=== PATIENT | male | born 1990 | race Two or more races ===

== ENCOUNTER 2017-12-27 05:00 | Emergency (ER) | payer OTHER | END 2017-12-27 05:36 | disposition left against medical advice (07) | LOC: M ED 05:00 | DX: T50.901A Poisoning by unspecified drugs, medicaments and biological substances, accidental (unintentional), initial encounter (principal); Z53.21 Procedure and treatment not carried out due to patient leaving prior to being seen by health care provider ==

== ENCOUNTER 2020-01-29 00:19 | Emergency (ER) | payer MEDICAID, OTHER ==
[~2020-01-29] VITALS: Ht 180.3 cm; Wt 81.8 kg
[2020-01-29 01:45] VITALS: BP 106/57
== END 2020-01-29 02:06 | disposition left against medical advice (07) ==
LOC: M ED 00:19
DX: Z53.21 Procedure and treatment not carried out due to patient leaving prior to being seen by health care provider (principal)

== ENCOUNTER 2020-11-11 09:20 | Inpatient (IN) | payer MEDICAID, OTHER ==
[~2020-11-11] VITALS: Ht 177.8 cm; Wt 75.3 kg
[2020-11-11 10:34] LABS: HEMATOCRIT 44.1 % (42.0-52.0); HEMOGLOBIN 13.8 g/dl (13.5-17.5); MEAN CORPUSCULAR HEMOGLOBIN 28.2 pg (27.0-33.0); MEAN CORPUSCULAR HGB CONC 31.3 g/dl (32.0-36.5); PLATELET COUNT, AUTOMATED 201 10^3/uL (150-450); WHITE BLOOD COUNT 9.5 10^3/uL (4.0-10.0)
[2020-11-11] MEDS ORDERED: BUPR8SUB SL (10:47)
[2020-11-11 11:04] LABS: ACETAMINOPHEN LEVEL < 2.0 UG/ML (10.0-30.0); ALBUMIN 3.9 GM/DL (3.2-5.2); ALT/SGPT 107 U/L (12-78); BILIRUBIN,DIRECT < 0.1 MG/DL (0.0-0.2); BILIRUBIN,TOTAL 0.2 MG/DL (0.2-1.0); BLOOD UREA NITROGEN 14 MG/DL (7-18); CALCIUM LEVEL 9.1 MG/DL (8.5-10.1); CARBON DIOXIDE LEVEL 25 MEQ/L (21-32); CHLORIDE LEVEL 110 MEQ/L (98-107); CREATININE FOR GFR 0.74 MG/DL (0.70-1.30); ETHYL ALCOHOL (ETHANOL) < 0.003 % (0.000-0.010); GLOMERULAR FILTRATION RATE > 60.0 (>60); GLUCOSE, FASTING 125 MG/DL (70-100); SALICYLATE LEVEL 6.4 MG/DL (5.0-30.0); SODIUM LEVEL 141 MEQ/L (136-145); THYROID STIMULATING HORMONE 0.653 uIU/ML (0.358-3.740); TOTAL PROTEIN 7.4 GM/DL (6.4-8.2)
[2020-11-11 11:40] LABS: AMPHETAMINES LEVEL URINE NEGATIVE (NEGATIVE); BARBITURATES URINE NEGATIVE (NEGATIVE); BENZODIAZEPINES URINE NEGATIVE (NEGATIVE); CANNABINOIDS URINE POSITIVE (NEGATIVE); COCAINE METABOLITE URINE NEGATIVE (NEGATIVE); METHADONE URINE NEGATIVE (NEGATIVE); OPIATES URINE NEGATIVE (NEGATIVE); PHENCYCLIDINE URINE NEGATIVE (NEGATIVE)
[2020-11-11] MEDS ORDERED: MOM 30ML SUSPENSION UDC PO PRN (14:40)
[2020-11-11] MEDS ORDERED: MAALOX 30 ML SUSP *UDC PO PRN (14:40)
[2020-11-11] MEDS ORDERED: ACETAMINOPHEN TAB 650MG DOSE (2X325MG) PO PRN (14:40)
[2020-11-11] MEDS ORDERED: DULO1CAP4 PO (14:46)
[2020-11-11] MEDS: OLANZapine ORAL DISINTEGRATING TAB 5MG PO PRN (16:08)
[2020-11-11] MEDS: NICOTINE 21MG/24HR 1 EA TRANSDERMAL TD SCH (17:55)
[2020-11-11 18:15] VITALS: BP 137/80
[2020-11-11] MEDS ORDERED: OLANZapine 5 MG TAB PO SCH (21:00)
[2020-11-11] MEDS: BUPRENORPHINE HCL 8MG SUBINGUAL TABLET SL SCH (21:00)
--- NOTE | 2020-11-11 23:20 | REPVR ---
PROCEDURE INFORMATION: Exam: CT Head Without Contrast Exam date and time: 11/11/2020 10:59 PM Age: 29 years old Clinical indication: Altered mental status/memory loss; Confusion or disorientation TECHNIQUE: Imaging protocol: Computed tomography of the head without contrast. Radiation optimization: All CT scans at this facility use at least one of these dose optimization techniques: automated exposure control; mA and/or kV adjustment per patient size (includes targeted exams where dose is matched to clinical indication); or iterative reconstruction. COMPARISON: CT Head W/O FOLL BY WITH CONTR 06/02/2015 11:28 AM FINDINGS: Brain: There is no acute intracranial hemorrhage or abnormal extra-axial fluid collection identified. There is no intracranial mass effect or shift of midline structures. The calhoun-white differentiation is preserved throughout. Cerebral ventricles: There is no sulcal or ventricular effacement. The basilar cisterns are open. No hydrocephalus. There is a normal-variant cavum septum pellucidum. Bones/joints: No calvarial fracture or destructive osseous lesions are seen. Paranasal sinuses: The visualized sinuses are unremarkable. Mastoid air cells: There is no mastoid effusion detected. Soft tissues: Unremarkable. IMPRESSION: No acute intracranial pathology identified by CT. Electronically signed by: Alexa Smith On 11/11/2020 23:20:57 PM
[2020-11-12] MEDS: OLANZapine ORAL DISINTEGRATING TAB 5MG PO PRN (00:36)
[2020-11-12] MEDS ORDERED: LORazepam 2 MG TAB PO STA (01:33)
[2020-11-12] MEDS ORDERED: diphenhydrAMINE 50MG CAP PO STA (01:33)
[2020-11-12] MEDS: BUPRENORPHINE HCL 8MG SUBINGUAL TABLET SL SCH ×2 (09:00→20:10)
[2020-11-12] MEDS: OLANZapine 10 MG TAB PO SCH ×3 (09:00→20:09)
[2020-11-12] MEDS: NICOTINE 21MG/24HR 1 EA TRANSDERMAL TD SCH (09:18)
[2020-11-12] MEDS ORDERED: ALBUTEROL 90 MCG/ACT 8GM HFA INHALER INH PRN (10:45)
--- NOTE | 2020-11-12 10:49 | HPEPDOC ---
[facility] Medical History & Physical Date of Admission Nov 11, 2020 Date of Service: Nov 12, 2020 History and Physical CHIEF COMPLAINT: Anxiety HISTORY OF PRESENT ILLNESS: 29-year-old male admitted to the inpatient mental health unit due to anxiety disorder with prior history significant for asthma with no prior intubations in the past. Her daily or nighttime symptoms. He denies any dyspnea on exertion, shortness of breath, wheezing and has no daily or nighttime symptoms of asthma. He has not seen an board setter in the past and has not been on any maintenance medications for asthma. He otherwise denies any fever, chills, shortness of breath, sore throat, changes in weight, ap petite, sleep habits bowel or urine. He denies any polyphagia, polydipsia, polyuria, dysuria, urgency, frequency, flank pain, nausea, vomiting, diarrhea, abdominal pain, palpitations, lightheadedness, dizziness, ear pain, changes in vision appropriately, extremity weakness or paresthesias. Despite being a smoker for "many years," He denies any chronic cough, hemoptysis, dyspnea and exertion, and has never had pulmonary function testing in the past. PAST MEDICAL HISTORY: Asthma, anxiety, tobacco abuse PAST SURGICAL HISTORY: None SOCIAL HISTORY: Denies recreational drug use. Social alcohol use. Smokes a pack a day for "many years" . No healthcare proxy FAMILY HISTORY: Mother, father alive and well unknown medical problems ALLERGIES: Please see below. REVIEW OF SYSTEMS: 10 point review of systems negative aside from positive findings on HPI HOME MEDICATIONS: Please see below. PHYSICAL EXAMINATION: VITAL SIGNS: See below GENERAL APPEARANCE: No distress HEENT: No pallor icterus. Pupils equally round, reactive to light and accommodation. Extra muscles are intact. Moist mucous membranes. No JVD, thyromegaly or cervical lymphadenopathy CARDIOVASCULAR: S1, S2, regular rate, rhythm LUNGS: Clear to auscultation wheezing, rales or rhonchi. Air entry is equal ABDOMEN: Positive bowel sounds, soft, nontender, nondistended EXTREMITIES: No cyanosis, clubbing or pitting edema LABORATORY DATA: See below. MICROBIOLOGY: Please see below. ASSESSMENT: 29-year-old male admitted to the inpatient mental health unit due to anxiety disorder with prior history significant for asthma with no prior intubations in the past. Her daily or nighttime symptoms. He denies any dyspnea on exertion, shortness of breath, wheezing and has no daily or nighttime symptoms of asthma. He has not seen an board setter in the past and has not been on any maintenance medications for asthma. He otherwise denies any fever, chills, shortness of breath, sore throat, changes in weight, appetite, sleep habits bowel or urine. He denies any polyphagia, polydipsia, polyuria, dysuria, urgency, frequency, flank pain, nausea, vomiting, diarrhea, abdominal pain, palpitations, lightheadedness, dizziness, ear pain, changes in vision appropriately, extremity weakness or paresthesias.Despite being a smoker for "many years," He denies any chronic cough, hemoptysis, dyspnea and exertion, and has never had pulmonary function testing in the past. Anxiety disorder History of asthma Tobacco abuse PLAN: Albuterol as needed every 2 hourly for wheezing or shortness of breath. Tobacco cessation counseling and nicotine patch. Hospital service will sign off. Please reconsult if no acute medical problems occur by calling [facility] physicians at [phone]. Vital Signs Vital Signs Date Time Temp Pulse Resp B/P (MAP) Pulse Ox O2 Delivery O2 Flow Rate FiO2 11/11/20 18:15 99.6 80 20 137/80 (99) 100 11/11/20 17:09 Room Air Laboratory Data Microbiology Microbiology 11/11/20 Respiratory Virus Panel (PCR) (EWELINA) - Final, Complete Home Medications Scheduled Buprenorphine HCl (Buprenorphine HCl) 8 Mg Tab.subl, 8 MG SL BID Duloxetine Hcl (Duloxetine HCl) 20 Mg Capsule.dr, 20 MG PO DAILY Allergies Coded Allergies: amoxicillin (Verified Allergy, Intermediate, HIVES, 11/11/20) A-FIB/CHADSVASC A-FIB History Current/History of A-Fib/PAF?: No Current PO Anticoag Therapy: No Age/Risk Factor Scoring CHADSVASC: CHADSVASC Response (Comments) Value Age Risk Factor Age < 65 years old 0 Gender Risk Factor Male 0 Hx of CHF No 0 Hx of HTN No 0 Hx of Stroke/TIA/or VTE No 0 Hx of Diabetes No 0 Hx of Vascular Disease No 0 Total 0 Treatment Treatment ordered: NONE MACHO CARRION MD Nov 12, 2020 10:49
--- NOTE | 2020-11-12 20:14 | MHHPEPDOC ---
General Date Of Admission: Nov 11, 2020 Legal Status: 9.39 Chief Complaint Anxiety, panic attacks and paranoia. History of Present Illness HISTORY OF THE PRESENT ILLNESS: Patient is a 29 -year-old Other, male, who, as per ED report: "Pt. mother called 911 as pt wanted to come to ER due to extreme anxiety and panic attacks. Pt. was willing to come to ER. Upon arrival to ER pt stated he did not want to be here but was unable to articulate why he was here. he was unable to focus and answer questions. Pt. mother,[phone] was contacted. Mother reports that pt has supposedly been sober for past 13 days,recently started on anxiety meds and subutex. She reports pt has been talking to self,screaming and yelling at times. Pt. brother,[phone], states that pt. has been very paraniod, stating that people from [employer] have been following him, that the tv has been talking to him and that people are out to get him. Brother states that pt stated two days ago that he would rather than go through this again". Psychiatric Review of Systems Depression (2 or more weeks): depressed mood, insomnia/hypersomnia, feelings of excess/guilt, decreased energy, difficulty concentrating, appetite changes (erratic), other (he says he doesn't know if he has helped hopeless. Denies feeling helpless) Brittany (4 or more days of): talkativity, pressured, distractibility, goal- directed activities, engages in risky behavior Psychosis: auditory hallucination (depends on "where I am"), paranoia PTSD: other (He is minimizing his symptoms, not cooperative) Anxiety: gen/non-specific anxiety, panic attacks Anxiety/ 6 months or more of: difficulty concentrating, irritability Past Psychiatric History Previous Psychiatric Diagnosis: He says he is recovering from substance abuse???--H/O depression, anxiety Previous Psychiatric Admissions: Yes, to a crisis unit, in [place] Suicide Attempts: he tried 3 or 4 times Psychiatric Follow-up: Yes at [facility] Psychiatric medications: Hedid, he says he had "anxiety pills but I stopped using those". Past Medical History Medical Problems Asthma Head Injury: No Seizures: Yes (he thinks it was drug related) Hospitalizations: Yes Surgeries: No Family Medical/Psychiatric HX Medical Problems diabetes, depression Psychiatric Disorders: Yes (depression on both sides of the family) Addiction: Yes (brother) Suicide Attemps/Completions: No Addiction History nicotine, cocaine (he has tried it), ecstasy (he tried it), amphetamines, opioids (he has overdosed on heroin), methamphetamines, heroin (he has used heroin), other (marijuana) Social History Childhood: He grew up with his mother, he has siblings, he gets along with his siblings. He did not like going to school "because I hate crowds of people". He says he is estranged from his father Abuse/Trauma: He says "I don't know" Current Living Situation: He lives by himself Education: he didn't finish [employer], has not got a GED Employment: Unemployed Social Support: mother and friends Legal: he says he got fines and tickets Marital: not , no children Mental Status Examination General Appearance: appears stated age, hospital scubs/clothing Build: average Demeanor: mistrustful, preoccupied, guarded Eye Contact: intense Activity: anxious Behavior: resistant Speech: clear, spontaneous, reg/rate,rhythm,volume Mood: anxious, irritable Affect: full, labile, anxious Thought Process: logical/linear Thought Content (Delusions): denies SI, HI, AVH, paranoia Thought Content (Other): preoccupied, guarded, ideas of reference Thought Content (Aggressive): none reported Perception (Hallucinations): none reported Perception (Other): none reported Cognition (Impairment of): none reported Cognition(Intelligence Est.): average Oriented: Awake, Alert, Oriented times three Insight: poor Judgment: Poor Psychosis: Denies Diagnoses 1. Unspecified psychotic disorder 2. substance abuse 3. R/O substance induced psychotic disorder A-FIB/CHADSVASC A-FIB History Current/History of A-Fib/PAF?: No Current PO Anticoag Therapy: No Age/Risk Factor Scoring CHADSVASC: CHADSVASC Response (Comments) Value Age Risk Factor Age < 65 years old 0 Gender Risk Factor Male 0 Hx of CHF No 0 Hx of HTN No 0 Hx of Stroke/TIA/or VTE No 0 Hx of Diabetes No 0 Hx of Vascular Disease No 0 Total 0 Treatment Treatment ordered: NONE Reason Anticoagulant not given: Not indicated/[id number] Assessment He is very paranoid, he says that people have been trying to listen to his conversations, they are out of thedoor, listening to us while we zoom. He feels people are following in the Hallways, he is defensive and guarded, he says he doesn't have to go out to talk to anybody ( other patients or staff). This financial writer told him nobody is demanding him to do that, he can stay in his room until he feels better. As the interview progressed he was able to relax, calm and cooperate with it. His CT of the head was negative Initial Treatment Plan 1. Patient was admitted on a [9.39] status. 2. Complete history was obtained. 3. With patients permission, family will be contacted and database will be expanded. 4. Patients medication regimen will be reviewed and changed accordingly. 5. Patient will be provided with protected environment. 6. Patient will be treated with individual, group, and milieu therapies. 7. Patient will receive supportive psych-education. 8. Discharge planning will commence immediately. 9. Outpatient follow-up treatment will be strongly recommended. 10. The initial treatment plan will focus initially on: * Anxiety * altered thoughts * substance abuse * ineffective coping ESTIMATED LENGTH OF STAY: 3-5 DAYS. TIME SPENT COUNSELING AND COORDINATING INITIAL CARE: 50 minutes. Tobacco Cessation Screen Tobacco Cessation Tx Ordered?: Yes Ordered/Pending Vital Signs Vital Signs Date Time Temp Pulse Resp B/P (MAP) Pulse Ox O2 Delivery O2 Flow Rate FiO2 11/11/20 18:15 99.6 80 20 137/80 (99) 100 11/11/20 17:09 Room Air Medications Scheduled Buprenorphine HCl (Buprenorphine HCl) 8 Mg Tab.subl, 8 MG SL BID, (Reported) Duloxetine Hcl (Duloxetine HCl) 20 Mg Capsule.dr, 20 MG PO DAILY, (Reported) Allergies Coded Allergies: amoxicillin (Verified Allergy, Intermediate, HIVES, 11/11/20) KHUSHI PATEL MD Nov 12, 2020 13:57
[2020-11-13 06:06] VITALS: BP 168/89
[2020-11-13 07:57] LABS: CHOLESTEROL RISK RATIO 2.6 (<5)
[2020-11-13] MEDS: BUPRENORPHINE HCL 8MG SUBINGUAL TABLET SL SCH ×3 (09:00→20:27)
[2020-11-13] MEDS: OLANZapine 10 MG TAB PO SCH ×2 (09:01→20:27)
[2020-11-13] MEDS: NICOTINE 21MG/24HR 1 EA TRANSDERMAL TD SCH (09:03)
[2020-11-13] MEDS ORDERED: LORazepam 2 MG TAB PO ONE (09:30)
--- NOTE | 2020-11-13 13:30 | MHIPN ---
[facility] PROGRESS NOTE DATE: 11/13/2020 CHIEF COMPLAINT: "I'd like to be discharged. I have anxiety." SUBJECTIVE: He is a 29-year-old male. The patient was brought by the police. His mother called, said that patient was extremely anxious and it was reported he said "I would rather than go through this again." Patient has a significant substance abuse problem. He is recovering from use of drugs. He is followed up at [facility]. Now still continues to be anxious; however, his hallucinations have resolved. He is able to sleep better. MENTAL STATUS EXAMINATION: Casually dressed, cooperative. Made good eye contact. Psychomotor activity is normal. Somewhat anxious. Speech is somewhat mumbling. Thought content: Denied any suicidal or homicidal ideas. Perception: Denied any auditory or visual hallucinations. Insight and judgment are limited. DIAGNOSES: 1. Psychotic disorder, not otherwise specified. 2. Polysubstance use disorder; positive for cannabis. VITAL SIGNS: Temperature 97.9, pulse 97, respiratory rate 16, blood pressure 168/89, pulse oximetry 100. LABORATORY STUDIES: CBC within normal limits. CMP within normal limits. ASSESSMENT AND PLAN: Continue current medication. Titrate the dose. Consider discharging him in 2-3 days. TIME SPENT: 25 minutes.
[2020-11-13 17:53] VITALS: BP 125/87
[2020-11-14 06:30] VITALS: BP 143/88
[2020-11-14] MEDS: NICOTINE 21MG/24HR 1 EA TRANSDERMAL TD SCH (08:24)
[2020-11-14] MEDS: BUPRENORPHINE HCL 8MG SUBINGUAL TABLET SL SCH ×2 (08:55→20:02)
[2020-11-14] MEDS: OLANZapine 10 MG TAB PO SCH ×2 (09:00→20:02)
[2020-11-14] MEDS: OLANZapine ORAL DISINTEGRATING TAB 5MG PO PRN (11:37)
--- NOTE | 2020-11-14 16:24 | MHIPNPDOC ---
[facility] Progress Note Progress Note DATE OF SERVICE: 11/14/20 SUBJECTIVE: "I'd like to be discharged. I have anxiety." The medication is making me tired. OBJECTIVE: He is a 29-year-old male. The patient was brought by the police. His mother called, said that patient was extremely anxious and it was reported he said "I would rather than go through this again." Patient has a significant substance abuse problem. He is recovering from use of drugs. He is followed up at [facility]. Now still continues to be anxious; however, his hallucinations have resolved. He is able to sleep better. Continues to be confused and has significant thought blocking.There is questionable AH. MENTAL STATUS EXAMINATION: Casually dressed, cooperative. Made good eye contact. Psychomotor activity is normal. Somewhat anxious. Speech is somewhat mumbling. Thought content: Denied any suicidal or homicidal ideas. Perception: Denied any auditory or visual hallucinations. Insight and judgment are limited. DIAGNOSES: 1. Psychotic disorder, not otherwise specified. 2. Polysubstance use disorder; positive for cannabis. VITAL SIGNS: Temperature 97.9, pulse 97, respiratory rate 16, blood pressure 168/89, pulse oximetry 100. LABORATORY STUDIES: CBC within normal limits. CMP within normal limits. ASSESSMENT AND PLAN: Continue current medication. Titrate the dose. Consider discharging him in 2-3 days. Decrease Zyprexa 10 mg Hs TIME SPENT: 25 minutes. Vital Signs Vital Signs Date Time Temp Pulse Resp B/P (MAP) Pulse Ox O2 Delivery O2 Flow Rate FiO2 11/14/20 06:30 98.3 80 20 143/88 (106) 99 Room Air Current Medications Current Medications Medications (Trade) Dose Ordered Sig/Rishi Route PRN Reason Start Time Stop Time Status Last Admin Dose Admin Acetaminophen (Tylenol Tab) 650 mg Q6HP PRN PO HEADACHE or DISCOMFORT 11/11/20 14:40 Al Hydrox/Mg Hydrox/Simethicone (Mylanta) 30 ml Q4HP PRN PO HEARTBURN/INDIGESTION 11/11/20 14:40 Albuterol Sulfate (Proventil, Ventolin Hfa) 2 puff Q2HP PRN INH SHORTNESS OF BREATH 11/12/20 10:45 Buprenorphine HCl (Subutex) 8 mg BID SL 11/11/20 21:00 11/14/20 08:55 Diphenhydramine HCl (Benadryl) 50 mg STAT STAT PO 11/12/20 01:33 11/12/20 01:38 DC Haloperidol (Haldol) 10 mg STAT STAT PO 11/12/20 01:33 11/12/20 01:38 DC Home Med (Med Rec Complete!) ASDIRECTED XX 11/11/20 14:50 11/11/20 14:48 DC Lorazepam (Ativan) 2 mg STAT STAT PO 11/12/20 01:33 11/12/20 01:38 DC Magnesium Hydroxide (Milk Of Magnesia) 30 ml DAILYPRN PRN PO CONSTIPATION 11/11/20 14:40 Nicotine (Nicoderm Cq 21mg) 1 patch DAILY TD 11/11/20 09:00 11/14/20 08:24 Olanzapine (ZyPREXA ZYDIS) 5 mg TIDP PRN PO AGITATION 11/11/20 14:40 11/14/20 11:37 Olanzapine (ZyPREXA) 5 mg BID PO 11/11/20 21:00 11/12/20 01:37 DC Olanzapine (ZyPREXA) 10 mg BID PO 11/12/20 09:00 11/14/20 09:20 DC 11/13/20 20:27 Olanzapine (ZyPREXA) 10 mg QHS PO 11/14/20 21:00 Allergies Coded Allergies: amoxicillin (Verified Allergy, Intermediate, HIVES, 11/11/20) SHAWNA PALACIOS MD Nov 14, 2020 16:24
[2020-11-14 18:00] VITALS: BP 133/85
[2020-11-15 06:31] VITALS: BP 143/86
[2020-11-15] MEDS: BUPRENORPHINE HCL 8MG SUBINGUAL TABLET SL SCH ×2 (08:58→20:13)
[2020-11-15] MEDS: NICOTINE 21MG/24HR 1 EA TRANSDERMAL TD SCH (08:58)
--- NOTE | 2020-11-15 14:57 | MHIPNPDOC ---
[facility] Progress Note Progress Note DATE OF SERVICE: 11/15/20 SUBJECTIVE: "I'd like to be discharged. I am feeling better." OBJECTIVE: He is a 29-year-old male. The patient was brought by the police. His mother called, said that patient was extremely anxious and it was reported he said "I would rather than go through this again." Patient has a significant substance abuse problem. He is recovering from use of drugs. He is followed up at [facility]. Now still continues to be anxious; however, his hallucinations have resolved. He is able to sleep better.Pt is more coherent and clearer. MENTAL STATUS EXAMINATION: Casually dressed, cooperative. Made good eye contact. Psychomotor activity is normal. Somewhat anxious. Speech is somewhat mumbling. Thought content: Denied any suicidal or homicidal ideas. Perception: Denied any auditory or visual hallucinations. Insight and judgment are limited. DIAGNOSES: 1. Psychotic disorder, not otherwise specified. 2. Polysubstance use disorder; positive for cannabis. LABORATORY STUDIES: CBC within normal limits. CMP within normal limits. ASSESSMENT AND PLAN: Continue current medication. Titrate the dose. Consider discharging him in 2-3 days. Decrease Zyprexa 10 mg hs TIME SPENT: 25 minutes. Vital Signs Vital Signs Date Time Temp Pulse Resp B/P (MAP) Pulse Ox O2 Delivery O2 Flow Rate FiO2 11/15/20 06:31 97.4 89 20 143/86 (105) 100 Room Air Current Medications Current Medications Medications (Trade) Dose Ordered Sig/Rishi Route PRN Reason Start Time Stop Time Status Last Admin Dose Admin Acetaminophen (Tylenol Tab) 650 mg Q6HP PRN PO HEADACHE or DISCOMFORT 11/11/20 14:40 Al Hydrox/Mg Hydrox/Simethicone (Mylanta) 30 ml Q4HP PRN PO HEARTBURN/INDIGESTION 11/11/20 14:40 Albuterol Sulfate (Proventil, Ventolin Hfa) 2 puff Q2HP PRN INH SHORTNESS OF BREATH 11/12/20 10:45 Buprenorphine HCl (Subutex) 8 mg BID SL 11/11/20 21:00 11/15/20 08:58 Diphenhydramine HCl (Benadryl) 50 mg STAT STAT PO 11/12/20 01:33 11/12/20 01:38 DC Haloperidol (Haldol) 10 mg STAT STAT PO 11/12/20 01:33 11/12/20 01:38 DC Home Med (Med Rec Complete!) ASDIRECTED XX 11/11/20 14:50 11/11/20 14:48 DC Lorazepam (Ativan) 2 mg STAT STAT PO 11/12/20 01:33 11/12/20 01:38 DC Magnesium Hydroxide (Milk Of Magnesia) 30 ml DAILYPRN PRN PO CONSTIPATION 11/11/20 14:40 Nicotine (Nicoderm Cq 21mg) 1 patch DAILY TD 11/11/20 09:00 11/15/20 08:58 Olanzapine (ZyPREXA ZYDIS) 5 mg TIDP PRN PO AGITATION 11/11/20 14:40 11/14/20 11:37 Olanzapine (ZyPREXA) 5 mg BID PO 11/11/20 21:00 11/12/20 01:37 DC Olanzapine (ZyPREXA) 10 mg BID PO 11/12/20 09:00 11/14/20 09:20 DC 11/13/20 20:27 Olanzapine (ZyPREXA) 10 mg QHS PO 11/14/20 21:00 11/14/20 20:02 Allergies Coded Allergies: amoxicillin (Verified Allergy, Intermediate, HIVES, 11/11/20) SHAWNA PALACIOS MD Nov 15, 2020 14:57
[2020-11-15 17:40] VITALS: BP 133/87
[2020-11-15] MEDS: OLANZapine 10 MG TAB PO SCH (20:13)
[2020-11-16 06:37] VITALS: BP 157/80
[2020-11-16] MEDS ORDERED: OLAN10TA2 PO (08:18)
[2020-11-16] MEDS: NICOTINE 21MG/24HR 1 EA TRANSDERMAL TD SCH (09:26)
[2020-11-16] MEDS: BUPRENORPHINE HCL 8MG SUBINGUAL TABLET SL SCH (09:26)
--- NOTE | 2020-11-16 09:33 | MHDS ---
[facility] DISCHARGE SUMMARY DATE OF ADMISSION: 11/11/2020 DATE OF DISCHARGE: 11/16/2020 DIAGNOSES: 1. Psychotic disorder, not otherwise specified. 2. Polysubstance use disorder. He was positive for cannabis. IDENTIFYING DATA: This is a 29-year-old male who was brought by the police. His mother called and said the patient was extremely anxious and he reportedly told that he wound rather than go through this. The patient has a significant history of substance abuse. Currently, followed up at [facility]. For details of history of present illness, past psychiatric history, personal history, medical history please refer to the initial evaluation. COURSE IN THE HOSPITAL: The patient initially was isolative, was unable to communicate well. He was not making much sense. There was a little bit of stammering when he spoke. He became more anxious. He was placed on Zyprexa 20 mg a day, which was subsequently reduced to 10 mg a day. He became less anxious. He started attending groups. His mood improved. He related well with the staff. No behavioral problems. Denied any side effects from the medication. No current suicidal ideas or homicidal ideas. MENTAL STATUS EXAMINATION: Causally dressed, cooperative, made good eye contact. Psychomotor activity is normal. He is less anxious. Speech coherent, goal directed. Denied any auditory hallucinations. Denied any suicidal or homicidal ideas. Memory immediate, remote, recent are good. Insight and judgment are good. LABORATORY DATA: Complete blood count (CBC) within normal limits. Comprehensive metabolic panel (CMP) within normal limits. Lipid profile within normal limits. Toxicology was positive for cannabis. DISCHARGE MEDICATIONS: Olanzapine 10 mg at night. The patient will be receiving Subutex at [facility], he takes 8 mg twice a day. The patient will go home. Follow up at [facility]. Time spent is less than 30 minutes.
== END 2020-11-16 12:00 | disposition home or self-care (01) | DRG 751 ==
LOC: M ED 09:20 → EDBD 09:20 → M ED INP 14:39 → M PSY 17:34
PROVIDERS: ADMIT Psychiatry & Neurology Psychiatry; ATTEND Psychiatry & Neurology Psychiatry
DX: F29 Unspecified psychosis not due to a substance or known physiological condition (principal); F19.10 Other psychoactive substance abuse, uncomplicated; J45.909 Unspecified asthma, uncomplicated; F12.10 Cannabis abuse, uncomplicated; F17.210 Nicotine dependence, cigarettes, uncomplicated; Z20.822 Contact with and (suspected) exposure to COVID-19; Z79.899 Other long term (current) drug therapy; Z88.1 Allergy status to other antibiotic agents; Z91.5 Personal history of self-harm; Z91.14 Patient's other noncompliance with medication regimen

== ENCOUNTER 2020-12-20 00:06 | Inpatient (IN) | payer MEDICAID, OTHER ==
[~2020-12-20] VITALS: Ht 177.8 cm; Wt 79.2 kg
[~2020-12-20 00:06] MED LIST: BUPR8SUB SL; DULO1CAP4 PO; OLAN1TAB20 PO
[2020-12-20] MEDS ORDERED: HOME MED LIST COMPLETE! XX SCH (03:20)
[2020-12-20] MEDS ORDERED: OLANZapine ORAL DISINTEGRATING TAB 5MG PO PRN (04:05)
[2020-12-20] MEDS ORDERED: MAALOX 30 ML SUSP *UDC PO PRN (04:05)
[2020-12-20] MEDS ORDERED: ACETAMINOPHEN TAB 650MG DOSE (2X325MG) PO PRN (04:05)
[2020-12-20] MEDS ORDERED: traZODone 50 MG TAB PO PRN (04:05)
[2020-12-20] MEDS ORDERED: MOM 30ML SUSPENSION UDC PO PRN (04:05)
[2020-12-20 08:21] VITALS: BP 150/78
--- NOTE | 2020-12-20 12:47 | MHHPEPDOC ---
General Date Of Admission: December 20, 2020 Legal Status: 9.39 Chief Complaint I am trying to decide whether I can leave before have to stay ". History of Present Illness HISTORY OF THE PRESENT ILLNESS: Patient is a 29 -year-old Other, male, who [has a long history of polysubstance abuse in the past and recent inpatient admission in October. We'll apparently is not receiving any active outpatient care. He was brought to emergency room by ambulance and admitted on 939 status due to reports of grossly disorganized mental status. On examination, patient is in poor contact, very anxious, perplexed and preoccupied and not able to give any relevant coherent answers. He appears extremely preoccupied and actively hallucinating, showing scattered and fragmented thinking. 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 He is superficially denies taking any medicine will using any drugs. Due to his disorganized thinking. He is not able to give much coherent information and this is an incomplete evaluation. He is a however, denying any suicidal thoughts and does not appear to be acutely agitated or assaultive. ]. Psychiatric Review of Systems Depression (2 or more weeks): denies Brittany (4 or more days of): denies Psychosis: auditory hallucination, disorganization PTSD: denies Anxiety: other (appears highly anxious) Past Psychiatric History Previous Psychiatric Diagnosis: [, Polysubstance abuse and psychotic disorder NOS]. Previous Psychiatric Admissions: One admission in October . Suicide Attempts: [None reported]. Psychiatric Follow-up: [Apparently not attending any outpatient]. Psychiatric medications: [Not taking any medicine]. Past Medical History Medical Problems Denies any medical issues Head Injury: No Seizures: Yes (, possible drug withdrawal or seizures in the past) Hospitalizations: No Surgeries: No Family Medical/Psychiatric HX Medical Problems Unable to get the information Psychiatric Disorders: No Addiction: No Suicide Attemps/Completions: No Addiction History opioids, heroin Social History Childhood: [, Unable to get the information]. Abuse/Trauma:[Denies]. Current Living Situation: Claims he lives alone. Education: Didn't finish high school. Employment: [, Unemployed]. 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 Legal: [Denies any legal history]. Marital: , Single. Mental Status Examination General Appearance: appears stated age Build: average Demeanor: mistrustful, withdrawn, preoccupied, guarded Eye Contact: avoidant Activity: anxious Behavior: cooperative Speech: slow, non-spontaneous, impoverished, other (, not able to give coherent information. Very fragmented spotty answers) Mood: anxious, other (, confused, perplexed) Affect: constricted, inappropriate, incongruent, anxious, disorganized Thought Process: incoherent, tangential, loose, slow Thought Content (Delusions): bizarre Thought Content (Other): preoccupied, guarded, internal-stimuli Thought Content (Aggressive): none reported Perception (Hallucinations): other (, appears to be actively hallucinating) Perception (Other): other (, unable to evaluate) Cognition (Impairment of): unable to assess Oriented: Awake Insight: poor Judgment: Poor Diagnoses Psychotic disorder NOS History of polysubstance abuse A-FIB/CHADSVASC A-FIB History Current/History of A-Fib/PAF?: No Current PO Anticoag Therapy: No Age/Risk Factor Scoring CHADSVASC: CHADSVASC Response (Comments) Value Gender Risk Factor Male 0 Hx of CHF No 0 Hx of HTN No 0 Hx of Stroke/TIA/or VTE No 0 Hx of Diabetes No 0 Hx of Vascular Disease No 0 Total 0 Treatment Treatment ordered: NONE Assessment The patient appears grossly disorganized, perplexed, but not agitated or aggressive. We'll try to stabilize with the Seroquel and supportive therapy and further evaluate. Initial Treatment Plan 1. Patient was admitted on a 9.39 status. 2. Complete history was obtained. 3. With patients permission, family will be contacted and database will be expanded. 4. Patients medication regimen will be reviewed and changed accordingly. 5. Patient will be provided with protected environment. 6. Patient will be treated with individual, group, and milieu therapies. 7. Patient will receive supportive psych-education. 8. Discharge planning will commence immediately. 9. Outpatient follow-up treatment will be strongly recommended. 10. The initial treatment plan will focus initially on: * Depression. * Risk for suicide. ESTIMATED LENGTH OF STAY: 5-7 DAYS. TIME SPENT COUNSELING AND COORDINATING INITIAL CARE: 40 minutes. Tobacco Cessation Screen If Patient is a Smoker Unable to evaluate if he is active smoker N/A-No Antipsychotics Vital Signs Vital Signs Date Time Temp Pulse Resp B/P (MAP) Pulse Ox O2 Delivery O2 Flow Rate FiO2 12/20/20 08:21 96.7 78 18 150/78 (102) 98 Room Air Medications No Active Prescriptions or Reported Meds Allergies Coded Allergies: amoxicillin (Verified Allergy, Intermediate, HIVES, 11/11/20) BLANQUITA DOWD M.D. December 20, 2020 12:47
[2020-12-20] MEDS ORDERED: LORazepam 1 MG TAB PO PRN (13:00)
[2020-12-20 16:17] VITALS: BP 132/69
[2020-12-20] MEDS: QUEtiapine FUMARATE 100 MG TAB PO SCH (21:00)
[2020-12-21 06:28] VITALS: BP 109/70
[2020-12-21] MEDS: QUEtiapine FUMARATE 50MG TAB PO SCH (09:00)
--- NOTE | 2020-12-21 11:04 | MHIPNPDOC ---
[facility] Progress Note Progress Note DATE OF SERVICE: 12/21/20 The patient refused his Seroquel last night without any clear reasons. He is in same mental status with very perplexed affect and fragmented and disorganized t hinking and unable to give any coherent information. When asked about his reason to come to hospital. The patient mumbled words that his community case manager told him to come in but doesn't know why. He has long history with a similar presentation in the past and apparently has a mother who is in [place] to her he is very dependent and attached. He is not agitated and is not aggressive, but appears very odd and perplexed and appears grossly disorganized. HISTORY: . VITAL SIGNS: See below. NEW TEST RESULTS: . CURRENT MEDICATIONS: See below. MENTAL STATUS EXAMINATION: Patient is a 29-year old male, who is in poor contact. Speech: Is , not productive, not spontaneous. Language skills are poor . Thought processes including: [place] scattered. Thought content: , Unable to evaluate. Abstract reasoning, and computation: , Poor. Description of associations: [place] scattered. Description of abnormal or psychotic thoughts: Appears very paranoid, anxious, fearful, but denies any problem. Judgment: , Poor. Insight: very poor. Orientation: Difficult to evaluate. Recent and remote memory: , Poor. Attention span and concentration: , Poor. Language: . Fund of knowledge: , Poor. Mood: , Anxious and confused. Affect: Blunted perplexed. DIAGNOSES: 1. ]. Psychotic disorder, NOS 2. . 3. . ASSESSMENT:[, Grossly disorganized, unable to cooperate] MANAGEMENT PLAN: [Support and education, and try to stabilize with medications]. TIME SPENT: [20] minutes. Vital Signs Vital Signs Date Time Temp Pulse Resp B/P (MAP) Pulse Ox O2 Delivery O2 Flow Rate FiO2 12/21/20 08:54 Room Air 12/21/20 06:28 97.5 78 20 109/70 (83) 99 Current Medications Current Medications Medications (Trade) Dose Ordered Sig/Rishi Route PRN Reason Start Time Stop Time Status Last Admin Dose Admin Acetaminophen (Tylenol Tab) 650 mg Q6HP PRN PO HEADACHE or DISCOMFORT 12/20/20 04:05 Al Hydrox/Mg Hydrox/Simethicone (Mylanta) 30 ml Q4HP PRN PO HEARTBURN/INDIGESTION 12/20/20 04:05 Home Med (Med Rec Complete!) ASDIRECTED XX 12/20/20 03:20 12/20/20 03:22 DC Lorazepam (Ativan) 1 mg Q6HP PRN PO ANXIETY 12/20/20 13:00 Magnesium Hydroxide (Milk Of Magnesia) 30 ml DAILYPRN PRN PO CONSTIPATION 12/20/20 04:05 Olanzapine (ZyPREXA ZYDIS) 5 mg Q4HP PRN PO ANXIETY/AGITATION 12/20/20 04:05 Quetiapine Fumarate (SEROquel) 50 mg DAILY PO 12/21/20 09:00 Quetiapine Fumarate (SEROquel) 100 mg QHS PO 12/20/20 21:00 Trazodone HCl (Desyrel) 50 mg QHSP PRN PO INSOMNIA 12/20/20 04:05 Allergies Coded Allergies: amoxicillin (Verified Allergy, Intermediate, HIVES, 11/11/20) BLANQUITA DOWD M.D. December 21, 2020 11:04
--- NOTE | 2020-12-21 12:11 | HPEPDOC ---
[facility] [place] Medical History & Physical Date of Admission December 20, 2020 Date of Service: December 21, 2020 History and Physical CHIEF COMPLAINT: Routine medical exam HISTORY OF PRESENT ILLNESS: 29-year-old male admitted to the inpatient mental health unit due to depression and risk of suicide. He has pmh significant for anxiety disorder asthma with no prior intubations in the past. Her daily or nighttime symptoms. He denies any dyspnea on exertion, shortness of breath, wheezing and has no daily or nighttime symptoms of asthma. He has not seen an president mortgage company in the past and has not been on any maintenance medications for asthma. He otherwise denies any fever, chills, shortness of breath, sore throat, changes in weight, appetite, sleep habits bowel or urine. He denies any polyphagia, polydipsia, polyuria, dysuria, urgency, frequency, flank pain, nausea, vomiting, diarrhea, abdominal pain, palpitations, lightheadedness, dizziness, ear pain, changes in vision appropriately, extremity weakness or paresthesias.Despite being a smoker for "many years," He denies any chronic cough, hemoptysis, dyspnea and exertion, and has never had pulmonary function testing in the past. Pt c/o muscle stiffness in b/l ue and le since yesterday w/o joint /muscle pains or swelling. no rash or unusual ulcers. no change in gait or balance. no joint swelling. PAST MEDICAL HISTORY: depression , Asthma, anxiety, tobacco abuse PAST SURGICAL HISTORY: None SOCIAL HISTORY: Denies recreational drug use. Social alcohol use. Smokes a pack a day for "many years" . No healthcare proxy FAMILY HISTORY: Mother, father alive and well unknown medical problems ALLERGIES: Please see below. REVIEW OF SYSTEMS: 10 point review of systems negative aside from positive findings on HPI HOME MEDICATIONS: Please see below. PHYSICAL EXAMINATION: VITAL SIGNS: See below GENERAL APPEARANCE: No distress HEENT: No pallor icterus. Pupils equally round, reactive to light and accommodation. Extra muscles are intact. Moist mucous membranes. No JVD, thyromegaly or cervical lymphadenopathy CARDIOVASCULAR: S1, S2, regular rate, rhythm LUNGS: Clear to auscultation wheezing, rales or rhonchi. Air entry is equal ABDOMEN: Positive bowel sounds, soft, nontender, nondistended EXTREMITIES: No cyanosis, clubbing or pitting edema. no joint effusion in b/l knees. no bogginess of small joints of b/l hands. no shoulder effusion. full range of motion b/l ue, le. gait normal LABORATORY DATA: See below. MICROBIOLOGY: Please see below. ASSESSMENT: 29-year-old male admitted to the inpatient mental health unit for depression and risk of suicide. Depression risk of suicide Anxiety disorder History of asthma Tobacco abuse muscle stiff ness. PLAN: PRN flexeril. pt has no worrisome symptoms to indicate need for emergent rheumatologic workup. Albuterol as needed every 2 hourly for wheezing or shortness of breath. Tobacco cessation counseling and nicotine patch. Hospital service will sign off. Please reconsult if no acute medical problems occur by calling [facility] [place] [phone]. Vital Signs Vital Signs Date Time Temp Pulse Resp B/P (MAP) Pulse Ox O2 Delivery O2 Flow Rate FiO2 12/21/20 08:54 Room Air 12/21/20 06:28 97.5 78 20 109/70 (83) 99 Home Medications No Active Prescriptions or Reported Meds Allergies Coded Allergies: amoxicillin (Verified Allergy, Intermediate, HIVES, 11/11/20) A-FIB/CHADSVASC A-FIB History Current/History of A-Fib/PAF?: No Current PO Anticoag Therapy: No Age/Risk Factor Scoring CHADSVASC: CHADSVASC Response (Comments) Value Age Risk Factor Age < 65 years old 0 Gender Risk Factor Male 0 Hx of CHF No 0 Hx of HTN No 0 Hx of Stroke/TIA/or VTE No 0 Hx of Diabetes No 0 Hx of Vascular Disease No 0 Total 0 Treatment Treatment ordered: NONE MACHO CARRION MD December 21, 2020 12:07
[2020-12-21 16:17] VITALS: BP 117/76
[2020-12-21] MEDS: QUEtiapine FUMARATE 100 MG TAB PO SCH (21:00)
[2020-12-22 06:56] VITALS: BP 120/72
[2020-12-22] MEDS: QUEtiapine FUMARATE 50MG TAB PO SCH (09:00)
--- NOTE | 2020-12-22 10:43 | MHIPNPDOC ---
[facility] Progress Note Progress Note DATE OF SERVICE: 12/22/20 Showing no improvement and continued to refuse medication. 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 He is not able to carry on any meaningful conversation and claims that he doesn't know why he is here and he only came because of his rehabilitation caseworker. He refused these prescribed Seroquel and no reason is given. He appears preoccupied and guarded and paranoid, and showing disorganized thinking and somewhat bizarre behavior but not agitated, not aggressive and not showing any suicidal behavi ors. HISTORY: . VITAL SIGNS: See below. NEW TEST RESULTS: . CURRENT MEDICATIONS: See below. MENTAL STATUS EXAMINATION: Patient is a body-year old male, who is in poor contact, but in control. Speech: Is , not productive and not spontaneous. Language skills are poor. Thought processes including: [place] scattered. Thought content: , Unable to evaluate. Denies any problem. Abstract reasoning, and computation: For. Description of associations: Low-dose. Description of abnormal or psychotic thoughts: Appears blocking, paranoid and fearful. Judgment: , Poor. Insight: very poor. Orientation: Appears oriented. Recent and remote memory: poor. Attention span and concentration: , Poor. Language: . Fund of knowledge: poor. Mood: , Anxious, fearful. Affect: Perplexed, blunted. DIAGNOSES: 1. . Psychotic disorder, NOS 2. . 3. . ASSESSMENT:No improvement, remains bizarre, disorganized MANAGEMENT PLAN: , Supportive therapy and education and stabilize with medicine. TIME SPENT: 20 minutes. Vital Signs Vital Signs Date Time Temp Pulse Resp B/P (MAP) Pulse Ox O2 Delivery O2 Flow Rate FiO2 12/22/20 06:56 97.9 77 16 120/72 (88) 100 Room Air Current Medications Current Medications Medications (Trade) Dose Ordered Sig/Rishi Route PRN Reason Start Time Stop Time Status Last Admin Dose Admin Acetaminophen (Tylenol Tab) 650 mg Q6HP PRN PO HEADACHE or DISCOMFORT 12/20/20 04:05 Al Hydrox/Mg Hydrox/Simethicone (Mylanta) 30 ml Q4HP PRN PO HEARTBURN/INDIGESTION 12/20/20 04:05 Home Med (Med Rec Complete!) ASDIRECTED XX 12/20/20 03:20 12/20/20 03:22 DC Lorazepam (Ativan) 1 mg Q6HP PRN PO ANXIETY 12/20/20 13:00 Magnesium Hydroxide (Milk Of Magnesia) 30 ml DAILYPRN PRN PO CONSTIPATION 12/20/20 04:05 Olanzapine (ZyPREXA ZYDIS) 5 mg Q4HP PRN PO ANXIETY/AGITATION 12/20/20 04:05 Quetiapine Fumarate (SEROquel) 50 mg DAILY PO 12/21/20 09:00 Quetiapine Fumarate (SEROquel) 100 mg QHS PO 12/20/20 21:00 Trazodone HCl (Desyrel) 50 mg QHSP PRN PO INSOMNIA 12/20/20 04:05 Allergies Coded Allergies: amoxicillin (Verified Allergy, Intermediate, HIVES, 11/11/20) BLANQUITA DOWD M.D. December 22, 2020 10:43
[2020-12-22 16:28] VITALS: BP 123/73
[2020-12-22] MEDS: QUEtiapine FUMARATE 100 MG TAB PO SCH (20:50)
[2020-12-23] MEDS: QUEtiapine FUMARATE 50MG TAB PO SCH (08:02)
--- NOTE | 2020-12-23 13:47 | MHIPN ---
[facility] PROGRESS NOTE DATE: 12/23/2020 VITAL SIGNS: Blood pressure 123/73, pulse 76, temperature 98.1. This is a video assessment. He is aware of it. He is seen in the presence of staff. He is in the hospital, inpatient psychiatry. I am at home. CHIEF COMPLAINT: Says feels okay. SUBJECTIVE: Seen for followup. Indicates feels okay, though vague on this, and suggests wants to go home. Says was living on his own. Does not indicate where he will go. Says feels good. Indicates moods have been okay. Says slept okay. Appetite okay. Does not think there has been much difference since coming in. Says has people supporting him, but when asked about them cannot name any, is vague. Essentially focused on going home. MENTAL STATUS EXAMINATION: He is neat, somewhat guarded. No agitation. No psychomotor retardation. His speech is spontaneous but full in volume. Answers questions briefly. Denies any thoughts of harming himself or anyone else. At present does not appear to be internally preoccupied. No delusional ideations elicited. Cognition grossly intact. Judgment and insight are compromised. ASSESSMENT: Unspecified psychotic disorder. Consider schizoaffective disorder. Consider schizophrenia. The possibility of drug-induced psychosis is also considered. Has poor insight and judgment. PLAN: Continue observations and care. Encourage participation in activities in the unit, as tolerated. I would suggest looking at obtaining collateral information as well. emergency room (ER) records suggest he had been complaining of hearing voices. Current denies such experience. I would suggest decreasing the Seroquel that he is offered started upon admission at 150 mg daily. He has declined using any of it. Further recommendations will be made depending on the clinical picture.
[2020-12-23] MEDS: QUEtiapine FUMARATE 25 MG TAB PO SCH (20:26)
[2020-12-24 06:26] VITALS: BP 127/66
[2020-12-24 15:19] LABS: BLOOD UREA NITROGEN 21 MG/DL (7-18); CARBON DIOXIDE LEVEL 24 MEQ/L (21-32); CHLORIDE LEVEL 105 MEQ/L (98-107); CREATININE FOR GFR 0.94 MG/DL (0.70-1.30); GLOMERULAR FILTRATION RATE > 60.0 (>60); GLUCOSE, FASTING 69 MG/DL (70-100); POTASSIUM SERUM 4.2 MEQ/L (3.5-5.1); SODIUM LEVEL 141 MEQ/L (136-145)
[2020-12-24 16:24] VITALS: BP 120/64
[2020-12-24] MEDS: QUEtiapine FUMARATE 25 MG TAB PO SCH (21:00)
[2020-12-25 06:48] VITALS: BP 95/70
--- NOTE | 2020-12-25 09:19 | MHIPNPDOC ---
[facility] Progress Note Progress Note DATE OF SERVICE: 12/25/20 The patient is in bed but in control. Is extremely withdrawn, and not very productive at all.. He is eating minimally, but in no acute physical distress and has no new complaints. He states that he would want to go home, but doesn't understand why he is in hospital. He is not showing any bizarre, agitated, aggressive or suicidal behavior but appears very regressed and somewhat odd in his appearance and behavior. He has consistently refused to take any medications. We need further observation and evaluation to assess his clinical condition and any lethality issues. HISTORY: . VITAL SIGNS: See below. NEW TEST RESULTS: . CURRENT MEDICATIONS: See below. MENTAL STATUS EXAMINATION: Patient is a 29-year old male, who is in bed and minimally cooperative. Speech: Is low tone Not productive. Language skills are , poor. Thought processes including: Marked psychomotor retardation. Thought content: , Unable to fully evaluate. Abstract reasoning, and computation: , Poor. Description of associations: Possible blocking and poverty of thoughts. Description of abnormal or psychotic thoughts: , Unable to fully evaluate. Judgment: , Poor. Insight: poor. Orientation: , Difficult to evaluate. Recent and remote memory: , Poor. Attention span and concentration: , Poor. Language: . Fund of knowledge: [For]. Mood: [Appears preoccupied moderately anxious]. Affect: [Blunted perplexed]. DIAGNOSES: 1. . Psychotic disorder, NOS 2. . 3. . ASSESSMENT:[No significant improvement remained extremely withdrawn MANAGEMENT PLAN: [Continuing to supportive of care. Needs Collateral information]. TIME SPENT: [15] minutes. Vital Signs Vital Signs Date Time Temp Pulse Resp B/P (MAP) Pulse Ox O2 Delivery O2 Flow Rate FiO2 12/25/20 06:48 97.3 56 20 95/70 (78) 100 Room Air Laboratory Data 24H Labs Laboratory Tests 2 12/24/20 14:27: Anion Gap 12, Glomerular Filtration Rate > 60.0, Calcium Level 10.0 CBC/BMP Laboratory Tests 12/24/20 14:27 Current Medications Current Medications Medications (Trade) Dose Ordered Sig/Rishi Route PRN Reason Start Time Stop Time Status Last Admin Dose Admin Acetaminophen (Tylenol Tab) 650 mg Q6HP PRN PO HEADACHE or DISCOMFORT 12/20/20 04:05 Al Hydrox/Mg Hydrox/Simethicone (Mylanta) 30 ml Q4HP PRN PO HEARTBURN/INDIGESTION 12/20/20 04:05 Home Med (Med Rec Complete!) ASDIRECTED XX 12/20/20 03:20 12/20/20 03:22 DC Lorazepam (Ativan) 1 mg Q6HP PRN PO ANXIETY 12/20/20 13:00 Magnesium Hydroxide (Milk Of Magnesia) 30 ml DAILYPRN PRN PO CONSTIPATION 12/20/20 04:05 Olanzapine (ZyPREXA ZYDIS) 5 mg Q4HP PRN PO ANXIETY/AGITATION 12/20/20 04:05 Quetiapine Fumarate (SEROquel) 25 mg QHS PO 12/23/20 21:00 Quetiapine Fumarate (SEROquel) 50 mg DAILY PO 12/21/20 09:00 12/23/20 13:19 DC Quetiapine Fumarate (SEROquel) 100 mg QHS PO 12/20/20 21:00 12/23/20 13:19 DC Trazodone HCl (Desyrel) 50 mg QHSP PRN PO INSOMNIA 12/20/20 04:05 Allergies Coded Allergies: amoxicillin (Verified Allergy, Intermediate, HIVES, 11/11/20) BLANQUITA DOWD M.D. December 25, 2020 09:19
[2020-12-25] MEDS: QUEtiapine FUMARATE 25 MG TAB PO SCH (20:23)
[2020-12-26 01:44] VITALS: BP 133/62
[2020-12-26 07:46] LABS: HEMATOCRIT 49.4 % (42.0-52.0); HEMOGLOBIN 15.9 g/dl (13.5-17.5); MEAN CORPUSCULAR HEMOGLOBIN 28.1 pg (27.0-33.0); MEAN CORPUSCULAR HGB CONC 32.2 g/dl (32.0-36.5); MEAN CORPUSCULAR VOLUME 87.4 fl (80.0-96.0); PLATELET COUNT, AUTOMATED 197 10^3/uL (150-450); RED BLOOD COUNT 5.65 10^6/uL (4.30-6.10); WHITE BLOOD COUNT 5.9 10^3/uL (4.0-10.0)
[2020-12-26 08:06] LABS: ALBUMIN 3.9 GM/DL (3.2-5.2); ALT/SGPT 198 U/L (12-78); BILIRUBIN,TOTAL 1.2 MG/DL (0.2-1.0); BLOOD UREA NITROGEN 18 MG/DL (7-18); CARBON DIOXIDE LEVEL 24 MEQ/L (21-32); CHLORIDE LEVEL 106 MEQ/L (98-107); CREATININE FOR GFR 0.81 MG/DL (0.70-1.30); GLOMERULAR FILTRATION RATE > 60.0 (>60); GLUCOSE, FASTING 63 MG/DL (70-100); MAGNESIUM LEVEL 1.8 MG/DL (1.8-2.4); SODIUM LEVEL 142 MEQ/L (136-145); TOTAL PROTEIN 7.4 GM/DL (6.4-8.2)
--- NOTE | 2020-12-26 11:02 | MHIPNPDOC ---
[facility] Progress Note Progress Note DATE OF SERVICE: 12/26/20 Patient is found pacing in his room and is in no acute physical distress. He ate a little bit more and has no physical complaint but his mental status remained unchanged. He is very slow to respond, appears perplexed and not able to give any coherent answers. He is unable to say yes and no to the question if he wanted to go home. He is not able to say why he is in hospital and he is not able to say why he was refusing his medications and even refused food at times. He has not taken any medication and appears to be grossly paranoid, anxious and most likely actively hallucinating, although he has not shown any aggressive or suicidal behavior. HISTORY: . VITAL SIGNS: See below. NEW TEST RESULTS: . CURRENT MEDICATIONS: See below. MENTAL STATUS EXAMINATION: Patient is a 29-year old male, who is in poor contact. Speech: Is , not able to answer questions. Language skills are , poor. Thought processes including: Marked blocking and poverty of thoughts. Thought content: , Unable to evaluate. Abstract reasoning, and computation: For. Description of associations: Fragmented poverty of thoughts. Description of abnormal or psychotic thoughts: , Difficult to evaluate, but appears to be actively hallucinating and grossly paranoid and fearful. Judgment: , Poor. Insight: very poor. Orientation: , Unable to evaluate. Recent and remote memory: , Poor. Attention span and concentration: , Poor. Language: . Fund of knowledge: , Poor. Mood: , Anxious, fearful. Affect: , Preoccupied, perplexed. DIAGNOSES: 1. . Psychotic disorder, NOS 2. . 3. . ASSESSMENT:[Appears grossly paranoid and possibly hallucinating, but is refusing medication] MANAGEMENT PLAN: [. Supportive therapy education and change his medicine from Seroquel to Zydis]. TIME SPENT: [15] minutes. Vital Signs Vital Signs Date Time Temp Pulse Resp B/P (MAP) Pulse Ox O2 Delivery O2 Flow Rate FiO2 12/26/20 09:16 Room Air 12/26/20 01:44 97.6 62 18 133/62 (85) 99 Laboratory Data 24H Labs Laboratory Tests 2 12/26/20 07:28: Nucleated Red Blood Cells % (auto) 0.0, Anion Gap 12, Glomerular Filtration Rate > 60.0, Calcium Level 9.0, Magnesium Level 1.8, Total Bilirubin 1.2H, Aspartate Amino Transf (AST/SGOT) 80H, Alanine Aminotransferase (ALT/SGPT) 198H, Alkaline Phosphatase 85, Total Protein 7.4, Albumin 3.9, Albumin/Globulin Ratio 1.1 CBC/BMP Laboratory Tests 12/26/20 07:28 Current Medications Current Medications Medications (Trade) Dose Ordered Sig/Rishi Route PRN Reason Start Time Stop Time Status Last Admin Dose Admin Acetaminophen (Tylenol Tab) 650 mg Q6HP PRN PO HEADACHE or DISCOMFORT 12/20/20 04:05 Al Hydrox/Mg Hydrox/Simethicone (Mylanta) 30 ml Q4HP PRN PO HEARTBURN/INDIGESTION 12/20/20 04:05 Home Med (Med Rec Complete!) ASDIRECTED XX 12/20/20 03:20 12/20/20 03:22 DC Lorazepam (Ativan) 1 mg Q6HP PRN PO ANXIETY 12/20/20 13:00 Magnesium Hydroxide (Milk Of Magnesia) 30 ml DAILYPRN PRN PO CONSTIPATION 12/20/20 04:05 Olanzapine (ZyPREXA ZYDIS) 5 mg Q4HP PRN PO ANXIETY/AGITATION 12/20/20 04:05 Quetiapine Fumarate (SEROquel) 25 mg QHS PO 12/23/20 21:00 Quetiapine Fumarate (SEROquel) 50 mg DAILY PO 12/21/20 09:00 12/23/20 13:19 DC Quetiapine Fumarate (SEROquel) 100 mg QHS PO 12/20/20 21:00 12/23/20 13:19 DC Trazodone HCl (Desyrel) 50 mg QHSP PRN PO INSOMNIA 12/20/20 04:05 Allergies Coded Allergies: amoxicillin (Verified Allergy, Intermediate, HIVES, 11/11/20) BLANQUITA DOWD M.D. Dec 26, 2020 11:02
--- NOTE | 2020-12-26 12:04 | MHIPN ---
[facility] PROGRESS NOTE DATE: 12/24/2020 This is a video assessment. He is in the inpatient unit. I am at home. He is seen in the presence of staff. VITAL SIGNS: Blood pressure 120/64, pulse 73, temperature 979.6. CHIEF COMPLAINT: Says is doing okay. SUBJECTIVE: Seen for followup. Indicates feels good and that he had a good night. Says he ate well but has a hard time elaborating on this. Says wants to go home and that there are many people who live around him. Later suggests that he lives alone. Says has not eaten, later. Staff informed me that he has not eaten much for the last few days, concerned that he may be poisoned. MENTAL STATUS EXAMINATION: Neat, guarded. No agitation. No psychomotor retardation but became somewhat irritable when further inquiries were made, and he cut short the meeting. Answered questions briefly. There were no active thoughts of hurting himself or anyone else. Judgment and insight remain compromised. ASSESSMENT: Unspecified psychotic disorder. The differential diagnosis includes schizoaffective disorder as well as schizophrenia and drug-induced psychosis. He cut short the appointment, and staff informed me that he did not want to hand them back the iPad but was persuaded to do so. PLAN: Continue current care, and we will continue to offer him the Seroquel, lower dose, 25 mg at night, but he refused that as well. Further recommendations to be made depending on the clinical picture. He will be seeing the assigned clinician tomorrow.
[2020-12-26 18:10] VITALS: BP 136/74
[2020-12-26] MEDS: OLANZapine ORAL DISINTEGRATING TAB 5MG PO SCH (20:28)
[2020-12-27 06:00] VITALS: BP 115/62
--- NOTE | 2020-12-27 10:21 | MHIPNPDOC ---
[facility] Progress Note Progress Note DATE OF SERVICE: 12/27/20 Patient has refused his nighttime Zyprexa and has not been really eating or drinking much. It is extremely withdrawn, preoccupied and disorganized, unable to respond in any appropriate manner and keeps mumbling and appears grossly paranoid and quite psychotic. He is in bed most of the time and only mumbled when asked questions. We are getting seriously concerned about his poor intake. While lacking any insight and continued to refuse to cooperate with the treatment. We will repeat his routine blood work and continue to encourage and educate, but if patient is not able to cooperate . We will consider petitioning for treatment over objection. We will reevaluate with lab result. HISTORY: . VITAL SIGNS: See below. NEW TEST RESULTS: . CURRENT MEDICATIONS: See below. MENTAL STATUS EXAMINATION: Patient is a [place][age]-year old male, who is extremely withdrawn. Speech: Is minimal or. Language skills are for. Thought processes including: , Preoccupied, blocking. Thought content: Appears grossly paranoid and disorganized. Abstract reasoning, and computation: , Poor. Description of associations: Practically mute. Description of abnormal or psychotic thoughts: , Extremely paranoid, fearful, withdrawn. Judgment: poor. Insight: very poor. Orientation: , Unable to evaluate. Recent and remote memory: , Poor. Attention span and concentration: poor]. Language: . Fund of knowledge: . Mood: , Anxious, fearful. Affect: , Blunted, preoccupied. DIAGNOSES: 1. . Psychotic disorder, NOS 2. . 3. . ASSESSMENT:Grossly psychotic and extremely withdrawn MANAGEMENT PLAN: Routine labs for medical evaluation and consider treatment over objection. TIME SPENT: [20] minutes. Vital Signs Vital Signs Date Time Temp Pulse Resp B/P (MAP) Pulse Ox O2 Delivery O2 Flow Rate FiO2 12/27/20 10:01 Room Air 12/27/20 06:00 97.5 82 18 115/62 (79) 97 Current Medications Current Medications Medications (Trade) Dose Ordered Sig/Rishi Route PRN Reason Start Time Stop Time Status Last Admin Dose Admin Acetaminophen (Tylenol Tab) 650 mg Q6HP PRN PO HEADACHE or DISCOMFORT 12/20/20 04:05 Al Hydrox/Mg Hydrox/Simethicone (Mylanta) 30 ml Q4HP PRN PO HEARTBURN/INDIGESTION 12/20/20 04:05 Home Med (Med Rec Complete!) ASDIRECTED XX 12/20/20 03:20 12/20/20 03:22 DC Lorazepam (Ativan) 1 mg Q6HP PRN PO ANXIETY 12/20/20 13:00 Magnesium Hydroxide (Milk Of Magnesia) 30 ml DAILYPRN PRN PO CONSTIPATION 12/20/20 04:05 Olanzapine (ZyPREXA ZYDIS) 5 mg Q4HP PRN PO ANXIETY/AGITATION 12/20/20 04:05 Olanzapine (ZyPREXA ZYDIS) 5 mg QHS PO 12/26/20 21:00 Quetiapine Fumarate (SEROquel) 25 mg QHS PO 12/23/20 21:00 12/26/20 10:56 DC Quetiapine Fumarate (SEROquel) 50 mg DAILY PO 12/21/20 09:00 12/23/20 13:19 DC Quetiapine Fumarate (SEROquel) 100 mg QHS PO 12/20/20 21:00 12/23/20 13:19 DC Trazodone HCl (Desyrel) 50 mg QHSP PRN PO INSOMNIA 12/20/20 04:05 Allergies Coded Allergies: amoxicillin (Verified Allergy, Intermediate, HIVES, 11/11/20) BLANQUITA DOWD M.D. Dec 27, 2020 10:21
[2020-12-27 11:27] LABS: BASO % 0.2 % (0.0-1.0); EOS # 0.1 10^3/uL (0.0-0.5); EOS % 1.5 % (0.0-3.0); HEMATOCRIT 46.6 % (42.0-52.0); HEMOGLOBIN 15.5 g/dl (13.5-17.5); LYMPH # 2.8 10^3/uL (1.5-5.0); LYMPH % 53.5 % (24.0-44.0); MEAN CORPUSCULAR HEMOGLOBIN 28.7 pg (27.0-33.0); MEAN CORPUSCULAR HGB CONC 33.3 g/dl (32.0-36.5); MEAN CORPUSCULAR VOLUME 86.1 fl (80.0-96.0); MONO # 0.6 10^3/uL (0.0-0.8); MONO % 12.4 % (2.0-8.0); NEUTROPHILS # 1.6 10^3/uL (1.5-8.5); NEUTROPHILS % 31.6 % (36.0-66.0); PLATELET COUNT, AUTOMATED 203 10^3/uL (150-450); RED BLOOD COUNT 5.41 10^6/uL (4.30-6.10); WHITE BLOOD COUNT 5.2 10^3/uL (4.0-10.0)
[2020-12-27 12:01] LABS: ALBUMIN 3.9 GM/DL (3.2-5.2); ALT/SGPT 149 U/L (12-78); BILIRUBIN,TOTAL 0.7 MG/DL (0.2-1.0); BLOOD UREA NITROGEN 14 MG/DL (7-18); CARBON DIOXIDE LEVEL 29 MEQ/L (21-32); CHLORIDE LEVEL 106 MEQ/L (98-107); CREATININE FOR GFR 0.71 MG/DL (0.70-1.30); GLOMERULAR FILTRATION RATE > 60.0 (>60); GLUCOSE, FASTING 97 MG/DL (70-100); POTASSIUM SERUM 3.6 MEQ/L (3.5-5.1); SODIUM LEVEL 138 MEQ/L (136-145); TOTAL PROTEIN 7.4 GM/DL (6.4-8.2)
[2020-12-27 16:29] VITALS: BP 133/67
[2020-12-27] MEDS: OLANZapine ORAL DISINTEGRATING TAB 5MG PO SCH (21:00)
[2020-12-28] MEDS ORDERED: LORazepam 1 MG TAB PO PRN (07:30)
[2020-12-28] MEDS: LORazepam 1 MG TAB PO SCH ×2 (09:00→21:00)
[2020-12-28] MEDS: risperiDONE 2 MG TAB PO SCH ×2 (09:00→21:00)
--- NOTE | 2020-12-28 12:11 | MHIPNPDOC ---
[facility] Progress Note Progress Note DATE OF SERVICE: 12/28/20 , The patient continued to refuse to take any medicine. He is eating is very poor and he stated yesterday that he believes that if he eats his mother worked. He has been expressing numerous paranoid ideas and has been extremely withdrawn, preoccupied, and guarded. This M D went into his room with the nurse with his morning medication and approaches the patient, advising and reading with the patient to cooperate but he is refusing to consider. He claims that everybody is trying to harm him and the reason why he doesn't want to eat, is because he is not getting the real food.". He is quite pressured, irritable or argumentative and refusing the treatment despite the plan of seeking involuntary treatment through court-ordered. He has a repeat blood work done. She shows no significant abnormality at this time. We will closely monitor with you. Continue to support and evaluation and push fluids and encouraged him to eat. We will convert his legal status to 2 physician certificate and prepare for possible treatment over objection. Petition HISTORY: . VITAL SIGNS: See below. NEW TEST RESULTS: . CURRENT MEDICATIONS: See below. MENTAL STATUS EXAMINATION: Patient is a 29-year old male, who is , irritable, angry, but in no acute distress. Speech: Is , pressured, not spontaneous. Language skills are , poor. Thought processes including: , Only preoccupied with his refusal to cooperate with the treatment. Thought content: Grossly paranoid. Abstract reasoning, and computation: , Poor. Description of associations: Preoccupied with his paranoia. Description of abnormal or psychotic thoughts: Appears grossly delusional or an appears actively hallucinating at times. Judgment: , Poor. Insight: very poor. Orientation: Appears oriented. Recent and remote memory: , Difficult to evaluate. Attention span and concentration: poor. Language: . Fund of knowledge: , Poor. Mood: Irritable, angry. Affect: Labile, guarded, blunted]. DIAGNOSES: 1. . Psychotic disorder, NOS 2. . 3. . ASSESSMENT:Remains paranoid minimally eating but his labs are within normal limit and is in no acute overt physical distress MANAGEMENT PLAN: Continued education and support. Try to stabilize with medication. TIME SPENT: 20 minutes. Vital Signs Vital Signs Date Time Temp Pulse Resp B/P (MAP) Pulse Ox O2 Delivery O2 Flow Rate FiO2 12/28/20 07:21 98.5 62 18 100 Room Air 12/27/20 16:29 133/67 (89) Current Medications Current Medications Medications (Trade) Dose Ordered Sig/Rishi Route PRN Reason Start Time Stop Time Status Last Admin Dose Admin Acetaminophen (Tylenol Tab) 650 mg Q6HP PRN PO HEADACHE or DISCOMFORT 12/20/20 04:05 Al Hydrox/Mg Hydrox/Simethicone (Mylanta) 30 ml Q4HP PRN PO HEARTBURN/INDIGESTION 12/20/20 04:05 Home Med (Med Rec Complete!) ASDIRECTED XX 12/20/20 03:20 12/20/20 03:22 DC Lorazepam (Ativan) 1 mg BID PO 12/28/20 09:00 Lorazepam (Ativan) 1 mg Q6HP PRN PO ANXIETY 12/20/20 13:00 12/27/20 12:59 DC Lorazepam (Ativan) 1 mg Q6HP PRN PO ANXIETY 12/28/20 07:30 Magnesium Hydroxide (Milk Of Magnesia) 30 ml DAILYPRN PRN PO CONSTIPATION 12/20/20 04:05 Olanzapine (ZyPREXA ZYDIS) 5 mg Q4HP PRN PO ANXIETY/AGITATION 12/20/20 04:05 Olanzapine (ZyPREXA ZYDIS) 5 mg QHS PO 12/26/20 21:00 12/28/20 07:33 DC Quetiapine Fumarate (SEROquel) 25 mg QHS PO 12/23/20 21:00 12/26/20 10:56 DC Quetiapine Fumarate (SEROquel) 50 mg DAILY PO 12/21/20 09:00 12/23/20 13:19 DC Quetiapine Fumarate (SEROquel) 100 mg QHS PO 12/20/20 21:00 12/23/20 13:19 DC Risperidone (RisperDAL) 2 mg BID PO 12/28/20 09:00 Trazodone HCl (Desyrel) 50 mg QHSP PRN PO INSOMNIA 12/20/20 04:05 Allergies Coded Allergies: amoxicillin (Verified Allergy, Intermediate, HIVES, 11/11/20) BLANQUITA DOWD M.D. Dec 28, 2020 12:11
[2020-12-28 16:12] VITALS: BP 122/66
[2020-12-29 06:42] VITALS: BP 130/64
[2020-12-29] MEDS: LORazepam 1 MG TAB PO SCH ×2 (09:00→20:05)
[2020-12-29] MEDS: risperiDONE 2 MG TAB PO SCH ×2 (09:00→20:05)
--- NOTE | 2020-12-29 12:14 | MHIPNPDOC ---
[facility] Progress Note Progress Note DATE OF SERVICE: 12/29/20 The patient is stated refusing to take any medications. He is a however, more alert and responsive and clearly states that he would like to go home. He is still eating very little, spends most of time in his bed and remains preoccupied, withdrawn and has not shown any aggressive or agitated or bizarre behaviors. He is lacking any insight and clearly paranoid, but is in no acute distress and maintaining control. We will continue to monitor closely and try to educate him for the need to cooperate with the treatment HISTORY: . VITAL SIGNS: See below. NEW TEST RESULTS: . CURRENT MEDICATIONS: See below. MENTAL STATUS EXAMINATION: Patient is a 30 -year old male, who is in bed and in no acute distress. Speech: Is minimal. Language skills are poor. Thought processes including: , Not productive at all. Thought content: , Difficult to evaluate but appears grossly paranoid. Abstract reasoning, and computation: , Poor. Description of associations: Preoccupied. Description of abnormal or psychotic thoughts: Appears markedly paranoid and at times hallucinating. Judgment: , Poor. Insight: very poor. Orientation: Appears oriented. Recent and remote memory: poor. Attention span and concentration: For. Language: . Fund of knowledge: . Mood: Reports feeling okay and wants to go home. Affect: Blunted preoccupied. DIAGNOSES: 1. . Psychotic disorder, NOS 2. . 3. . ASSESSMENT:[No improvement, but in no acute physical distress] MANAGEMENT PLAN: [Continued to support and education]. TIME SPENT: 20 minutes. Vital Signs Vital Signs Date Time Temp Pulse Resp B/P (MAP) Pulse Ox O2 Delivery O2 Flow Rate FiO2 12/29/20 06:42 97.2 88 14 130/64 (86) 100 Room Air Current Medications Current Medications Medications (Trade) Dose Ordered Sig/Rishi Route PRN Reason Start Time Stop Time Status Last Admin Dose Admin Acetaminophen (Tylenol Tab) 650 mg Q6HP PRN PO HEADACHE or DISCOMFORT 12/20/20 04:05 Al Hydrox/Mg Hydrox/Simethicone (Mylanta) 30 ml Q4HP PRN PO HEARTBURN/INDIGESTION 12/20/20 04:05 Home Med (Med Rec Complete!) ASDIRECTED XX 12/20/20 03:20 12/20/20 03:22 DC Lorazepam (Ativan) 1 mg BID PO 12/28/20 09:00 Lorazepam (Ativan) 1 mg Q6HP PRN PO ANXIETY 12/20/20 13:00 12/27/20 12:59 DC Lorazepam (Ativan) 1 mg Q6HP PRN PO ANXIETY 12/28/20 07:30 Magnesium Hydroxide (Milk Of Magnesia) 30 ml DAILYPRN PRN PO CONSTIPATION 12/20/20 04:05 Olanzapine (ZyPREXA ZYDIS) 5 mg Q4HP PRN PO ANXIETY/AGITATION 12/20/20 04:05 Olanzapine (ZyPREXA ZYDIS) 5 mg QHS PO 12/26/20 21:00 12/28/20 07:33 DC Quetiapine Fumarate (SEROquel) 25 mg QHS PO 12/23/20 21:00 12/26/20 10:56 DC Quetiapine Fumarate (SEROquel) 50 mg DAILY PO 12/21/20 09:00 12/23/20 13:19 DC Quetiapine Fumarate (SEROquel) 100 mg QHS PO 12/20/20 21:00 12/23/20 13:19 DC Risperidone (RisperDAL) 2 mg BID PO 12/28/20 09:00 Trazodone HCl (Desyrel) 50 mg QHSP PRN PO INSOMNIA 12/20/20 04:05 Allergies Coded Allergies: amoxicillin (Verified Allergy, Intermediate, HIVES, 11/11/20) BLANQUITA DOWD M.D. Dec 29, 2020 12:14
[2020-12-29 21:31] VITALS: BP 121/58
[2020-12-30 06:47] VITALS: BP 114/61
[2020-12-30] MEDS: risperiDONE 2 MG TAB PO SCH ×2 (09:00→20:15)
[2020-12-30] MEDS: LORazepam 1 MG TAB PO SCH ×2 (09:00→20:15)
[2020-12-30 17:22] LABS: ALT/SGPT 178 U/L (12-78); BILIRUBIN,TOTAL 1.4 MG/DL (0.2-1.0); BLOOD UREA NITROGEN 20 MG/DL (7-18); CALCIUM LEVEL 9.6 MG/DL (8.5-10.1); CARBON DIOXIDE LEVEL 20 MEQ/L (21-32); CHLORIDE LEVEL 108 MEQ/L (98-107); CREATININE FOR GFR 0.94 MG/DL (0.70-1.30); GLOMERULAR FILTRATION RATE > 60.0 (>60); GLUCOSE, FASTING 68 MG/DL (70-100); POTASSIUM SERUM 4.1 MEQ/L (3.5-5.1); SODIUM LEVEL 141 MEQ/L (136-145); TOTAL PROTEIN 7.5 GM/DL (6.4-8.2)
[2020-12-30 17:34] VITALS: BP 124/72
[2020-12-31] MEDS: risperiDONE 2 MG TAB PO SCH ×2 (08:32→21:00)
[2020-12-31] MEDS: LORazepam 1 MG TAB PO SCH ×2 (08:32→21:00)
[2020-12-31 18:02] VITALS: BP 96/56
[2021-01-01 06:23] VITALS: BP 122/74
[2021-01-01] MEDS: risperiDONE 2 MG TAB PO SCH ×2 (08:49→20:39)
[2021-01-01] MEDS: LORazepam 1 MG TAB PO SCH ×2 (08:49→20:39)
--- NOTE | 2021-01-01 10:59 | MHIPNPDOC ---
[facility] Progress Note Progress Note DATE OF SERVICE: 01/01/21 After being told that he could be considered for discharge if he would eat and take his medicine consistently for at least 3 to 4 days the patient is eating very well but still refusing his medication. He remains quite withdrawn, guarded and minimally productive, but is in no acute distress and has not shown any agitated or aggressive or dangerous behavior. He appears still very much paranoid, but superficially, denying any hallucinations and denies any other problems and showing no insight. He has been converted to 2 P C status due to hi s marked the paranoia and lack of insight, but he is not showing any dangerous behavior since his eating has improved. HISTORY: . VITAL SIGNS: See below. NEW TEST RESULTS: . CURRENT MEDICATIONS: See below. MENTAL STATUS EXAMINATION: Patient is a 30 -year old male, who is in bed, preoccupied. Speech: Is , not productive. Language skills are poor. Thought processes including: Relevant answers, but not productive. Thought content: Appears very guarded, paranoid. Abstract reasoning, and computation: , Very poor. Description of associations: , Not spontaneous. Description of abnormal or psychotic thoughts: Appears very paranoid. Judgment very poor. Insight: very poor. Orientation: Appears oriented. Recent and remote memory: , Unable to evaluate. Attention span and concentration: , Very poor. Language: . Fund of knowledge: Below average. Mood: [Claims he is feeling fine . Affect: Blunted and guarded. DIAGNOSES: 1. . Psychotic disorder, NOS 2. . 3. . ASSESSMENT:[More significant improvement but eating good and no physical distress] MANAGEMENT PLAN: [Continued to support and education]. TIME SPENT: 20] minutes. Vital Signs Vital Signs Date Time Temp Pulse Resp B/P (MAP) Pulse Ox O2 Delivery O2 Flow Rate FiO2 01/01/21 06:23 97.4 69 14 122/74 (90) 96 Room Air Current Medications Current Medications Medications (Trade) Dose Ordered Sig/Rishi Route PRN Reason Start Time Stop Time Status Last Admin Dose Admin Acetaminophen (Tylenol Tab) 650 mg Q6HP PRN PO HEADACHE or DISCOMFORT 12/20/20 04:05 Al Hydrox/Mg Hydrox/Simethicone (Mylanta) 30 ml Q4HP PRN PO HEARTBURN/INDIGESTION 12/20/20 04:05 Home Med (Med Rec Complete!) ASDIRECTED XX 12/20/20 03:20 12/20/20 03:22 DC Lorazepam (Ativan) 1 mg BID PO 12/28/20 09:00 Lorazepam (Ativan) 1 mg Q6HP PRN PO ANXIETY 12/20/20 13:00 12/27/20 12:59 DC Lorazepam (Ativan) 1 mg Q6HP PRN PO ANXIETY 12/28/20 07:30 Magnesium Hydroxide (Milk Of Magnesia) 30 ml DAILYPRN PRN PO CONSTIPATION 12/20/20 04:05 Olanzapine (ZyPREXA ZYDIS) 5 mg Q4HP PRN PO ANXIETY/AGITATION 12/20/20 04:05 Olanzapine (ZyPREXA ZYDIS) 5 mg QHS PO 12/26/20 21:00 12/28/20 07:33 DC Quetiapine Fumarate (SEROquel) 25 mg QHS PO 12/23/20 21:00 12/26/20 10:56 DC Quetiapine Fumarate (SEROquel) 50 mg DAILY PO 12/21/20 09:00 12/23/20 13:19 DC Quetiapine Fumarate (SEROquel) 100 mg QHS PO 12/20/20 21:00 12/23/20 13:19 DC Risperidone (RisperDAL) 2 mg BID PO 12/28/20 09:00 Trazodone HCl (Desyrel) 50 mg QHSP PRN PO INSOMNIA 12/20/20 04:05 Allergies Coded Allergies: amoxicillin (Verified Allergy, Intermediate, HIVES, 11/11/20) BLANQUITA DOWD M.D. Jan 01, 2021 10:59
[2021-01-01 16:09] VITALS: BP 112/80
[2021-01-02] MEDS: risperiDONE 2 MG TAB PO SCH ×2 (08:57→21:00)
[2021-01-02] MEDS: LORazepam 1 MG TAB PO SCH ×2 (08:57→21:00)
--- NOTE | 2021-01-02 12:27 | MHIPNPDOC ---
[facility] Progress Note Progress Note DATE OF SERVICE: 01/02/21 The patient is in his bed, awake, alert, but not verbally respond. He is nodding his head in response to the questions, but didn't want to speak. He has been ea ting better and the family brought a lot of snacks when he was eating. He is a however, refusing to take any medicine even after agreeing to do so with the M D.. He is still very guarded, preoccupied and appears paranoid but has been showing no bizarre or acting out behavior, maintaining good control. He was told again that it is not safe to be discharged with his current condition and is strongly encouraged to cooperate with the medicine. HISTORY: . VITAL SIGNS: See below. NEW TEST RESULTS: . CURRENT MEDICATIONS: See below. MENTAL STATUS EXAMINATION: Patient is a 30-year old male, who is in bed and very guarded. Speech: Is , not productive. Language skills are , poor. Thought processes including: , Difficult to evaluate. Thought content: Appears paranoid. Abstract reasoning, and computation: For. Description of associations: , Not responding. Description of abnormal or psychotic thoughts: Appears very paranoid . Judgment: , Poor. Insight: very poor. Orientation: Appears oriented. Recent and remote memory: poor. Attention span and concentration: Poor . Language: . Fund of knowledge: , Poor. Mood: Appears guarded. Affect: Blunted. DIAGNOSES: 1. . Psychotic disorder, NOS 2. . 3. . ASSESSMENT:No improvement, but his physical condition is stable and is eating well MANAGEMENT PLAN: Continued to support and education. TIME SPENT: 20 minutes. Vital Signs Vital Signs Date Time Temp Pulse Resp B/P (MAP) Pulse Ox O2 Delivery O2 Flow Rate FiO2 01/01/21 16:09 97.7 88 16 112/80 (91) 100 Room Air Current Medications Current Medications Medications (Trade) Dose Ordered Sig/Rishi Route PRN Reason Start Time Stop Time Status Last Admin Dose Admin Acetaminophen (Tylenol Tab) 650 mg Q6HP PRN PO HEADACHE or DISCOMFORT 12/20/20 04:05 Al Hydrox/Mg Hydrox/Simethicone (Mylanta) 30 ml Q4HP PRN PO HEARTBURN/INDIGESTION 12/20/20 04:05 Home Med (Med Rec Complete!) ASDIRECTED XX 12/20/20 03:20 12/20/20 03:22 DC Lorazepam (Ativan) 1 mg BID PO 12/28/20 09:00 Lorazepam (Ativan) 1 mg Q6HP PRN PO ANXIETY 12/20/20 13:00 12/27/20 12:59 DC Lorazepam (Ativan) 1 mg Q6HP PRN PO ANXIETY 12/28/20 07:30 Magnesium Hydroxide (Milk Of Magnesia) 30 ml DAILYPRN PRN PO CONSTIPATION 12/20/20 04:05 Olanzapine (ZyPREXA ZYDIS) 5 mg Q4HP PRN PO ANXIETY/AGITATION 12/20/20 04:05 Olanzapine (ZyPREXA ZYDIS) 5 mg QHS PO 12/26/20 21:00 12/28/20 07:33 DC Quetiapine Fumarate (SEROquel) 25 mg QHS PO 12/23/20 21:00 12/26/20 10:56 DC Quetiapine Fumarate (SEROquel) 50 mg DAILY PO 12/21/20 09:00 12/23/20 13:19 DC Quetiapine Fumarate (SEROquel) 100 mg QHS PO 12/20/20 21:00 12/23/20 13:19 DC Risperidone (RisperDAL) 2 mg BID PO 12/28/20 09:00 Trazodone HCl (Desyrel) 50 mg QHSP PRN PO INSOMNIA 12/20/20 04:05 Allergies Coded Allergies: amoxicillin (Verified Allergy, Intermediate, HIVES, 11/11/20) BLANQUITA DOWD M.D. Jan 02, 2021 12:27
[2021-01-02 16:05] VITALS: BP 123/73
[2021-01-03] MEDS: LORazepam 1 MG TAB PO SCH ×2 (08:31→21:00)
[2021-01-03] MEDS: risperiDONE 2 MG TAB PO SCH ×2 (08:31→21:00)
--- NOTE | 2021-01-03 11:02 | MHIPNPDOC ---
[facility] Progress Note Progress Note DATE OF SERVICE: 01/03/21 The patient is eating and has no physical complaints and is in no acute physical distress. He isn't responding with the simpler answers and is more verbal today, but remains guarded. Preoccupied and refused to do his medicine and asking for discharge. Although he appears a extremely guarded and preoccupied. He is not verbalizing any delusional ideas and he is not showing any bizarre, aggressive, or any dangerous behavior. It is very difficult to assess his thought content because he continued to deny any problems and asking for discharge. He is apparently very close to his mother and who is in [place] from her residence in the [facility]. 5. Arrange a meeting to further clarify his past history and his baseline mental status to better formulate his treatment plan HISTORY: . VITAL SIGNS: See below. NEW TEST RESULTS: . CURRENT MEDICATIONS: See below. MENTAL STATUS EXAMINATION: Patient is a 30-year old male, who is sitting up in his bed, very guarded, preoccupied. Speech: Is minimally productive. Language skills are poor. Thought processes including: , Not productive. Thought content: Difficult to evaluate. Abstract reasoning, and computation: poor. Description of associations: , Not spontaneous, not productive. Description of abnormal or psychotic thoughts: Appears paranoid. Judgment: poor. Insight: very poor. Orientation: Appears oriented. Recent and remote memory: poor. Attention span and concentration: poor. Language: . Fund of knowledge: poor. Mood: , Appears guarded, preoccupied. Affect: Blunted. DIAGNOSES: 1. . Psychotic disorder, NOS 2. . 3. . ASSESSMENT:Difficult to assess, and he is showing no basic training MANAGEMENT PLAN: , We'll have a family meeting with the mother to further clarify. TIME SPENT: 20 minutes. Vital Signs Vital Signs Date Time Temp Pulse Resp B/P (MAP) Pulse Ox O2 Delivery O2 Flow Rate FiO2 01/02/21 16:05 97.2 64 16 123/73 (90) 100 Room Air Current Medications Current Medications Medications (Trade) Dose Ordered Sig/Rishi Route PRN Reason Start Time Stop Time Status Last Admin Dose Admin Acetaminophen (Tylenol Tab) 650 mg Q6HP PRN PO HEADACHE or DISCOMFORT 12/20/20 04:05 Al Hydrox/Mg Hydrox/Simethicone (Mylanta) 30 ml Q4HP PRN PO HEARTBURN/INDIGESTION 12/20/20 04:05 Home Med (Med Rec Complete!) ASDIRECTED XX 12/20/20 03:20 12/20/20 03:22 DC Lorazepam (Ativan) 1 mg BID PO 12/28/20 09:00 Lorazepam (Ativan) 1 mg Q6HP PRN PO ANXIETY 12/20/20 13:00 12/27/20 12:59 DC Lorazepam (Ativan) 1 mg Q6HP PRN PO ANXIETY 12/28/20 07:30 Magnesium Hydroxide (Milk Of Magnesia) 30 ml DAILYPRN PRN PO CONSTIPATION 12/20/20 04:05 Miscellaneous (Unresolved Clarification Entry) SEE LABEL COMMENTS DAILY XX 01/03/21 09:00 Olanzapine (ZyPREXA ZYDIS) 5 mg Q4HP PRN PO ANXIETY/AGITATION 12/20/20 04:05 Olanzapine (ZyPREXA ZYDIS) 5 mg QHS PO 12/26/20 21:00 12/28/20 07:33 DC Quetiapine Fumarate (SEROquel) 25 mg QHS PO 12/23/20 21:00 12/26/20 10:56 DC Quetiapine Fumarate (SEROquel) 50 mg DAILY PO 12/21/20 09:00 12/23/20 13:19 DC Quetiapine Fumarate (SEROquel) 100 mg QHS PO 12/20/20 21:00 12/23/20 13:19 DC Risperidone (RisperDAL) 2 mg BID PO 12/28/20 09:00 Trazodone HCl (Desyrel) 50 mg QHSP PRN PO INSOMNIA 12/20/20 04:05 Allergies Coded Allergies: amoxicillin (Verified Allergy, Intermediate, HIVES, 11/11/20) BLANQUITA DOWD M.D. Jan 03, 2021 11:02
[2021-01-03 16:03] VITALS: BP 120/72
[2021-01-04] MEDS: risperiDONE 2 MG TAB PO SCH ×2 (09:00→20:15)
[2021-01-04] MEDS: LORazepam 1 MG TAB PO SCH ×2 (09:00→20:15)
--- NOTE | 2021-01-04 11:28 | MHIPNPDOC ---
[facility] Progress Note Progress Note DATE OF SERVICE: 01/04/21 The patient remains extremely guarded, withdrawn, preoccupied and continued to refuse medications. This M.D. had the meeting with his mother today. The mother reports that he has been showing increasing bizarre and paranoid behavior, starting many years ago.. He has refused to accept help. Many times and had one admission in [place] with a severe paranoid episode and was discharged without any medications. The mother has finally kicked him out of her house in [place] for 3 years ago and patient has moved up to [place] and has been surviving with help from a residential case manager. The mother reports that patient has been getting worse in the past 3 months. Frequently calling her to tell her that he isn't hearing different people talking to him and believes that there are people trying to hurt him and at times seeing people on the tree, etc. Recently he told his mother that voices are telling him that he shouldn't eat or drink because it will cause him sick and make his mother gets sick and . It appears that he has been showing symptoms of schizophrenia for many years and it is becoming much worse with command hallucination telling him not to eat, which would cause serious danger to his physical health. I believe there is a sufficient ground to seek treatment over objection and the mother is strongly asking for this plan of action. HISTORY: . VITAL SIGNS: See below. NEW TEST RESULTS: . CURRENT MEDICATIONS: See below. MENTAL STATUS EXAMINATION: Patient is a 30-year old male, who is , extremely withdrawn. Speech: Is . Language skills are poor. Thought processes including: Patient is not verbally responding. Thought content: Grossly paranoid and delusional. Abstract reasoning, and computation: poor. Description of associations: , Preoccupied, fragmented. Description of abnormal or psychotic thoughts: Gross paranoid delusions and auditory hallucination. Judgment: poor. Insight: very poor. Orientation: Appears oriented. Recent and remote memory: poor. Attention span and concentration: poor. Language: . Fund of knowledge: . Mood: Appears anxious, fearful. Affect: , Blunted, preoccupied. DIAGNOSES: 1. . Paranoid schizophrenia 2. . 3. . ASSESSMENT:, Grossly psychotic MANAGEMENT PLAN: , We will initiate treatment over objection court petition. TIME SPENT: 30 minutes. Vital Signs Vital Signs Date Time Temp Pulse Resp B/P (MAP) Pulse Ox O2 Delivery O2 Flow Rate FiO2 01/03/21 16:03 97.6 70 16 120/72 (88) 100 Room Air Current Medications Current Medications Medications (Trade) Dose Ordered Sig/Rishi Route PRN Reason Start Time Stop Time Status Last Admin Dose Admin Acetaminophen (Tylenol Tab) 650 mg Q6HP PRN PO HEADACHE or DISCOMFORT 12/20/20 04:05 Al Hydrox/Mg Hydrox/Simethicone (Mylanta) 30 ml Q4HP PRN PO HEARTBURN/INDIGESTION 12/20/20 04:05 Home Med (Med Rec Complete!) ASDIRECTED XX 12/20/20 03:20 12/20/20 03:22 DC Lorazepam (Ativan) 1 mg BID PO 12/28/20 09:00 Lorazepam (Ativan) 1 mg Q6HP PRN PO ANXIETY 12/20/20 13:00 12/27/20 12:59 DC Lorazepam (Ativan) 1 mg Q6HP PRN PO ANXIETY 12/28/20 07:30 Magnesium Hydroxide (Milk Of Magnesia) 30 ml DAILYPRN PRN PO CONSTIPATION 12/20/20 04:05 Miscellaneous (Unresolved Clarification Entry) SEE LABEL COMMENTS DAILY XX 01/03/21 09:00 01/03/21 15:35 DC Olanzapine (ZyPREXA ZYDIS) 5 mg Q4HP PRN PO ANXIETY/AGITATION 12/20/20 04:05 Olanzapine (ZyPREXA ZYDIS) 5 mg QHS PO 12/26/20 21:00 12/28/20 07:33 DC Quetiapine Fumarate (SEROquel) 25 mg QHS PO 12/23/20 21:00 12/26/20 10:56 DC Quetiapine Fumarate (SEROquel) 50 mg DAILY PO 12/21/20 09:00 12/23/20 13:19 DC Quetiapine Fumarate (SEROquel) 100 mg QHS PO 12/20/20 21:00 12/23/20 13:19 DC Risperidone (RisperDAL) 2 mg BID PO 12/28/20 09:00 Trazodone HCl (Desyrel) 50 mg QHSP PRN PO INSOMNIA 12/20/20 04:05 Allergies Coded Allergies: amoxicillin (Verified Allergy, Intermediate, HIVES, 4/17/21) BLANQUITA DOWD M.D. Jan 04, 2021 11:28
[2021-01-05] MEDS: LORazepam 1 MG TAB PO SCH ×2 (08:33→21:00)
[2021-01-05] MEDS: risperiDONE 2 MG TAB PO SCH ×2 (08:33→21:00)
--- NOTE | 2021-01-05 08:56 | MHIPNPDOC ---
[facility] Progress Note Progress Note DATE OF SERVICE: 01/05/21 The patient was given the account of the meeting with his mother and explained his diagnosis and his plan of treatment including the medication that will be re commended and the benefit and risk including the potential side effect of the medication. Patient is awake apparently are locked and staring at the M.D. but didn't respond with any questions or his thoughts about this. He remained extremely paranoid, withdrawn and preoccupied. We will pursue medication over objection petition. HISTORY: . VITAL SIGNS: See below. NEW TEST RESULTS: . CURRENT MEDICATIONS: See below. MENTAL STATUS EXAMINATION: Patient is a 30-year old male, who is , guarded, withdrawn, preoccupied. Speech: Is , not verbally responding. Language skills are , poor. Thought processes including: Mute . Thought content: Appears paranoid. Abstract reasoning, and computation: Poor . Description of associations: Not verbally responding]. Description of abnormal or psychotic thoughts: Grossly paranoid. Judgment: poor. Insight: very poor. Orientation: Appears oriented. Recent and remote memory: ]. Attention span and concentration: poor. Language: . Fund of knowledge: . Mood: Appears anxious, preoccupied. Affect: Blunted. The preoccupied. DIAGNOSES: 1. . Paranoid schizophrenia 2. . 3. . ASSESSMENT:No improvement MANAGEMENT PLAN: Medication over objection. In process]. TIME SPENT: [20] minutes. Vital Signs Vital Signs Date Time Temp Pulse Resp B/P (MAP) Pulse Ox O2 Delivery O2 Flow Rate FiO2 01/03/21 16:03 97.6 70 16 120/72 (88) 100 Room Air Current Medications Current Medications Medications (Trade) Dose Ordered Sig/Rishi Route PRN Reason Start Time Stop Time Status Last Admin Dose Admin Acetaminophen (Tylenol Tab) 650 mg Q6HP PRN PO HEADACHE or DISCOMFORT 12/20/20 04:05 Al Hydrox/Mg Hydrox/Simethicone (Mylanta) 30 ml Q4HP PRN PO HEARTBURN/INDIGESTION 12/20/20 04:05 Home Med (Med Rec Complete!) ASDIRECTED XX 12/20/20 03:20 12/20/20 03:22 DC Lorazepam (Ativan) 1 mg BID PO 12/28/20 09:00 Lorazepam (Ativan) 1 mg Q6HP PRN PO ANXIETY 12/20/20 13:00 12/27/20 12:59 DC Lorazepam (Ativan) 1 mg Q6HP PRN PO ANXIETY 12/28/20 07:30 Magnesium Hydroxide (Milk Of Magnesia) 30 ml DAILYPRN PRN PO CONSTIPATION 12/20/20 04:05 Miscellaneous (Unresolved Clarification Entry) SEE LABEL COMMENTS DAILY XX 01/03/21 09:00 01/03/21 15:35 DC Olanzapine (ZyPREXA ZYDIS) 5 mg Q4HP PRN PO ANXIETY/AGITATION 12/20/20 04:05 Olanzapine (ZyPREXA ZYDIS) 5 mg QHS PO 12/26/20 21:00 12/28/20 07:33 DC Quetiapine Fumarate (SEROquel) 25 mg QHS PO 12/23/20 21:00 12/26/20 10:56 DC Quetiapine Fumarate (SEROquel) 50 mg DAILY PO 12/21/20 09:00 12/23/20 13:19 DC Quetiapine Fumarate (SEROquel) 100 mg QHS PO 12/20/20 21:00 12/23/20 13:19 DC Risperidone (RisperDAL) 2 mg BID PO 12/28/20 09:00 Trazodone HCl (Desyrel) 50 mg QHSP PRN PO INSOMNIA 12/20/20 04:05 Allergies Coded Allergies: amoxicillin (Verified Allergy, Intermediate, HIVES, 11/11/20) BLANQUITA DOWD M.D. Jan 05, 2021 08:56
[2021-01-06 05:59] VITALS: BP 97/63
[2021-01-06] MEDS: risperiDONE 2 MG TAB PO SCH ×2 (08:54→21:00)
[2021-01-06] MEDS: LORazepam 1 MG TAB PO SCH ×2 (08:54→21:00)
[2021-01-06 16:17] VITALS: BP 100/56
[2021-01-07] MEDS: risperiDONE 2 MG TAB PO SCH ×2 (09:00→20:33)
[2021-01-07] MEDS: LORazepam 1 MG TAB PO SCH ×2 (09:00→20:33)
[2021-01-07 11:36] LABS: HEMOGLOBIN 14.9 g/dl (13.5-17.5); MEAN CORPUSCULAR HEMOGLOBIN 28.7 pg (27.0-33.0); MEAN CORPUSCULAR HGB CONC 33.1 g/dl (32.0-36.5); MEAN CORPUSCULAR VOLUME 86.7 fl (80.0-96.0); PLATELET COUNT, AUTOMATED 194 10^3/uL (150-450); RED BLOOD COUNT 5.19 10^6/uL (4.30-6.10); WHITE BLOOD COUNT 5.3 10^3/uL (4.0-10.0)
[2021-01-07 12:02] LABS: ALBUMIN 3.3 GM/DL (3.2-5.2); ALT/SGPT 146 U/L (12-78); BILIRUBIN,TOTAL 0.4 MG/DL (0.2-1.0); BLOOD UREA NITROGEN 13 MG/DL (7-18); CALCIUM LEVEL 8.4 MG/DL (8.5-10.1); CARBON DIOXIDE LEVEL 27 MEQ/L (21-32); CHLORIDE LEVEL 108 MEQ/L (98-107); GLOMERULAR FILTRATION RATE > 60.0 (>60); GLUCOSE, FASTING 98 MG/DL (70-100); SODIUM LEVEL 142 MEQ/L (136-145); TOTAL PROTEIN 6.2 GM/DL (6.4-8.2)
--- NOTE | 2021-01-07 13:03 | IPNPDOC ---
Text Note Date of Service The patient was seen on 01/07/21. NOTE Hospitalist Progress Note Subjective: The hospitalist team was consulted once again for evaluation of the patient because he has not been eating. Upon speaking with the patient, he answers of respiratory questions with only yes/no, or with shaking his head or a nod. Apparently he really has not eaten much food since admission, his family has brought him some snacks which is primarily candy and junk food which by evidence of represents garbage can, etc. it appears he has eaten a few of these. Rega rding his actual meals, he apparently has eaten nothing or essentially nothing. Dietary apparently has been very gracious and trying to provide him with just about anything to accommodate him, but all of this has been unsuccessful. It appears that he has lost at least 10 pounds, perhaps more since admission here. Also, apparently he spends essentially the entire day in bed, they do try to get him out of bed at least twice a day. Objective: General: Awake, alert, oriented 3. Not in any acute distress. HEENT: Head normocephalic, atraumatic, sclera are nonicteric. Hearing is grossly intact to conversation. Respiratory: Clear to auscultation bilaterally with no wheezes, rales, or rhonchi. Cardiovascular: Regular rate and rhythm, with no rubs, gallops, or murmur. Abdomen: Soft, nontender, nondistended, no hepatosplenomegaly appreciated. Bowel sounds present. Extremities: 2+ pulses in the radial and dorsalis pedis bilaterally. No evidence of clubbing or cyanosis. Assessment: Paranoid schizophrenia Protein calorie malnutrition due to oral intake refusal Mild chronic transaminitis that appears to be dating back to 2014 Plan: So far the patient has not developed any electrolyte abnormalities or other organ dysfunction that would require aggressive treatment. His total protein and albumin are significantly lower than admission, and the etiology seems fairly straightforward given that he is refusing essentially all oral intake. This seems to be a psychiatric etiology secondary to his paranoid schizophrenia. It appears that psychiatry is requesting from the courts a "treatment over obje ction" petition. I certainly agree with this course of action as his refusal of oral intake is certainly causing a risk to his health, and it can be reasonably expected that appropriate treatment of his psychiatric disease would help in this matter. Hospitalist team will once again sign off at this time. Please reconsult our service if there are any additional questions or concerns, or the patient's status deteriorates. VS,Fishbone, I+O VS, Fishbone, I+O Laboratory Tests 01/07/21 10:53 Vital Signs Date Time Temp Pulse Resp B/P (MAP) Pulse Ox O2 Delivery O2 Flow Rate FiO2 01/07/21 06:40 97.2 75 16 97 Room Air 01/06/21 05:59 97/63 (74) I&O- Last 24 Hours up to 6 AM 01/07/21 06:00 Intake Total 0 ml Balance 0 ml DESTINY HENDERSON DO Jan 07, 2021 13:03
[2021-01-07 15:34] VITALS: BP 113/60
[2021-01-08 06:35] VITALS: BP 128/58
[2021-01-08] MEDS: LORazepam 1 MG TAB PO SCH ×2 (09:00→20:04)
[2021-01-08] MEDS: risperiDONE 2 MG TAB PO SCH ×2 (09:00→20:04)
--- NOTE | 2021-01-08 10:07 | MHIPNPDOC ---
[facility] Progress Note Progress Note DATE OF SERVICE: 01/08/21 The patient is showing no improvement and remained extremely withdrawn, guarded and preoccupied. He is not responding verbally, although he is awake and alert but not answering and only nodding his head in recognition. He is not eating very much and has lost 10 pounds since his admission. He is apparently hallucinating and is fearful of eating because of the content of the hallucinations treatment over objection court petition has been started. HISTORY: . VITAL SIGNS: See below. NEW TEST RESULTS: . CURRENT MEDICATIONS: See below. MENTAL STATUS EXAMINATION: Patient is a 30 -year old male, who is , not overtly responding. Speech: Is nonverbal. Language skills are , poor. Thought processes including: Mute. Thought content: Appears paranoid and hallucinating . Abstract reasoning, and computation: , Poor. Description of associations: Preoccupied. Description of abnormal or psychotic thoughts: Grossly paranoid. Judgment: nil]. Insight: very poor. Orientation: Appears oriented. Recent and remote memory: , Poor. Attention span and concentration: , Poor. Language: . Fund of knowledge: . Mood: , Anxious, fearful. Affect: Blunted and guarded, preoccupied. DIAGNOSES: 1. . Paranoid schizophrenia 2. . 3. . ASSESSMENT:No improvement, not eating MANAGEMENT PLAN: Seeking treatment over objection. TIME SPENT: 20 minutes. Vital Signs Vital Signs Date Time Temp Pulse Resp B/P (MAP) Pulse Ox O2 Delivery O2 Flow Rate FiO2 01/08/21 06:35 98.0 62 18 128/58 (81) 98 Room Air Laboratory Data 24H Labs Laboratory Tests 2 01/07/21 10:53: Nucleated Red Blood Cells % (auto) 0.0, Anion Gap 7L, Glomerular Filtration Rate > 60.0, Calcium Level 8.4L, Total Bilirubin 0.4, Aspartate Amino Transf (AST/SGOT) 64H, Alanine Aminotransferase (ALT/SGPT) 146H, Alkaline Phosphatase 76, Total Protein 6.2L, Albumin 3.3, Albumin/Globulin Ratio 1.1 CBC/BMP Laboratory Tests 01/07/21 10:53 Current Medications Current Medications Medications (Trade) Dose Ordered Sig/Rishi Route PRN Reason Start Time Stop Time Status Last Admin Dose Admin Acetaminophen (Tylenol Tab) 650 mg Q6HP PRN PO HEADACHE or DISCOMFORT 12/20/20 04:05 Al Hydrox/Mg Hydrox/Simethicone (Mylanta) 30 ml Q4HP PRN PO HEARTBURN/INDIGESTION 12/20/20 04:05 Home Med (Med Rec Complete!) ASDIRECTED XX 12/20/20 03:20 12/20/20 03:22 DC Lorazepam (Ativan) 1 mg BID PO 12/28/20 09:00 Lorazepam (Ativan) 1 mg Q6HP PRN PO ANXIETY 12/20/20 13:00 12/27/20 12:59 DC Lorazepam (Ativan) 1 mg Q6HP PRN PO ANXIETY 12/28/20 07:30 Magnesium Hydroxide (Milk Of Magnesia) 30 ml DAILYPRN PRN PO CONSTIPATION 12/20/20 04:05 Miscellaneous (Unresolved Clarification Entry) SEE LABEL COMMENTS DAILY XX 01/03/21 09:00 01/03/21 15:35 DC Olanzapine (ZyPREXA ZYDIS) 5 mg Q4HP PRN PO ANXIETY/AGITATION 12/20/20 04:05 Olanzapine (ZyPREXA ZYDIS) 5 mg QHS PO 12/26/20 21:00 12/28/20 07:33 DC Quetiapine Fumarate (SEROquel) 25 mg QHS PO 12/23/20 21:00 12/26/20 10:56 DC Quetiapine Fumarate (SEROquel) 50 mg DAILY PO 12/21/20 09:00 12/23/20 13:19 DC Quetiapine Fumarate (SEROquel) 100 mg QHS PO 12/20/20 21:00 12/23/20 13:19 DC Risperidone (RisperDAL) 2 mg BID PO 12/28/20 09:00 Trazodone HCl (Desyrel) 50 mg QHSP PRN PO INSOMNIA 12/20/20 04:05 Allergies Coded Allergies: amoxicillin (Verified Allergy, Intermediate, HIVES, 11/11/20) BLANQUITA DOWD M.D. 14, 2021 10:07
[2021-01-08 18:04] VITALS: BP 118/63
[2021-01-09 06:32] VITALS: BP 140/66
[2021-01-09] MEDS: risperiDONE 2 MG TAB PO SCH ×2 (09:00→20:44)
[2021-01-09] MEDS: LORazepam 1 MG TAB PO SCH ×2 (09:00→20:44)
--- NOTE | 2021-01-09 11:11 | MHIPNPDOC ---
[facility] Progress Note Progress Note DATE OF SERVICE: 01/09/21 Remains extremely withdrawn, preoccupied and continued to refuse medication and that he limited the eating but in no acute physical distress HISTORY: . VITAL SIGNS: See below. NEW TEST RESULTS: . CURRENT MEDICATIONS: See below. MENTAL STATUS EXAMINATION: Patient is a 30-year old male, who is , not verbally responding. Speech: Is , not productive. Language skills are poor. Thought processes including: Practically mute]. Thought content: , Unable to evaluate. Abstract reasoning, and computation: , Poor. Description of associations: , Not responding. Description of abnormal or psychotic thoughts: Appears grossly paranoid. Judgment: , Poor. Insight: very poor. Orientation: Appears oriented. Recent and remote memory: poor. Attention span and concentration: poor. Language: . Fund of knowledge: . Mood: Fearful. Affect: , Blunted, preoccupied. DIAGNOSES: 1. . Schizophrenia, paranoid 2. . 3. . ASSESSMENT:Remained grossly psychotic MANAGEMENT PLAN: Treatment over objection. Petition started. TIME SPENT: 15 minutes. Vital Signs Vital Signs Date Time Temp Pulse Resp B/P (MAP) Pulse Ox O2 Delivery O2 Flow Rate FiO2 01/09/21 06:32 97.9 64 18 140/66 (90) 99 Room Air Current Medications Current Medications Medications (Trade) Dose Ordered Sig/Rishi Route PRN Reason Start Time Stop Time Status Last Admin Dose Admin Acetaminophen (Tylenol Tab) 650 mg Q6HP PRN PO HEADACHE or DISCOMFORT 12/20/20 04:05 Al Hydrox/Mg Hydrox/Simethicone (Mylanta) 30 ml Q4HP PRN PO HEARTBURN/INDIGESTION 12/20/20 04:05 Home Med (Med Rec Complete!) ASDIRECTED XX 12/20/20 03:20 12/20/20 03:22 DC Lorazepam (Ativan) 1 mg BID PO 12/28/20 09:00 Lorazepam (Ativan) 1 mg Q6HP PRN PO ANXIETY 12/20/20 13:00 12/27/20 12:59 DC Lorazepam (Ativan) 1 mg Q6HP PRN PO ANXIETY 12/28/20 07:30 Magnesium Hydroxide (Milk Of Magnesia) 30 ml DAILYPRN PRN PO CONSTIPATION 12/20/20 04:05 Miscellaneous (Unresolved Clarification Entry) SEE LABEL COMMENTS DAILY XX 01/03/21 09:00 01/03/21 15:35 DC Olanzapine (ZyPREXA ZYDIS) 5 mg Q4HP PRN PO ANXIETY/AGITATION 12/20/20 04:05 Olanzapine (ZyPREXA ZYDIS) 5 mg QHS PO 12/26/20 21:00 12/28/20 07:33 DC Quetiapine Fumarate (SEROquel) 25 mg QHS PO 12/23/20 21:00 12/26/20 10:56 DC Quetiapine Fumarate (SEROquel) 50 mg DAILY PO 12/21/20 09:00 12/23/20 13:19 DC Quetiapine Fumarate (SEROquel) 100 mg QHS PO 12/20/20 21:00 12/23/20 13:19 DC Risperidone (RisperDAL) 2 mg BID PO 12/28/20 09:00 Trazodone HCl (Desyrel) 50 mg QHSP PRN PO INSOMNIA 12/20/20 04:05 Allergies Coded Allergies: amoxicillin (Verified Allergy, Intermediate, HIVES, 11/11/20) BLANQUITA DOWD M.D. Jan 09, 2021 11:10
--- NOTE | 2021-01-09 15:25 | TOB ---
[facility] PROGRESS NOTE TREATMENT OVER OBJECTION DATE: 01/09/2021 LEGAL STATUS: Involuntary 2-PC. I. CLINICAL ASSESSMENT/CLINICAL SUMMARY, HISTORY OF PRESENT ILLNESS: This patient is a 29-year-old single male with a past a history of polysubstance abuse and apparent history of psychosis with one previous admission at [facility] in October of this year. Patient at the time was admitted with marked paranoid ideas and bizarre behavior, and he was treated with Zyprexa and discharged in improved condition; however, if he was actually complying with this medication is unclear. Patient was again brought to the emergency room on December 19 of this year after his mother, who lives in the state of [place], called police to report that he was in significant distress. He was brought to the emergency room by his classification case manager grossly disorganized, paranoid, and bizarre mental status and admitted on status. On the unit when he was seen by this treating doctor, the patient was very disorganized, verbally not productive and not able to respond, was mumbling, and not able to give any coherent information. Patient at the time appeared to be actively hallucinating, extremely paranoid, and the mother reported that patient was hearing voices, people were chasing him, and he was acting very bizarre. On the unit, patient was refusing to take any prescribed medicine and remained extremely withdrawn, seclusive, and not responding verbally most of the time. At the same time, patient started to refuse to eat or even drink at times. Patient at one point reported that he was hearing voices, people telling him that if he eats then his mother will get sick, and he himself would get sick and . Since the patient was refusing to eat a lot of times and not drinking enough, patient's mother, who is in [place], was contacted. The mother came to [place] and had an interview with the treating doctor. The mother reports that patient has a very long history of being paranoid, at times hallucinating, and has been in treatment in [place] several times but always refused to followup with any outpatient treatment. The mother reports that for the past 3 months patient has been sounding more and more paranoid and lately is telling the mother that he is hearing voices of different people in the community, particularly a female named Sheridan, telling him that if he eats or drinks, he will get sick, and his family will get sick, and he will . Patient is occasionally eating but not regularly, and since his admission he lost about 10 pounds. He is now practically mute, not verbally responding, and extremely withdrawn, preoccupied, grossly paranoid, and refusing to eat. DIAGNOSIS: Schizophrenia, paranoid type. II. PROPOSED TREATMENT: 1. Treatment recommended by the treating doctor is: Begin with risperidone 2 mg tablets twice a day, and if he refuses he will need risperidone Consta intramuscular (IM) injection, 25-50 mg every 2 weeks. 2. Reasonable alternative. We could try Prolixin tablets 15-30 mg per day orally. If he refuses, Prolixin Decanoate injection 25 mg to 50 mg by injection every 2 weeks. We would also recommend that he get Cogentin 1-2 mg twice a day for side effects. 3. Has the patient been tried on this medicine before? The answer is unclear. He was prescribed Zyprexa during his admission in October, but it is not clear whether he took that medicine or not. Since his admission he was given risperidone 2 mg twice a day, but he has been refusing. 4. Has the patient been on any other treatment? Again, he was given Zyprexa in October admission, but if he was taking it or not is unclear. 5. Anticipated benefit of the treatment? We would expect that he would have a marked reduction of his auditory hallucinations and paranoid ideas, and he will be able to eat and drink and able to main symptom free and able to survive. 6. Reasonable foreseeable side effects? There are several side effects, including extrapyramidal side effects, including dystonia and tremor. He can have over-sedation, and there is a chance for long-term side effect of metabolic syndrome, like glucose metabolism disorder. Long-term side effects: Could have tardive dyskinesis and also rare but serious side effect of neuroleptic malignant syndrome. 7. Prognosis without treatment? There would be no improvement. He will not be able to eat or drink regularly, and his physical health will be in serious danger. III. PATIENT'S CAPACITY: 1. Did doctor explain to the patient? Yes, in detail the proposed treatment was explained. A. Condition was explained? Yes. B. Proposed treatment explained? Yes. C. Anticipated benefit of treatment? Yes. D. Risk of side effect? Yes. E. Availability of other treatment: Yes. F. Risk of no treatment? Yes, it is explained. 2. The nature of patient's objection to proposed treatment? Patient is not verbally responding to the explanation or any questions. He is practically mute. 3. Patient's capacity to make decisions on the treatment? Patient clearly is lacking any insight. He is mute basically, and he is refusing any treatment. He is refusing to talk and does not understand his treatment. 4. Likelihood of dangerous behavior? A. Is the patient believed to be danger to others? At this time, no, he is not an active danger to others. B. Is patient to be likely dangerous to self if not treatment? Yes. Due to his refusal to eat or drink and already losing 10 pounds, his physical health is in marked danger. 5. Any other information? This course of treatment has been explained to the patient's mother, who is extremely concerned about his condition, and mother is actively seeking to get this treatment done.
[2021-01-10] MEDS: LORazepam 1 MG TAB PO SCH ×2 (09:00→20:11)
[2021-01-10] MEDS: risperiDONE 2 MG TAB PO SCH ×2 (09:00→20:11)
--- NOTE | 2021-01-10 09:48 | MHIPNPDOC ---
[facility] Progress Note Progress Note DATE OF SERVICE: 01/10/21 Remained in bed and not overtly responding, although he appears awake and alert. Appears extremely paranoid and preoccupied, and showing more spontaneous movem ent or any activity and minimally needing and drinking. He has repeated CBC and CMP to be done this morning and we will proceed with court petition for treatment over objection. HISTORY: . VITAL SIGNS: See below. NEW TEST RESULTS: . CURRENT MEDICATIONS: See below. MENTAL STATUS EXAMINATION: Patient is a 30-year old male, who is not verbally responding . Speech: Is poor. Language skills are poor. Thought processes including: , Not responding. Thought content: Appears markedly paranoid. Abstract reasoning, and computation: , Poor. Description of associations: , Not responding. Description of abnormal or psychotic thoughts: Appears paranoid and actively hallucinating. Judgment: , Poor. Insight: very poor. Orientation: Appears oriented to place. Recent and remote memory: poor. Attention span and concentration: poor. Language: . Fund of knowledge: poor. Mood: Appears anxious and fearful]. Affect: [Extremely blunted, preoccupied]. DIAGNOSES: 1. ., Schizophrenia, paranoid 2. . 3. . ASSESSMENT:[, Grossly psychotic minimally eating] MANAGEMENT PLAN: [Seeking treatment over objection]. TIME SPENT: 15 minutes. Vital Signs Vital Signs Date Time Temp Pulse Resp B/P (MAP) Pulse Ox O2 Delivery O2 Flow Rate FiO2 01/09/21 06:32 97.9 64 18 140/66 (90) 99 Room Air Current Medications Current Medications Medications (Trade) Dose Ordered Sig/Rishi Route PRN Reason Start Time Stop Time Status Last Admin Dose Admin Acetaminophen (Tylenol Tab) 650 mg Q6HP PRN PO HEADACHE or DISCOMFORT 12/20/20 04:05 Al Hydrox/Mg Hydrox/Simethicone (Mylanta) 30 ml Q4HP PRN PO HEARTBURN/INDIGESTION 12/20/20 04:05 Home Med (Med Rec Complete!) ASDIRECTED XX 12/20/20 03:20 12/20/20 03:22 DC Lorazepam (Ativan) 1 mg BID PO 12/28/20 09:00 Lorazepam (Ativan) 1 mg Q6HP PRN PO ANXIETY 12/20/20 13:00 12/27/20 12:59 DC Lorazepam (Ativan) 1 mg Q6HP PRN PO ANXIETY 12/28/20 07:30 Magnesium Hydroxide (Milk Of Magnesia) 30 ml DAILYPRN PRN PO CONSTIPATION 12/20/20 04:05 Miscellaneous (Unresolved Clarification Entry) SEE LABEL COMMENTS DAILY XX 01/09/21 09:00 01/09/21 15:58 DC Miscellaneous (Unresolved Clarification Entry) SEE LABEL COMMENTS DAILY XX 01/03/21 09:00 01/03/21 15:35 DC Olanzapine (ZyPREXA ZYDIS) 5 mg Q4HP PRN PO ANXIETY/AGITATION 12/20/20 04:05 Olanzapine (ZyPREXA ZYDIS) 5 mg QHS PO 12/26/20 21:00 12/28/20 07:33 DC Quetiapine Fumarate (SEROquel) 25 mg QHS PO 12/23/20 21:00 12/26/20 10:56 DC Quetiapine Fumarate (SEROquel) 50 mg DAILY PO 12/21/20 09:00 12/23/20 13:19 DC Quetiapine Fumarate (SEROquel) 100 mg QHS PO 12/20/20 21:00 12/23/20 13:19 DC Risperidone (RisperDAL) 2 mg BID PO 12/28/20 09:00 Trazodone HCl (Desyrel) 50 mg QHSP PRN PO INSOMNIA 12/20/20 04:05 Allergies Coded Allergies: amoxicillin (Verified Allergy, Intermediate, HIVES, 11/11/20) BLANQUITA DOWD M.D. Jan 10, 2021 09:48
[2021-01-10 13:17] LABS: BASO % 0.4 % (0.0-1.0); EOS % 0.8 % (0.0-3.0); HEMATOCRIT 46.2 % (42.0-52.0); HEMOGLOBIN 15.2 g/dl (13.5-17.5); LYMPH # 2.7 10^3/uL (1.5-5.0); LYMPH % 56.4 % (24.0-44.0); MEAN CORPUSCULAR HEMOGLOBIN 28.4 pg (27.0-33.0); MEAN CORPUSCULAR HGB CONC 32.9 g/dl (32.0-36.5); MEAN CORPUSCULAR VOLUME 86.2 fl (80.0-96.0); MONO # 0.4 10^3/uL (0.0-0.8); MONO % 7.6 % (2.0-8.0); NEUTROPHILS # 1.6 10^3/uL (1.5-8.5); NEUTROPHILS % 34.6 % (36.0-66.0); PLATELET COUNT, AUTOMATED 187 10^3/uL (150-450); RED BLOOD COUNT 5.36 10^6/uL (4.30-6.10); WHITE BLOOD COUNT 4.8 10^3/uL (4.0-10.0)
[2021-01-10 13:50] LABS: ALBUMIN 3.4 GM/DL (3.2-5.2); ALT/SGPT 124 U/L (12-78); BILIRUBIN,TOTAL 0.6 MG/DL (0.2-1.0); BLOOD UREA NITROGEN 10 MG/DL (7-18); CALCIUM LEVEL 8.8 MG/DL (8.5-10.1); CARBON DIOXIDE LEVEL 25 MEQ/L (21-32); CHLORIDE LEVEL 110 MEQ/L (98-107); CREATININE FOR GFR 0.81 MG/DL (0.70-1.30); GLOMERULAR FILTRATION RATE > 60.0 (>60); GLUCOSE, FASTING 86 MG/DL (70-100); POTASSIUM SERUM 4.2 MEQ/L (3.5-5.1); SODIUM LEVEL 139 MEQ/L (136-145); TOTAL PROTEIN 6.5 GM/DL (6.4-8.2)
[2021-01-10 15:21] VITALS: BP 96/51
--- NOTE | 2021-01-10 17:03 | MHIPNPDOC ---
[facility] Progress Note Progress Note DATE OF SERVICE: 01/10/21 TREATMENT OVER OBJECTION II PART TREATMENT OVER OBJECTION DATE: 01/10/2021 LEGAL STATUS: Involuntary 2-PC. I. CLINICAL ASSESSMENT/CLINICAL SUMMARY, HISTORY OF PRESENT ILLNESS: This patient is a 29-year-old single male with a past a history of polysubstance abuse and apparent history of psychosis with one previous admission at [facility] in October of this year. Patient at the time was admitted with marked paranoid ideas and bizarre behavior, and he was treated with Zyprexa and discharged in improved condition; however, if he was actually complying with this medication is unclear. Patient was again brought to the emergency room on December 19 of this year after his mother, who lives in the state of [place], called police to report that he was in significant distress. He was brought to the emergency room by his upper caser grossly disorganized, paranoid, and bizarre mental status and admitted on 9.39 status. On the unit when he was seen by this treating doctor, the patient was very disorganized, verbally not productive and not able to respond, was mumbling, and not able to give any coherent information. Patient at the time appeared to be actively hallucinating, extremely paranoid, and the mother reported that patient was hearing voices, people were chasing him, and he was acting very bizarre. On the unit, patient was refusing to take any prescribed medicine and remained extremely withdrawn, seclusive, and not responding verbally most of the time. At the same time, patient started to refuse to eat or even drink at times. Patient at one point reported that he was hearing voices, people telling him that if he eats then his mother will get sick, and he himself would get sick and . Since the patient was refusing to eat a lot of times and not drinking enough, patient's mother, who is in [place], was contacted. The mother came to [place] and had an interview with the treating doctor. The mother reports that patient has a very long history of being paranoid, at times hallucinating, and has been in treatment in [place] several times but always refused to followup with any outpatient treatment. The mother reports that for the past 3 months patient has been sounding more and more paranoid and lately is telling the mother that he is hearing voices of different people in the community, particularly a female named Sheridan, telling him that if he eats or drinks, he will get sick, and his family will get sick, and he will . Patient is occasionally eating but not regularly, and since his admission he lost about 10 pounds. He is now pr actically mute, not verbally responding, and extremely withdrawn, preoccupied, grossly paranoid, and refusing to eat. DIAGNOSIS: Schizophrenia, paranoid type. II. PROPOSED TREATMENT: 1. Treatment recommended by the treating doctor is: Begin with risperidone 2 mg tablets twice a day, and if he refuses he will need risperidone Consta intramuscular (IM) injection, 25-50 mg every 2 weeks. 2. Reasonable alternative. We could try Prolixin tablets 15-30 mg per day orally. If he refuses, Prolixin Decanoate injection 25 mg to 50 mg by injection every 2 weeks. We would also recommend that he get Cogentin 1-2 mg twice a day for side effects. 3. Has the patient been tried on this medicine before? The answer is unclear. He was prescribed Zyprexa during his admission in October, but it is not clear whether he took that medicine or not. Since his admission he was given risperidone 2 mg twice a day, but he has been refusing. 4. Has the patient been on any other treatment? Again, he was given Zyprexa in October admission, but if he was taking it or not is unclear. 5. Anticipated benefit of the treatment? We would expect that he would have a marked reduction of his auditory hallucinations and paranoid ideas, and he will be able to eat and drink and able to main symptom free and able to survive. 6. Reasonable foreseeable side effects? There are several side effects, including extrapyramidal side effects, including dystonia and tremor. He can have over-sedation, and there is a chance for long-term side effect of metabolic syndrome, like glucose metabolism disorder. Long-term side effects: Could have tardive dyskinesis and also rare but serious side effect of neuroleptic malignant syndrome. 7. Prognosis without treatment? There would be no improvement. He will not be able to eat or drink regularly, and his physical health will be in serious danger. III. PATIENT'S CAPACITY: 1. Did doctor explain to the patient? Yes, in detail the proposed treatment was explained. A. Condition was explained? Yes. B. Proposed treatment explained? Yes. C. Anticipated benefit of treatment? Yes. D. Risk of side effect? Yes. E. Availability of other treatment: Yes. F. Risk of no treatment? Yes, it is explained. 2. The nature of patient's objection to proposed treatment? Patient is able to say he doesn't want to take medications because he doesn't want to experience any side effects, he says he knows which medications he is supposed to take and he acknowledges that the side effects were discussed with him, but he says he can't explain what those side effects are. 3. Patient's capacity to make decisions on the treatment? Patient clearly is lacking any insight. He is mute basically, and he is refusing any treatment. He is refusing to take medications but he can't remember what brought him to the Hospital. He is able to say he has not been eating properly, he doesn't trust eating the Hospital food, because he's afraid it might hurt him although he can't say why; he has not been drinking many fluids for the same reason, he feels the medications would be harmful for him, but he can't say why, he is not insightful about his illness. 4. Likelihood of dangerous behavior? A. Is the patient believed to be danger to others? At this time, no, he is not an active danger to others. B. Is patient to be likely dangerous to self if not treatment? Yes. Due to his refusal to eat or drink and already losing 10 pounds, his physical health is in marked danger. 5. Any other information? This course of treatment has been explained to the patient's mother, who is extremely concerned about his condition, and mother is actively seeking to get this treatment done. Vital Signs Vital Signs Date Time Temp Pulse Resp B/P (MAP) Pulse Ox O2 Delivery O2 Flow Rate FiO2 01/10/21 15:21 98.0 53 14 96/51 (66) 01/09/21 06:32 99 Room Air Laboratory Data 24H Labs Laboratory Tests 2 01/10/21 12:59: Immature Granulocyte % (Auto) 0.2, Neutrophils (%) (Auto) 34.6L, Lymphocytes (%) (Auto) 56.4H, Monocytes (%) (Auto) 7.6, Eosinophils (%) (Auto) 0.8, Basophils (%) (Auto) 0.4, Neutrophils # (Auto) 1.6, Lymphocytes # (Auto) 2.7, Monocytes # (Auto) 0.4, Eosinophils # (Auto) 0.0, Basophils # (Auto) 0.0, Nucleated Red Blood Cells % (auto) 0.0, Anion Gap 4L, Glomerular Filtration Rate > 60.0, Calcium Level 8.8, Total Bilirubin 0.6, Aspartate Amino Transf (AST/SGOT) 54H, Alanine Aminotransferase (ALT/SGPT) 124H, Alkaline Phosphatase 75, Total Protein 6.5, Albumin 3.4, Albumin/Globulin Ratio 1.1 CBC/BMP Laboratory Tests 01/10/21 12:59 Current Medications Current Medications Medications (Trade) Dose Ordered Sig/Rishi Route PRN Reason Start Time Stop Time Status Last Admin Dose Admin Acetaminophen (Tylenol Tab) 650 mg Q6HP PRN PO HEADACHE or DISCOMFORT 12/20/20 04:05 Al Hydrox/Mg Hydrox/Simethicone (Mylanta) 30 ml Q4HP PRN PO HEARTBURN/INDIGESTION 12/20/20 04:05 Home Med (Med Rec Complete!) ASDIRECTED XX 12/20/20 03:20 12/20/20 03:22 DC Lorazepam (Ativan) 1 mg BID PO 12/28/20 09:00 Lorazepam (Ativan) 1 mg Q6HP PRN PO ANXIETY 12/20/20 13:00 12/27/20 12:59 DC Lorazepam (Ativan) 1 mg Q6HP PRN PO ANXIETY 12/28/20 07:30 Magnesium Hydroxide (Milk Of Magnesia) 30 ml DAILYPRN PRN PO CONSTIPATION 12/20/20 04:05 Miscellaneous (Unresolved Clarification Entry) SEE LABEL COMMENTS DAILY XX 01/09/21 09:00 01/09/21 15:58 DC Miscellaneous (Unresolved Clarification Entry) SEE LABEL COMMENTS DAILY XX 01/03/21 09:00 01/03/21 15:35 DC Olanzapine (ZyPREXA ZYDIS) 5 mg Q4HP PRN PO ANXIETY/AGITATION 12/20/20 04:05 Olanzapine (ZyPREXA ZYDIS) 5 mg QHS PO 12/26/20 21:00 12/28/20 07:33 DC Quetiapine Fumarate (SEROquel) 25 mg QHS PO 12/23/20 21:00 12/26/20 10:56 DC Quetiapine Fumarate (SEROquel) 50 mg DAILY PO 12/21/20 09:00 12/23/20 13:19 DC Quetiapine Fumarate (SEROquel) 100 mg QHS PO 12/20/20 21:00 12/23/20 13:19 DC Risperidone (RisperDAL) 2 mg BID PO 12/28/20 09:00 Trazodone HCl (Desyrel) 50 mg QHSP PRN PO INSOMNIA 12/20/20 04:05 Allergies Coded Allergies: amoxicillin (Verified Allergy, Intermediate, HIVES, 11/11/20) KHUSHI PATEL MD Jan 10, 2021 17:03
[2021-01-11] MEDS: risperiDONE 2 MG TAB PO SCH ×2 (09:00→21:00)
[2021-01-11] MEDS: LORazepam 1 MG TAB PO SCH ×2 (09:00→21:00)
--- NOTE | 2021-01-11 10:20 | MHIPNPDOC ---
[facility] Progress Note Progress Note DATE OF SERVICE: 01/11/21 , He remained in bed most of the time and remained mute and not verbally responding. He is in no acute physical distress and recent blood work from January 10 shows no significant abnormality in his blood count and chemistry. The court petition for treatment of objection is in process and waiting for the court hearing. HISTORY: . VITAL SIGNS: See below. NEW TEST RESULTS: . CURRENT MEDICATIONS: See below. MENTAL STATUS EXAMINATION: Patient is a 30-year old male, who is , not verbally responding. Speech: Is not productive . Language skills are poor Thought processes including: Nonverbal. Thought content: Appears markedly paranoid . Abstract reasoning, and computation: , Poor. Description of associations: Nonverbal. Description of abnormal or psychotic thoughts: Grossly paranoid and delusional or. Judgment: poor. Insight: very poor. Orientation: Appears oriented. Recent and remote memory: , Poor. Attention span and concentration: , Poor. Language: . Fund of knowledge: . Mood: Appears anxious, fearful. Affect: , Blunted, preoccupied. DIAGNOSES: 1. , Schizophrenia, paranoid. 2. . 3. . 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 TIME SPENT: 15 minutes. Vital Signs Vital Signs Date Time Temp Pulse Resp B/P (MAP) Pulse Ox O2 Delivery O2 Flow Rate FiO2 01/10/21 15:21 98.0 53 14 96/51 (66) 01/09/21 06:32 99 Room Air Laboratory Data 24H Labs Laboratory Tests 2 01/10/21 12:59: Immature Granulocyte % (Auto) 0.2, Neutrophils (%) (Auto) 34.6L, Lymphocytes (%) (Auto) 56.4H, Monocytes (%) (Auto) 7.6, Eosinophils (%) (Auto) 0.8, Basophils (%) (Auto) 0.4, Neutrophils # (Auto) 1.6, Lymphocytes # (Auto) 2.7, Monocytes # (Auto) 0.4, Eosinophils # (Auto) 0.0, Basophils # (Auto) 0.0, Nucleated Red Blood Cells % (auto) 0.0, Anion Gap 4L, Glomerular Filtration Rate > 60.0, Calcium Level 8.8, Total Bilirubin 0.6, Aspartate Amino Transf (AST/SGOT) 54H, Alanine Aminotransferase (ALT/SGPT) 124H, Alkaline Phosphatase 75, Total Protein 6.5, Albumin 3.4, Albumin/Globulin Ratio 1.1 CBC/BMP Laboratory Tests 01/10/21 12:59 Current Medications Current Medications Medications (Trade) Dose Ordered Sig/Rishi Route PRN Reason Start Time Stop Time Status Last Admin Dose Admin Acetaminophen (Tylenol Tab) 650 mg Q6HP PRN PO HEADACHE or DISCOMFORT 12/20/20 04:05 Al Hydrox/Mg Hydrox/Simethicone (Mylanta) 30 ml Q4HP PRN PO HEARTBURN/INDIGESTION 12/20/20 04:05 Home Med (Med Rec Complete!) ASDIRECTED XX 12/20/20 03:20 12/20/20 03:22 DC Lorazepam (Ativan) 1 mg BID PO 12/28/20 09:00 Lorazepam (Ativan) 1 mg Q6HP PRN PO ANXIETY 12/20/20 13:00 12/27/20 12:59 DC Lorazepam (Ativan) 1 mg Q6HP PRN PO ANXIETY 12/28/20 07:30 Magnesium Hydroxide (Milk Of Magnesia) 30 ml DAILYPRN PRN PO CONSTIPATION 12/20/20 04:05 Miscellaneous (Unresolved Clarification Entry) SEE LABEL COMMENTS DAILY XX 01/09/21 09:00 01/09/21 15:58 DC Miscellaneous (Unresolved Clarification Entry) SEE LABEL COMMENTS DAILY XX 01/03/21 09:00 01/03/21 15:35 DC Olanzapine (ZyPREXA ZYDIS) 5 mg Q4HP PRN PO ANXIETY/AGITATION 12/20/20 04:05 Olanzapine (ZyPREXA ZYDIS) 5 mg QHS PO 12/26/20 21:00 12/28/20 07:33 DC Quetiapine Fumarate (SEROquel) 25 mg QHS PO 12/23/20 21:00 12/26/20 10:56 DC Quetiapine Fumarate (SEROquel) 50 mg DAILY PO 12/21/20 09:00 12/23/20 13:19 DC Quetiapine Fumarate (SEROquel) 100 mg QHS PO 12/20/20 21:00 12/23/20 13:19 DC Risperidone (RisperDAL) 2 mg BID PO 12/28/20 09:00 Trazodone HCl (Desyrel) 50 mg QHSP PRN PO INSOMNIA 12/20/20 04:05 Allergies Coded Allergies: amoxicillin (Verified Allergy, Intermediate, HIVES, 11/11/20) BLANQUITA DOWD M.D. Jan 11, 2021 10:20
[2021-01-11 17:40] VITALS: BP 111/69
--- NOTE | 2021-01-12 08:34 | MHIPNPDOC ---
[facility] Progress Note Progress Note DATE OF SERVICE: 01/12/21 Patient is in same. Mental status and remained in his bed and markedly withdrawn and practically mute. CMP and CBC is within normal limits and there is no sign of dehydration. We are waiting for court hearing regarding the petition HISTORY: . VITAL SIGNS: See below. NEW TEST RESULTS: . CURRENT MEDICATIONS: See below. MENTAL STATUS EXAMINATION: Patient is a 30-year old male, who is in no acute distress. Speech: Is , not productive. Language skills are poor. Thought processes including: Practically mute. Thought content: , Unable to evaluate. Abstract reasoning, and computation: poor. Description of associations: mute. Description of abnormal or psychotic thoughts: Appears grossly paranoid. Judgment: poor. Insight: very poor. Orientation: Appears oriented. Recent and remote memory: poor. Attention span and concentration: poor. Language: . Fund of knowledge: . Mood: , Anxious, fearful. Her. Affect: , Blunted, preoccupied. DIAGNOSES: 1. ., Schizophrenia, paranoid type 2. . 3. . ASSESSMENT:Remains paranoid and nonverbal MANAGEMENT PLAN: Pursuing treatment over objection. TIME SPENT: 15 minutes. Vital Signs Vital Signs Date Time Temp Pulse Resp B/P (MAP) Pulse Ox O2 Delivery O2 Flow Rate FiO2 01/11/21 17:40 97.3 65 16 111/69 (83) 100 01/09/21 06:32 Room Air Current Medications Current Medications Medications (Trade) Dose Ordered Sig/Rishi Route PRN Reason Start Time Stop Time Status Last Admin Dose Admin Acetaminophen (Tylenol Tab) 650 mg Q6HP PRN PO HEADACHE or DISCOMFORT 12/20/20 04:05 Al Hydrox/Mg Hydrox/Simethicone (Mylanta) 30 ml Q4HP PRN PO HEARTBURN/INDIGESTION 12/20/20 04:05 Home Med (Med Rec Complete!) ASDIRECTED XX 12/20/20 03:20 12/20/20 03:22 DC Lorazepam (Ativan) 1 mg BID PO 12/28/20 09:00 Lorazepam (Ativan) 1 mg Q6HP PRN PO ANXIETY 12/20/20 13:00 12/27/20 12:59 DC Lorazepam (Ativan) 1 mg Q6HP PRN PO ANXIETY 12/28/20 07:30 Magnesium Hydroxide (Milk Of Magnesia) 30 ml DAILYPRN PRN PO CONSTIPATION 12/20/20 04:05 Miscellaneous (Unresolved Clarification Entry) SEE LABEL COMMENTS DAILY XX 01/09/21 09:00 01/09/21 15:58 DC Miscellaneous (Unresolved Clarification Entry) SEE LABEL COMMENTS DAILY XX 01/03/21 09:00 01/03/21 15:35 DC Olanzapine (ZyPREXA ZYDIS) 5 mg Q4HP PRN PO ANXIETY/AGITATION 12/20/20 04:05 Olanzapine (ZyPREXA ZYDIS) 5 mg QHS PO 12/26/20 21:00 12/28/20 07:33 DC Quetiapine Fumarate (SEROquel) 25 mg QHS PO 12/23/20 21:00 12/26/20 10:56 DC Quetiapine Fumarate (SEROquel) 50 mg DAILY PO 12/21/20 09:00 12/23/20 13:19 DC Quetiapine Fumarate (SEROquel) 100 mg QHS PO 12/20/20 21:00 12/23/20 13:19 DC Risperidone (RisperDAL) 2 mg BID PO 12/28/20 09:00 Trazodone HCl (Desyrel) 50 mg QHSP PRN PO INSOMNIA 12/20/20 04:05 Allergies Coded Allergies: amoxicillin (Verified Allergy, Intermediate, HIVES, 11/11/20) BLANQUITA DOWD M.D. Jan 12, 2021 08:34
[2021-01-12] MEDS: LORazepam 1 MG TAB PO SCH ×2 (08:50→21:58)
[2021-01-12] MEDS: risperiDONE 2 MG TAB PO SCH ×2 (08:50→21:58)
[2021-01-12 16:51] VITALS: BP 125/60
[2021-01-13 06:00] VITALS: BP 112/57
[2021-01-13] MEDS: LORazepam 1 MG TAB PO SCH ×2 (09:00→20:52)
[2021-01-13] MEDS: risperiDONE 2 MG TAB PO SCH ×2 (09:00→20:52)
[2021-01-14 06:23] VITALS: BP 136/86
[2021-01-14] MEDS: LORazepam 1 MG TAB PO SCH ×2 (09:00→21:00)
[2021-01-14] MEDS: risperiDONE 2 MG TAB PO SCH ×2 (09:00→21:00)
[2021-01-15 06:38] VITALS: BP 106/64
[2021-01-15] MEDS: risperiDONE 2 MG TAB PO SCH ×2 (09:00→21:00)
[2021-01-15] MEDS: LORazepam 1 MG TAB PO SCH ×2 (09:00→21:00)
[2021-01-15 16:16] VITALS: BP 119/71
[2021-01-16 06:10] VITALS: BP 132/57
[2021-01-16] MEDS: risperiDONE 2 MG TAB PO SCH ×2 (08:58→20:16)
[2021-01-16] MEDS: LORazepam 1 MG TAB PO SCH ×2 (08:58→20:16)
--- NOTE | 2021-01-16 11:20 | MHIPNPDOC ---
[facility] Progress Note Progress Note DATE OF SERVICE: 01/16/21 The patient is slightly more responsive today with the nodding of his head and hand gestures to recognize the M.D. however, he didn't respond with any verbal a nswers. He remains extremely guarded, withdrawn and preoccupied and grossly paranoid. The courts notified that the hearing will be held on January 26.. We will continue with supportive therapy and education in the meantime. HISTORY: . VITAL SIGNS: See below. NEW TEST RESULTS: . CURRENT MEDICATIONS: See below. MENTAL STATUS EXAMINATION: Patient is a 30-year old male, who is in bed, alert, but not verbally responding. Speech: Is , not verbally responding. Language skills are , poor. Thought processes including: Markedly withdrawn and preoccupied. Thought content: Appears grossly paranoid. Abstract reasoning, and computation: , Poor. Description of associations: Preoccupied, nonverbal. Description of abnormal or psychotic thoughts: Grossly paranoid. Judgment: , Poor. Insight: very poor. Orientation: Difficulty. Evaluate. Recent and remote memory: Unable to evaluate . Attention span and concentration: . Language: . Fund of knowledge: . Mood: , Anxious, fearful. Affect: Blunted and guarded. DIAGNOSES: 1. . schizophrenia, paranoid type 2. . 3. . ASSESSMENT:No improvement MANAGEMENT PLAN: Waiting for court hearing for treatment over objection. TIME SPENT: 15 minutes. Vital Signs Vital Signs Date Time Temp Pulse Resp B/P (MAP) Pulse Ox O2 Delivery O2 Flow Rate FiO2 01/16/21 06:10 97.4 54 16 132/57 (82) 100 Room Air Current Medications Current Medications Medications (Trade) Dose Ordered Sig/Rishi Route PRN Reason Start Time Stop Time Status Last Admin Dose Admin Acetaminophen (Tylenol Tab) 650 mg Q6HP PRN PO HEADACHE or DISCOMFORT 12/20/20 04:05 Al Hydrox/Mg Hydrox/Simethicone (Mylanta) 30 ml Q4HP PRN PO HEARTBURN/INDIGESTION 12/20/20 04:05 Home Med (Med Rec Complete!) ASDIRECTED XX 12/20/20 03:20 12/20/20 03:22 DC Lorazepam (Ativan) 1 mg BID PO 12/28/20 09:00 Lorazepam (Ativan) 1 mg Q6HP PRN PO ANXIETY 12/20/20 13:00 12/27/20 12:59 DC Lorazepam (Ativan) 1 mg Q6HP PRN PO ANXIETY 12/28/20 07:30 Magnesium Hydroxide (Milk Of Magnesia) 30 ml DAILYPRN PRN PO CONSTIPATION 12/20/20 04:05 Miscellaneous (Unresolved Clarification Entry) SEE LABEL COMMENTS DAILY XX 01/09/21 09:00 01/09/21 15:58 DC Miscellaneous (Unresolved Clarification Entry) SEE LABEL COMMENTS DAILY XX 01/03/21 09:00 01/03/21 15:35 DC Olanzapine (ZyPREXA ZYDIS) 5 mg Q4HP PRN PO ANXIETY/AGITATION 12/20/20 04:05 Olanzapine (ZyPREXA ZYDIS) 5 mg QHS PO 12/26/20 21:00 12/28/20 07:33 DC Quetiapine Fumarate (SEROquel) 25 mg QHS PO 12/23/20 21:00 12/26/20 10:56 DC Quetiapine Fumarate (SEROquel) 50 mg DAILY PO 12/21/20 09:00 12/23/20 13:19 DC Quetiapine Fumarate (SEROquel) 100 mg QHS PO 12/20/20 21:00 12/23/20 13:19 DC Risperidone (RisperDAL) 2 mg BID PO 12/28/20 09:00 Trazodone HCl (Desyrel) 50 mg QHSP PRN PO INSOMNIA 12/20/20 04:05 Allergies Coded Allergies: amoxicillin (Verified Allergy, Intermediate, HIVES, 11/11/20) BLANQUITA DOWD M.D. Jan 16, 2021 11:20
[2021-01-16 16:15] VITALS: BP 116/64
[2021-01-17 06:00] VITALS: BP 138/60
[2021-01-17] MEDS: risperiDONE 2 MG TAB PO SCH ×2 (08:32→20:22)
[2021-01-17] MEDS: LORazepam 1 MG TAB PO SCH ×2 (08:32→20:22)
[2021-01-17 09:48] LABS: ALBUMIN 3.9 GM/DL (3.2-5.2); ALT/SGPT 322 U/L (12-78); BILIRUBIN,TOTAL 0.4 MG/DL (0.2-1.0); BLOOD UREA NITROGEN 14 MG/DL (7-18); CALCIUM LEVEL 9.2 MG/DL (8.5-10.1); CARBON DIOXIDE LEVEL 29 MEQ/L (21-32); CHLORIDE LEVEL 107 MEQ/L (98-107); CREATININE FOR GFR 0.95 MG/DL (0.70-1.30); GLOMERULAR FILTRATION RATE > 60.0 (>60); GLUCOSE, FASTING 83 MG/DL (70-100); POTASSIUM SERUM 3.9 MEQ/L (3.5-5.1); SODIUM LEVEL 141 MEQ/L (136-145); TOTAL PROTEIN 7.6 GM/DL (6.4-8.2)
--- NOTE | 2021-01-17 10:38 | MHIPNPDOC ---
[facility] Progress Note Progress Note DATE OF SERVICE: 01/17/21 The patient apparently came out of his room early this morning and spoke briefly with the nursing staff but then he went back to his room and is in his bed and is not responding to the M.D. He is awake, but not verbally responding but doesn't appear to be in any acute distress. He remains markedly guarded, preoccupied, and grossly paranoid. Patient was informed that a court hearing is scheduled on January 26 and he did not make any comment in return. HISTORY: . VITAL SIGNS: See below. NEW TEST RESULTS: . CURRENT MEDICATIONS: See below. MENTAL STATUS EXAMINATION: Patient is a 30 -year old male, who is in bed and not responded. Speech: Is nonverbal . Language skills are poor. Thought processes including: , Preoccupied. Thought content: Appears markedly paranoid. Abstract reasoning, and computation: , Poor. Description of associations: Nonresponsive. Description of abnormal or psychotic thoughts: Appears paranoid. Judgment: , Poor. Insight: poor. Orientation: Appears oriented. Recent and remote memory: , Poor. Attention span and concentration: poor. Language: . Fund of knowledge: ]. Mood: [Appears anxious, fearful]. Affect: [Blunted]. DIAGNOSES: 1. ., Schizophrenia, paranoid type 2. . 3. . 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 TIME SPENT: 15 minutes. Vital Signs Vital Signs Date Time Temp Pulse Resp B/P (MAP) Pulse Ox O2 Delivery O2 Flow Rate FiO2 01/17/21 06:00 97.7 62 16 138/60 (86) 99 Room Air Laboratory Data 24H Labs Laboratory Tests 2 01/17/21 09:04: Anion Gap 5L, Glomerular Filtration Rate > 60.0, Calcium Level 9.2, Total Bilirubin 0.4, Aspartate Amino Transf (AST/SGOT) 160H, Alanine Aminotransferase (ALT/SGPT) 322H, Alkaline Phosphatase 108, Total Protein 7.6, Albumin 3.9, Albumin/Globulin Ratio 1.1 CBC/BMP Laboratory Tests 01/17/21 09:04 Current Medications Current Medications Medications (Trade) Dose Ordered Sig/Rishi Route PRN Reason Start Time Stop Time Status Last Admin Dose Admin Acetaminophen (Tylenol Tab) 650 mg Q6HP PRN PO HEADACHE or DISCOMFORT 12/20/20 04:05 Al Hydrox/Mg Hydrox/Simethicone (Mylanta) 30 ml Q4HP PRN PO HEARTBURN/INDIGESTION 12/20/20 04:05 Home Med (Med Rec Complete!) ASDIRECTED XX 12/20/20 03:20 12/20/20 03:22 DC Lorazepam (Ativan) 1 mg BID PO 12/28/20 09:00 Lorazepam (Ativan) 1 mg Q6HP PRN PO ANXIETY 12/20/20 13:00 12/27/20 12:59 DC Lorazepam (Ativan) 1 mg Q6HP PRN PO ANXIETY 12/28/20 07:30 Magnesium Hydroxide (Milk Of Magnesia) 30 ml DAILYPRN PRN PO CONSTIPATION 12/20/20 04:05 Miscellaneous (Unresolved Clarification Entry) SEE LABEL COMMENTS DAILY XX 01/09/21 09:00 01/09/21 15:58 DC Miscellaneous (Unresolved Clarification Entry) SEE LABEL COMMENTS DAILY XX 01/03/21 09:00 01/03/21 15:35 DC Olanzapine (ZyPREXA ZYDIS) 5 mg Q4HP PRN PO ANXIETY/AGITATION 12/20/20 04:05 Olanzapine (ZyPREXA ZYDIS) 5 mg QHS PO 12/26/20 21:00 12/28/20 07:33 DC Quetiapine Fumarate (SEROquel) 25 mg QHS PO 12/23/20 21:00 12/26/20 10:56 DC Quetiapine Fumarate (SEROquel) 50 mg DAILY PO 12/21/20 09:00 12/23/20 13:19 DC Quetiapine Fumarate (SEROquel) 100 mg QHS PO 12/20/20 21:00 12/23/20 13:19 DC Risperidone (RisperDAL) 2 mg BID PO 12/28/20 09:00 Trazodone HCl (Desyrel) 50 mg QHSP PRN PO INSOMNIA 12/20/20 04:05 Allergies Coded Allergies: amoxicillin (Verified Allergy, Intermediate, HIVES, 11/11/20) BLANQUITA DOWD M.D. Jan 17, 2021 10:38
[2021-01-17 16:06] VITALS: BP 106/62
[2021-01-18 06:36] VITALS: BP 111/56
[2021-01-18] MEDS: LORazepam 1 MG TAB PO SCH ×2 (09:00→20:15)
[2021-01-18] MEDS: risperiDONE 2 MG TAB PO SCH ×2 (09:00→20:15)
--- NOTE | 2021-01-18 10:18 | MHIPNPDOC ---
[facility] Progress Note Progress Note DATE OF SERVICE: 01/18/21 . There is no basic and the patient's mental status and behavior. He is alert at times, walking around the unit but not responding to the questions remains mar kedly preoccupied, guarded and paranoid. Repeat blood work for CMP shows elevated AST and ALt level after initial decrease. I would ask for medical consult to evaluate this. We are waiting for the court hearing on January 26 HISTORY: . VITAL SIGNS: See below. NEW TEST RESULTS: . CURRENT MEDICATIONS: See below. MENTAL STATUS EXAMINATION: Patient is a 30-year old male, who is alert, awake, but not verbally responding. Speech: Is , not responding. Language skills are poor. Thought processes including: Not verbally responding . Thought content: Appears grossly paranoid. Abstract reasoning, and computation: , Poor. Description of associations: , Not verbally responding. Description of abnormal or psychotic thoughts: Appears grossly paranoid . Judgment: poor. Insight: very poor. Orientation: Appears oriented. Recent and remote memory: poor. Attention span and concentration: . Language: . Fund of knowledge: . Mood: Appears anxious, fearful. Affect: Blunted preoccupied. DIAGNOSES: 1. . Schizophrenia, paranoid type 2. . 3. . ASSESSMENT:[No improvement] MANAGEMENT PLAN: [Waiting for court hearing. medical evaluation for Elevated liver enzymes]. TIME SPENT: [15] minutes. Vital Signs Vital Signs Date Time Temp Pulse Resp B/P (MAP) Pulse Ox O2 Delivery O2 Flow Rate FiO2 01/18/21 06:36 97.7 68 16 111/56 (74) 97 Room Air Current Medications Current Medications Medications (Trade) Dose Ordered Sig/Rishi Route PRN Reason Start Time Stop Time Status Last Admin Dose Admin Acetaminophen (Tylenol Tab) 650 mg Q6HP PRN PO HEADACHE or DISCOMFORT 12/20/20 04:05 Al Hydrox/Mg Hydrox/Simethicone (Mylanta) 30 ml Q4HP PRN PO HEARTBURN/INDIGESTION 12/20/20 04:05 Home Med (Med Rec Complete!) ASDIRECTED XX 12/20/20 03:20 12/20/20 03:22 DC Lorazepam (Ativan) 1 mg BID PO 12/28/20 09:00 Lorazepam (Ativan) 1 mg Q6HP PRN PO ANXIETY 12/20/20 13:00 12/27/20 12:59 DC Lorazepam (Ativan) 1 mg Q6HP PRN PO ANXIETY 12/28/20 07:30 Magnesium Hydroxide (Milk Of Magnesia) 30 ml DAILYPRN PRN PO CONSTIPATION 12/20/20 04:05 Miscellaneous (Unresolved Clarification Entry) SEE LABEL COMMENTS DAILY XX 01/09/21 09:00 01/09/21 15:58 DC Miscellaneous (Unresolved Clarification Entry) SEE LABEL COMMENTS DAILY XX 01/17/21 09:00 Miscellaneous (Unresolved Clarification Entry) SEE LABEL COMMENTS DAILY XX 01/03/21 09:00 01/03/21 15:35 DC Olanzapine (ZyPREXA ZYDIS) 5 mg Q4HP PRN PO ANXIETY/AGITATION 12/20/20 04:05 Olanzapine (ZyPREXA ZYDIS) 5 mg QHS PO 12/26/20 21:00 12/28/20 07:33 DC Quetiapine Fumarate (SEROquel) 25 mg QHS PO 12/23/20 21:00 12/26/20 10:56 DC Quetiapine Fumarate (SEROquel) 50 mg DAILY PO 12/21/20 09:00 12/23/20 13:19 DC Quetiapine Fumarate (SEROquel) 100 mg QHS PO 12/20/20 21:00 12/23/20 13:19 DC Risperidone (RisperDAL) 2 mg BID PO 12/28/20 09:00 Trazodone HCl (Desyrel) 50 mg QHSP PRN PO INSOMNIA 12/20/20 04:05 Allergies Coded Allergies: amoxicillin (Verified Allergy, Intermediate, HIVES, 11/11/20) BLANQUITA DOWD M.D. Jan 18, 2021 10:17
[2021-01-18 14:51] LABS: HEPATITIS A ANTIBODY IGM NEGATIVE (NEGATIVE); HEPATITIS B CORE ANTIBODY IGM NEGATIVE (NEGATIVE); HEPATITIS B SURFACE ANTIGEN NEGATIVE (NEGATIVE)
[2021-01-18 14:55] LABS: HEPATITIS C VIRUS ABY INDEX > 11.0 INDEX (<0.8)
[2021-01-18 19:00] VITALS: BP 135/77
[2021-01-19 06:00] VITALS: BP 108/71
[2021-01-19] MEDS: LORazepam 1 MG TAB PO SCH ×2 (08:43→21:00)
[2021-01-19] MEDS: risperiDONE 2 MG TAB PO SCH ×2 (08:44→21:00)
--- NOTE | 2021-01-19 09:46 | REP ---
INDICATION: transaminitis. COMPARISON: Comparison CT study abdomen and pelvis January 11, 2013.. TECHNIQUE: Right upper quadrant sonography. FINDINGS: Scanning through the right upper quadrant the abdomen demonstrates a normal sized liver. In the medial aspect of the left no lobe of the liver superiorly, there is a hyperechoic area measuring 3.1 x 1.7 x 1.8 cm. This could be focal fatty infiltration of the liver or a hemangioma. No other focal liver lesion is seen. No biliary ductal dilation is observed. Common bile duct is normal measuring 0.4 cm in diameter. There is no evidence of stone polyp or wall thickening in the gallbladder. No pancreatic abnormality is observed. There is no evidence of ascites or right renal abnormality. The right kidney measures 10.1 x 6.1 x 4.5 cm.. IMPRESSION: 3.1 cm hyperechoic area in the left lobe of the liver consistent with hemangioma versus focal fatty liver change. Otherwise negative right upper quadrant sonogram.. Consider MRI of the liver without and with IV gadolinium for further evaluation. <Electronically signed by Leon Mercado > 01/19/21 0940
--- NOTE | 2021-01-19 10:41 | MHIPNPDOC ---
[facility] Progress Note Progress Note DATE OF SERVICE: 01/19/21 Patient remains extremely withdrawn and nonverbal. After consulting with hospitalist. We will follow up his elevated liver enzymes, closely. Patient does not have any specific complaints and staying in bed and stares into the space. HISTORY: . VITAL SIGNS: See below. NEW TEST RESULTS: . CURRENT MEDICATIONS: See below. MENTAL STATUS EXAMINATION: Patient is a 30-year old male, who is , not verbally responding. Speech: Is patient is not verbal. Language skills are poor. Thought processes including: , Not responding. Thought content: , Unable to evaluate. Abstract reasoning, and computation: For. Description of associations: , Not verbal. Description of abnormal or psychotic thoughts: Grossly paranoid. Judgment: poor. Insight: very . poor. Orientation: Appears oriented. Recent and remote memory: poor Attention span and concentration: . Language: . Fund of knowledge: . Mood: Appears paranoid. Affect: Blunted and preoccupied. DIAGNOSES: 1. . Schizophrenia, paranoid type 2. . 3. . ASSESSMENT:[No change. Remains psychotic] MANAGEMENT PLAN: [Court hearing on January 26]. TIME SPENT: 15 minutes. Vital Signs Vital Signs Date Time Temp Pulse Resp B/P (MAP) Pulse Ox O2 Delivery O2 Flow Rate FiO2 01/19/21 06:00 97.6 56 18 108/71 (83) 100 01/18/21 06:36 Room Air Laboratory Data 24H Labs Laboratory Tests 2 01/18/21 12:39: Hepatitis A IgM Antibody NEGATIVE, Hepatitis B Surface Antigen NEGATIVE, Hepatitis B Core IgM Antibody NEGATIVE, Hepatitis C Antibody Index > 11.0H 01/19/21 09:12: Current Medications Current Medications Medications (Trade) Dose Ordered Sig/Irshi Route PRN Reason Start Time Stop Time Status Last Admin Dose Admin Acetaminophen (Tylenol Tab) 650 mg Q6HP PRN PO HEADACHE or DISCOMFORT 12/20/20 04:05 01/18/21 11:07 DC Al Hydrox/Mg Hydrox/Simethicone (Mylanta) 30 ml Q4HP PRN PO HEARTBURN/INDIGESTION 12/20/20 04:05 Home Med (Med Rec Complete!) ASDIRECTED XX 12/20/20 03:20 12/20/20 03:22 DC Lorazepam (Ativan) 1 mg BID PO 12/28/20 09:00 Lorazepam (Ativan) 1 mg Q6HP PRN PO ANXIETY 12/20/20 13:00 12/27/20 12:59 DC Lorazepam (Ativan) 1 mg Q6HP PRN PO ANXIETY 12/28/20 07:30 Magnesium Hydroxide (Milk Of Magnesia) 30 ml DAILYPRN PRN PO CONSTIPATION 12/20/20 04:05 Miscellaneous (Unresolved Clarification Entry) SEE LABEL COMMENTS DAILY XX 01/09/21 09:00 01/09/21 15:58 DC Miscellaneous (Unresolved Clarification Entry) SEE LABEL COMMENTS DAILY XX 01/17/21 09:00 Miscellaneous (Unresolved Clarification Entry) SEE LABEL COMMENTS DAILY XX 01/03/21 09:00 01/03/21 15:35 DC Olanzapine (ZyPREXA ZYDIS) 5 mg Q4HP PRN PO ANXIETY/AGITATION 12/20/20 04:05 Olanzapine (ZyPREXA ZYDIS) 5 mg QHS PO 12/26/20 21:00 12/28/20 07:33 DC Quetiapine Fumarate (SEROquel) 25 mg QHS PO 12/23/20 21:00 12/26/20 10:56 DC Quetiapine Fumarate (SEROquel) 50 mg DAILY PO 12/21/20 09:00 12/23/20 13:19 DC Quetiapine Fumarate (SEROquel) 100 mg QHS PO 12/20/20 21:00 12/23/20 13:19 DC Risperidone (RisperDAL) 2 mg BID PO 12/28/20 09:00 Trazodone HCl (Desyrel) 50 mg QHSP PRN PO INSOMNIA 12/20/20 04:05 Allergies Coded Allergies: amoxicillin (Verified Allergy, Intermediate, HIVES, 11/11/20) BLANQUITA DOWD M.D. Jan 19, 2021 10:41
[2021-01-20 06:13] VITALS: BP 119/65
[2021-01-20] MEDS: risperiDONE 2 MG TAB PO SCH ×2 (09:00→20:58)
[2021-01-20] MEDS: LORazepam 1 MG TAB PO SCH ×2 (09:00→20:58)
[2021-01-21] MEDS: risperiDONE 2 MG TAB PO SCH ×2 (08:57→21:00)
[2021-01-21] MEDS: LORazepam 1 MG TAB PO SCH (08:57)
[2021-01-21 16:30] VITALS: BP 113/68
[2021-01-22 06:57] VITALS: BP 146/67
[2021-01-22] MEDS: risperiDONE 2 MG TAB PO SCH ×2 (08:04→20:45)
--- NOTE | 2021-01-22 10:40 | MHIPNPDOC ---
[facility] Progress Note Progress Note DATE OF SERVICE: 01/22/21 Over the weekend. The patient apparently came out of his room and spoke briefly with the nursing staff. He apparently showed a same paranoid ideas and since he is back in his room and not very verbal and communicative. This morning he is awake and alert, but one recognizes the M D and won't respond with any answers. He doesn't appear to be in any acute distress but remains markedly withdrawn and paranoid. HISTORY: . VITAL SIGNS: See below. NEW TEST RESULTS: . CURRENT MEDICATIONS: See below. MENTAL STATUS EXAMINATION: Patient is a 30-year old male, who is in bed. Speech: Is , not verbally responding. Language skills are poor. Thought processes including: mute. Thought content: , Unable to evaluate. Abstract reasoning, and computation: poor. Description of associations: [mute. Description of abnormal or psychotic thoughts: Grossly paranoid. Judgment: poor. Insight: very appears oriented to place poor. Orientation: . Recent and remote memory: . Attention span and concentration: . Language: . Fund of knowledge: . Mood: Appears fearful . Affect: Blunted, preoccupied. DIAGNOSES: 1. ., Schizophrenia, paranoid 2. . 3. . ASSESSMENT:No changes MANAGEMENT PLAN: Waiting for court hearing to start medications . TIME SPENT: 15 minutes. Vital Signs Vital Signs Date Time Temp Pulse Resp B/P (MAP) Pulse Ox O2 Delivery O2 Flow Rate FiO2 01/22/21 06:57 98.0 60 20 146/67 (93) 100 Room Air Current Medications Current Medications Medications (Trade) Dose Ordered Sig/Rishi Route PRN Reason Start Time Stop Time Status Last Admin Dose Admin Acetaminophen (Tylenol Tab) 650 mg Q6HP PRN PO HEADACHE or DISCOMFORT 12/20/20 04:05 01/18/21 11:07 DC Al Hydrox/Mg Hydrox/Simethicone (Mylanta) 30 ml Q4HP PRN PO HEARTBURN/INDIGESTION 12/20/20 04:05 Home Med (Med Rec Complete!) ASDIRECTED XX 12/20/20 03:20 12/20/20 03:22 DC Lorazepam (Ativan) 1 mg BID PO 12/28/20 09:00 01/21/21 12:25 DC Lorazepam (Ativan) 1 mg Q6HP PRN PO ANXIETY 12/20/20 13:00 12/27/20 12:59 DC Lorazepam (Ativan) 1 mg Q6HP PRN PO ANXIETY 12/28/20 07:30 01/21/21 12:25 DC Magnesium Hydroxide (Milk Of Magnesia) 30 ml DAILYPRN PRN PO CONSTIPATION 12/20/20 04:05 Miscellaneous (Unresolved Clarification Entry) SEE LABEL COMMENTS DAILY XX 01/09/21 09:00 01/09/21 15:58 DC Miscellaneous (Unresolved Clarification Entry) SEE LABEL COMMENTS DAILY XX 01/17/21 09:00 01/21/21 12:27 DC Miscellaneous (Unresolved Clarification Entry) SEE LABEL COMMENTS DAILY XX 01/03/21 09:00 01/03/21 15:35 DC Olanzapine (ZyPREXA ZYDIS) 5 mg Q4HP PRN PO ANXIETY/AGITATION 12/20/20 04:05 Olanzapine (ZyPREXA ZYDIS) 5 mg QHS PO 12/26/20 21:00 12/28/20 07:33 DC Quetiapine Fumarate (SEROquel) 25 mg QHS PO 12/23/20 21:00 12/26/20 10:56 DC Quetiapine Fumarate (SEROquel) 50 mg DAILY PO 12/21/20 09:00 12/23/20 13:19 DC Quetiapine Fumarate (SEROquel) 100 mg QHS PO 12/20/20 21:00 12/23/20 13:19 DC Risperidone (RisperDAL) 2 mg BID PO 12/28/20 09:00 Trazodone HCl (Desyrel) 50 mg QHSP PRN PO INSOMNIA 12/20/20 04:05 Allergies Coded Allergies: amoxicillin (Verified Allergy, Intermediate, HIVES, 11/11/20) BLANQUITA DOWD M.D. Jan 22, 2021 10:40
[2021-01-23 07:25] VITALS: BP 94/53
[2021-01-23] MEDS: risperiDONE 2 MG TAB PO SCH ×2 (08:27→20:34)
--- NOTE | 2021-01-23 10:26 | MHIPNPDOC ---
[facility] Progress Note Progress Note DATE OF SERVICE: 01/23/21 Patient is in the exact same posture and showing the same mental status. He is awake but preoccupied, guarded, withdrawn and not verbally responding. Patient w as reminded of the upcoming court hearing on January 26 and patient remained unresponsive HISTORY: . VITAL SIGNS: See below. NEW TEST RESULTS: . CURRENT MEDICATIONS: See below. MENTAL STATUS EXAMINATION: Patient is a 30-year old male, who is in bed, not verbally responding but alert and awake. Speech: Is , not productive. Language skills are poor. Thought processes including: Being mute. Thought content: , Unable to evaluate. Abstract reasoning, and computation: poor. Description of associations: Unresponsive. Description of abnormal or psychotic thoughts: Appears grossly paranoid. Judgment: poor. Insight: very poor. Orientation: Appears oriented . Recent and remote memory: , Unable to evaluate. Attention span and concentration: . Language: . Fund of knowledge: . Mood: Appears anxious and fearful. Affect: Blunted and preoccupied. DIAGNOSES: 1. ., Schizophrenia, paranoid 2. . 3. . ASSESSMENT:, No change. No improvement MANAGEMENT PLAN: [Waiting for court hearing to start treatment]. TIME SPENT: [15 minutes. Vital Signs Vital Signs Date Time Temp Pulse Resp B/P (MAP) Pulse Ox O2 Delivery O2 Flow Rate FiO2 01/23/21 07:25 97.5 53 18 94/53 (67) 100 Room Air Current Medications Current Medications Medications (Trade) Dose Ordered Sig/Rishi Route PRN Reason Start Time Stop Time Status Last Admin Dose Admin Acetaminophen (Tylenol Tab) 650 mg Q6HP PRN PO HEADACHE or DISCOMFORT 12/20/20 04:05 01/18/21 11:07 DC Al Hydrox/Mg Hydrox/Simethicone (Mylanta) 30 ml Q4HP PRN PO HEARTBURN/INDIGESTION 12/20/20 04:05 Home Med (Med Rec Complete!) ASDIRECTED XX 12/20/20 03:20 12/20/20 03:22 DC Lorazepam (Ativan) 1 mg BID PO 12/28/20 09:00 01/21/21 12:25 DC Lorazepam (Ativan) 1 mg Q6HP PRN PO ANXIETY 12/20/20 13:00 12/27/20 12:59 DC Lorazepam (Ativan) 1 mg Q6HP PRN PO ANXIETY 12/28/20 07:30 01/21/21 12:25 DC Magnesium Hydroxide (Milk Of Magnesia) 30 ml DAILYPRN PRN PO CONSTIPATION 12/20/20 04:05 Miscellaneous (Unresolved Clarification Entry) SEE LABEL COMMENTS DAILY XX 01/09/21 09:00 01/09/21 15:58 DC Miscellaneous (Unresolved Clarification Entry) SEE LABEL COMMENTS DAILY XX 01/17/21 09:00 01/21/21 12:27 DC Miscellaneous (Unresolved Clarification Entry) SEE LABEL COMMENTS DAILY XX 01/03/21 09:00 01/03/21 15:35 DC Olanzapine (ZyPREXA ZYDIS) 5 mg Q4HP PRN PO ANXIETY/AGITATION 12/20/20 04:05 Olanzapine (ZyPREXA ZYDIS) 5 mg QHS PO 12/26/20 21:00 12/28/20 07:33 DC Quetiapine Fumarate (SEROquel) 25 mg QHS PO 12/23/20 21:00 12/26/20 10:56 DC Quetiapine Fumarate (SEROquel) 50 mg DAILY PO 12/21/20 09:00 12/23/20 13:19 DC Quetiapine Fumarate (SEROquel) 100 mg QHS PO 12/20/20 21:00 12/23/20 13:19 DC Risperidone (RisperDAL) 2 mg BID PO 12/28/20 09:00 Trazodone HCl (Desyrel) 50 mg QHSP PRN PO INSOMNIA 12/20/20 04:05 Allergies Coded Allergies: amoxicillin (Verified Allergy, Intermediate, HIVES, 11/11/20) BLANQUITA DOWD M.D. Jan 23, 2021 10:26
[2021-01-23 16:09] LABS: HEPATITIS C QUANTITATION 6320000 IU/mL (.); HEPATITIS C VIRUS GENOTYPE 1a (.)
[2021-01-24] MEDS: risperiDONE 2 MG TAB PO SCH ×2 (09:00→20:27)
--- NOTE | 2021-01-24 09:29 | MHIPNPDOC ---
[facility] Progress Note Progress Note DATE OF SERVICE: 01/24/21 , The patient remained in his bed and again not responding to the questions. He is awake and alert, but not responding verbally. He does not appear to be in any acute physical distress but remains markedly withdrawn and paranoid. Patient was again explained the nature of the court hearing scheduled on January 26 and the petition seeking medication over his objection. The patient did not respond. HISTORY: . VITAL SIGNS: See below. NEW TEST RESULTS: . CURRENT MEDICATIONS: See below. MENTAL STATUS EXAMINATION: Patient is a 30-year old male, who is , extremely withdrawn. Speech: Is nonverbal. Language skills are poor. Thought processes including: Appears preoccupied with his paranoid.. Thought content: Appears quite paranoid. Abstract reasoning, and computation: poor. Description of associations: Nonverbal . Description of abnormal or psychotic thoughts: Grossly paranoid. Judgment: poor. Insight: very poor. Orientation: Appears oriented to place. Recent and remote memory: . Attention span and concentration: . Language: . Fund of knowledge: . Mood: Appears fearful and anxious. Affect: Blunted preoccupied. DIAGNOSES: 1. ., Schizophrenia, paranoid 2. . 3. . ASSESSMENT: No improvement MANAGEMENT PLAN: Waiting for court hearing . TIME SPENT: 15 minutes. Vital Signs Vital Signs Date Time Temp Pulse Resp B/P (MAP) Pulse Ox O2 Delivery O2 Flow Rate FiO2 01/23/21 07:25 97.5 53 18 94/53 (67) 100 Room Air Current Medications Current Medications Medications (Trade) Dose Ordered Sig/Rishi Route PRN Reason Start Time Stop Time Status Last Admin Dose Admin Acetaminophen (Tylenol Tab) 650 mg Q6HP PRN PO HEADACHE or DISCOMFORT 12/20/20 04:05 01/18/21 11:07 DC Al Hydrox/Mg Hydrox/Simethicone (Mylanta) 30 ml Q4HP PRN PO HEARTBURN/INDIGESTION 12/20/20 04:05 Home Med (Med Rec Complete!) ASDIRECTED XX 12/20/20 03:20 12/20/20 03:22 DC Lorazepam (Ativan) 1 mg BID PO 12/28/20 09:00 01/21/21 12:25 DC Lorazepam (Ativan) 1 mg Q6HP PRN PO ANXIETY 12/20/20 13:00 12/27/20 12:59 DC Lorazepam (Ativan) 1 mg Q6HP PRN PO ANXIETY 12/28/20 07:30 01/21/21 12:25 DC Magnesium Hydroxide (Milk Of Magnesia) 30 ml DAILYPRN PRN PO CONSTIPATION 12/20/20 04:05 Miscellaneous (Unresolved Clarification Entry) SEE LABEL COMMENTS DAILY XX 01/09/21 09:00 01/09/21 15:58 DC Miscellaneous (Unresolved Clarification Entry) SEE LABEL COMMENTS DAILY XX 01/17/21 09:00 01/21/21 12:27 DC Miscellaneous (Unresolved Clarification Entry) SEE LABEL COMMENTS DAILY XX 01/03/21 09:00 01/03/21 15:35 DC Olanzapine (ZyPREXA ZYDIS) 5 mg Q4HP PRN PO ANXIETY/AGITATION 12/20/20 04:05 Olanzapine (ZyPREXA ZYDIS) 5 mg QHS PO 12/26/20 21:00 12/28/20 07:33 DC Quetiapine Fumarate (SEROquel) 25 mg QHS PO 12/23/20 21:00 12/26/20 10:56 DC Quetiapine Fumarate (SEROquel) 50 mg DAILY PO 12/21/20 09:00 12/23/20 13:19 DC Quetiapine Fumarate (SEROquel) 100 mg QHS PO 12/20/20 21:00 12/23/20 13:19 DC Risperidone (RisperDAL) 2 mg BID PO 12/28/20 09:00 Trazodone HCl (Desyrel) 50 mg QHSP PRN PO INSOMNIA 12/20/20 04:05 Allergies Coded Allergies: amoxicillin (Verified Allergy, Intermediate, HIVES, 11/11/20) BLANQUITA DOWD M.D. Jan 24, 2021 09:29
[2021-01-24 18:40] VITALS: BP 102/59
[2021-01-25] MEDS: risperiDONE 2 MG TAB PO SCH ×2 (09:00→20:07)
--- NOTE | 2021-01-25 09:18 | MHIPNPDOC ---
[facility] Progress Note Progress Note DATE OF SERVICE: 01/25/21 No changes at all.. He is in the bed, awake, but not responding to the M.D. It doesn't appear to be in any acute physical distress but remains markedly preoccupied, withdrawn and paranoid and continued to refuse any medication HISTORY: . VITAL SIGNS: See below. NEW TEST RESULTS: . CURRENT MEDICATIONS: See below. MENTAL STATUS EXAMINATION: Patient is a 30 -year old male, who is in no acute distress. Speech: Is , not productive. Language skills are poor. Thought processes including: Appears extremely preoccupied. Thought content: Appears markedly paranoid. Abstract reasoning, and computation: poor. Description of associations: Verbally nonresponsive. Description of abnormal or psychotic thoughts: Grossly paranoid. Judgment: poor. Insight: very poor. Orientation: Appears oriented. Recent and remote memory: , Unable to evaluate. Attention span and concentration: poor. Language: . Fund of knowledge: . Mood: Appears anxious, fearful . Affect: Blunted. DIAGNOSES: 1. ., Schizophrenia, paranoid 2. . 3. . ASSESSMENT:No basic manager of change PLAN: Waiting for the court hearing tomorrow. TIME SPENT: 15 minutes. Vital Signs Vital Signs Date Time Temp Pulse Resp B/P (MAP) Pulse Ox O2 Delivery O2 Flow Rate FiO2 01/25/21 08:34 Room Air 01/24/21 18:40 97.7 61 16 102/59 (73) 01/23/21 07:25 100 Current Medications Current Medications Medications (Trade) Dose Ordered Sig/Rishi Route PRN Reason Start Time Stop Time Status Last Admin Dose Admin Acetaminophen (Tylenol Tab) 650 mg Q6HP PRN PO HEADACHE or DISCOMFORT 12/20/20 04:05 01/18/21 11:07 DC Al Hydrox/Mg Hydrox/Simethicone (Mylanta) 30 ml Q4HP PRN PO HEARTBURN/INDIGESTION 12/20/20 04:05 Home Med (Med Rec Complete!) ASDIRECTED XX 12/20/20 03:20 12/20/20 03:22 DC Lorazepam (Ativan) 1 mg BID PO 12/28/20 09:00 01/21/21 12:25 DC Lorazepam (Ativan) 1 mg Q6HP PRN PO ANXIETY 12/20/20 13:00 12/27/20 12:59 DC Lorazepam (Ativan) 1 mg Q6HP PRN PO ANXIETY 12/28/20 07:30 01/21/21 12:25 DC Magnesium Hydroxide (Milk Of Magnesia) 30 ml DAILYPRN PRN PO CONSTIPATION 12/20/20 04:05 Miscellaneous (Unresolved Clarification Entry) SEE LABEL COMMENTS DAILY XX 01/09/21 09:00 01/09/21 15:58 DC Miscellaneous (Unresolved Clarification Entry) SEE LABEL COMMENTS DAILY XX 01/17/21 09:00 01/21/21 12:27 DC Miscellaneous (Unresolved Clarification Entry) SEE LABEL COMMENTS DAILY XX 01/03/21 09:00 01/03/21 15:35 DC Olanzapine (ZyPREXA ZYDIS) 5 mg Q4HP PRN PO ANXIETY/AGITATION 12/20/20 04:05 Olanzapine (ZyPREXA ZYDIS) 5 mg QHS PO 12/26/20 21:00 12/28/20 07:33 DC Quetiapine Fumarate (SEROquel) 25 mg QHS PO 12/23/20 21:00 12/26/20 10:56 DC Quetiapine Fumarate (SEROquel) 50 mg DAILY PO 12/21/20 09:00 12/23/20 13:19 DC Quetiapine Fumarate (SEROquel) 100 mg QHS PO 12/20/20 21:00 12/23/20 13:19 DC Risperidone (RisperDAL) 2 mg BID PO 12/28/20 09:00 Trazodone HCl (Desyrel) 50 mg QHSP PRN PO INSOMNIA 12/20/20 04:05 Allergies Coded Allergies: amoxicillin (Verified Allergy, Intermediate, HIVES, 11/11/20) BLANQUITA DOWD M.D. Jan 25, 2021 09:18
[2021-01-25 10:36] LABS: ALBUMIN 3.2 GM/DL (3.2-5.2); ALT/SGPT 151 U/L (12-78); BILIRUBIN,TOTAL 0.4 MG/DL (0.2-1.0); BLOOD UREA NITROGEN 15 MG/DL (7-18); CALCIUM LEVEL 8.8 MG/DL (8.5-10.1); CARBON DIOXIDE LEVEL 28 MEQ/L (21-32); CHLORIDE LEVEL 109 MEQ/L (98-107); CREATININE FOR GFR 0.76 MG/DL (0.70-1.30); GLOMERULAR FILTRATION RATE > 60.0 (>60); GLUCOSE, FASTING 94 MG/DL (70-100); POTASSIUM SERUM 3.8 MEQ/L (3.5-5.1); SODIUM LEVEL 143 MEQ/L (136-145); TOTAL PROTEIN 6.2 GM/DL (6.4-8.2)
[2021-01-25 17:41] VITALS: BP 131/61
[2021-01-26] MEDS ORDERED: risperiDONE LONG-ACTING 25 MG/2 ML INJ (J2794 PER 0.5MG) IM SCH (09:00)
[2021-01-26] MEDS: risperiDONE 2 MG TAB PO SCH (09:00)
--- NOTE | 2021-01-26 10:41 | MHIPNPDOC ---
[facility] Progress Note Progress Note DATE OF SERVICE: 01/26/[address] hearing was held at 9:00 this morning and the long lines operator granted the petition to treat the patient against his wish. I will start oral risperidone 2 mg twice a day and Cogentin 1 mg twice a day. Upon receipt of the signed court document and if the patient refuses to take the medicine. I will start risperidone consta injection 37.5 mg to repeat every 2 weeks and the patient was informed of this. HISTORY: . VITAL SIGNS: See below. NEW TEST RESULTS: . CURRENT MEDICATIONS: See below. MENTAL STATUS EXAMINATION: Patient is a 30-year old male, who is , not verbally responding. Speech: Is , not productive. Language skills are poor . Thought processes including: Patient is mute. Thought content: Appears markedly paranoid. Abstract reasoning, and computation: Poor . Description of associations: , Not responding. Description of abnormal or psychotic thoughts: Grossly paranoid . Judgment: poor. Insight: very poor. Orientation: Appears oriented. Recent and remote memory: poor. Attention span and concentration: poor. Language: . Fund of knowledge: . Mood: , Anxious, fearful. Affect: Blunt. DIAGNOSES: 1. ., Schizophrenia, paranoid 2. . 3. . ASSESSMENT:More improvement MANAGEMENT PLAN: To start the medication. TIME SPENT: 35 minutes. Vital Signs Vital Signs Date Time Temp Pulse Resp B/P (MAP) Pulse Ox O2 Delivery O2 Flow Rate FiO2 01/25/21 17:41 97.3 59 12 131/61 (84) 01/25/21 08:34 Room Air 01/23/21 07:25 100 Current Medications Current Medications Medications (Trade) Dose Ordered Sig/Rishi Route PRN Reason Start Time Stop Time Status Last Admin Dose Admin Acetaminophen (Tylenol Tab) 650 mg Q6HP PRN PO HEADACHE or DISCOMFORT 12/20/20 04:05 01/18/21 11:07 DC Al Hydrox/Mg Hydrox/Simethicone (Mylanta) 30 ml Q4HP PRN PO HEARTBURN/INDIGESTION 12/20/20 04:05 Home Med (Med Rec Complete!) ASDIRECTED XX 12/20/20 03:20 12/20/20 03:22 DC Lorazepam (Ativan) 1 mg BID PO 12/28/20 09:00 01/21/21 12:25 DC Lorazepam (Ativan) 1 mg Q6HP PRN PO ANXIETY 12/20/20 13:00 12/27/20 12:59 DC Lorazepam (Ativan) 1 mg Q6HP PRN PO ANXIETY 12/28/20 07:30 01/21/21 12:25 DC Magnesium Hydroxide (Milk Of Magnesia) 30 ml DAILYPRN PRN PO CONSTIPATION 12/20/20 04:05 Miscellaneous (Unresolved Clarification Entry) SEE LABEL COMMENTS DAILY XX 01/09/21 09:00 01/09/21 15:58 DC Miscellaneous (Unresolved Clarification Entry) SEE LABEL COMMENTS DAILY XX 01/17/21 09:00 01/21/21 12:27 DC Miscellaneous (Unresolved Clarification Entry) SEE LABEL COMMENTS DAILY XX 01/03/21 09:00 01/03/21 15:35 DC Olanzapine (ZyPREXA ZYDIS) 5 mg Q4HP PRN PO ANXIETY/AGITATION 12/20/20 04:05 Olanzapine (ZyPREXA ZYDIS) 5 mg QHS PO 12/26/20 21:00 12/28/20 07:33 DC Quetiapine Fumarate (SEROquel) 25 mg QHS PO 12/23/20 21:00 12/26/20 10:56 DC Quetiapine Fumarate (SEROquel) 50 mg DAILY PO 12/21/20 09:00 12/23/20 13:19 DC Quetiapine Fumarate (SEROquel) 100 mg QHS PO 12/20/20 21:00 12/23/20 13:19 DC Risperidone (RisperDAL) 2 mg BID PO 12/28/20 09:00 Trazodone HCl (Desyrel) 50 mg QHSP PRN PO INSOMNIA 12/20/20 04:05 Allergies Coded Allergies: amoxicillin (Verified Allergy, Intermediate, HIVES, 11/11/20) BLANQUITA DOWD M.D. Jan 26, 2021 10:41
[2021-01-26] MEDS: BENZTROPINE 1 MG TAB PO SCH ×2 (14:25→21:00)
[2021-01-26] MEDS ORDERED: LORazepam 2 MG/ML VIAL IM ONE (16:00)
[2021-01-26] MEDS ORDERED: diphenhydrAMINE 50MG/ML VIAL (J1200) IV ONE (18:40)
[2021-01-26] MEDS ORDERED: BENZTROPINE MESYLATE 2MG/2ML VIAL IM ONE (18:45)
[2021-01-27 06:00] VITALS: BP 99/57
[2021-01-27] MEDS: BENZTROPINE 1 MG TAB PO SCH ×2 (09:00→21:00)
[2021-01-27] MEDS ORDERED: risperiDONE LONG-ACTING 25 MG/2 ML INJ (J2794 PER 0.5MG) IM SCH (09:00)
[2021-01-28] MEDS: BENZTROPINE 1 MG TAB PO SCH ×2 (08:10→20:22)
[2021-01-29] MEDS: BENZTROPINE 1 MG TAB PO SCH ×3 (09:00→20:38)
--- NOTE | 2021-01-29 09:58 | MHIPNPDOC ---
[facility] Progress Note Progress Note DATE OF SERVICE: 01/29/21 The patient refused oral medication and was given injectable risperidone on January 26, with a normal adverse effect. The court has granted petition, including inje ctable. Cogentin, but the patient is not showing any gross side effect and will not be given Cogentin unless there is signs or symptoms of EPSE., His mental status has not changed much, yet, but the staff reports that the patient was eating snacks over the weekend. On examination, the patient shows slightly increased response with clear body gestures, although he remains nonverbal, with the M.D. He is in no acute distress and he showed her his hands and arm and admits that he is not feeling stiff and not showing any tremor. Overall, he is much more responsive with his gestures. HISTORY: . VITAL SIGNS: See below. NEW TEST RESULTS: . CURRENT MEDICATIONS: See below. MENTAL STATUS EXAMINATION: Patient is a 30-year old male, who is in no acute distress. Speech: Is nonverbal. Language skills are poor. Thought processes including: , Not verbally responding. Thought content: Appears grossly paranoid. Abstract reasoning, and computation: poor. Description of associations: , Not responding verbally. Description of abnormal or psychotic thoughts: Grossly paranoid. Judgment: poor. Insight: very poor. Orientation: Appears oriented. Recent and remote memory: , Unable to evaluate. Attention span and concentration: . Language: . Fund of knowledge: . Mood: Appears preoccupied. Affect: Markedly blunted. DIAGNOSES: 1. ., Schizophrenia, paranoid 2. . 3. . ASSESSMENT: Slightly more responsive and showing no complaint of side effect from the medication MANAGEMENT PLAN: HER with the supportive therapy. TIME SPENT: 20 minutes. Vital Signs Vital Signs Date Time Temp Pulse Resp B/P (MAP) Pulse Ox O2 Delivery O2 Flow Rate FiO2 01/27/21 06:00 98.3 66 20 99/57 (71) 100 Room Air Current Medications Current Medications Medications (Trade) Dose Ordered Sig/Rishi Route PRN Reason Start Time Stop Time Status Last Admin Dose Admin Acetaminophen (Tylenol Tab) 650 mg Q6HP PRN PO HEADACHE or DISCOMFORT 12/20/20 04:05 01/18/21 11:07 DC Al Hydrox/Mg Hydrox/Simethicone (Mylanta) 30 ml Q4HP PRN PO HEARTBURN/INDIGESTION 12/20/20 04:05 Benztropine Mesylate (Cogentin) 1 mg BID PO 01/26/21 09:00 Home Med (Med Rec Complete!) ASDIRECTED XX 12/20/20 03:20 12/20/20 03:22 DC Lorazepam (Ativan) 1 mg BID PO 12/28/20 09:00 01/21/21 12:25 DC Lorazepam (Ativan) 1 mg Q6HP PRN PO ANXIETY 12/20/20 13:00 12/27/20 12:59 DC Lorazepam (Ativan) 1 mg Q6HP PRN PO ANXIETY 12/28/20 07:30 01/21/21 12:25 DC Magnesium Hydroxide (Milk Of Magnesia) 30 ml DAILYPRN PRN PO CONSTIPATION 12/20/20 04:05 Miscellaneous (Unresolved Clarification Entry) SEE LABEL COMMENTS DAILY XX 01/09/21 09:00 01/09/21 15:58 DC Miscellaneous (Unresolved Clarification Entry) SEE LABEL COMMENTS DAILY XX 01/17/21 09:00 01/21/21 12:27 DC Miscellaneous (Unresolved Clarification Entry) SEE LABEL COMMENTS DAILY XX 01/03/21 09:00 01/03/21 15:35 DC Miscellaneous (Unresolved Clarification Entry) SEE LABEL COMMENTS DAILY XX 01/26/21 09:00 01/26/21 10:50 DC Olanzapine (ZyPREXA ZYDIS) 5 mg Q4HP PRN PO ANXIETY/AGITATION 12/20/20 04:05 Olanzapine (ZyPREXA ZYDIS) 5 mg QHS PO 12/26/20 21:00 12/28/20 07:33 DC Quetiapine Fumarate (SEROquel) 25 mg QHS PO 12/23/20 21:00 12/26/20 10:56 DC Quetiapine Fumarate (SEROquel) 50 mg DAILY PO 12/21/20 09:00 12/23/20 13:19 DC Quetiapine Fumarate (SEROquel) 100 mg QHS PO 12/20/20 21:00 12/23/20 13:19 DC Risperidone (RisperDAL Consta) 25 mg Q14D@09 IM 02/09/21 09:00 UNV Risperidone (RisperDAL Consta) 25 mg Q14D@09 IM 01/26/21 09:00 7/2/21 19:04 Risperidone (RisperDAL Consta) 25 mg Q14D@09 IM 01/27/21 09:00 01/26/21 18:39 DC Risperidone (RisperDAL) 2 mg BID PO 12/28/20 09:00 01/26/21 10:46 DC Trazodone HCl (Desyrel) 50 mg QHSP PRN PO INSOMNIA 12/20/20 04:05 Allergies Coded Allergies: amoxicillin (Verified Allergy, Intermediate, HIVES, 11/11/20) BLANQUITA DOWD M.D. Jan 29, 2021 09:57
[2021-01-30] MEDS: BENZTROPINE 1 MG TAB PO SCH ×2 (09:00→20:46)
--- NOTE | 2021-01-30 09:15 | MHIPNPDOC ---
[facility] Progress Note Progress Note DATE OF SERVICE: 01/30/21 The patient is showing a few positive changes. He did answer with yes and no to the M.D. and later got up and left his room and walked to the dining area on his own. He also verbally responds that he ate some snacks and was drinking on his own. He remains guarded and preoccupied, but is showing increased psychomotor activity and denies any rigidity or tremor HISTORY: . VITAL SIGNS: See below. NEW TEST RESULTS: . CURRENT MEDICATIONS: See below. MENTAL STATUS EXAMINATION: Patient is a 30-year old male, who is in no acute distress. Speech: Is answering yes and no and made a few relevant response . Language skills are poor. Thought processes including: Was relevant. Thought content: Remains guarded and preoccupied . Abstract reasoning, and computation: poor. Description of associations: Was relevant. Description of abnormal or psychotic thoughts: Appears paranoid.. Judgment: poor. Insight: poor]. Orientation: Appears oriented. Recent and remote memory: , Difficult to evaluate. Attention span and concentration: . Language: . Fund of knowledge: . Mood: Mother. As hostile preoccupied. Affect: Guarded and blunted. DIAGNOSES: 1. ., Schizophrenia, paranoid 2. . 3. . ASSESSMENT:Showing some improvement MANAGEMENT PLAN: . Continued the current medicine TIME SPENT: 20 minutes. Vital Signs Vital Signs Date Time Temp Pulse Resp B/P (MAP) Pulse Ox O2 Delivery O2 Flow Rate FiO2 01/27/21 06:00 98.3 66 20 99/57 (71) 100 Room Air Current Medications Current Medications Medications (Trade) Dose Ordered Sig/Rishi Route PRN Reason Start Time Stop Time Status Last Admin Dose Admin Acetaminophen (Tylenol Tab) 650 mg Q6HP PRN PO HEADACHE or DISCOMFORT 12/20/20 04:05 01/18/21 11:07 DC Al Hydrox/Mg Hydrox/Simethicone (Mylanta) 30 ml Q4HP PRN PO HEARTBURN/INDIGESTION 12/20/20 04:05 Benztropine Mesylate (Cogentin) 1 mg BID PO 01/26/21 09:00 Home Med (Med Rec Complete!) ASDIRECTED XX 12/20/20 03:20 12/20/20 03:22 DC Lorazepam (Ativan) 1 mg BID PO 12/28/20 09:00 01/21/21 12:25 DC Lorazepam (Ativan) 1 mg Q6HP PRN PO ANXIETY 12/20/20 13:00 12/27/20 12:59 DC Lorazepam (Ativan) 1 mg Q6HP PRN PO ANXIETY 12/28/20 07:30 01/21/21 12:25 DC Magnesium Hydroxide (Milk Of Magnesia) 30 ml DAILYPRN PRN PO CONSTIPATION 12/20/20 04:05 Miscellaneous (Unresolved Clarification Entry) SEE LABEL COMMENTS DAILY XX 01/09/21 09:00 01/09/21 15:58 DC Miscellaneous (Unresolved Clarification Entry) SEE LABEL COMMENTS DAILY XX 01/17/21 09:00 01/21/21 12:27 DC Miscellaneous (Unresolved Clarification Entry) SEE LABEL COMMENTS DAILY XX 01/03/21 09:00 01/03/21 15:35 DC Miscellaneous (Unresolved Clarification Entry) SEE LABEL COMMENTS DAILY XX 01/26/21 09:00 01/26/21 10:50 DC Olanzapine (ZyPREXA ZYDIS) 5 mg Q4HP PRN PO ANXIETY/AGITATION 12/20/20 04:05 Olanzapine (ZyPREXA ZYDIS) 5 mg QHS PO 12/26/20 21:00 12/28/20 07:33 DC Quetiapine Fumarate (SEROquel) 25 mg QHS PO 12/23/20 21:00 12/26/20 10:56 DC Quetiapine Fumarate (SEROquel) 50 mg DAILY PO 12/21/20 09:00 12/23/20 13:19 DC Quetiapine Fumarate (SEROquel) 100 mg QHS PO 12/20/20 21:00 12/23/20 13:19 DC Risperidone (RisperDAL Consta) 25 mg Q14D@09 IM 02/09/21 09:00 UNV Risperidone (RisperDAL Consta) 25 mg Q14D@09 IM 01/26/21 09:00 01/26/21 19:04 Risperidone (RisperDAL Consta) 25 mg Q14D@09 IM 01/27/21 09:00 01/26/21 18:39 DC Risperidone (RisperDAL) 2 mg BID PO 12/28/20 09:00 01/26/21 10:46 DC Trazodone HCl (Desyrel) 50 mg QHSP PRN PO INSOMNIA 12/20/20 04:05 Allergies Coded Allergies: amoxicillin (Verified Allergy, Intermediate, HIVES, 11/11/20) BLANQUITA DOWD M.D. Jan 30, 2021 09:15
[2021-01-31] MEDS: BENZTROPINE 1 MG TAB PO SCH ×2 (09:00→20:52)
[2021-02-01] MEDS: BENZTROPINE 1 MG TAB PO SCH ×2 (09:00→20:28)
--- NOTE | 2021-02-01 10:38 | MHIPNPDOC ---
[facility] Progress Note Progress Note DATE OF SERVICE: 02/01/21 Patient is still refusing to take any medicine by mouth and not eating regular food but is showing moderate improvement in his psychomotor activity. He is sitting up more and walks out of his room more frequently. He is verbally responding at times with a simple yes and no but is not mute anymore and appears more alert awake and aware. I do not see any rigidity or tremor and he denies any muscle pain or discomfort and does not appear to have any side effect. HISTORY:. VITAL SIGNS: See below. NEW TEST RESULTS:. CURRENT MEDICATIONS: See below. MENTAL STATUS EXAMINATION: Patient is a 29-year old male, who is in no acute distress. Speech: Is minimally productive. Language skills are poor. Thought processes including: Not spontaneous. Thought content: Superficially denies any problem. Abstract reasoning, and computation: Poor. Description of associations: Not productive. Description of abnormal or psychotic thoughts: Appears grossly paranoid. Judgment: Poor. Insight: Poor. Orientation: Appears oriented. Recent and remote memory: Difficult to evaluate. Attention span and concentration: Poor. Language:. Fund of knowledge:. Mood: Appears not as preoccupied. Affect: A little more animated. DIAGNOSES: 1.. Schizophrenia paranoid type 2.. 3.. ASSESSMENT: Is showing very gradual minimal improvement but is definitely showing positive trait MANAGEMENT PLAN:. I plan to increase his risperidone consta injection to 37.5 mg by next week and continue with the supportive therapy. He will need extended court retention for further stabilization TIME SPENT: 20 minutes. Vital Signs Vital Signs Date Time Temp Pulse Resp B/P (MAP) Pulse Ox O2 Delivery O2 Flow Rate FiO2 01/27/21 06:00 98.3 66 20 99/57 (71) 100 Room Air Current Medications Current Medications Medications (Trade) Dose Ordered Sig/Rishi Route PRN Reason Start Time Stop Time Status Last Admin Dose Admin Acetaminophen (Tylenol Tab) 650 mg Q6HP PRN PO HEADACHE or DISCOMFORT 12/20/20 04:05 01/18/21 11:07 DC Al Hydrox/Mg Hydrox/Simethicone (Mylanta) 30 ml Q4HP PRN PO HEARTBURN/INDIGESTION 12/20/20 04:05 Benztropine Mesylate (Cogentin) 1 mg BID PO 01/26/21 09:00 Home Med (Med Rec Complete!) ASDIRECTED XX 12/20/20 03:20 12/20/20 03:22 DC Lorazepam (Ativan) 1 mg BID PO 12/28/20 09:00 01/21/21 12:25 DC Lorazepam (Ativan) 1 mg Q6HP PRN PO ANXIETY 12/20/20 13:00 12/27/20 12:59 DC Lorazepam (Ativan) 1 mg Q6HP PRN PO ANXIETY 12/28/20 07:30 01/21/21 12:25 DC Magnesium Hydroxide (Milk Of Magnesia) 30 ml DAILYPRN PRN PO CONSTIPATION 12/20/20 04:05 Miscellaneous (Unresolved Clarification Entry) SEE LABEL COMMENTS DAILY XX 01/09/21 09:00 01/09/21 15:58 DC Miscellaneous (Unresolved Clarification Entry) SEE LABEL COMMENTS DAILY XX 01/17/21 09:00 01/21/21 12:27 DC Miscellaneous (Unresolved Clarification Entry) SEE LABEL COMMENTS DAILY XX 01/03/21 09:00 01/03/21 15:35 DC Miscellaneous (Unresolved Clarification Entry) SEE LABEL COMMENTS DAILY XX 01/26/21 09:00 01/26/21 10:50 DC Olanzapine (ZyPREXA ZYDIS) 5 mg Q4HP PRN PO ANXIETY/AGITATION 12/20/20 04:05 Olanzapine (ZyPREXA ZYDIS) 5 mg QHS PO 12/26/20 21:00 12/28/20 07:33 DC Quetiapine Fumarate (SEROquel) 25 mg QHS PO 12/23/20 21:00 12/26/20 10:56 DC Quetiapine Fumarate (SEROquel) 50 mg DAILY PO 12/21/20 09:00 12/23/20 13:19 DC Quetiapine Fumarate (SEROquel) 100 mg QHS PO 12/20/20 21:00 12/23/20 13:19 DC Risperidone (RisperDAL Consta) 25 mg Q14D@09 IM 02/09/21 09:00 UNV Risperidone (RisperDAL Consta) 25 mg Q14D@09 IM 01/26/21 09:00 01/26/21 19:04 Risperidone (RisperDAL Consta) 25 mg Q14D@09 IM 01/27/21 09:00 7/2/21 18:39 DC Risperidone (RisperDAL) 2 mg BID PO 12/28/20 09:00 01/26/21 10:46 DC Trazodone HCl (Desyrel) 50 mg QHSP PRN PO INSOMNIA 12/20/20 04:05 Allergies Coded Allergies: amoxicillin (Verified Allergy, Intermediate, HIVES, 11/11/20) BLANQUITA DOWD M.D. Feb 01, 2021 10:38
[2021-02-02 06:00] VITALS: BP 128/58
[2021-02-02] MEDS: BENZTROPINE 1 MG TAB PO SCH ×2 (08:18→20:46)
[2021-02-03] MEDS: BENZTROPINE 1 MG TAB PO SCH ×2 (09:00→20:52)
[2021-02-04] MEDS: BENZTROPINE 1 MG TAB PO SCH ×2 (08:47→21:00)
[2021-02-05] MEDS: BENZTROPINE 1 MG TAB PO SCH ×2 (08:59→21:00)
--- NOTE | 2021-02-05 09:11 | MHIPNPDOC ---
[facility] Progress Note Progress Note DATE OF SERVICE: 02/05/21 Patient remains very withdrawn and not verbally productive. Patient however is not showing slightly more animated affect and not appear as anxious fearful or irritable. He is nodding his head and answers yes and no and denies any new problems and has no physical complaints. He is not showing any tremor or any other signs of side effect from the risperidone injection. HISTORY:. VITAL SIGNS: See below. NEW TEST RESULTS:. CURRENT MEDICATIONS: See below. MENTAL STATUS EXAMINATION: Patient is a 29-year old male, who is in no acute distress. Speech: Is not productive. Language skills are poor. Thought processes including: Smith relevant response by gestures and nodding of his head. Thought content: Difficult to evaluate but appears quite paranoid. Abstract reasoning, and computation: Poor. Description of associations: Mostly nonverbal. Description of abnormal or psychotic thoughts: Remains paranoid. Judgment: Poor. Insight: . poor]. Orientation: Appears oriented. Recent and remote memory: Difficult to evaluate. Attention span and concentration:. Language:. Fund of knowledge:. Mood: Not as irritable fearful or preoccupied. Affect: Slightly more animated. DIAGNOSES: 1. Schizophrenia paranoid type. 2.. 3.. ASSESSMENT: Slightly more responsive MANAGEMENT PLAN:. Continue with the current medicine we will plan to give him increase the risperidone injection this Friday TIME SPENT: 20 minutes. Vital Signs Vital Signs Date Time Temp Pulse Resp B/P (MAP) Pulse Ox O2 Delivery O2 Flow Rate FiO2 02/02/21 06:00 97.9 62 18 128/58 (81) 97 Current Medications Current Medications Medications (Trade) Dose Ordered Sig/Rishi Route PRN Reason Start Time Stop Time Status Last Admin Dose Admin Acetaminophen (Tylenol Tab) 650 mg Q6HP PRN PO HEADACHE or DISCOMFORT 12/20/20 04:05 01/18/21 11:07 DC Al Hydrox/Mg Hydrox/Simethicone (Mylanta) 30 ml Q4HP PRN PO HEARTBURN/INDIGESTION 12/20/20 04:05 Benztropine Mesylate (Cogentin) 1 mg BID PO 01/26/21 09:00 Home Med (Med Rec Complete!) ASDIRECTED XX 12/20/20 03:20 12/20/20 03:22 DC Lorazepam (Ativan) 1 mg BID PO 12/28/20 09:00 01/21/21 12:25 DC Lorazepam (Ativan) 1 mg Q6HP PRN PO ANXIETY 12/20/20 13:00 12/27/20 12:59 DC Lorazepam (Ativan) 1 mg Q6HP PRN PO ANXIETY 12/28/20 07:30 01/21/21 12:25 DC Magnesium Hydroxide (Milk Of Magnesia) 30 ml DAILYPRN PRN PO CONSTIPATION 12/20/20 04:05 Miscellaneous (Unresolved Clarification Entry) SEE LABEL COMMENTS DAILY XX 01/09/21 09:00 01/09/21 15:58 DC Miscellaneous (Unresolved Clarification Entry) SEE LABEL COMMENTS DAILY XX 01/17/21 09:00 01/21/21 12:27 DC Miscellaneous (Unresolved Clarification Entry) SEE LABEL COMMENTS DAILY XX 01/03/21 09:00 01/03/21 15:35 DC Miscellaneous (Unresolved Clarification Entry) SEE LABEL COMMENTS DAILY XX 01/26/21 09:00 01/26/21 10:50 DC Olanzapine (ZyPREXA ZYDIS) 5 mg Q4HP PRN PO ANXIETY/AGITATION 12/20/20 04:05 Olanzapine (ZyPREXA ZYDIS) 5 mg QHS PO 12/26/20 21:00 12/28/20 07:33 DC Quetiapine Fumarate (SEROquel) 25 mg QHS PO 12/23/20 21:00 12/26/20 10:56 DC Quetiapine Fumarate (SEROquel) 50 mg DAILY PO 12/21/20 09:00 12/23/20 13:19 DC Quetiapine Fumarate (SEROquel) 100 mg QHS PO 12/20/20 21:00 12/23/20 13:19 DC Risperidone (RisperDAL Consta) 25 mg Q14D@09 IM 02/09/21 09:00 UNV Risperidone (RisperDAL Consta) 25 mg Q14D@09 IM 01/26/21 09:00 01/26/21 19:04 Risperidone (RisperDAL Consta) 25 mg Q14D@09 IM 01/27/21 09:00 01/26/21 18:39 DC Risperidone (RisperDAL) 2 mg BID PO 12/28/20 09:00 01/26/21 10:46 DC Trazodone HCl (Desyrel) 50 mg QHSP PRN PO INSOMNIA 12/20/20 04:05 Allergies Coded Allergies: amoxicillin (Verified Allergy, Intermediate, HIVES, 11/11/20) BLANQUITA DOWD M.D. Feb 05, 2021 09:11
[2021-02-06 06:00] VITALS: BP 109/73
[2021-02-06] MEDS: BENZTROPINE 1 MG TAB PO SCH ×2 (09:00→21:00)
--- NOTE | 2021-02-06 09:28 | MHIPNPDOC ---
[facility] Progress Note Progress Note DATE OF SERVICE: 02/06/21 This is a progress note for this patient Mr Fitzpatrick for February 02, 2021. Visit. The note was originally dictated on February 02, 2021 on a different patient's chart by mistake so this is a duplicate dictation. The patient was seen on February 02 for regular daily round. The patient remained in bed minimally verbal but communicating with gestures and occasional yes or no. He is alert responsive but mostly nonverbal. He denies any new issues denies any physical complaints and is in no acute distress. He appears markedly preoccupied and remains paranoid with minimum improvement since his medication. We will continue with current treatment and plan to give him increase the dose of risperidone injection next Friday. HISTORY:. VITAL SIGNS: See below. NEW TEST RESULTS:. CURRENT MEDICATIONS: See below. MENTAL STATUS EXAMINATION: Patient is a 29-year old male, who is in bed in no acute distress. Speech: Is not productive. Language skills are poor. Thought processes including: Markedly blunted preoccupied. Thought content: Appears paranoid. Abstract reasoning, and computation: Poor. Description of associations: Not productive. Description of abnormal or psychotic thoughts: Appears grossly paranoid. Judgment: Poor. Insight: Poor. Orientation: Appears oriented. Recent and remote memory: Difficult to evaluate. Attention span and concentration: Poor. Language:. Fund of knowledge:. Mood: Appears irritable. Affect: Markedly blunted. DIAGNOSES: 1.. Schizophrenia paranoid type 2.. 3.. ASSESSMENT: No significant cell changer PLAN: Continue with the risperidone. TIME SPENT: 15 minutes. Vital Signs Vital Signs Date Time Temp Pulse Resp B/P (MAP) Pulse Ox O2 Delivery O2 Flow Rate FiO2 02/06/21 06:00 98.2 62 18 109/73 (85) 96 Current Medications Current Medications Medications (Trade) Dose Ordered Sig/Rishi Route PRN Reason Start Time Stop Time Status Last Admin Dose Admin Acetaminophen (Tylenol Tab) 650 mg Q6HP PRN PO HEADACHE or DISCOMFORT 12/20/20 04:05 01/18/21 11:07 DC Al Hydrox/Mg Hydrox/Simethicone (Mylanta) 30 ml Q4HP PRN PO HEARTBURN/INDIGESTION 12/20/20 04:05 Benztropine Mesylate (Cogentin) 1 mg BID PO 01/26/21 09:00 Home Med (Med Rec Complete!) ASDIRECTED XX 12/20/20 03:20 12/20/20 03:22 DC Lorazepam (Ativan) 1 mg BID PO 12/28/20 09:00 01/21/21 12:25 DC Lorazepam (Ativan) 1 mg Q6HP PRN PO ANXIETY 12/20/20 13:00 12/27/20 12:59 DC Lorazepam (Ativan) 1 mg Q6HP PRN PO ANXIETY 12/28/20 07:30 01/21/21 12:25 DC Magnesium Hydroxide (Milk Of Magnesia) 30 ml DAILYPRN PRN PO CONSTIPATION 12/20/20 04:05 Miscellaneous (Unresolved Clarification Entry) SEE LABEL COMMENTS DAILY XX 01/09/21 09:00 01/09/21 15:58 DC Miscellaneous (Unresolved Clarification Entry) SEE LABEL COMMENTS DAILY XX 01/17/21 09:00 01/21/21 12:27 DC Miscellaneous (Unresolved Clarification Entry) SEE LABEL COMMENTS DAILY XX 01/03/21 09:00 01/03/21 15:35 DC Miscellaneous (Unresolved Clarification Entry) SEE LABEL COMMENTS DAILY XX 01/26/21 09:00 01/26/21 10:50 DC Olanzapine (ZyPREXA ZYDIS) 5 mg Q4HP PRN PO ANXIETY/AGITATION 12/20/20 04:05 Olanzapine (ZyPREXA ZYDIS) 5 mg QHS PO 12/26/20 21:00 12/28/20 07:33 DC Quetiapine Fumarate (SEROquel) 25 mg QHS PO 12/23/20 21:00 12/26/20 10:56 DC Quetiapine Fumarate (SEROquel) 50 mg DAILY PO 12/21/20 09:00 12/23/20 13:19 DC Quetiapine Fumarate (SEROquel) 100 mg QHS PO 12/20/20 21:00 12/23/20 13:19 DC Risperidone (RisperDAL Consta) 25 mg Q14D@09 IM 02/09/21 09:00 UNV Risperidone (RisperDAL Consta) 25 mg Q14D@09 IM 01/26/21 09:00 01/26/21 19:04 Risperidone (RisperDAL Consta) 25 mg Q14D@09 IM 01/27/21 09:00 01/26/21 18:39 DC Risperidone (RisperDAL) 2 mg BID PO 12/28/20 09:00 01/26/21 10:46 DC Trazodone HCl (Desyrel) 50 mg QHSP PRN PO INSOMNIA 12/20/20 04:05 Allergies Coded Allergies: amoxicillin (Verified Allergy, Intermediate, HIVES, 11/11/20) BLANQUITA DOWD M.D. Feb 06, 2021 09:28
--- NOTE | 2021-02-06 09:34 | MHIPNPDOC ---
[facility] Progress Note Progress Note DATE OF SERVICE: 02/06/21 This is the progress note on this patient on February 06. Initially patient did not respond with any answers but later asked nurse to talk to the MD AND WAS SEEN AGAIN. THE PATIENT STATED THAT HE DOES NOT HAVE ANY PROBLEMS AND HE DOES NOT FEEL SICK AND DOES NOT FEEL HE NEEDS ANY MEDICINE. WHEN INFORMED THAT COURT HAS GRANTED INJECTABLE RISPERIDONE TO BE GIVEN AGAINST HIS WISHES THE PATIENT CLAIMS THAT HE WILL NOT TAKE THE INJECTION SCHEDULED ON FRIDAY. PATIENT WAS AGAIN EXPLAINED THE COURT ORDER WAS INFORMED OF THAT WE ARE GOING TO order 37.5 mg of risperidone injection this Friday. HISTORY:. VITAL SIGNS: See below. NEW TEST RESULTS:. CURRENT MEDICATIONS: See below. MENTAL STATUS EXAMINATION: Patient is a 29-year old male, who is alert awake but withdrawn. Speech: Is more productive today. Language skills are fair. Thought processes including: Patient did speak about the relevant matter. Thought content: Not able to discuss any appropriate subject and only claiming that he does not need any medicine. Abstract reasoning, and computation: Poor. Description of associations: Not productive. Description of abnormal or psychotic thoughts: Appears grossly paranoid. Judgment: Poor. Insight: Very poor. Orientation: Appears oriented. Recent and remote memory: Not fully evaluated. Attention span and concentration: Poor. Language:. Fund of knowledge:. Mood: Somewhat irritable. Affect: Blunted guarded. DIAGNOSES: 1.. Schizophrenia paranoid 2.. 3.. 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 TIME SPENT: 20 minutes. Vital Signs Vital Signs Date Time Temp Pulse Resp B/P (MAP) Pulse Ox O2 Delivery O2 Flow Rate FiO2 02/06/21 06:00 98.2 62 18 109/73 (85) 96 Current Medications Current Medications Medications (Trade) Dose Ordered Sig/Rishi Route PRN Reason Start Time Stop Time Status Last Admin Dose Admin Acetaminophen (Tylenol Tab) 650 mg Q6HP PRN PO HEADACHE or DISCOMFORT 12/20/20 04:05 01/18/21 11:07 DC Al Hydrox/Mg Hydrox/Simethicone (Mylanta) 30 ml Q4HP PRN PO HEARTBURN/INDIGESTION 12/20/20 04:05 Benztropine Mesylate (Cogentin) 1 mg BID PO 01/26/21 09:00 Home Med (Med Rec Complete!) ASDIRECTED XX 5/26/21 03:20 12/20/20 03:22 DC Lorazepam (Ativan) 1 mg BID PO 12/28/20 09:00 01/21/21 12:25 DC Lorazepam (Ativan) 1 mg Q6HP PRN PO ANXIETY 12/20/20 13:00 12/27/20 12:59 DC Lorazepam (Ativan) 1 mg Q6HP PRN PO ANXIETY 12/28/20 07:30 01/21/21 12:25 DC Magnesium Hydroxide (Milk Of Magnesia) 30 ml DAILYPRN PRN PO CONSTIPATION 12/20/20 04:05 Miscellaneous (Unresolved Clarification Entry) SEE LABEL COMMENTS DAILY XX 01/09/21 09:00 01/09/21 15:58 DC Miscellaneous (Unresolved Clarification Entry) SEE LABEL COMMENTS DAILY XX 01/17/21 09:00 01/21/21 12:27 DC Miscellaneous (Unresolved Clarification Entry) SEE LABEL COMMENTS DAILY XX 01/03/21 09:00 01/03/21 15:35 DC Miscellaneous (Unresolved Clarification Entry) SEE LABEL COMMENTS DAILY XX 01/26/21 09:00 01/26/21 10:50 DC Olanzapine (ZyPREXA ZYDIS) 5 mg Q4HP PRN PO ANXIETY/AGITATION 12/20/20 04:05 Olanzapine (ZyPREXA ZYDIS) 5 mg QHS PO 12/26/20 21:00 12/28/20 07:33 DC Quetiapine Fumarate (SEROquel) 25 mg QHS PO 12/23/20 21:00 12/26/20 10:56 DC Quetiapine Fumarate (SEROquel) 50 mg DAILY PO 12/21/20 09:00 12/23/20 13:19 DC Quetiapine Fumarate (SEROquel) 100 mg QHS PO 12/20/20 21:00 12/23/20 13:19 DC Risperidone (RisperDAL Consta) 25 mg Q14D@09 IM 02/09/21 09:00 UNV Risperidone (RisperDAL Consta) 25 mg Q14D@09 IM 01/26/21 09:00 01/26/21 19:04 Risperidone (RisperDAL Consta) 25 mg Q14D@09 IM 01/27/21 09:00 01/26/21 18:39 DC Risperidone (RisperDAL) 2 mg BID PO 12/28/20 09:00 01/26/21 10:46 DC Trazodone HCl (Desyrel) 50 mg QHSP PRN PO INSOMNIA 12/20/20 04:05 Allergies Coded Allergies: amoxicillin (Verified Allergy, Intermediate, HIVES, 11/11/20) BLANQUITA DOWD M.D. Feb 06, 2021 09:34
[2021-02-07 06:29] VITALS: BP 128/72
[2021-02-07] MEDS: BENZTROPINE 1 MG TAB PO SCH ×2 (08:28→20:16)
--- NOTE | 2021-02-07 11:08 | MHIPNPDOC ---
[facility] Progress Note Progress Note DATE OF SERVICE: 02/07/21 The patient was seen pacing in his room appears somewhat irritable and preoccupied. When approached by this MD patient is making comments that it was hard to understand and was grunting. He is showing no improvement remains very preoccupied irritable and guarded and has been claiming that he will not accept another injection. HISTORY:. VITAL SIGNS: See below. NEW TEST RESULTS:. CURRENT MEDICATIONS: See below. MENTAL STATUS EXAMINATION: Patient is a 29-year old male, who is in no acute distress. Speech: Is not productive. Language skills are poor. Thought processes including: Preoccupied not verbally responding. Thought content: Appears grossly paranoid. Abstract reasoning, and computation: Poor. Description of associations: Disorganized. Description of abnormal or psychotic thoughts: Grossly paranoid. Judgment: Poor. Insight: Very. poor. Orientation: Appears oriented to place. Recent and remote memory: Unable to evaluate. Attention span and concentration: Poor. Language:. Fund of knowledge:. Mood: Angry hostile. Affect: Blunted guarded. DIAGNOSES: 1.. Schizophrenia paranoid 2.. 3.. ASSESSMENT: No significant improvement MANAGEMENT PLAN: Continue with the court-ordered treatment. TIME SPENT: 15 minutes. Vital Signs Vital Signs Date Time Temp Pulse Resp B/P (MAP) Pulse Ox O2 Delivery O2 Flow Rate FiO2 02/07/21 06:29 97.4 52 18 128/72 (90) 100 Room Air Current Medications Current Medications Medications (Trade) Dose Ordered Sig/Rishi Route PRN Reason Start Time Stop Time Status Last Admin Dose Admin Acetaminophen (Tylenol Tab) 650 mg Q6HP PRN PO HEADACHE or DISCOMFORT 12/20/20 04:05 01/18/21 11:07 DC Al Hydrox/Mg Hydrox/Simethicone (Mylanta) 30 ml Q4HP PRN PO HEARTBURN/INDIGESTION 12/20/20 04:05 Benztropine Mesylate (Cogentin) 1 mg BID PO 01/26/21 09:00 Home Med (Med Rec Complete!) ASDIRECTED XX 12/20/20 03:20 12/20/20 03:22 DC Lorazepam (Ativan) 1 mg BID PO 12/28/20 09:00 01/21/21 12:25 DC Lorazepam (Ativan) 1 mg Q6HP PRN PO ANXIETY 12/20/20 13:00 12/27/20 12:59 DC Lorazepam (Ativan) 1 mg Q6HP PRN PO ANXIETY 12/28/20 07:30 01/21/21 12:25 DC Magnesium Hydroxide (Milk Of Magnesia) 30 ml DAILYPRN PRN PO CONSTIPATION 12/20/20 04:05 Miscellaneous (Unresolved Clarification Entry) SEE LABEL COMMENTS DAILY XX 01/09/21 09:00 01/09/21 15:58 DC Miscellaneous (Unresolved Clarification Entry) SEE LABEL COMMENTS DAILY XX 01/17/21 09:00 01/21/21 12:27 DC Miscellaneous (Unresolved Clarification Entry) SEE LABEL COMMENTS DAILY XX 01/03/21 09:00 01/03/21 15:35 DC Miscellaneous (Unresolved Clarification Entry) SEE LABEL COMMENTS DAILY XX 01/26/21 09:00 01/26/21 10:50 DC Olanzapine (ZyPREXA ZYDIS) 5 mg Q4HP PRN PO ANXIETY/AGITATION 12/20/20 04:05 Olanzapine (ZyPREXA ZYDIS) 5 mg QHS PO 12/26/20 21:00 12/28/20 07:33 DC Quetiapine Fumarate (SEROquel) 25 mg QHS PO 12/23/20 21:00 12/26/20 10:56 DC Quetiapine Fumarate (SEROquel) 50 mg DAILY PO 12/21/20 09:00 12/23/20 13:19 DC Quetiapine Fumarate (SEROquel) 100 mg QHS PO 12/20/20 21:00 12/23/20 13:19 DC Risperidone (RisperDAL Consta) 25 mg Q14D@09 IM 02/09/21 09:00 UNV Risperidone (RisperDAL Consta) 25 mg Q14D@09 IM 01/26/21 09:00 01/26/21 19:04 Risperidone (RisperDAL Consta) 25 mg Q14D@09 IM 01/27/21 09:00 01/26/21 18:39 DC Risperidone (RisperDAL) 2 mg BID PO 12/28/20 09:00 01/26/21 10:46 DC Trazodone HCl (Desyrel) 50 mg QHSP PRN PO INSOMNIA 12/20/20 04:05 Allergies Coded Allergies: amoxicillin (Verified Allergy, Intermediate, HIVES, 11/11/20) BLANQUITA DOWD M.D. Feb 07, 2021 11:08
[2021-02-07 17:24] VITALS: BP 127/69
[2021-02-08] MEDS: BENZTROPINE 1 MG TAB PO SCH ×2 (08:22→20:11)
--- NOTE | 2021-02-08 10:41 | MHIPNPDOC ---
[facility] Progress Note Progress Note DATE OF SERVICE: 02/08/21 Remains guarded preoccupied and not verbally responding and spending most of time in bed. Court hearing for his continued retention was scheduled but not held and apparently is postponed HISTORY:. VITAL SIGNS: See below. NEW TEST RESULTS:. CURRENT MEDICATIONS: See below. MENTAL STATUS EXAMINATION: Patient is a 29-year old male, who is in bed and not responding. Speech: Is not verbally responding. Language skills are poor. Thought processes including: Not verbally responding. Thought content: Appears grossly paranoid. Abstract reasoning, and computation: Poor. Description of associations: Nonverbal. Description of abnormal or psychotic thoughts: Grossly paranoid. Judgment: Poor. Insight: Very poor. Orientation: Appears oriented. Recent and remote memory: Difficult to evaluate. Attention span and concentration: Poor. Language:. Fund of knowledge:. Mood: Appears angry hostile. Affect: [Blunted preoccupied. DIAGNOSES: 1.. Schizophrenia paranoid 2.. 3.. ASSESSMENT: No improvement MANAGEMENT PLAN: Will give another risperidone injection tomorrow. TIME SPENT: 20 minutes. Vital Signs Vital Signs Date Time Temp Pulse Resp B/P (MAP) Pulse Ox O2 Delivery O2 Flow Rate FiO2 02/07/21 17:24 97.6 50 18 127/69 (88) 02/07/21 06:29 100 Room Air Current Medications Current Medications Medications (Trade) Dose Ordered Sig/Rishi Route PRN Reason Start Time Stop Time Status Last Admin Dose Admin Acetaminophen (Tylenol Tab) 650 mg Q6HP PRN PO HEADACHE or DISCOMFORT 12/20/20 04:05 01/18/21 11:07 DC Al Hydrox/Mg Hydrox/Simethicone (Mylanta) 30 ml Q4HP PRN PO HEARTBURN/INDIGESTION 12/20/20 04:05 Benztropine Mesylate (Cogentin) 1 mg BID PO 01/26/21 09:00 Home Med (Med Rec Complete!) ASDIRECTED XX 12/20/20 03:20 12/20/20 03:22 DC Lorazepam (Ativan) 1 mg BID PO 12/28/20 09:00 01/21/21 12:25 DC Lorazepam (Ativan) 1 mg Q6HP PRN PO ANXIETY 12/20/20 13:00 12/27/20 12:59 DC Lorazepam (Ativan) 1 mg Q6HP PRN PO ANXIETY 12/28/20 07:30 01/21/21 12:25 DC Magnesium Hydroxide (Milk Of Magnesia) 30 ml DAILYPRN PRN PO CONSTIPATION 12/20/20 04:05 Miscellaneous (Unresolved Clarification Entry) SEE LABEL COMMENTS DAILY XX 01/09/21 09:00 01/09/21 15:58 DC Miscellaneous (Unresolved Clarification Entry) SEE LABEL COMMENTS DAILY XX 01/17/21 09:00 01/21/21 12:27 DC Miscellaneous (Unresolved Clarification Entry) SEE LABEL COMMENTS DAILY XX 01/03/21 09:00 01/03/21 15:35 DC Miscellaneous (Unresolved Clarification Entry) SEE LABEL COMMENTS DAILY XX 01/26/21 09:00 01/26/21 10:50 DC Olanzapine (ZyPREXA ZYDIS) 5 mg Q4HP PRN PO ANXIETY/AGITATION 12/20/20 04:05 Olanzapine (ZyPREXA ZYDIS) 5 mg QHS PO 12/26/20 21:00 12/28/20 07:33 DC Quetiapine Fumarate (SEROquel) 25 mg QHS PO 12/23/20 21:00 12/26/20 10:56 DC Quetiapine Fumarate (SEROquel) 50 mg DAILY PO 12/21/20 09:00 12/23/20 13:19 DC Quetiapine Fumarate (SEROquel) 100 mg QHS PO 12/20/20 21:00 12/23/20 13:19 DC Risperidone (RisperDAL Consta) 25 mg Q14D@09 IM 02/09/21 09:00 UNV Risperidone (RisperDAL Consta) 25 mg Q14D@09 IM 01/26/21 09:00 01/26/21 19:04 Risperidone (RisperDAL Consta) 25 mg Q14D@09 IM 01/27/21 09:00 01/26/21 18:39 DC Risperidone (RisperDAL) 2 mg BID PO 12/28/20 09:00 01/26/21 10:46 DC Trazodone HCl (Desyrel) 50 mg QHSP PRN PO INSOMNIA 12/20/20 04:05 Allergies Coded Allergies: amoxicillin (Verified Allergy, Intermediate, HIVES, 11/11/20) BLANQUITA DOWD M.D. Feb 08, 2021 10:41
[2021-02-09 05:44] VITALS: BP 111/57
[2021-02-09] MEDS: BENZTROPINE 1 MG TAB PO SCH ×2 (09:00→20:49)
[2021-02-09] MEDS ORDERED: risperiDONE LONG-ACTING 37.5 MG/2 ML INJ (J2794 PER 0.5MG) IM SCH (09:00)
[2021-02-09] MEDS ORDERED: risperiDONE LONG-ACTING 25 MG/2 ML INJ (J2794 PER 0.5MG) IM SCH (09:00)
--- NOTE | 2021-02-09 10:39 | MHIPNPDOC ---
[facility] Progress Note Progress Note DATE OF SERVICE: 02/09/[address] has granted a 6-month retention. The patient so far has not shown much improvement after his first risperidone injection and remains practically mute and extremely withdrawn in his room and remains grossly paranoid. I will order second dose of risperidone injection 37.5 mg today and continue with supportive therapy. HISTORY:. VITAL SIGNS: See below. NEW TEST RESULTS:. CURRENT MEDICATIONS: See below. MENTAL STATUS EXAMINATION: Patient is a 29-year old male, who is in bed not responsive. Speech: Is not verbal. Language skills are poor. Thought processes including: Markedly preoccupied. Thought content: Grossly paranoid. Abstract reasoning, and computation: Poor. D escription of associations: Practically mute. Description of abnormal or psychotic thoughts: Remains grossly paranoid. Judgment: Poor. Insight: Very poor. Orientation: Appears oriented. Recent and remote memory: Difficult to evaluate. Attention span and concentration:. Language:. Fund of knowledge:. Mood: Appears somewhat angry irritable and depressed. Affect: Blunted preoccu pied. DIAGNOSES: 1.. Schizophrenia paranoid 2.. 3.. ASSESSMENT: Remains grossly paranoid MANAGEMENT PLAN: To give second dose of risperidone 37.5 mg IM. TIME SPENT: 15 minutes. Vital Signs Vital Signs Date Time Temp Pulse Resp B/P (MAP) Pulse Ox O2 Delivery O2 Flow Rate FiO2 02/09/21 05:44 98.9 71 18 111/57 (75) 100 Room Air Current Medications Current Medications Medications (Trade) Dose Ordered Sig/Rishi Route PRN Reason Start Time Stop Time Status Last Admin Dose Admin Acetaminophen (Tylenol Tab) 650 mg Q6HP PRN PO HEADACHE or DISCOMFORT 12/20/20 04:05 01/18/21 11:07 DC Al Hydrox/Mg Hydrox/Simethicone (Mylanta) 30 ml Q4HP PRN PO HEARTBURN/INDIGESTION 12/20/20 04:05 Benztropine Mesylate (Cogentin) 1 mg BID PO 01/26/21 09:00 Home Med (Med Rec Complete!) ASDIRECTED XX 12/20/20 03:20 12/20/20 03:22 DC Lorazepam (Ativan) 1 mg BID PO 12/28/20 09:00 01/21/21 12:25 DC Lorazepam (Ativan) 1 mg Q6HP PRN PO ANXIETY 12/20/20 13:00 12/27/20 12:59 DC Lorazepam (Ativan) 1 mg Q6HP PRN PO ANXIETY 12/28/20 07:30 01/21/21 12:25 DC Magnesium Hydroxide (Milk Of Magnesia) 30 ml DAILYPRN PRN PO CONSTIPATION 12/20/20 04:05 Miscellaneous (Unresolved Clarification Entry) SEE LABEL COMMENTS DAILY XX 01/09/21 09:00 01/09/21 15:58 DC Miscellaneous (Unresolved Clarification Entry) SEE LABEL COMMENTS DAILY XX 01/17/21 09:00 01/21/21 12:27 DC Miscellaneous (Unresolved Clarification Entry) SEE LABEL COMMENTS DAILY XX 01/03/21 09:00 01/03/21 15:35 DC Miscellaneous (Unresolved Clarification Entry) SEE LABEL COMMENTS DAILY XX 01/26/21 09:00 01/26/21 10:50 DC Olanzapine (ZyPREXA ZYDIS) 5 mg Q4HP PRN PO ANXIETY/AGITATION 12/20/20 04:05 Olanzapine (ZyPREXA ZYDIS) 5 mg QHS PO 12/26/20 21:00 12/28/20 07:33 DC Quetiapine Fumarate (SEROquel) 25 mg QHS PO 12/23/20 21:00 12/26/20 10:56 DC Quetiapine Fumarate (SEROquel) 50 mg DAILY PO 12/21/20 09:00 12/23/20 13:19 DC Quetiapine Fumarate (SEROquel) 100 mg QHS PO 12/20/20 21:00 12/23/20 13:19 DC Risperidone (RisperDAL Consta) 25 mg Q14D@09 IM 02/09/21 09:00 UNV Risperidone (RisperDAL Consta) 25 mg Q14D@09 IM 01/26/21 09:00 02/09/21 08:27 DC 01/26/21 19:04 Risperidone (RisperDAL Consta) 25 mg Q14D@09 IM 01/27/21 09:00 01/26/21 18:39 DC Risperidone (RisperDAL Consta) 37.5 mg Q14D@09 IM 02/09/21 09:00 02/23/21 08:59 Risperidone (RisperDAL) 2 mg BID PO 12/28/20 09:00 01/26/21 10:46 DC Trazodone HCl (Desyrel) 50 mg QHSP PRN PO INSOMNIA 12/20/20 04:05 Allergies Coded Allergies: amoxicillin (Verified Allergy, Intermediate, HIVES, 11/11/20) BLANQUITA DOWD M.D. Feb 09, 2021 10:39
[2021-02-09 17:26] VITALS: BP 123/65
[2021-02-10 07:03] VITALS: BP 90/54
[2021-02-10] MEDS: BENZTROPINE 1 MG TAB PO SCH ×2 (08:35→21:00)
[2021-02-10 16:14] VITALS: BP 115/60
[2021-02-11 05:50] VITALS: BP 120/55
[2021-02-11] MEDS: BENZTROPINE 1 MG TAB PO SCH ×2 (09:00→20:08)
[2021-02-12] MEDS: BENZTROPINE 1 MG TAB PO SCH ×2 (08:50→20:59)
[2021-02-12] MEDS: **PENDING PPD ENTRY XX SCH (09:00)
[2021-02-12] MEDS ORDERED: TUBERCULIN PPD 5 UNITS/0.1 ML ID ONE (10:00)
--- NOTE | 2021-02-12 10:15 | MHIPNPDOC ---
[facility] Progress Note Progress Note DATE OF SERVICE: 02/12/21 Patient has received his second dose of risperidone injection 37.5 mg on 02/09/2021. He has no new complaint and is not showing any tremor or rigidity and is continuing to refuse Cogentin. His mental status does not show any change. He is practically nonverbal and is alert awake laying in bed staring into the space and appears grossly paranoid. HISTORY:. VITAL SIGNS: See below. NEW TEST RESULTS:. CURRENT MEDICATIONS: See below. MENTAL STATUS EXAMINATION: Patient is a 30-year old male, who is in no acute distress. Speech: Is not verbally responding. Language skills are poor. Thought processes including: Nonverbal. Thought content: Appears grossly paranoid. Abstract reasoning, and computation: Poor. Description of associations: Nonverbal. Description of abnormal or psychotic thoughts: Grossly paranoid. Judgment: Poor. Insight: Very poor. Orientation: Appears oriented. Recent and remote memory: Unable to evaluate. Attention span and concentration: Poor. Language:. Fund of knowledge:. Mood: [Appears anxious fearful. Affect: Blunted preoccupied. DIAGNOSES: 1.. Schizophrenia paranoid type 2.. 3.. ASSESSMENT: No improvement MANAGEMENT PLAN: Continue with the risperidone injection refer him to [facility] for long-term stabilization. TIME SPENT: 15 minutes. Vital Signs Vital Signs Date Time Temp Pulse Resp B/P (MAP) Pulse Ox O2 Delivery O2 Flow Rate FiO2 02/11/21 05:50 96.9 67 16 120/55 (76) 99 Room Air Current Medications Current Medications Medications (Trade) Dose Ordered Sig/Rishi Route PRN Reason Start Time Stop Time Status Last Admin Dose Admin Acetaminophen (Tylenol Tab) 650 mg Q6HP PRN PO HEADACHE or DISCOMFORT 12/20/20 04:05 01/18/21 11:07 DC Al Hydrox/Mg Hydrox/Simethicone (Mylanta) 30 ml Q4HP PRN PO HEARTBURN/INDIGESTION 12/20/20 04:05 Benztropine Mesylate (Cogentin) 1 mg BID PO 01/26/21 09:00 Home Med (Med Rec Complete!) ASDIRECTED XX 12/20/20 03:20 12/20/20 03:22 DC Lorazepam (Ativan) 1 mg BID PO 12/28/20 09:00 01/21/21 12:25 DC Lorazepam (Ativan) 1 mg Q6HP PRN PO ANXIETY 12/20/20 13:00 12/27/20 12:59 DC Lorazepam (Ativan) 1 mg Q6HP PRN PO ANXIETY 12/28/20 07:30 01/21/21 12:25 DC Magnesium Hydroxide (Milk Of Magnesia) 30 ml DAILYPRN PRN PO CONSTIPATION 12/20/20 04:05 Miscellaneous (Unresolved Clarification Entry) SEE LABEL COMMENTS DAILY XX 01/09/21 09:00 01/09/21 15:58 DC Miscellaneous (Unresolved Clarification Entry) SEE LABEL COMMENTS DAILY XX 01/17/21 09:00 01/21/21 12:27 DC Miscellaneous (Unresolved Clarification Entry) SEE LABEL COMMENTS DAILY XX 01/03/21 09:00 01/03/21 15:35 DC Miscellaneous (Unresolved Clarification Entry) SEE LABEL COMMENTS DAILY XX 01/26/21 09:00 01/26/21 10:50 DC Non-Formulary Medication ( See Comment Field Below ) SEE COMMENTS SECTION 1T@10 XX 02/14/21 10:00 02/15/21 09:59 UNV Olanzapine (ZyPREXA ZYDIS) 5 mg Q4HP PRN PO ANXIETY/AGITATION 12/20/20 04:05 Olanzapine (ZyPREXA ZYDIS) 5 mg QHS PO 12/26/20 21:00 12/28/20 07:33 DC Quetiapine Fumarate (SEROquel) 25 mg QHS PO 12/23/20 21:00 12/26/20 10:56 DC Quetiapine Fumarate (SEROquel) 50 mg DAILY PO 12/21/20 09:00 12/23/20 13:19 DC Quetiapine Fumarate (SEROquel) 100 mg QHS PO 12/20/20 21:00 12/23/20 13:19 DC Risperidone (RisperDAL Consta) 25 mg Q14D@09 IM 02/09/21 09:00 UNV Risperidone (RisperDAL Consta) 25 mg Q14D@09 IM 01/26/21 09:00 02/09/21 08:27 DC 01/26/21 19:04 Risperidone (RisperDAL Consta) 25 mg Q14D@09 IM 01/27/21 09:00 01/26/21 18:39 DC Risperidone (RisperDAL Consta) 37.5 mg Q14D@09 IM 02/09/21 09:00 02/23/21 08:59 02/09/21 11:54 Risperidone (RisperDAL) 2 mg BID PO 12/28/20 09:00 01/26/21 10:46 DC Trazodone HCl (Desyrel) 50 mg QHSP PRN PO INSOMNIA 12/20/20 04:05 Allergies Coded Allergies: amoxicillin (Verified Allergy, Intermediate, HIVES, 11/11/20) BLANQUITA DOWD M.D. Feb 12, 2021 10:15
--- NOTE | 2021-02-12 22:24 | ECGEPIP ---
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
[2021-02-13 06:41] VITALS: BP 106/58
[2021-02-13] MEDS: BENZTROPINE 1 MG TAB PO SCH ×2 (08:51→20:59)
[2021-02-13] MEDS: **PENDING PPD ENTRY XX SCH (08:51)
--- NOTE | 2021-02-13 11:35 | MHIPNPDOC ---
[facility] Progress Note Progress Note DATE OF SERVICE: 02/13/21 There are a few changes noticeable. He is sitting up more instead of laying in bed all day and his speech is much more productive and clear but he is able to answer yes and no and not able to carry on any lengthy conversation. He still feels that there is nothing wrong with him and when asked about eating he stated that he may consider eating. So there are some positive changes but no major improvement yet. HISTORY:. VITAL SIGNS: See below. NEW TEST RESULTS:. CURRENT MEDICATIONS: See below. MENTAL STATUS EXAMINATION: Patient is a 29-year old male, who is in no acute distress. Speech: Is more productive. Language skills are still poor. Thought processes including: Able to answer a few questions relevantly. Thought content: Denies any problem. Abstract reasoning, and computation: Poor. Description of associations: Slightly more productive. Description of abnormal or psychotic thoughts: Remains paranoid. Judgment: Poor. Insight:. poor]. Orientation: Appears oriented to the place. Recent and remote memory: Unable to evaluate. Attention span and concentration: Poor. Language:. Fund of knowledge:. Mood: Does not appear as hostile and angry. Affect: Blunted and preoccupied. DIAGNOSES: 1.. Schizophrenia paranoid 2.. 3.. ASSESSMENT: No significant improvement MANAGEMENT PLAN: Continue with the risperidone and transferred to [facility]. TIME SPENT: 20 minutes. Vital Signs Vital Signs Date Time Temp Pulse Resp B/P (MAP) Pulse Ox O2 Delivery O2 Flow Rate FiO2 02/13/21 06:41 97.5 64 16 106/58 (74) 97 02/11/21 05:50 Room Air Current Medications Current Medications Medications (Trade) Dose Ordered Sig/Rishi Route PRN Reason Start Time Stop Time Status Last Admin Dose Admin Acetaminophen (Tylenol Tab) 650 mg Q6HP PRN PO HEADACHE or DISCOMFORT 12/20/20 04:05 01/18/21 11:07 DC Al Hydrox/Mg Hydrox/Simethicone (Mylanta) 30 ml Q4HP PRN PO HEARTBURN/INDIGESTION 12/20/20 04:05 Benztropine Mesylate (Cogentin) 1 mg BID PO 01/26/21 09:00 Home Med (Med Rec Complete!) ASDIRECTED XX 12/20/20 03:20 12/20/20 03:22 DC Lorazepam (Ativan) 1 mg BID PO 12/28/20 09:00 01/21/21 12:25 DC Lorazepam (Ativan) 1 mg Q6HP PRN PO ANXIETY 12/20/20 13:00 12/27/20 12:59 DC Lorazepam (Ativan) 1 mg Q6HP PRN PO ANXIETY 12/28/20 07:30 01/21/21 12:25 DC Magnesium Hydroxide (Milk Of Magnesia) 30 ml DAILYPRN PRN PO CONSTIPATION 12/20/20 04:05 Miscellaneous (Unresolved Clarification Entry) SEE LABEL COMMENTS DAILY XX 01/09/21 09:00 01/09/21 15:58 DC Miscellaneous (Unresolved Clarification Entry) SEE LABEL COMMENTS DAILY XX 01/17/21 09:00 01/21/21 12:27 DC Miscellaneous (Unresolved Clarification Entry) SEE LABEL COMMENTS DAILY XX 01/03/21 09:00 01/03/21 15:35 DC Miscellaneous (Unresolved Clarification Entry) SEE LABEL COMMENTS DAILY XX 01/26/21 09:00 01/26/21 10:50 DC Non-Formulary Medication ( See Comment Field Below ) SEE COMMENTS SECTION 1T@10 XX 02/14/21 10:00 02/12/21 11:55 DC Non-Formulary Medication ( See Comment Field Below ) SEE LABEL COMMENTS DAILY XX 02/12/21 09:00 Olanzapine (ZyPREXA ZYDIS) 5 mg Q4HP PRN PO ANXIETY/AGITATION 12/20/20 04:05 Olanzapine (ZyPREXA ZYDIS) 5 mg QHS PO 12/26/20 21:00 12/28/20 07:33 DC Quetiapine Fumarate (SEROquel) 25 mg QHS PO 12/23/20 21:00 12/26/20 10:56 DC Quetiapine Fumarate (SEROquel) 50 mg DAILY PO 12/21/20 09:00 12/23/20 13:19 DC Quetiapine Fumarate (SEROquel) 100 mg QHS PO 12/20/20 21:00 12/23/20 13:19 DC Risperidone (RisperDAL Consta) 25 mg Q14D@09 IM 02/09/21 09:00 UNV Risperidone (RisperDAL Consta) 25 mg Q14D@09 IM 01/26/21 09:00 02/09/21 08:27 DC 01/26/21 19:04 Risperidone (RisperDAL Consta) 25 mg Q14D@09 IM 01/27/21 09:00 01/26/21 18:39 DC Risperidone (RisperDAL Consta) 37.5 mg Q14D@09 IM 02/09/21 09:00 02/23/21 08:59 02/09/21 11:54 Risperidone (RisperDAL) 2 mg BID PO 12/28/20 09:00 01/26/21 10:46 DC Trazodone HCl (Desyrel) 50 mg QHSP PRN PO INSOMNIA 12/20/20 04:05 Allergies Coded Allergies: amoxicillin (Verified Allergy, Intermediate, HIVES, 11/11/20) BLANQUITA DOWD M.D. Feb 13, 2021 11:35
[2021-02-13 17:52] VITALS: BP 113/60
[2021-02-14] MEDS: BENZTROPINE 1 MG TAB PO SCH ×2 (09:00→20:25)
[2021-02-14] MEDS: **PENDING PPD ENTRY XX SCH (09:00)
[2021-02-14] MEDS ORDERED: PPD DOCUMENTATION ENTRY MISC XX SCH (10:00)
--- NOTE | 2021-02-14 12:17 | MHIPNPDOC ---
[facility] Progress Note Progress Note DATE OF SERVICE: 02/14/21 The patient is out of his bed pacing in his room and walked over to the dining room and took his breakfast tray. He was eating some cereal and drinking milk. He is definitely showing improved psychomotor activity and verbally more responsive although he is not able to carry on any meaningful conversations. He is still insisting that he does not need medications and he is not mentally ill. So far the progress is minimal but significant so we will continue with his medications and continue to educate patient for stability HISTORY:. VITAL SIGNS: See below. NEW TEST RESULTS:. CURRENT MEDICATIONS: See below. MENTAL STATUS EXAMINATION: Patient is a 29-year old male, who is walking around in his room in no acute distress. Speech: Is slightly more productive. Language skills are still poor. Thought processes including: Not productive. Thought content: Still paranoid. Abstract reasoning, and computation: Poor. Description of associations: Minimally productive. Description of abnormal or psychotic thoughts: Remains paranoid. Judgment: Poor. Insight: poor]. Orientation: Appears oriented difficult to evaluate. Recent and remote memory:. Attention span and concentration: Poor. Language:. Fund of knowledge:. Mood: Appears very suspicious. Affect: Blunted preoccupied. DIAGNOSES: 1.. Schizophrenia paranoid type 2.. 3.. ASSESSMENT: Showing slight improvement MANAGEMENT PLAN: Continue with the current medicine and supportive therapy. TIME SPENT: 20 minutes. Vital Signs Vital Signs Date Time Temp Pulse Resp B/P (MAP) Pulse Ox O2 Delivery O2 Flow Rate FiO2 02/13/21 17:52 98.3 77 18 113/60 (77) 02/13/21 06:41 97 02/11/21 05:50 Room Air Current Medications Current Medications Medications (Trade) Dose Ordered Sig/Rishi Route PRN Reason Start Time Stop Time Status Last Admin Dose Admin Acetaminophen (Tylenol Tab) 650 mg Q6HP PRN PO HEADACHE or DISCOMFORT 12/20/20 04:05 01/18/21 11:07 DC Al Hydrox/Mg Hydrox/Simethicone (Mylanta) 30 ml Q4HP PRN PO HEARTBURN/INDIGESTION 12/20/20 04:05 Benztropine Mesylate (Cogentin) 1 mg BID PO 01/26/21 09:00 Home Med (Med Rec Complete!) ASDIRECTED XX 12/20/20 03:20 12/20/20 03:22 DC Lorazepam (Ativan) 1 mg BID PO 12/28/20 09:00 01/21/21 12:25 DC Lorazepam (Ativan) 1 mg Q6HP PRN PO ANXIETY 12/20/20 13:00 12/27/20 12:59 DC Lorazepam (Ativan) 1 mg Q6HP PRN PO ANXIETY 12/28/20 07:30 01/21/21 12:25 DC Magnesium Hydroxide (Milk Of Magnesia) 30 ml DAILYPRN PRN PO CONSTIPATION 12/20/20 04:05 Miscellaneous (Unresolved Clarification Entry) SEE LABEL COMMENTS DAILY XX 01/09/21 09:00 01/09/21 15:58 DC Miscellaneous (Unresolved Clarification Entry) SEE LABEL COMMENTS DAILY XX 01/17/21 09:00 01/21/21 12:27 DC Miscellaneous (Unresolved Clarification Entry) SEE LABEL COMMENTS DAILY XX 01/03/21 09:00 01/03/21 15:35 DC Miscellaneous (Unresolved Clarification Entry) SEE LABEL COMMENTS DAILY XX 01/26/21 09:00 01/26/21 10:50 DC Non-Formulary Medication ( See Comment Field Below ) SEE COMMENTS SECTION 1T@10 XX 02/14/21 10:00 02/12/21 11:55 DC Non-Formulary Medication ( See Comment Field Below ) SEE LABEL COMMENTS DAILY XX 02/12/21 09:00 Olanzapine (ZyPREXA ZYDIS) 5 mg Q4HP PRN PO ANXIETY/AGITATION 12/20/20 04:05 Olanzapine (ZyPREXA ZYDIS) 5 mg QHS PO 12/26/20 21:00 12/28/20 07:33 DC Quetiapine Fumarate (SEROquel) 25 mg QHS PO 12/23/20 21:00 12/26/20 10:56 DC Quetiapine Fumarate (SEROquel) 50 mg DAILY PO 12/21/20 09:00 12/23/20 13:19 DC Quetiapine Fumarate (SEROquel) 100 mg QHS PO 12/20/20 21:00 12/23/20 13:19 DC Risperidone (RisperDAL Consta) 25 mg Q14D@09 IM 02/09/21 09:00 UNV Risperidone (RisperDAL Consta) 25 mg Q14D@09 IM 01/26/21 09:00 02/09/21 08:27 DC 01/26/21 19:04 Risperidone (RisperDAL Consta) 25 mg Q14D@09 IM 01/27/21 09:00 01/26/21 18:39 DC Risperidone (RisperDAL Consta) 37.5 mg Q14D@09 IM 02/09/21 09:00 02/23/21 08:59 02/09/21 11:54 Risperidone (RisperDAL) 2 mg BID PO 12/28/20 09:00 01/26/21 10:46 DC Trazodone HCl (Desyrel) 50 mg QHSP PRN PO INSOMNIA 12/20/20 04:05 Allergies Coded Allergies: amoxicillin (Verified Allergy, Intermediate, HIVES, 11/11/20) BLANQUITA DOWD M.D. Feb 14, 2021 12:17
[2021-02-14 17:30] VITALS: BP 110/70
[2021-02-15 07:01] VITALS: BP 111/57
[2021-02-15] MEDS: BENZTROPINE 1 MG TAB PO SCH ×2 (09:00→21:00)
[2021-02-15] MEDS: **PENDING PPD ENTRY XX SCH (09:00)
--- NOTE | 2021-02-15 09:27 | MHIPNPDOC ---
[facility] Progress Note Progress Note DATE OF SERVICE: 02/15/21 Patient is again out of his bed and standing in his room and ate some of his breakfast. He is however refusing to take shower or shave and is showing very poor hygiene despite strong encouragement by the staff. He is not answering in any complete sentence to any questions and just stares into the space but at times he would say yes or no. Today when asked about his hygiene the patient states that he would like a toothbrush. So far there is very little change in his mental status but his psychomotor activity is slightly more productive. HISTORY: . VITAL SIGNS: See below. NEW TEST RESULTS: . CURRENT MEDICATIONS: See below. MENTAL STATUS EXAMINATION: Patient is a [29]-year old male, who is [in no acute distress]. Speech: Is not productive. Language skills are poor. Thought processes including: Not productive. Thought content: Appears grossly paranoid. Abstract reasoning, and computation: Poor. Description of associations: Practically nonverbal. Description of abnormal or psychotic thoughts: Remains grossly paranoid. Judgment: Poor. Insight: Poor. Orientation: Appears oriented. Recent and remote memory: Unable to evaluate. Attention span and concentration: Poor. Language:. Fund of knowledge:. Mood: Appears anxious preoccupied. Affect: Guarded blunted. DIAGNOSES: 1.. Schizophrenia paranoid 2.. 3.. ASSESSMENT: Continue with the risperidone injection [facility] MANAGEMENT PLAN:. TIME SPENT: 20 minutes. Vital Signs Vital Signs Date Time Temp Pulse Resp B/P (MAP) Pulse Ox O2 Delivery O2 Flow Rate FiO2 02/15/21 07:01 97.4 77 20 111/57 (75) 100 Room Air Current Medications Current Medications Medications (Trade) Dose Ordered Sig/Rishi Route PRN Reason Start Time Stop Time Status Last Admin Dose Admin Acetaminophen (Tylenol Tab) 650 mg Q6HP PRN PO HEADACHE or DISCOMFORT 12/20/20 04:05 01/18/21 11:07 DC Al Hydrox/Mg Hydrox/Simethicone (Mylanta) 30 ml Q4HP PRN PO HEARTBURN/INDIGESTION 12/20/20 04:05 Benztropine Mesylate (Cogentin) 1 mg BID PO 01/26/21 09:00 Home Med (Med Rec Complete!) ASDIRECTED XX 12/20/20 03:20 12/20/20 03:22 DC Lorazepam (Ativan) 1 mg BID PO 12/28/20 09:00 01/21/21 12:25 DC Lorazepam (Ativan) 1 mg Q6HP PRN PO ANXIETY 12/20/20 13:00 12/27/20 12:59 DC Lorazepam (Ativan) 1 mg Q6HP PRN PO ANXIETY 12/28/20 07:30 01/21/21 12:25 DC Magnesium Hydroxide (Milk Of Magnesia) 30 ml DAILYPRN PRN PO CONSTIPATION 12/20/20 04:05 Miscellaneous (Unresolved Clarification Entry) SEE LABEL COMMENTS DAILY XX 01/09/21 09:00 01/09/21 15:58 DC Miscellaneous (Unresolved Clarification Entry) SEE LABEL COMMENTS DAILY XX 01/17/21 09:00 01/21/21 12:27 DC Miscellaneous (Unresolved Clarification Entry) SEE LABEL COMMENTS DAILY XX 01/03/21 09:00 01/03/21 15:35 DC Miscellaneous (Unresolved Clarification Entry) SEE LABEL COMMENTS DAILY XX 01/26/21 09:00 01/26/21 10:50 DC Non-Formulary Medication ( See Comment Field Below ) SEE COMMENTS SECTION 1T@10 XX 02/14/21 10:00 02/12/21 11:55 DC Non-Formulary Medication ( See Comment Field Below ) SEE LABEL COMMENTS DAILY XX 02/12/21 09:00 Olanzapine (ZyPREXA ZYDIS) 5 mg Q4HP PRN PO ANXIETY/AGITATION 12/20/20 04:05 Olanzapine (ZyPREXA ZYDIS) 5 mg QHS PO 12/26/20 21:00 12/28/20 07:33 DC Quetiapine Fumarate (SEROquel) 25 mg QHS PO 12/23/20 21:00 12/26/20 10:56 DC Quetiapine Fumarate (SEROquel) 50 mg DAILY PO 12/21/20 09:00 12/23/20 13:19 DC Quetiapine Fumarate (SEROquel) 100 mg QHS PO 12/20/20 21:00 12/23/20 13:19 DC Risperidone (RisperDAL Consta) 25 mg Q14D@09 IM 02/09/21 09:00 UNV Risperidone (RisperDAL Consta) 25 mg Q14D@09 IM 01/26/21 09:00 02/09/21 08:27 DC 01/26/21 19:04 Risperidone (RisperDAL Consta) 25 mg Q14D@09 IM 01/27/21 09:00 01/26/21 18:39 DC Risperidone (RisperDAL Consta) 37.5 mg Q14D@09 IM 02/09/21 09:00 02/23/21 08:59 02/09/21 11:54 Risperidone (RisperDAL) 2 mg BID PO 12/28/20 09:00 01/26/21 10:46 DC Trazodone HCl (Desyrel) 50 mg QHSP PRN PO INSOMNIA 12/20/20 04:05 Allergies Coded Allergies: amoxicillin (Verified Allergy, Intermediate, HIVES, 11/11/20) BLANQUITA DOWD M.D. Feb 15, 2021 09:27
[2021-02-15 18:00] VITALS: BP 133/75
[2021-02-16 06:24] VITALS: BP 124/59
[2021-02-16] MEDS: BENZTROPINE 1 MG TAB PO SCH ×2 (09:00→21:00)
[2021-02-16] MEDS: **PENDING PPD ENTRY XX SCH (09:00)
--- NOTE | 2021-02-16 09:26 | MHIPNPDOC ---
[facility] Progress Note Progress Note DATE OF SERVICE: 02/16/21 The patient is showing increased psychomotor activity. He is walking out of his room and also speech is much more productive. He is however showing no insight and no improvement in his paranoid symptoms. He received to trace for last night's dinner and this morning's breakfast , both trace remain in his room untouched. He is asking why he is still in hospital and what he is supposed to do but doesn't feel he needs any help and wants to go to his apartment. So there is an improvement in psychomotor activity but there is no improvement in his thought disorder and remains very paranoid. HISTORY:. VITAL SIGNS: See below. NEW TEST RESULTS:. CURRENT MEDICATIONS: See below. MENTAL STATUS EXAMINATION: Patient is a 32-year old male, who is in no acute distress. Speech: Is more productive but not rational. Language skills are fair. Thought processes including: Not able to carry on rational conversations. Thought content: Markedly paranoid. Abstract reasoning, and computation: Poor. Description of associations: Preoccupied. Description of abnormal or psychotic thoughts: Grossly paranoid. Judgment: Poor. Insight: Poor. Orientation: Poor. Recent and remote memory: Difficult to evaluate. Attention span and concentration: Poor. Language:. Fund of knowledge:. Mood: Somewhat angry hostile. Affect: Irritable labile and guarded. DIAGNOSES: 1.. Schizophrenia paranoid 2.. 3.. ASSESSMENT: No improvement in his thought disorder MANAGEMENT PLAN: Continue with the risperidone with the next injection on February 23 continue with supportive therapy and education. Transfer to [facility] is being considered if he does not show any significant improvement TIME SPENT: 20 minutes. Vital Signs Vital Signs Date Time Temp Pulse Resp B/P (MAP) Pulse Ox O2 Delivery O2 Flow Rate FiO2 02/16/21 06:24 98.0 75 16 124/59 (80) 97 Room Air Current Medications Current Medications Medications (Trade) Dose Ordered Sig/Rishi Route PRN Reason Start Time Stop Time Status Last Admin Dose Admin Acetaminophen (Tylenol Tab) 650 mg Q6HP PRN PO HEADACHE or DISCOMFORT 12/20/20 04:05 01/18/21 11:07 DC Al Hydrox/Mg Hydrox/Simethicone (Mylanta) 30 ml Q4HP PRN PO HEARTBURN/INDIGESTION 12/20/20 04:05 Benztropine Mesylate (Cogentin) 1 mg BID PO 01/26/21 09:00 Home Med (Med Rec Complete!) ASDIRECTED XX 12/20/20 03:20 12/20/20 03:22 DC Lorazepam (Ativan) 1 mg BID PO 12/28/20 09:00 01/21/21 12:25 DC Lorazepam (Ativan) 1 mg Q6HP PRN PO ANXIETY 12/20/20 13:00 12/27/20 12:59 DC Lorazepam (Ativan) 1 mg Q6HP PRN PO ANXIETY 12/28/20 07:30 01/21/21 12:25 DC Magnesium Hydroxide (Milk Of Magnesia) 30 ml DAILYPRN PRN PO CONSTIPATION 12/20/20 04:05 Miscellaneous (Unresolved Clarification Entry) SEE LABEL COMMENTS DAILY XX 01/09/21 09:00 01/09/21 15:58 DC Miscellaneous (Unresolved Clarification Entry) SEE LABEL COMMENTS DAILY XX 01/17/21 09:00 01/21/21 12:27 DC Miscellaneous (Unresolved Clarification Entry) SEE LABEL COMMENTS DAILY XX 01/03/21 09:00 01/03/21 15:35 DC Miscellaneous (Unresolved Clarification Entry) SEE LABEL COMMENTS DAILY XX 01/26/21 09:00 01/26/21 10:50 DC Non-Formulary Medication ( See Comment Field Below ) SEE COMMENTS SECTION 1T@10 XX 02/14/21 10:00 02/12/21 11:55 DC Non-Formulary Medication ( See Comment Field Below ) SEE LABEL COMMENTS DAILY XX 02/12/21 09:00 Olanzapine (ZyPREXA ZYDIS) 5 mg Q4HP PRN PO ANXIETY/AGITATION 12/20/20 04:05 Olanzapine (ZyPREXA ZYDIS) 5 mg QHS PO 12/26/20 21:00 12/28/20 07:33 DC Quetiapine Fumarate (SEROquel) 25 mg QHS PO 12/23/20 21:00 12/26/20 10:56 DC Quetiapine Fumarate (SEROquel) 50 mg DAILY PO 12/21/20 09:00 12/23/20 13:19 DC Quetiapine Fumarate (SEROquel) 100 mg QHS PO 12/20/20 21:00 12/23/20 13:19 DC Risperidone (RisperDAL Consta) 25 mg Q14D@09 IM 02/09/21 09:00 UNV Risperidone (RisperDAL Consta) 25 mg Q14D@09 IM 01/26/21 09:00 02/09/21 08:27 DC 01/26/21 19:04 Risperidone (RisperDAL Consta) 25 mg Q14D@09 IM 01/27/21 09:00 01/26/21 18:39 DC Risperidone (RisperDAL Consta) 37.5 mg Q14D@09 IM 02/09/21 09:00 02/23/21 08:59 02/09/21 11:54 Risperidone (RisperDAL) 2 mg BID PO 12/28/20 09:00 01/26/21 10:46 DC Trazodone HCl (Desyrel) 50 mg QHSP PRN PO INSOMNIA 12/20/20 04:05 Allergies Coded Allergies: amoxicillin (Verified Allergy, Intermediate, HIVES, 11/11/20) BLANQUITA DOWD M.D. Feb 16, 2021 09:26
[2021-02-16] MEDS ORDERED: LORazepam 1 MG TAB PO PRN (10:20)
[2021-02-16 18:00] VITALS: BP 138/79
[2021-02-17 05:35] VITALS: BP 122/57
[2021-02-17] MEDS: **PENDING PPD ENTRY XX SCH (09:00)
[2021-02-17] MEDS: BENZTROPINE 1 MG TAB PO SCH ×2 (09:00→21:00)
[2021-02-17 16:32] VITALS: BP 109/62
[2021-02-18] MEDS: **PENDING PPD ENTRY XX SCH (08:36)
[2021-02-18] MEDS: BENZTROPINE 1 MG TAB PO SCH ×2 (08:36→20:39)
[2021-02-19] MEDS: **PENDING PPD ENTRY XX SCH (09:00)
[2021-02-19] MEDS: BENZTROPINE 1 MG TAB PO SCH ×2 (09:00→21:00)
--- NOTE | 2021-02-19 09:31 | MHIPNPDOC ---
[facility] Progress Note Progress Note DATE OF SERVICE: 02/19/21 For the first time patient is eating and drinking from his breakfast tray in his room in front of the MD. Patient is also responding verbally and appropriately to the greetings from the MD. He is in good control although he is still refusing to take his oral medication of Cogentin. He was seen for administrative hearing on Friday regarding his referral to [facility] at which time he showed significantly improved speech but showed no insight. We will continue with plan to treat him with risperidone injection and continue with the supportive therapy and education. HISTORY:. VITAL SIGNS: See below. NEW TEST RESULTS:. CURRENT MEDICATIONS: See below. MENTAL STATUS EXAMINATION: Patient is a 30-year old male, who is in no acute distress. Speech: Is more productive. Language skills are fair. Thought processes including: Some relevant answers. Thought content: Still showing no insight. Abstract reasoning, and computation: Poor. Description of associations: More productive. Description of abnormal or psychotic thoughts: Remained paranoid. Judgment: Poor. Insight: poor]. Orientation: Appears oriented. Recent and remote memory: Difficult to evaluate. Attention span and concentration: Poor. Language:. Fund of knowledge:. Mood: Remains anxious preoccupied. Affect: Blunted but more animated. DIAGNOSES: 1.. Schizophrenia paranoid 2.. 3.. ASSESSMENT: Continue to show improvement in his psychomotor activity but no insight MANAGEMENT PLAN: Continue with the supportive therapy plan to give him another dose of the risperidone injection on February 23. TIME SPENT: 20 minutes. Vital Signs Vital Signs Date Time Temp Pulse Resp B/P (MAP) Pulse Ox O2 Delivery O2 Flow Rate FiO2 02/17/21 16:32 97.8 71 12 109/62 (78) 02/17/21 05:35 100 Room Air Current Medications Current Medications Medications (Trade) Dose Ordered Sig/Rishi Route PRN Reason Start Time Stop Time Status Last Admin Dose Admin Acetaminophen (Tylenol Tab) 650 mg Q6HP PRN PO HEADACHE or DISCOMFORT 12/20/20 04:05 01/18/21 11:07 DC Al Hydrox/Mg Hydrox/Simethicone (Mylanta) 30 ml Q4HP PRN PO HEARTBURN/INDIGESTION 12/20/20 04:05 Benztropine Mesylate (Cogentin) 1 mg BID PO 01/26/21 09:00 Haloperidol (Haldol) 5 mg Q6HP PRN PO AGITATION 02/16/21 10:20 Home Med (Med Rec Complete!) ASDIRECTED XX 12/20/20 03:20 12/20/20 03:22 DC Lorazepam (Ativan) 1 mg BID PO 12/28/20 09:00 01/21/21 12:25 DC Lorazepam (Ativan) 1 mg Q6HP PRN PO ANXIETY 12/20/20 13:00 12/27/20 12:59 DC Lorazepam (Ativan) 1 mg Q6HP PRN PO ANXIETY 12/28/20 07:30 01/21/21 12:25 DC Lorazepam (Ativan) 1 mg Q6HP PRN PO ANXIETY 02/16/21 10:20 Magnesium Hydroxide (Milk Of Magnesia) 30 ml DAILYPRN PRN PO CONSTIPATION 12/20/20 04:05 Miscellaneous (Unresolved Clarification Entry) SEE LABEL COMMENTS DAILY XX 01/09/21 09:00 01/09/21 15:58 DC Miscellaneous (Unresolved Clarification Entry) SEE LABEL COMMENTS DAILY XX 01/17/21 09:00 01/21/21 12:27 DC Miscellaneous (Unresolved Clarification Entry) SEE LABEL COMMENTS DAILY XX 01/03/21 09:00 01/03/21 15:35 DC Miscellaneous (Unresolved Clarification Entry) SEE LABEL COMMENTS DAILY XX 01/26/21 09:00 01/26/21 10:50 DC Non-Formulary Medication ( See Comment Field Below ) SEE COMMENTS SECTION 1T@10 XX 02/14/21 10:00 02/12/21 11:55 DC Non-Formulary Medication ( See Comment Field Below ) SEE LABEL COMMENTS DAILY XX 02/12/21 09:00 Olanzapine (ZyPREXA ZYDIS) 5 mg Q4HP PRN PO ANXIETY/AGITATION 12/20/20 04:05 Olanzapine (ZyPREXA ZYDIS) 5 mg QHS PO 12/26/20 21:00 12/28/20 07:33 DC Quetiapine Fumarate (SEROquel) 25 mg QHS PO 12/23/20 21:00 12/26/20 10:56 DC Quetiapine Fumarate (SEROquel) 50 mg DAILY PO 12/21/20 09:00 12/23/20 13:19 DC Quetiapine Fumarate (SEROquel) 100 mg QHS PO 12/20/20 21:00 12/23/20 13:19 DC Risperidone (RisperDAL Consta) 25 mg Q14D@09 IM 02/09/21 09:00 UNV Risperidone (RisperDAL Consta) 25 mg Q14D@09 IM 01/26/21 09:00 02/09/21 08:27 DC 01/26/21 19:04 Risperidone (RisperDAL Consta) 25 mg Q14D@09 IM 01/27/21 09:00 01/26/21 18:39 DC Risperidone (RisperDAL Consta) 37.5 mg Q14D@09 IM 02/09/21 09:00 02/23/21 08:59 02/09/21 11:54 Risperidone (RisperDAL) 2 mg BID PO 12/28/20 09:00 01/26/21 10:46 DC Trazodone HCl (Desyrel) 50 mg QHSP PRN PO INSOMNIA 12/20/20 04:05 Allergies Coded Allergies: amoxicillin (Verified Allergy, Intermediate, HIVES, 11/11/20) BLANQUITA DOWD M.D. Feb 19, 2021 09:31
[2021-02-20 06:00] VITALS: BP 116/59
[2021-02-20] MEDS: BENZTROPINE 1 MG TAB PO SCH ×2 (08:41→21:00)
[2021-02-20] MEDS: **PENDING PPD ENTRY XX SCH (09:00)
--- NOTE | 2021-02-20 11:19 | MHIPNPDOC ---
[facility] Progress Note Progress Note DATE OF SERVICE: 02/20/21 Patient is again refusing to take any medicine by mouth but is showing slow but significant improvement. He is eating better and his affect and verbal response is more appropriate although he is not but is productive yet. He is not showing any gross tremor or rigidity and denies any physical discomfort and does not show any acute side effect. We will continue with the risperidone and plan to give him injection 37.5 mg this Friday. HISTORY:. VITAL SIGNS: See below. NEW TEST RESULTS:. CURRENT MEDICATIONS: See below. MENTAL STATUS EXAMINATION: Patient is a 30-year old male, who is in no acute distress. Speech: Is relevant but not productive. Language skills are slightly more productive. Thought processes including: More coherent. Thought content: Patient denies any problem. Abstract reasoning, and computation: Poor. Description of associations: Showing very organized response. Description of abnormal or psychotic thoughts: Remains grossly paranoid and withdrawn. Judgment: Poor. Insight: Poor. Orientation: Oriented. Recent and remote memory: No gross impairment. Attention span and concentration:. Language:. Fund of knowledge:. Mood: Not as hostile. Affect: Slightly more animated. DIAGNOSES: 1.. Paranoid schizophrenia 2.. 3.. ASSESSMENT: Slight improvement MANAGEMENT PLAN:. Continue with the risperidone TIME SPENT: 20] minutes. Vital Signs Vital Signs Date Time Temp Pulse Resp B/P (MAP) Pulse Ox O2 Delivery O2 Flow Rate FiO2 02/20/21 06:00 97.3 75 18 116/59 (78) 100 02/17/21 05:35 Room Air Current Medications Current Medications Medications (Trade) Dose Ordered Sig/Rishi Route PRN Reason Start Time Stop Time Status Last Admin Dose Admin Acetaminophen (Tylenol Tab) 650 mg Q6HP PRN PO HEADACHE or DISCOMFORT 12/20/20 04:05 01/18/21 11:07 DC Al Hydrox/Mg Hydrox/Simethicone (Mylanta) 30 ml Q4HP PRN PO HEARTBURN/INDIGESTION 12/20/20 04:05 Benztropine Mesylate (Cogentin) 1 mg BID PO 01/26/21 09:00 Haloperidol (Haldol) 5 mg Q6HP PRN PO AGITATION 02/16/21 10:20 Home Med (Med Rec Complete!) ASDIRECTED XX 12/20/20 03:20 12/20/20 03:22 DC Lorazepam (Ativan) 1 mg BID PO 12/28/20 09:00 01/21/21 12:25 DC Lorazepam (Ativan) 1 mg Q6HP PRN PO ANXIETY 12/20/20 13:00 12/27/20 12:59 DC Lorazepam (Ativan) 1 mg Q6HP PRN PO ANXIETY 12/28/20 07:30 01/21/21 12:25 DC Lorazepam (Ativan) 1 mg Q6HP PRN PO ANXIETY 02/16/21 10:20 Magnesium Hydroxide (Milk Of Magnesia) 30 ml DAILYPRN PRN PO CONSTIPATION 12/20/20 04:05 Miscellaneous (Unresolved Clarification Entry) SEE LABEL COMMENTS DAILY XX 01/09/21 09:00 01/09/21 15:58 DC Miscellaneous (Unresolved Clarification Entry) SEE LABEL COMMENTS DAILY XX 01/17/21 09:00 01/21/21 12:27 DC Miscellaneous (Unresolved Clarification Entry) SEE LABEL COMMENTS DAILY XX 01/03/21 09:00 01/03/21 15:35 DC Miscellaneous (Unresolved Clarification Entry) SEE LABEL COMMENTS DAILY XX 01/26/21 09:00 01/26/21 10:50 DC Non-Formulary Medication ( See Comment Field Below ) SEE COMMENTS SECTION 1T@10 XX 02/14/21 10:00 02/12/21 11:55 DC Non-Formulary Medication ( See Comment Field Below ) SEE LABEL COMMENTS DAILY XX 02/12/21 09:00 Olanzapine (ZyPREXA ZYDIS) 5 mg Q4HP PRN PO ANXIETY/AGITATION 12/20/20 04:05 Olanzapine (ZyPREXA ZYDIS) 5 mg QHS PO 12/26/20 21:00 12/28/20 07:33 DC Quetiapine Fumarate (SEROquel) 25 mg QHS PO 12/23/20 21:00 12/26/20 10:56 DC Quetiapine Fumarate (SEROquel) 50 mg DAILY PO 12/21/20 09:00 12/23/20 13:19 DC Quetiapine Fumarate (SEROquel) 100 mg QHS PO 12/20/20 21:00 12/23/20 13:19 DC Risperidone (RisperDAL Consta) 25 mg Q14D@09 IM 02/09/21 09:00 UNV Risperidone (RisperDAL Consta) 25 mg Q14D@09 IM 01/26/21 09:00 02/09/21 08:27 DC 01/26/21 19:04 Risperidone (RisperDAL Consta) 25 mg Q14D@09 IM 01/27/21 09:00 01/26/21 18:39 DC Risperidone (RisperDAL Consta) 37.5 mg Q14D@09 IM 02/09/21 09:00 02/23/21 08:59 02/09/21 11:54 Risperidone (RisperDAL) 2 mg BID PO 12/28/20 09:00 01/26/21 10:46 DC Trazodone HCl (Desyrel) 50 mg QHSP PRN PO INSOMNIA 12/20/20 04:05 Allergies Coded Allergies: amoxicillin (Verified Allergy, Intermediate, HIVES, 11/11/20) BLANQUITA DOWD M.D. Feb 20, 2021 11:19
[2021-02-20 18:03] VITALS: BP 121/63
[2021-02-21 06:59] VITALS: BP 100/59
[2021-02-21] MEDS: **PENDING PPD ENTRY XX SCH (09:00)
[2021-02-21] MEDS: BENZTROPINE 1 MG TAB PO SCH ×2 (09:00→20:41)
--- NOTE | 2021-02-21 10:01 | MHIPNPDOC ---
[facility] Progress Note Progress Note DATE OF SERVICE: 02/21/21 Patient is eating and sleeping well and maintaining good control and showing increased psychomotor activity. He was able to greet MD with appropriate remarks and even smiled a little appropriately. His insight is still very limited and he does not believe he needs any treatment and is asking what he is supposed to be doing on the inpatient unit. He appears much less fearful. Continue with the current medications including risperidone injection this Friday and continue with the supportive therapy HISTORY:. VITAL SIGNS: See below. NEW TEST RESULTS:. CURRENT MEDICATIONS: See below. MENTAL STATUS EXAMINATION: Patient is a 30-year old male, who is in no acute distress. Speech: Is alert and more productive. Language skills are fair. Thought processes including: Relevant answers. Thought content: Superficially denying any problem. Abstract reasoning, and computation: Poor. Description of associations: More productive. Description of abnormal or psychotic thoughts: Superficially denies any hallucination. Judgment: Poor. Insight: Poor. Orientation: Oriented. Recent and remote memory: Does not appear to have any gross impairment. Attention span and concentration:. Language:. Fund of knowledge:. Mood: Not as anxious or fearful. Affect: Slightly more animated. DIAGNOSES: 1.. Schizophrenia paranoid 2.. 3.. ASSESSMENT: Showing some improvement MANAGEMENT PLAN: Continue with the risperidone for stabilization. TIME SPENT: 20 minutes. Vital Signs Vital Signs Date Time Temp Pulse Resp B/P (MAP) Pulse Ox O2 Delivery O2 Flow Rate FiO2 02/21/21 06:59 97.5 64 18 100/59 (73) 100 Room Air Current Medications Current Medications Medications (Trade) Dose Ordered Sig/Rishi Route PRN Reason Start Time Stop Time Status Last Admin Dose Admin Acetaminophen (Tylenol Tab) 650 mg Q6HP PRN PO HEADACHE or DISCOMFORT 12/20/20 04:05 01/18/21 11:07 DC Al Hydrox/Mg Hydrox/Simethicone (Mylanta) 30 ml Q4HP PRN PO HEARTBURN/INDIGESTION 12/20/20 04:05 Benztropine Mesylate (Cogentin) 1 mg BID PO 01/26/21 09:00 Haloperidol (Haldol) 5 mg Q6HP PRN PO AGITATION 02/16/21 10:20 Home Med (Med Rec Complete!) ASDIRECTED XX 12/20/20 03:20 12/20/20 03:22 DC Lorazepam (Ativan) 1 mg BID PO 12/28/20 09:00 01/21/21 12:25 DC Lorazepam (Ativan) 1 mg Q6HP PRN PO ANXIETY 12/20/20 13:00 12/27/20 12:59 DC Lorazepam (Ativan) 1 mg Q6HP PRN PO ANXIETY 12/28/20 07:30 01/21/21 12:25 DC Lorazepam (Ativan) 1 mg Q6HP PRN PO ANXIETY 02/16/21 10:20 Magnesium Hydroxide (Milk Of Magnesia) 30 ml DAILYPRN PRN PO CONSTIPATION 12/20/20 04:05 Miscellaneous (Unresolved Clarification Entry) SEE LABEL COMMENTS DAILY XX 01/09/21 09:00 01/09/21 15:58 DC Miscellaneous (Unresolved Clarification Entry) SEE LABEL COMMENTS DAILY XX 01/17/21 09:00 01/21/21 12:27 DC Miscellaneous (Unresolved Clarification Entry) SEE LABEL COMMENTS DAILY XX 01/03/21 09:00 01/03/21 15:35 DC Miscellaneous (Unresolved Clarification Entry) SEE LABEL COMMENTS DAILY XX 01/26/21 09:00 01/26/21 10:50 DC Non-Formulary Medication ( See Comment Field Below ) SEE COMMENTS SECTION 1T@10 XX 02/14/21 10:00 02/12/21 11:55 DC Non-Formulary Medication ( See Comment Field Below ) SEE LABEL COMMENTS DAILY XX 02/12/21 09:00 Olanzapine (ZyPREXA ZYDIS) 5 mg Q4HP PRN PO ANXIETY/AGITATION 12/20/20 04:05 Olanzapine (ZyPREXA ZYDIS) 5 mg QHS PO 12/26/20 21:00 12/28/20 07:33 DC Quetiapine Fumarate (SEROquel) 25 mg QHS PO 12/23/20 21:00 12/26/20 10:56 DC Quetiapine Fumarate (SEROquel) 50 mg DAILY PO 12/21/20 09:00 12/23/20 13:19 DC Quetiapine Fumarate (SEROquel) 100 mg QHS PO 12/20/20 21:00 12/23/20 13:19 DC Risperidone (RisperDAL Consta) 25 mg Q14D@09 IM 02/09/21 09:00 UNV Risperidone (RisperDAL Consta) 25 mg Q14D@09 IM 01/26/21 09:00 02/09/21 08:27 DC 01/26/21 19:04 Risperidone (RisperDAL Consta) 25 mg Q14D@09 IM 01/27/21 09:00 01/26/21 18:39 DC Risperidone (RisperDAL Consta) 37.5 mg Q14D@09 IM 02/09/21 09:00 02/23/21 08:59 02/09/21 11:54 Risperidone (RisperDAL) 2 mg BID PO 12/28/20 09:00 01/26/21 10:46 DC Trazodone HCl (Desyrel) 50 mg QHSP PRN PO INSOMNIA 12/20/20 04:05 Allergies Coded Allergies: amoxicillin (Verified Allergy, Intermediate, HIVES, 11/11/20) BLANQUITA DOWD M.D. Feb 21, 2021 10:01
[2021-02-21 18:43] VITALS: BP 126/66
[2021-02-22 06:18] VITALS: BP 111/59
[2021-02-22] MEDS: **PENDING PPD ENTRY XX SCH (09:00)
[2021-02-22] MEDS: BENZTROPINE 1 MG TAB PO SCH ×2 (09:00→20:07)
--- NOTE | 2021-02-22 10:15 | MHIPNPDOC ---
[facility] Progress Note Progress Note DATE OF SERVICE: 02/22/21 Patient is a little more pleasant and more productive. He has more facial expression and not as hostile angry irritable. He is again denying any problems and showing no insight but is eating and maintaining good control and maintaining improved psychomotor activity. He was able to discuss his future plan in terms of housing and stated that he is hoping to be able to go back to his apartment or move to [place] where his mother is. He is definitely showing improvement but needs further stabilization. HISTORY:. VITAL SIGNS: See below. NEW TEST RESULTS:. CURRENT MEDICATIONS: See below. MENTAL STATUS EXAMINATION: Patient is a 30-year old male, who is in no acute distress. Speech: Is more productive]. Language skills are relevant. Thought processes including: More relevant and coherent. Thought content: He is still denying any problems. Abstract reasoning, and computation: Poor. Description of associations: Better organized. Description of abnormal or psychotic thoughts: He denies any hallucination but remains somewhat paranoid. Judgment: Poor. Insight: Poor. Orientation: He is oriented. Recent and remote memory: No gross impairment. Attention span and concentration:. Language:. Fund of knowledge:. Mood: Not as hostile or angry. Affect: Getting more animated. DIAGNOSES: 1.. Schizophrenia paranoid 2.. 3.. ASSESSMENT: Beginning to show some improvement MANAGEMENT PLAN: We will give another dose of the risperidone injection tomorrow. TIME SPENT: 20 minutes. Vital Signs Vital Signs Date Time Temp Pulse Resp B/P (MAP) Pulse Ox O2 Delivery O2 Flow Rate FiO2 02/22/21 06:18 97.7 69 18 111/59 (76) 97 Room Air Current Medications Current Medications Medications (Trade) Dose Ordered Sig/Rishi Route PRN Reason Start Time Stop Time Status Last Admin Dose Admin Acetaminophen (Tylenol Tab) 650 mg Q6HP PRN PO HEADACHE or DISCOMFORT 12/20/20 04:05 01/18/21 11:07 DC Al Hydrox/Mg Hydrox/Simethicone (Mylanta) 30 ml Q4HP PRN PO HEARTBURN/INDIGESTION 12/20/20 04:05 Benztropine Mesylate (Cogentin) 1 mg BID PO 01/26/21 09:00 Haloperidol (Haldol) 5 mg Q6HP PRN PO AGITATION 02/16/21 10:20 Home Med (Med Rec Complete!) ASDIRECTED XX 12/20/20 03:20 12/20/20 03:22 DC Lorazepam (Ativan) 1 mg BID PO 12/28/20 09:00 01/21/21 12:25 DC Lorazepam (Ativan) 1 mg Q6HP PRN PO ANXIETY 12/20/20 13:00 12/27/20 12:59 DC Lorazepam (Ativan) 1 mg Q6HP PRN PO ANXIETY 12/28/20 07:30 01/21/21 12:25 DC Lorazepam (Ativan) 1 mg Q6HP PRN PO ANXIETY 02/16/21 10:20 Magnesium Hydroxide (Milk Of Magnesia) 30 ml DAILYPRN PRN PO CONSTIPATION 12/20/20 04:05 Miscellaneous (Unresolved Clarification Entry) SEE LABEL COMMENTS DAILY XX 01/09/21 09:00 01/09/21 15:58 DC Miscellaneous (Unresolved Clarification Entry) SEE LABEL COMMENTS DAILY XX 01/17/21 09:00 01/21/21 12:27 DC Miscellaneous (Unresolved Clarification Entry) SEE LABEL COMMENTS DAILY XX 01/03/21 09:00 01/03/21 15:35 DC Miscellaneous (Unresolved Clarification Entry) SEE LABEL COMMENTS DAILY XX 01/26/21 09:00 01/26/21 10:50 DC Non-Formulary Medication ( See Comment Field Below ) SEE COMMENTS SECTION 1T@10 XX 02/14/21 10:00 02/12/21 11:55 DC Non-Formulary Medication ( See Comment Field Below ) SEE LABEL COMMENTS DAILY XX 02/12/21 09:00 Olanzapine (ZyPREXA ZYDIS) 5 mg Q4HP PRN PO ANXIETY/AGITATION 12/20/20 04:05 Olanzapine (ZyPREXA ZYDIS) 5 mg QHS PO 12/26/20 21:00 12/28/20 07:33 DC Quetiapine Fumarate (SEROquel) 25 mg QHS PO 12/23/20 21:00 12/26/20 10:56 DC Quetiapine Fumarate (SEROquel) 50 mg DAILY PO 12/21/20 09:00 12/23/20 13:19 DC Quetiapine Fumarate (SEROquel) 100 mg QHS PO 12/20/20 21:00 12/23/20 13:19 DC Risperidone (RisperDAL Consta) 25 mg Q14D@09 IM 02/09/21 09:00 UNV Risperidone (RisperDAL Consta) 25 mg Q14D@09 IM 01/26/21 09:00 02/09/21 08:27 DC 01/26/21 19:04 Risperidone (RisperDAL Consta) 25 mg Q14D@09 IM 01/27/21 09:00 01/26/21 18:39 DC Risperidone (RisperDAL Consta) 37.5 mg Q14D@09 IM 02/09/21 09:00 02/23/21 08:59 02/09/21 11:54 Risperidone (RisperDAL) 2 mg BID PO 12/28/20 09:00 01/26/21 10:46 DC Trazodone HCl (Desyrel) 50 mg QHSP PRN PO INSOMNIA 12/20/20 04:05 Allergies Coded Allergies: amoxicillin (Verified Allergy, Intermediate, HIVES, 11/11/20) BLANQUITA DOWD M.D. Feb 22, 2021 10:15
[2021-02-23 06:06] VITALS: BP 113/68
[2021-02-23] MEDS: **PENDING PPD ENTRY XX SCH (07:23)
[2021-02-23] MEDS: BENZTROPINE 1 MG TAB PO SCH ×2 (07:23→20:48)
[2021-02-23] MEDS ORDERED: risperiDONE LONG-ACTING 37.5 MG/2 ML INJ (J2794 PER 0.5MG) IM SCH (09:00)
--- NOTE | 2021-02-23 10:09 | MHIPNPDOC ---
[facility] Progress Note Progress Note DATE OF SERVICE: 02/23/21 Patient is showing moderate improvement in his psychomotor activity but not much more. He is still refusing to take any medicine by mouth and his insight is nil and is spending most time in bed in his room and did not attend any group activities. He was informed that he will be getting risperidone injection today and he took news without any protest and kept good control. HISTORY:. VITAL SIGNS: See below. NEW TEST RESULTS:. CURRENT MEDICATIONS: See below. MENTAL STATUS EXAMINATION: Patient is a 30-year old male, who is in no acute distress. Speech: Is very limited. Language skills are fair. Thought processes including: Relevant but not productive. Thought content: Superficially denies any problem. Abstract reasoning, and computation: Poor. Description of associations: Not productive. Description of abnormal or psychotic thoughts: Appears grossly paranoid with no insight. Judgment: Poor. Insight: Poor. Orientation: Appears oriented. Recent and remote memory: Does not seem to be grossly impaired. Attention span and concentration:. Language:. Fund of knowledge:. Mood: Remains guarded preoccupied. Affect: Blunted. DIAGNOSES: 1.. Schizophrenia paranoid 2.. 3.. ASSESSMENT: Very limited improvement MANAGEMENT PLAN: Try to stabilize with the risperidone injection. TIME SPENT: 20 minutes. Vital Signs Vital Signs Date Time Temp Pulse Resp B/P (MAP) Pulse Ox O2 Delivery O2 Flow Rate FiO2 02/23/21 06:06 98.3 68 18 113/68 (83) 98 Room Air Current Medications Current Medications Medications (Trade) Dose Ordered Sig/Rishi Route PRN Reason Start Time Stop Time Status Last Admin Dose Admin Acetaminophen (Tylenol Tab) 650 mg Q6HP PRN PO HEADACHE or DISCOMFORT 12/20/20 04:05 01/18/21 11:07 DC Al Hydrox/Mg Hydrox/Simethicone (Mylanta) 30 ml Q4HP PRN PO HEARTBURN/INDIGESTION 12/20/20 04:05 Benztropine Mesylate (Cogentin) 1 mg BID PO 01/26/21 09:00 Haloperidol (Haldol) 5 mg Q6HP PRN PO AGITATION 02/16/21 10:20 Home Med (Med Rec Complete!) ASDIRECTED XX 12/20/20 03:20 12/20/20 03:22 DC Lorazepam (Ativan) 1 mg BID PO 12/28/20 09:00 01/21/21 12:25 DC Lorazepam (Ativan) 1 mg Q6HP PRN PO ANXIETY 12/20/20 13:00 12/27/20 12:59 DC Lorazepam (Ativan) 1 mg Q6HP PRN PO ANXIETY 12/28/20 07:30 01/21/21 12:25 DC Lorazepam (Ativan) 1 mg Q6HP PRN PO ANXIETY 02/16/21 10:20 Magnesium Hydroxide (Milk Of Magnesia) 30 ml DAILYPRN PRN PO CONSTIPATION 12/20/20 04:05 Miscellaneous (Unresolved Clarification Entry) SEE LABEL COMMENTS DAILY XX 01/09/21 09:00 01/09/21 15:58 DC Miscellaneous (Unresolved Clarification Entry) SEE LABEL COMMENTS DAILY XX 01/17/21 09:00 01/21/21 12:27 DC Miscellaneous (Unresolved Clarification Entry) SEE LABEL COMMENTS DAILY XX 01/03/21 09:00 01/03/21 15:35 DC Miscellaneous (Unresolved Clarification Entry) SEE LABEL COMMENTS DAILY XX 01/26/21 09:00 01/26/21 10:50 DC Miscellaneous (Unresolved Clarification Entry) SEE LABEL COMMENTS DAILY XX 02/22/21 09:00 Non-Formulary Medication ( See Comment Field Below ) SEE COMMENTS SECTION 1T@10 XX 02/14/21 10:00 02/12/21 11:55 DC Non-Formulary Medication ( See Comment Field Below ) SEE LABEL COMMENTS DAILY XX 02/12/21 09:00 Olanzapine (ZyPREXA ZYDIS) 5 mg Q4HP PRN PO ANXIETY/AGITATION 12/20/20 04:05 Olanzapine (ZyPREXA ZYDIS) 5 mg QHS PO 12/26/20 21:00 12/28/20 07:33 DC Quetiapine Fumarate (SEROquel) 25 mg QHS PO 12/23/20 21:00 12/26/20 10:56 DC Quetiapine Fumarate (SEROquel) 50 mg DAILY PO 12/21/20 09:00 12/23/20 13:19 DC Quetiapine Fumarate (SEROquel) 100 mg QHS PO 12/20/20 21:00 12/23/20 13:19 DC Risperidone (RisperDAL Consta) 25 mg Q14D@09 IM 02/09/21 09:00 UNV Risperidone (RisperDAL Consta) 25 mg Q14D@09 IM 01/26/21 09:00 02/09/21 08:27 DC 01/26/21 19:04 Risperidone (RisperDAL Consta) 25 mg Q14D@09 IM 01/27/21 09:00 01/26/21 18:39 DC Risperidone (RisperDAL Consta) 37.5 mg Q14D@09 IM 02/09/21 09:00 02/23/21 08:59 DC 02/09/21 11:54 Risperidone (RisperDAL) 2 mg BID PO 12/28/20 09:00 01/26/21 10:46 DC Trazodone HCl (Desyrel) 50 mg QHSP PRN PO INSOMNIA 12/20/20 04:05 Allergies Coded Allergies: amoxicillin (Verified Allergy, Intermediate, HIVES, 11/11/20) BLANQUITA DOWD M.D. Feb 23, 2021 10:09
[2021-02-23 18:00] VITALS: BP 124/84
[2021-02-24 07:01] VITALS: BP 94/55
[2021-02-24] MEDS: **PENDING PPD ENTRY XX SCH (09:00)
[2021-02-24] MEDS: BENZTROPINE 1 MG TAB PO SCH ×2 (09:00→20:33)
[2021-02-25 06:59] VITALS: BP 118/56
[2021-02-25] MEDS: BENZTROPINE 1 MG TAB PO SCH ×2 (09:00→21:00)
[2021-02-25] MEDS: **PENDING PPD ENTRY XX SCH (09:00)
[2021-02-25 17:00] VITALS: BP 132/72
[2021-02-26] MEDS: **PENDING PPD ENTRY XX SCH (09:00)
[2021-02-26] MEDS: BENZTROPINE 1 MG TAB PO SCH ×2 (09:00→20:57)
--- NOTE | 2021-02-26 09:47 | MHIPNPDOC ---
[facility] Progress Note Progress Note DATE OF SERVICE: 02/26/21 Patient received his risperidone injection on February 23 without any incident. He is rather pleasant on approach and initiate conversations by greeting becky vargas. His speech is more productive and able to discuss his future plan but continues to show absolutely no insight at all. When asked if he would be willing to continue his medications including his biweekly injection patient stated that he does not believe in the medicine and he does not know why he would need to get the injection. He does not seem to have any understanding abo ut his finances or housing issues and is very reluctant to even give permission to talk to his case resource manager or his mother. It is impossible to establish any safe discharge plan at this point and probably is better served in a long-term inpatient setting. HISTORY:. VITAL SIGNS: See below. NEW TEST RESULTS:. CURRENT MEDICATIONS: See below. MENTAL STATUS EXAMINATION: Patient is a 30-year old male, who is in good control. Speech: Is relevant and more productive. Language skills are fair. Thought processes including: More productive. Thought content: Does not show any insight. Abstract reasoning, and computation: Poor. Description of associations: Relevant but not spontaneous. Description of abnormal or psychotic thoughts: Superficially denies any problem. Judgment: Poor. Insight: Poor. Orientation: Oriented to place. Recent and remote memory: No gross impairment. Attention span and concentration: Poor. Language:. Fund of knowledge: Below average. Mood: Denies any serious depression. Affect: Blunted. DIAGNOSES: 1.. Schizophrenia paranoid 2.. 3.. ASSESSMENT: Again he is showing improved psychomotor activity but no insight MANAGEMENT PLAN: Continue with the current treatment and proceed with plan to transfer him to [facility]. TIME SPENT: 20 minutes. Vital Signs Vital Signs Date Time Temp Pulse Resp B/P (MAP) Pulse Ox O2 Delivery O2 Flow Rate FiO2 02/25/21 17:00 98.1 78 18 132/72 (92) 02/25/21 06:59 98 Room Air Current Medications Current Medications Medications (Trade) Dose Ordered Sig/Rishi Route PRN Reason Start Time Stop Time Status Last Admin Dose Admin Acetaminophen (Tylenol Tab) 650 mg Q6HP PRN PO HEADACHE or DISCOMFORT 12/20/20 04:05 01/18/21 11:07 DC Al Hydrox/Mg Hydrox/Simethicone (Mylanta) 30 ml Q4HP PRN PO HEARTBURN/INDIGESTION 12/20/20 04:05 Benztropine Mesylate (Cogentin) 1 mg BID PO 01/26/21 09:00 Haloperidol (Haldol) 5 mg Q6HP PRN PO AGITATION 02/16/21 10:20 Home Med (Med Rec Complete!) ASDIRECTED XX 12/20/20 03:20 12/20/20 03:22 DC Lorazepam (Ativan) 1 mg BID PO 12/28/20 09:00 01/21/21 12:25 DC Lorazepam (Ativan) 1 mg Q6HP PRN PO ANXIETY 12/20/20 13:00 12/27/20 12:59 DC Lorazepam (Ativan) 1 mg Q6HP PRN PO ANXIETY 12/28/20 07:30 01/21/21 12:25 DC Lorazepam (Ativan) 1 mg Q6HP PRN PO ANXIETY 02/16/21 10:20 Magnesium Hydroxide (Milk Of Magnesia) 30 ml DAILYPRN PRN PO CONSTIPATION 12/20/20 04:05 Miscellaneous (Unresolved Clarification Entry) SEE LABEL COMMENTS DAILY XX 01/09/21 09:00 01/09/21 15:58 DC Miscellaneous (Unresolved Clarification Entry) SEE LABEL COMMENTS DAILY XX 01/17/21 09:00 01/21/21 12:27 DC Miscellaneous (Unresolved Clarification Entry) SEE LABEL COMMENTS DAILY XX 01/03/21 09:00 01/03/21 15:35 DC Miscellaneous (Unresolved Clarification Entry) SEE LABEL COMMENTS DAILY XX 01/26/21 09:00 01/26/21 10:50 DC Miscellaneous (Unresolved Clarification Entry) SEE LABEL COMMENTS DAILY XX 02/22/21 09:00 02/23/21 11:16 DC Miscellaneous (Unresolved Clarification Entry) SEE LABEL COMMENTS DAILY XX 02/23/21 09:00 02/23/21 12:07 DC Non-Formulary Medication ( See Comment Field Below ) SEE COMMENTS SECTION 1T@10 XX 02/14/21 10:00 02/12/21 11:55 DC Non-Formulary Medication ( See Comment Field Below ) SEE LABEL COMMENTS DAILY XX 02/12/21 09:00 Olanzapine (ZyPREXA ZYDIS) 5 mg Q4HP PRN PO ANXIETY/AGITATION 12/20/20 04:05 Olanzapine (ZyPREXA ZYDIS) 5 mg QHS PO 12/26/20 21:00 12/28/20 07:33 DC Quetiapine Fumarate (SEROquel) 25 mg QHS PO 12/23/20 21:00 12/26/20 10:56 DC Quetiapine Fumarate (SEROquel) 50 mg DAILY PO 12/21/20 09:00 12/23/20 13:19 DC Quetiapine Fumarate (SEROquel) 100 mg QHS PO 12/20/20 21:00 12/23/20 13:19 DC Risperidone (RisperDAL Consta) 25 mg Q14D@09 IM 02/09/21 09:00 UNV Risperidone (RisperDAL Consta) 25 mg Q14D@09 IM 01/26/21 09:00 02/09/21 08:27 DC 01/26/21 19:04 Risperidone (RisperDAL Consta) 25 mg Q14D@09 IM 01/27/21 09:00 01/26/21 18:39 DC Risperidone (RisperDAL Consta) 37.5 mg Q14D@09 IM 02/09/21 09:00 02/23/21 08:59 DC 02/09/21 11:54 Risperidone (RisperDAL Consta) 37.5 mg Q14D@09 IM 02/23/21 09:00 02/23/21 12:36 Risperidone (RisperDAL) 2 mg BID PO 12/28/20 09:00 01/26/21 10:46 DC Trazodone HCl (Desyrel) 50 mg QHSP PRN PO INSOMNIA 12/20/20 04:05 Allergies Coded Allergies: amoxicillin (Verified Allergy, Intermediate, HIVES, 11/11/20) BLANQUITA DOWD M.D. Feb 26, 2021 09:47
[2021-02-26 17:42] VITALS: BP 112/63
[2021-02-27] MEDS: **PENDING PPD ENTRY XX SCH (09:00)
[2021-02-27] MEDS: BENZTROPINE 1 MG TAB PO SCH ×2 (09:00→20:14)
--- NOTE | 2021-02-27 11:32 | MHIPNPDOC ---
[facility] Progress Note Progress Note DATE OF SERVICE: 02/27/21 Today the patient appears a little bit more preoccupied and withdrawn and not very much verbally productive. When asked about his mother patient just shrugs his shoulder and claims that he does not know where she is. He also does not respond to any questions regarding his case assembler or his financial status and has absolutely no plan or what he is future might be. He does not believe he needs any help or medications and is refusing any oral medication. HISTORY:. VITAL SIGNS: See below. NEW TEST RESULTS:. CURRENT MEDICATIONS: See below. MENTAL STATUS EXAMINATION: Patient is a 30-year old male, who is in no acute distress. Speech: Is not productive at all. Language skills are poor. Thought processes including: Not productive. Thought content: Showing poverty of thoughts. Abstract reasoning, and computation: Poor. Description of associations: Preoccupied. Description of abnormal or psychotic thoughts: Appears guarded and paranoid. Judgment: Poor. Insight: Poor. Orientation: Appears oriented. Recent and remote memory: Difficult to evaluate. Attention span and concentration: Poor. Language:. Fund of knowledge:. Mood: Denies any anxiety or depression. Affect: Blunted preoccupied. DIAGNOSES: 1.. Schizophrenia paranoid 2.. 3.. ASSESSMENT: No significant change director PLAN: Continue with the risperidone injection and plan to transfer him to [facility]. TIME SPENT: 50 minutes. Vital Signs Vital Signs Date Time Temp Pulse Resp B/P (MAP) Pulse Ox O2 Delivery O2 Flow Rate FiO2 02/26/21 17:42 97.6 74 16 112/63 (79) 100 Room Air Current Medications Current Medications Medications (Trade) Dose Ordered Sig/Rishi Route PRN Reason Start Time Stop Time Status Last Admin Dose Admin Acetaminophen (Tylenol Tab) 650 mg Q6HP PRN PO HEADACHE or DISCOMFORT 12/20/20 04:05 01/18/21 11:07 DC Al Hydrox/Mg Hydrox/Simethicone (Mylanta) 30 ml Q4HP PRN PO HEARTBURN/INDIGESTION 12/20/20 04:05 Benztropine Mesylate (Cogentin) 1 mg BID PO 01/26/21 09:00 Haloperidol (Haldol) 5 mg Q6HP PRN PO AGITATION 02/16/21 10:20 Home Med (Med Rec Complete!) ASDIRECTED XX 12/20/20 03:20 12/20/20 03:22 DC Lorazepam (Ativan) 1 mg BID PO 12/28/20 09:00 01/21/21 12:25 DC Lorazepam (Ativan) 1 mg Q6HP PRN PO ANXIETY 12/20/20 13:00 12/27/20 12:59 DC Lorazepam (Ativan) 1 mg Q6HP PRN PO ANXIETY 12/28/20 07:30 01/21/21 12:25 DC Lorazepam (Ativan) 1 mg Q6HP PRN PO ANXIETY 02/16/21 10:20 Magnesium Hydroxide (Milk Of Magnesia) 30 ml DAILYPRN PRN PO CONSTIPATION 12/20/20 04:05 Miscellaneous (Unresolved Clarification Entry) SEE LABEL COMMENTS DAILY XX 01/09/21 09:00 01/09/21 15:58 DC Miscellaneous (Unresolved Clarification Entry) SEE LABEL COMMENTS DAILY XX 01/17/21 09:00 01/21/21 12:27 DC Miscellaneous (Unresolved Clarification Entry) SEE LABEL COMMENTS DAILY XX 01/03/21 09:00 01/03/21 15:35 DC Miscellaneous (Unresolved Clarification Entry) SEE LABEL COMMENTS DAILY XX 01/26/21 09:00 01/26/21 10:50 DC Miscellaneous (Unresolved Clarification Entry) SEE LABEL COMMENTS DAILY XX 02/22/21 09:00 02/23/21 11:16 DC Miscellaneous (Unresolved Clarification Entry) SEE LABEL COMMENTS DAILY XX 02/23/21 09:00 02/23/21 12:07 DC Non-Formulary Medication ( See Comment Field Below ) SEE COMMENTS SECTION 1T@10 XX 02/14/21 10:00 02/12/21 11:55 DC Non-Formulary Medication ( See Comment Field Below ) SEE LABEL COMMENTS DAILY XX 02/12/21 09:00 Olanzapine (ZyPREXA ZYDIS) 5 mg Q4HP PRN PO ANXIETY/AGITATION 12/20/20 04:05 Olanzapine (ZyPREXA ZYDIS) 5 mg QHS PO 12/26/20 21:00 12/28/20 07:33 DC Quetiapine Fumarate (SEROquel) 25 mg QHS PO 12/23/20 21:00 12/26/20 10:56 DC Quetiapine Fumarate (SEROquel) 50 mg DAILY PO 12/21/20 09:00 12/23/20 13:19 DC Quetiapine Fumarate (SEROquel) 100 mg QHS PO 12/20/20 21:00 12/23/20 13:19 DC Risperidone (RisperDAL Consta) 25 mg Q14D@09 IM 02/09/21 09:00 UNV Risperidone (RisperDAL Consta) 25 mg Q14D@09 IM 01/26/21 09:00 02/09/21 08:27 DC 01/26/21 19:04 Risperidone (RisperDAL Consta) 25 mg Q14D@09 IM 01/27/21 09:00 01/26/21 18:39 DC Risperidone (RisperDAL Consta) 37.5 mg Q14D@09 IM 02/09/21 09:00 02/23/21 08:59 DC 02/09/21 11:54 Risperidone (RisperDAL Consta) 37.5 mg Q14D@09 IM 02/23/21 09:00 02/23/21 12:36 Risperidone (RisperDAL) 2 mg BID PO 12/28/20 09:00 01/26/21 10:46 DC Trazodone HCl (Desyrel) 50 mg QHSP PRN PO INSOMNIA 12/20/20 04:05 Allergies Coded Allergies: amoxicillin (Verified Allergy, Intermediate, HIVES, 11/11/20) BLANQUITA DOWD M.D. Feb 27, 2021 11:32
[2021-02-27 16:38] VITALS: BP 107/62
[2021-02-28 06:05] VITALS: BP 106/58
--- NOTE | 2021-02-28 08:58 | MHIPNPDOC ---
[facility] Progress Note Progress Note DATE OF SERVICE: 02/28/21 The patient is in good control but showing no significant improvement. Today he appears a little more preoccupied and not verbally responsive much at all. At times he appears to be responding to hallucinations and appears very preoccupied but refused to answer and refused to elaborate. He is in no acute physical distress and does not show any signs or symptoms of side effect but he is showing no insight and refused to take any oral medications. HISTORY:. VITAL SIGNS: See below. NEW TEST RESULTS:. CURRENT MEDICATIONS: See below. MENTAL STATUS EXAMINATION: Patient is a 30-year old male, who is in no acute distress. Speech: Is not productive at all. Language skills are poor. Thought processes including: Not answering most of questions. Thought content: Appears preoccupied and paranoid. Abstract reasoning, and com putation: Poor. Description of associations: Not productive. Description of abnormal or psychotic thoughts: Appears grossly paranoid and possibly hallucinating. Judgment: Poor. Insight: Poor. Orientation: Appears oriented. Recent and remote memory: Difficult to evaluate. Attention span and concentration: Poor. Language:. Fund of knowledge:. Mood: Appears anxious and preoccupied. Affect: Blunted. DIAGNOSES: 1.. Schizophrenia paranoid 2.. 3.. ASSESSMENT: Not showing much improvement MANAGEMENT PLAN: Continue with the current medicine and supportive therapy but we should consider changing his medications to Prolixin injectable if he does not show any more improvement. Also we would pursue transfer to [facility] and referral process was done and administrative hearing was done and waiting for acceptance and open bed.. TIME SPENT: 15 minutes. Vital Signs Vital Signs Date Time Temp Pulse Resp B/P (MAP) Pulse Ox O2 Delivery O2 Flow Rate FiO2 02/28/21 06:05 98.8 80 16 106/58 (74) 96 Room Air Current Medications Current Medications Medications (Trade) Dose Ordered Sig/Rishi Route PRN Reason Start Time Stop Time Status Last Admin Dose Admin Acetaminophen (Tylenol Tab) 650 mg Q6HP PRN PO HEADACHE or DISCOMFORT 12/20/20 04:05 01/18/21 11:07 DC Al Hydrox/Mg Hydrox/Simethicone (Mylanta) 30 ml Q4HP PRN PO HEARTBURN/INDIGESTION 12/20/20 04:05 Benztropine Mesylate (Cogentin) 1 mg BID PO 01/26/21 09:00 Haloperidol (Haldol) 5 mg Q6HP PRN PO AGITATION 02/16/21 10:20 Home Med (Med Rec Complete!) ASDIRECTED XX 12/20/20 03:20 12/20/20 03:22 DC Lorazepam (Ativan) 1 mg BID PO 12/28/20 09:00 01/21/21 12:25 DC Lorazepam (Ativan) 1 mg Q6HP PRN PO ANXIETY 12/20/20 13:00 12/27/20 12:59 DC Lorazepam (Ativan) 1 mg Q6HP PRN PO ANXIETY 12/28/20 07:30 01/21/21 12:25 DC Lorazepam (Ativan) 1 mg Q6HP PRN PO ANXIETY 02/16/21 10:20 Magnesium Hydroxide (Milk Of Magnesia) 30 ml DAILYPRN PRN PO CONSTIPATION 12/20/20 04:05 Miscellaneous (Unresolved Clarification Entry) SEE LABEL COMMENTS DAILY XX 01/09/21 09:00 01/09/21 15:58 DC Miscellaneous (Unresolved Clarification Entry) SEE LABEL COMMENTS DAILY XX 01/17/21 09:00 01/21/21 12:27 DC Miscellaneous (Unresolved Clarification Entry) SEE LABEL COMMENTS DAILY XX 01/03/21 09:00 01/03/21 15:35 DC Miscellaneous (Unresolved Clarification Entry) SEE LABEL COMMENTS DAILY XX 01/26/21 09:00 01/26/21 10:50 DC Miscellaneous (Unresolved Clarification Entry) SEE LABEL COMMENTS DAILY XX 02/22/21 09:00 02/23/21 11:16 DC Miscellaneous (Unresolved Clarification Entry) SEE LABEL COMMENTS DAILY XX 02/23/21 09:00 02/23/21 12:07 DC Miscellaneous (Unresolved Clarification Entry) SEE LABEL COMMENTS DAILY XX 02/27/21 09:00 Non-Formulary Medication ( See Comment Field Below ) SEE COMMENTS SECTION 1T@10 XX 02/14/21 10:00 02/12/21 11:55 DC Non-Formulary Medication ( See Comment Field Below ) SEE LABEL COMMENTS DAILY XX 02/12/21 09:00 Olanzapine (ZyPREXA ZYDIS) 5 mg Q4HP PRN PO ANXIETY/AGITATION 12/20/20 04:05 Olanzapine (ZyPREXA ZYDIS) 5 mg QHS PO 12/26/20 21:00 12/28/20 07:33 DC Quetiapine Fumarate (SEROquel) 25 mg QHS PO 12/23/20 21:00 12/26/20 10:56 DC Quetiapine Fumarate (SEROquel) 50 mg DAILY PO 12/21/20 09:00 12/23/20 13:19 DC Quetiapine Fumarate (SEROquel) 100 mg QHS PO 12/20/20 21:00 12/23/20 13:19 DC Risperidone (RisperDAL Consta) 25 mg Q14D@09 IM 02/09/21 09:00 UNV Risperidone (RisperDAL Consta) 25 mg Q14D@09 IM 01/26/21 09:00 02/09/21 08:27 DC 01/26/21 19:04 Risperidone (RisperDAL Consta) 25 mg Q14D@09 IM 01/27/21 09:00 01/26/21 18:39 DC Risperidone (RisperDAL Consta) 37.5 mg Q14D@09 IM 02/09/21 09:00 02/23/21 08:59 DC 02/09/21 11:54 Risperidone (RisperDAL Consta) 37.5 mg Q14D@09 IM 02/23/21 09:00 02/23/21 12:36 Risperidone (RisperDAL) 2 mg BID PO 12/28/20 09:00 01/26/21 10:46 DC Trazodone HCl (Desyrel) 50 mg QHSP PRN PO INSOMNIA 12/20/20 04:05 Allergies Coded Allergies: amoxicillin (Verified Allergy, Intermediate, HIVES, 11/11/20) BLANQUITA DOWD M.D. Feb 28, 2021 08:58
[2021-02-28] MEDS: BENZTROPINE 1 MG TAB PO SCH ×2 (09:00→20:08)
[2021-02-28] MEDS: **PENDING PPD ENTRY XX SCH (09:00)
[2021-02-28] MEDS ORDERED: TUBERCULIN PPD 5 UNITS/0.1 ML ID ONE ×2 (10:00→10:55)
[2021-02-28 16:17] VITALS: BP 129/70
[2021-03-01] MEDS: **PENDING PPD ENTRY XX SCH (08:33)
[2021-03-01] MEDS: BENZTROPINE 1 MG TAB PO SCH ×2 (08:33→20:26)
--- NOTE | 2021-03-01 09:19 | MHIPNPDOC ---
[facility] Progress Note Progress Note DATE OF SERVICE: 03/01/21 The patient is in control and is in no acute physical distress. His mental status however remains unchanged and he is not verbally productive or spontaneous and is not able to engage in any rational conversation. He is not willing to take any medicine by mouth and appears grossly paranoid. HISTORY:. VITAL SIGNS: See below. NEW TEST RESULTS:. CURRENT MEDICATIONS: See below. MENTAL STATUS EXAMINATION: Patient is a 30-year old male, who is in no acute distress. Speech: Is not productive. Language skills are poor. Thought processes including: Preoccupied and not spontaneous. Thought content: Appears grossly paranoid. Abstract reasoning, and computation: Poor. Description of associations: Not productive. Description of abnormal or psychotic thoughts: Superficially denies any problem. Judgment: Poor. Insight: Poor. Orientation: Appears oriented. Recent and remote memory: Difficult to evaluate. Attention span and concentration: Poor. Language:. Fund of knowledge:. Mood: Appears preoccupied. Affect: Very blunted. DIAGNOSES: 1.. Schizophrenia paranoid 2.. 3.. ASSESSMENT: No further improvement MANAGEMENT PLAN: Will repeat basic blood work. Plan to transfer to [facility] TIME SPENT: 10 minutes. Vital Signs Vital Signs Date Time Temp Pulse Resp B/P (MAP) Pulse Ox O2 Delivery O2 Flow Rate FiO2 02/28/21 16:17 97.8 87 16 129/70 (89) 100 Room Air Current Medications Current Medications Medications (Trade) Dose Ordered Sig/Rishi Route PRN Reason Start Time Stop Time Status Last Admin Dose Admin Acetaminophen (Tylenol Tab) 650 mg Q6HP PRN PO HEADACHE or DISCOMFORT 12/20/20 04:05 01/18/21 11:07 DC Al Hydrox/Mg Hydrox/Simethicone (Mylanta) 30 ml Q4HP PRN PO HEARTBURN/INDIGESTION 12/20/20 04:05 Benztropine Mesylate (Cogentin) 1 mg BID PO 01/26/21 09:00 Haloperidol (Haldol) 5 mg Q6HP PRN PO AGITATION 02/16/21 10:20 Home Med (Med Rec Complete!) ASDIRECTED XX 12/20/20 03:20 12/20/20 03:22 DC Lorazepam (Ativan) 1 mg BID PO 12/28/20 09:00 01/21/21 12:25 DC Lorazepam (Ativan) 1 mg Q6HP PRN PO ANXIETY 12/20/20 13:00 12/27/20 12:59 DC Lorazepam (Ativan) 1 mg Q6HP PRN PO ANXIETY 12/28/20 07:30 01/21/21 12:25 DC Lorazepam (Ativan) 1 mg Q6HP PRN PO ANXIETY 02/16/21 10:20 Magnesium Hydroxide (Milk Of Magnesia) 30 ml DAILYPRN PRN PO CONSTIPATION 12/20/20 04:05 Miscellaneous (Unresolved Clarification Entry) SEE LABEL COMMENTS DAILY XX 01/09/21 09:00 01/09/21 15:58 DC Miscellaneous (Unresolved Clarification Entry) SEE LABEL COMMENTS DAILY XX 01/17/21 09:00 01/21/21 12:27 DC Miscellaneous (Unresolved Clarification Entry) SEE LABEL COMMENTS DAILY XX 01/03/21 09:00 01/03/21 15:35 DC Miscellaneous (Unresolved Clarification Entry) SEE LABEL COMMENTS DAILY XX 01/26/21 09:00 01/26/21 10:50 DC Miscellaneous (Unresolved Clarification Entry) SEE LABEL COMMENTS DAILY XX 02/22/21 09:00 02/23/21 11:16 DC Miscellaneous (Unresolved Clarification Entry) SEE LABEL COMMENTS DAILY XX 02/23/21 09:00 02/23/21 12:07 DC Miscellaneous (Unresolved Clarification Entry) SEE LABEL COMMENTS DAILY XX 02/27/21 09:00 02/28/21 09:49 DC Miscellaneous (Unresolved Clarification Entry) SEE LABEL COMMENTS DAILY XX 02/28/21 09:00 Non-Formulary Medication ( See Comment Field Below ) SEE COMMENTS SECTION 1T@10 XX 02/14/21 10:00 02/12/21 11:55 DC Non-Formulary Medication ( See Comment Field Below ) SEE COMMENTS SECTION 1T@10 XX 03/02/21 10:00 03/03/21 09:59 UNV Non-Formulary Medication ( See Comment Field Below ) SEE LABEL COMMENTS DAILY XX 02/12/21 09:00 02/28/21 11:05 DC Non-Formulary Medication ( See Comment Field Below ) SEE LABEL COMMENTS DAILY XX 02/28/21 09:00 Olanzapine (ZyPREXA ZYDIS) 5 mg Q4HP PRN PO ANXIETY/AGITATION 12/20/20 04:05 Olanzapine (ZyPREXA ZYDIS) 5 mg QHS PO 12/26/20 21:00 12/28/20 07:33 DC Quetiapine Fumarate (SEROquel) 25 mg QHS PO 12/23/20 21:00 12/26/20 10:56 DC Quetiapine Fumarate (SEROquel) 50 mg DAILY PO 12/21/20 09:00 12/23/20 13:19 DC Quetiapine Fumarate (SEROquel) 100 mg QHS PO 12/20/20 21:00 12/23/20 13:19 DC Risperidone (RisperDAL Consta) 25 mg Q14D@09 IM 02/09/21 09:00 UNV Risperidone (RisperDAL Consta) 25 mg Q14D@09 IM 01/26/21 09:00 02/09/21 08:27 DC 01/26/21 19:04 Risperidone (RisperDAL Consta) 25 mg Q14D@09 IM 01/27/21 09:00 01/26/21 18:39 DC Risperidone (RisperDAL Consta) 37.5 mg Q14D@09 IM 02/09/21 09:00 02/23/21 08:59 DC 02/09/21 11:54 Risperidone (RisperDAL Consta) 37.5 mg Q14D@09 IM 02/23/21 09:00 02/23/21 12:36 Risperidone (RisperDAL) 2 mg BID PO 12/28/20 09:00 01/26/21 10:46 DC Trazodone HCl (Desyrel) 50 mg QHSP PRN PO INSOMNIA 12/20/20 04:05 Allergies Coded Allergies: amoxicillin (Verified Allergy, Intermediate, HIVES, 11/11/20) BLANQUITA DOWD M.D. Mar 01, 2021 09:19
[2021-03-02] MEDS: **PENDING PPD ENTRY XX SCH (08:32)
[2021-03-02] MEDS: BENZTROPINE 1 MG TAB PO SCH ×2 (08:32→20:10)
--- NOTE | 2021-03-02 09:48 | MHIPNPDOC ---
[facility] Progress Note Progress Note DATE OF SERVICE: 03/02/21 The patient did take shower with much encouragement and showing a little improved hygiene. Otherwise a remains seclusive withdrawn and not very productive and appears grossly paranoid. He is not showing much more improvement except for his increased psychomotor activity but is not really verbally productive or spontaneous and not able to discuss anything in meaningful fashion. HISTORY:. VITAL SIGNS: See below. NEW TEST RESULTS:. CURRENT MEDICATIONS: See below. MENTAL STATUS EXAMINATION: Patient is a 30-year old male, who is in no acute distress. Speech: Is minimally productive. Language skills are fair. Thought processes including: Not productive and not spontaneous. Thought content: Appears paranoid and withdrawn preoccupied. Abstract reasoning, and computation: Poor. Description of associations: Not productive. Description of abnormal or psychotic thoughts: Appears grossly paranoid. Judgment: Poor. Insight: Poor. Orientation: Appears oriented. Recent and remote memory: Difficult to evaluate. Attention span and concentration: Poor. Language:. Fund of knowledge: Below average. Mood: Blind. Affect: Blunted. DIAGNOSES: 1.. Paranoid schizophrenia 2.. 3.. ASSESSMENT: No improvement in his insight and his mental status in general MANAGEMENT PLAN: Continue with the risperidone injection and transfer to [facility]. TIME SPENT: 50 minutes. Vital Signs Vital Signs Date Time Temp Pulse Resp B/P (MAP) Pulse Ox O2 Delivery O2 Flow Rate FiO2 02/28/21 16:17 97.8 87 16 129/70 (89) 100 Room Air Current Medications Current Medications Medications (Trade) Dose Ordered Sig/Rishi Route PRN Reason Start Time Stop Time Status Last Admin Dose Admin Acetaminophen (Tylenol Tab) 650 mg Q6HP PRN PO HEADACHE or DISCOMFORT 12/20/20 04:05 01/18/21 11:07 DC Al Hydrox/Mg Hydrox/Simethicone (Mylanta) 30 ml Q4HP PRN PO HEARTBURN/INDIGESTION 12/20/20 04:05 Benztropine Mesylate (Cogentin) 1 mg BID PO 01/26/21 09:00 Haloperidol (Haldol) 5 mg Q6HP PRN PO AGITATION 02/16/21 10:20 Home Med (Med Rec Complete!) ASDIRECTED XX 12/20/20 03:20 12/20/20 03:22 DC Lorazepam (Ativan) 1 mg BID PO 12/28/20 09:00 01/21/21 12:25 DC Lorazepam (Ativan) 1 mg Q6HP PRN PO ANXIETY 12/20/20 13:00 12/27/20 12:59 DC Lorazepam (Ativan) 1 mg Q6HP PRN PO ANXIETY 12/28/20 07:30 01/21/21 12:25 DC Lorazepam (Ativan) 1 mg Q6HP PRN PO ANXIETY 02/16/21 10:20 Magnesium Hydroxide (Milk Of Magnesia) 30 ml DAILYPRN PRN PO CONSTIPATION 12/20/20 04:05 Miscellaneous (Unresolved Clarification Entry) SEE LABEL COMMENTS DAILY XX 01/09/21 09:00 01/09/21 15:58 DC Miscellaneous (Unresolved Clarification Entry) SEE LABEL COMMENTS DAILY XX 01/17/21 09:00 01/21/21 12:27 DC Miscellaneous (Unresolved Clarification Entry) SEE LABEL COMMENTS DAILY XX 01/03/21 09:00 01/03/21 15:35 DC Miscellaneous (Unresolved Clarification Entry) SEE LABEL COMMENTS DAILY XX 01/26/21 09:00 01/26/21 10:50 DC Miscellaneous (Unresolved Clarification Entry) SEE LABEL COMMENTS DAILY XX 02/22/21 09:00 02/23/21 11:16 DC Miscellaneous (Unresolved Clarification Entry) SEE LABEL COMMENTS DAILY XX 02/23/21 09:00 02/23/21 12:07 DC Miscellaneous (Unresolved Clarification Entry) SEE LABEL COMMENTS DAILY XX 02/27/21 09:00 02/28/21 09:49 DC Miscellaneous (Unresolved Clarification Entry) SEE LABEL COMMENTS DAILY XX 02/28/21 09:00 03/02/21 07:50 DC Non-Formulary Medication ( See Comment Field Below ) SEE COMMENTS SECTION 1T@10 XX 02/14/21 10:00 02/12/21 11:55 DC Non-Formulary Medication ( See Comment Field Below ) SEE COMMENTS SECTION 1T@10 XX 03/02/21 10:00 03/03/21 09:59 UNV Non-Formulary Medication ( See Comment Field Below ) SEE LABEL COMMENTS DAILY XX 02/12/21 09:00 02/28/21 11:05 DC Non-Formulary Medication ( See Comment Field Below ) SEE LABEL COMMENTS DAILY XX 02/28/21 09:00 Olanzapine (ZyPREXA ZYDIS) 5 mg Q4HP PRN PO ANXIETY/AGITATION 12/20/20 04:05 Olanzapine (ZyPREXA ZYDIS) 5 mg QHS PO 12/26/20 21:00 12/28/20 07:33 DC Quetiapine Fumarate (SEROquel) 25 mg QHS PO 12/23/20 21:00 12/26/20 10:56 DC Quetiapine Fumarate (SEROquel) 50 mg DAILY PO 12/21/20 09:00 12/23/20 13:19 DC Quetiapine Fumarate (SEROquel) 100 mg QHS PO 12/20/20 21:00 12/23/20 13:19 DC Risperidone (RisperDAL Consta) 25 mg Q14D@09 IM 02/09/21 09:00 UNV Risperidone (RisperDAL Consta) 25 mg Q14D@09 IM 01/26/21 09:00 02/09/21 08:27 DC 01/26/21 19:04 Risperidone (RisperDAL Consta) 25 mg Q14D@09 IM 01/27/21 09:00 01/26/21 18:39 DC Risperidone (RisperDAL Consta) 37.5 mg Q14D@09 IM 02/09/21 09:00 02/23/21 08:59 DC 02/09/21 11:54 Risperidone (RisperDAL Consta) 37.5 mg Q14D@09 IM 02/23/21 09:00 02/23/21 12:36 Risperidone (RisperDAL) 2 mg BID PO 12/28/20 09:00 01/26/21 10:46 DC Trazodone HCl (Desyrel) 50 mg QHSP PRN PO INSOMNIA 12/20/20 04:05 Allergies Coded Allergies: amoxicillin (Verified Allergy, Intermediate, HIVES, 11/11/20) BLANQUITA DOWD M.D. Mar 02, 2021 09:48
[2021-03-02 09:56] VITALS: BP 123/72
[2021-03-02] MEDS ORDERED: PPD DOCUMENTATION ENTRY MISC XX SCH (10:00)
[2021-03-02] MEDS ORDERED: PPD DOCUMENTATION ENTRY MISC XX ONE (10:00)
[2021-03-02 16:27] VITALS: BP 125/65
[2021-03-03 06:45] VITALS: BP 113/57
[2021-03-03] MEDS: BENZTROPINE 1 MG TAB PO SCH ×2 (08:37→20:21)
[2021-03-03] MEDS: **PENDING PPD ENTRY XX SCH (08:38)
[2021-03-03 16:43] VITALS: BP 114/63
[2021-03-04] MEDS: BENZTROPINE 1 MG TAB PO SCH ×2 (09:00→20:49)
[2021-03-04] MEDS: **PENDING PPD ENTRY XX SCH (09:00)
[2021-03-04 11:16] LABS: BASO % 0.2 % (0.0-1.0); EOS # 0.1 10^3/uL (0.0-0.5); HEMOGLOBIN 13.2 g/dl (13.5-17.5); LYMPH # 2.1 10^3/uL (1.5-5.0); LYMPH % 41.2 % (24.0-44.0); MEAN CORPUSCULAR HEMOGLOBIN 29.4 pg (27.0-33.0); MEAN CORPUSCULAR HGB CONC 31.4 g/dl (32.0-36.5); MEAN CORPUSCULAR VOLUME 93.5 fl (80.0-96.0); MONO # 0.5 10^3/uL (0.0-0.8); NEUTROPHILS # 2.4 10^3/uL (1.5-8.5); NEUTROPHILS % 47.2 % (36.0-66.0); PLATELET COUNT, AUTOMATED 173 10^3/uL (150-450); RED BLOOD COUNT 4.49 10^6/uL (4.30-6.10)
[2021-03-04 11:40] LABS: ALBUMIN 3.8 GM/DL (3.2-5.2); ALT/SGPT 91 U/L (12-78); BILIRUBIN,TOTAL 0.5 MG/DL (0.2-1.0); BLOOD UREA NITROGEN 14 MG/DL (7-18); CALCIUM LEVEL 8.9 MG/DL (8.5-10.1); CARBON DIOXIDE LEVEL 28 MEQ/L (21-32); CHLORIDE LEVEL 110 MEQ/L (98-107); CREATININE FOR GFR 0.85 MG/DL (0.70-1.30); GLOMERULAR FILTRATION RATE > 60.0 (>60); GLUCOSE, FASTING 100 MG/DL (70-100); POTASSIUM SERUM 3.8 MEQ/L (3.5-5.1); SODIUM LEVEL 142 MEQ/L (136-145)
[2021-03-04 16:31] VITALS: BP 118/60
[2021-03-05] MEDS: BENZTROPINE 1 MG TAB PO SCH ×2 (09:00→21:00)
[2021-03-05] MEDS: **PENDING PPD ENTRY XX SCH (09:00)
--- NOTE | 2021-03-05 10:35 | MHIPNPDOC ---
[facility] Progress Note Progress Note DATE OF SERVICE: 03/05/21 The patient finally cooperated with the blood work and a CMP was done yesterday. Repeat CMP shows his AST is 48 and ALT is 91 which shows him significant decrease and no other abnormality and patient has no physical complaints and is in no physical distress. His mental status however remains markedly withdrawn preoccupied with guarded and paranoid. HISTORY:. VITAL SIGNS: See below. NEW TEST RESULTS:. CURRENT MEDICATIONS: See below. MENTAL STATUS EXAMINATION: Patient is a 30-year old male, who is in no acute distress. Speech: Is not productive and unable to carry on any meaningful conversation. Language skills are poor. Thought processes including: Only answers yes and no. Thought content: Denies any problems. Abstract reasoning, and computation:. Description of associations: Not productive. Description of abnormal or psychotic thoughts: Remains markedly paranoid. Judgment: Poor. Insight: Poor. Orientation: Appears oriented. Recent and remote memory: No gross impairment. Attention span and concentration:. Language:. Fund of knowledge:. Mood: Reports feeling okay. Affect: Blunted preoccupied. DIAGNOSES: 1.. Schizophrenia paranoid 2.. 3.. ASSESSMENT: No significant improvement MANAGEMENT PLAN: Continue with the current treatment and possible transfer to [facility]. TIME SPENT: 15 minutes. Vital Signs Vital Signs Date Time Temp Pulse Resp B/P (MAP) Pulse Ox O2 Delivery O2 Flow Rate FiO2 03/04/21 16:31 98.1 82 16 118/60 (79) 98 Room Air Laboratory Data 24H Labs Laboratory Tests 2 03/04/21 11:04: Immature Granulocyte % (Auto) 0.4, Neutrophils (%) (Auto) 47.2, Lymphocytes (%) (Auto) 41.2, Monocytes (%) (Auto) 10.0H, Eosinophils (%) (Auto) 1.0, Basophils (%) (Auto) 0.2, Neutrophils # (Auto) 2.4, Lymphocytes # (Auto) 2.1, Monocytes # (Auto) 0.5, Eosinophils # (Auto) 0.1, Basophils # (Auto) 0.0, Nucleated Red Blood Cells % (auto) 0.0, Anion Gap 4L, Glomerular Filtration Rate > 60.0, Calcium Level 8.9, Total Bilirubin 0.5, Aspartate Amino Transf (AST/SGOT) 48H, Alanine Aminotransferase (ALT/SGPT) 91H, Alkaline Phosphatase 92, Total Protein 7.0, Albumin 3.8, Albumin/Globulin Ratio 1.2 CBC/BMP Laboratory Tests 03/04/21 11:04 Current Medications Current Medications Medications (Trade) Dose Ordered Sig/Rishi Route PRN Reason Start Time Stop Time Status Last Admin Dose Admin Acetaminophen (Tylenol Tab) 650 mg Q6HP PRN PO HEADACHE or DISCOMFORT 12/20/20 04:05 01/18/21 11:07 DC Al Hydrox/Mg Hydrox/Simethicone (Mylanta) 30 ml Q4HP PRN PO HEARTBURN/INDIGESTION 12/20/20 04:05 Benztropine Mesylate (Cogentin) 1 mg BID PO 01/26/21 09:00 Haloperidol (Haldol) 5 mg Q6HP PRN PO AGITATION 02/16/21 10:20 Home Med (Med Rec Complete!) ASDIRECTED XX 12/20/20 03:20 12/20/20 03:22 DC Lorazepam (Ativan) 1 mg BID PO 12/28/20 09:00 01/21/21 12:25 DC Lorazepam (Ativan) 1 mg Q6HP PRN PO ANXIETY 12/20/20 13:00 12/27/20 12:59 DC Lorazepam (Ativan) 1 mg Q6HP PRN PO ANXIETY 12/28/20 07:30 01/21/21 12:25 DC Lorazepam (Ativan) 1 mg Q6HP PRN PO ANXIETY 02/16/21 10:20 Magnesium Hydroxide (Milk Of Magnesia) 30 ml DAILYPRN PRN PO CONSTIPATION 12/20/20 04:05 Miscellaneous (Unresolved Clarification Entry) SEE LABEL COMMENTS DAILY XX 01/09/21 09:00 01/09/21 15:58 DC Miscellaneous (Unresolved Clarification Entry) SEE LABEL COMMENTS DAILY XX 01/17/21 09:00 01/21/21 12:27 DC Miscellaneous (Unresolved Clarification Entry) SEE LABEL COMMENTS DAILY XX 01/03/21 09:00 01/03/21 15:35 DC Miscellaneous (Unresolved Clarification Entry) SEE LABEL COMMENTS DAILY XX 01/26/21 09:00 01/26/21 10:50 DC Miscellaneous (Unresolved Clarification Entry) SEE LABEL COMMENTS DAILY XX 02/22/21 09:00 02/23/21 11:16 DC Miscellaneous (Unresolved Clarification Entry) SEE LABEL COMMENTS DAILY XX 02/23/21 09:00 02/23/21 12:07 DC Miscellaneous (Unresolved Clarification Entry) SEE LABEL COMMENTS DAILY XX 02/27/21 09:00 02/28/21 09:49 DC Miscellaneous (Unresolved Clarification Entry) SEE LABEL COMMENTS DAILY XX 02/28/21 09:00 03/02/21 07:50 DC Non-Formulary Medication ( See Comment Field Below ) SEE COMMENTS SECTION 1T@10 XX 02/14/21 10:00 02/12/21 11:55 DC Non-Formulary Medication ( See Comment Field Below ) SEE COMMENTS SECTION 1T@10 XX 03/02/21 10:00 03/03/21 09:59 UNV Non-Formulary Medication ( See Comment Field Below ) SEE LABEL COMMENTS DAILY XX 02/12/21 09:00 02/28/21 11:05 DC Non-Formulary Medication ( See Comment Field Below ) SEE LABEL COMMENTS DAILY XX 02/28/21 09:00 Olanzapine (ZyPREXA ZYDIS) 5 mg Q4HP PRN PO ANXIETY/AGITATION 12/20/20 04:05 Olanzapine (ZyPREXA ZYDIS) 5 mg QHS PO 12/26/20 21:00 12/28/20 07:33 DC Quetiapine Fumarate (SEROquel) 25 mg QHS PO 12/23/20 21:00 12/26/20 10:56 DC Quetiapine Fumarate (SEROquel) 50 mg DAILY PO 12/21/20 09:00 12/23/20 13:19 DC Quetiapine Fumarate (SEROquel) 100 mg QHS PO 12/20/20 21:00 12/23/20 13:19 DC Risperidone (RisperDAL Consta) 25 mg Q14D@09 IM 02/09/21 09:00 UNV Risperidone (RisperDAL Consta) 25 mg Q14D@09 IM 01/26/21 09:00 02/09/21 08:27 DC 01/26/21 19:04 Risperidone (RisperDAL Consta) 25 mg Q14D@09 IM 01/27/21 09:00 01/26/21 18:39 DC Risperidone (RisperDAL Consta) 37.5 mg Q14D@09 IM 02/09/21 09:00 02/23/21 08:59 DC 02/09/21 11:54 Risperidone (RisperDAL Consta) 37.5 mg Q14D@09 IM 02/23/21 09:00 02/23/21 12:36 Risperidone (RisperDAL) 2 mg BID PO 12/28/20 09:00 01/26/21 10:46 DC Trazodone HCl (Desyrel) 50 mg QHSP PRN PO INSOMNIA 12/20/20 04:05 Allergies Coded Allergies: amoxicillin (Verified Allergy, Intermediate, HIVES, 11/11/20) BLANQUITA DOWD M.D. Mar 05, 2021 10:35
[2021-03-05 16:26] VITALS: BP 126/71
[2021-03-06 07:00] VITALS: BP 124/60
[2021-03-06] MEDS: BENZTROPINE 1 MG TAB PO SCH ×2 (09:00→21:00)
[2021-03-06] MEDS: **PENDING PPD ENTRY XX SCH (09:00)
--- NOTE | 2021-03-06 10:36 | MHIPNPDOC ---
[facility] Progress Note Progress Note DATE OF SERVICE: 03/06/21 The patient is a little more verbally productive today and asking the MD to discuss his concerns. He stated that he still does not understand why he has to be in hospital and he wants to be discharged. When asked about his plan for after discharge patient has no answers. He does not know where he would like to call and does not want to discuss because it is not the busyness of other people. He also does not want to take any medicine because he has no need for it. He is showing improved physical condition and psychomotor activity but his basic paranoid symptoms and lack of insight and extremely poor judgment has not changed. HISTORY:. VITAL SIGNS: See below. NEW TEST RESULTS:. CURRENT MEDICATIONS: See below. MENTAL STATUS EXAMINATION: Patient is a 30-year old male, who is in no acute distress. Speech: Is more productive. Language skills are fair. Thought processes including: Not able to discuss any meaningful discharge plan. Thought content: Showing absolutely no insight and understanding. Abstract reasoning, and computation:. Description of associations: More productive but not able to comprehend. Description of abnormal or psychotic thoughts: Remains grossly paranoid. Judgment: Poor. Insight: poor]. Orientation: Oriented. Recent and remote memory: No gross confusion. Attention span and concentration:. Language:. Fund of knowledge:. Mood: Moderately anxious. Affect: Blunted and preoccupied. DIAGNOSES: 1.. Paranoid schizophrenia 2.. 3.. 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 TIME SPENT: 20 minutes. Vital Signs Vital Signs Date Time Temp Pulse Resp B/P (MAP) Pulse Ox O2 Delivery O2 Flow Rate FiO2 03/06/21 07:00 97.7 75 18 124/60 (81) 98 Room Air Current Medications Current Medications Medications (Trade) Dose Ordered Sig/Rishi Route PRN Reason Start Time Stop Time Status Last Admin Dose Admin Acetaminophen (Tylenol Tab) 650 mg Q6HP PRN PO HEADACHE or DISCOMFORT 12/20/20 04:05 01/18/21 11:07 DC Al Hydrox/Mg Hydrox/Simethicone (Mylanta) 30 ml Q4HP PRN PO HEARTBURN/INDIGESTION 12/20/20 04:05 Benztropine Mesylate (Cogentin) 1 mg BID PO 01/26/21 09:00 Haloperidol (Haldol) 5 mg Q6HP PRN PO AGITATION 02/16/21 10:20 Home Med (Med Rec Complete!) ASDIRECTED XX 12/20/20 03:20 12/20/20 03:22 DC Lorazepam (Ativan) 1 mg BID PO 12/28/20 09:00 01/21/21 12:25 DC Lorazepam (Ativan) 1 mg Q6HP PRN PO ANXIETY 12/20/20 13:00 12/27/20 12:59 DC Lorazepam (Ativan) 1 mg Q6HP PRN PO ANXIETY 12/28/20 07:30 01/21/21 12:25 DC Lorazepam (Ativan) 1 mg Q6HP PRN PO ANXIETY 02/16/21 10:20 Magnesium Hydroxide (Milk Of Magnesia) 30 ml DAILYPRN PRN PO CONSTIPATION 12/20/20 04:05 Miscellaneous (Unresolved Clarification Entry) SEE LABEL COMMENTS DAILY XX 01/09/21 09:00 01/09/21 15:58 DC Miscellaneous (Unresolved Clarification Entry) SEE LABEL COMMENTS DAILY XX 01/17/21 09:00 01/21/21 12:27 DC Miscellaneous (Unresolved Clarification Entry) SEE LABEL COMMENTS DAILY XX 01/03/21 09:00 01/03/21 15:35 DC Miscellaneous (Unresolved Clarification Entry) SEE LABEL COMMENTS DAILY XX 01/26/21 09:00 01/26/21 10:50 DC Miscellaneous (Unresolved Clarification Entry) SEE LABEL COMMENTS DAILY XX 02/22/21 09:00 02/23/21 11:16 DC Miscellaneous (Unresolved Clarification Entry) SEE LABEL COMMENTS DAILY XX 02/23/21 09:00 02/23/21 12:07 DC Miscellaneous (Unresolved Clarification Entry) SEE LABEL COMMENTS DAILY XX 02/27/21 09:00 02/28/21 09:49 DC Miscellaneous (Unresolved Clarification Entry) SEE LABEL COMMENTS DAILY XX 02/28/21 09:00 03/02/21 07:50 DC Non-Formulary Medication ( See Comment Field Below ) SEE COMMENTS SECTION 1T@10 XX 02/14/21 10:00 02/12/21 11:55 DC Non-Formulary Medication ( See Comment Field Below ) SEE COMMENTS SECTION 1T@10 XX 03/02/21 10:00 03/03/21 09:59 UNV Non-Formulary Medication ( See Comment Field Below ) SEE LABEL COMMENTS DAILY XX 02/12/21 09:00 02/28/21 11:05 DC Non-Formulary Medication ( See Comment Field Below ) SEE LABEL COMMENTS DAILY XX 02/28/21 09:00 Olanzapine (ZyPREXA ZYDIS) 5 mg Q4HP PRN PO ANXIETY/AGITATION 12/20/20 04:05 Olanzapine (ZyPREXA ZYDIS) 5 mg QHS PO 12/26/20 21:00 12/28/20 07:33 DC Quetiapine Fumarate (SEROquel) 25 mg QHS PO 12/23/20 21:00 12/26/20 10:56 DC Quetiapine Fumarate (SEROquel) 50 mg DAILY PO 12/21/20 09:00 12/23/20 13:19 DC Quetiapine Fumarate (SEROquel) 100 mg QHS PO 12/20/20 21:00 12/23/20 13:19 DC Risperidone (RisperDAL Consta) 25 mg Q14D@09 IM 02/09/21 09:00 UNV Risperidone (RisperDAL Consta) 25 mg Q14D@09 IM 01/26/21 09:00 02/09/21 08:27 DC 01/26/21 19:04 Risperidone (RisperDAL Consta) 25 mg Q14D@09 IM 01/27/21 09:00 01/26/21 18:39 DC Risperidone (RisperDAL Consta) 37.5 mg Q14D@09 IM 02/09/21 09:00 02/23/21 08:59 DC 02/09/21 11:54 Risperidone (RisperDAL Consta) 37.5 mg Q14D@09 IM 02/23/21 09:00 02/23/21 12:36 Risperidone (RisperDAL) 2 mg BID PO 12/28/20 09:00 01/26/21 10:46 DC Trazodone HCl (Desyrel) 50 mg QHSP PRN PO INSOMNIA 12/20/20 04:05 Allergies Coded Allergies: amoxicillin (Verified Allergy, Intermediate, HIVES, 11/11/20) BLANQUITA DOWD M.D. Mar 06, 2021 10:36
[2021-03-06 18:12] VITALS: BP 127/73
[2021-03-07] MEDS ORDERED: UNRESOLVED CLARIFICATION ENTRY XX SCH (00:01)
[2021-03-07] MEDS: BENZTROPINE 1 MG TAB PO SCH ×3 (08:15→21:00)
[2021-03-07] MEDS: **PENDING PPD ENTRY XX SCH (08:16)
[2021-03-07] MEDS: risperiDONE 2 MG TAB PO SCH ×2 (11:35→21:00)
--- NOTE | 2021-03-07 11:35 | MHIPNPDOC ---
[facility] Progress Note Progress Note DATE OF SERVICE: 03/07/21 Patient is much more verbal today and even smiling a little and asking when he can go home. He stated that he just wants to be out of the hospital and back to his life but not able to say what is specific plan. Apparently his treatment over objection order has but when the patient was told that we were seeking another petition for treatment over objection patient is agreeing to take the oral medication. We will start risperidone 2 mg twice a day and further titrate and continue with the supportive therapy and education. HISTORY: . VITAL SIGNS: See below. NEW TEST RESULTS: . CURRENT MEDICATIONS: See below. MENTAL STATUS EXAMINATION: Patient is a [30]-year old male, who is [more productive today]. Speech: Is [more coherent and productive]. Language skills are [fair]. Thought processes including: [Relevant but not very spontaneous]. Thought content: [Again he does not believe he has any serious problem but is willing to take oral medicine]. Abstract reasoning, and computation: . Description of associations: [Better organized]. Description of abnormal or psychotic thoughts: [Showing no insight but is not as fearful or paranoid]. Judgment: [Fair]. Insight: [Fair]. Orientation: Appears oriented no gross impairment. Recent and remote memory: . Attention span and concentration:. Language:. Fund of knowledge:. Mood: Not as hostile or angry. Affect: More animated. DIAGNOSES: 1.. Schizophrenia paranoid 2.. 3.. ASSESSMENT: Patient is willing to take risperidone by mouth MANAGEMENT PLAN: Needs stabilization with medications. TIME SPENT: 15 minutes. Vital Signs Vital Signs Date Time Temp Pulse Resp B/P (MAP) Pulse Ox O2 Delivery O2 Flow Rate FiO2 03/06/21 18:12 98.7 65 16 127/73 (91) 100 03/06/21 07:00 Room Air Current Medications Current Medications Medications (Trade) Dose Ordered Sig/Rishi Route PRN Reason Start Time Stop Time Status Last Admin Dose Admin Acetaminophen (Tylenol Tab) 650 mg Q6HP PRN PO HEADACHE or DISCOMFORT 12/20/20 04:05 01/18/21 11:07 DC Al Hydrox/Mg Hydrox/Simethicone (Mylanta) 30 ml Q4HP PRN PO HEARTBURN/INDIGESTION 12/20/20 04:05 Benztropine Mesylate (Cogentin) 1 mg BID PO 01/26/21 09:00 Haloperidol (Haldol) 5 mg Q6HP PRN PO AGITATION 02/16/21 10:20 Home Med (Med Rec Complete!) ASDIRECTED XX 12/20/20 03:20 12/20/20 03:22 DC Lorazepam (Ativan) 1 mg BID PO 12/28/20 09:00 01/21/21 12:25 DC Lorazepam (Ativan) 1 mg Q6HP PRN PO ANXIETY 12/20/20 13:00 12/27/20 12:59 DC Lorazepam (Ativan) 1 mg Q6HP PRN PO ANXIETY 12/28/20 07:30 01/21/21 12:25 DC Lorazepam (Ativan) 1 mg Q6HP PRN PO ANXIETY 02/16/21 10:20 Magnesium Hydroxide (Milk Of Magnesia) 30 ml DAILYPRN PRN PO CONSTIPATION 12/20/20 04:05 Miscellaneous (Unresolved Clarification Entry) SEE LABEL COMMENTS DAILY XX 01/09/21 09:00 01/09/21 15:58 DC Miscellaneous (Unresolved Clarification Entry) SEE LABEL COMMENTS DAILY XX 01/17/21 09:00 01/21/21 12:27 DC Miscellaneous (Unresolved Clarification Entry) SEE LABEL COMMENTS DAILY XX 01/03/21 09:00 01/03/21 15:35 DC Miscellaneous (Unresolved Clarification Entry) SEE LABEL COMMENTS DAILY XX 01/26/21 09:00 01/26/21 10:50 DC Miscellaneous (Unresolved Clarification Entry) SEE LABEL COMMENTS DAILY XX 02/22/21 09:00 02/23/21 11:16 DC Miscellaneous (Unresolved Clarification Entry) SEE LABEL COMMENTS DAILY XX 02/23/21 09:00 02/23/21 12:07 DC Miscellaneous (Unresolved Clarification Entry) SEE LABEL COMMENTS DAILY XX 02/27/21 09:00 02/28/21 09:49 DC Miscellaneous (Unresolved Clarification Entry) SEE LABEL COMMENTS DAILY XX 02/28/21 09:00 03/02/21 07:50 DC Miscellaneous (Unresolved Clarification Entry) SEE LABEL COMMENTS UNRESOLVED XX 03/07/21 00:01 03/07/21 11:29 DC Non-Formulary Medication ( See Comment Field Below ) SEE COMMENTS SECTION 1T@10 XX 02/14/21 10:00 02/12/21 11:55 DC Non-Formulary Medication ( See Comment Field Below ) SEE COMMENTS SECTION 1T@10 XX 03/02/21 10:00 03/03/21 09:59 UNV Non-Formulary Medication ( See Comment Field Below ) SEE LABEL COMMENTS DAILY XX 02/12/21 09:00 02/28/21 11:05 DC Non-Formulary Medication ( See Comment Field Below ) SEE LABEL COMMENTS DAILY XX 02/28/21 09:00 Olanzapine (ZyPREXA ZYDIS) 5 mg Q4HP PRN PO ANXIETY/AGITATION 12/20/20 04:05 Olanzapine (ZyPREXA ZYDIS) 5 mg QHS PO 12/26/20 21:00 12/28/20 07:33 DC Quetiapine Fumarate (SEROquel) 25 mg QHS PO 12/23/20 21:00 12/26/20 10:56 DC Quetiapine Fumarate (SEROquel) 50 mg DAILY PO 12/21/20 09:00 12/23/20 13:19 DC Quetiapine Fumarate (SEROquel) 100 mg QHS PO 12/20/20 21:00 12/23/20 13:19 DC Risperidone (RisperDAL Consta) 25 mg Q14D@09 IM 02/09/21 09:00 UNV Risperidone (RisperDAL Consta) 25 mg Q14D@09 IM 01/26/21 09:00 02/09/21 08:27 DC 01/26/21 19:04 Risperidone (RisperDAL Consta) 25 mg Q14D@09 IM 01/27/21 09:00 01/26/21 18:39 DC Risperidone (RisperDAL Consta) 37.5 mg Q14D@09 IM 02/09/21 09:00 02/23/21 08:59 DC 02/09/21 11:54 Risperidone (RisperDAL Consta) 37.5 mg Q14D@09 IM 02/23/21 09:00 02/23/21 12:36 Risperidone (RisperDAL) 2 mg BID PO 12/28/20 09:00 01/26/21 10:46 DC Risperidone (RisperDAL) 2 mg BID PO 03/07/21 11:17 UNV Trazodone HCl (Desyrel) 50 mg QHSP PRN PO INSOMNIA 12/20/20 04:05 Allergies Coded Allergies: amoxicillin (Verified Allergy, Intermediate, HIVES, 11/11/20) BLANQUITA DOWD M.D. Mar 07, 2021 11:35
[2021-03-08 06:19] VITALS: BP 129/70
[2021-03-08] MEDS ORDERED: HALOPERIDOL 5MG/ML VIAL (J1630 PER 1) IM STA (07:55)
[2021-03-08] MEDS ORDERED: diphenhydrAMINE 50MG/ML VIAL (J1200) IM STA (07:55)
[2021-03-08] MEDS ORDERED: LORazepam 2 MG/ML VIAL IM STA (07:55)
[2021-03-08] MEDS: **PENDING PPD ENTRY XX SCH (09:00)
[2021-03-08] MEDS: risperiDONE 2 MG TAB PO SCH ×2 (09:00→21:00)
[2021-03-08] MEDS: BENZTROPINE 1 MG TAB PO SCH ×2 (09:00→21:00)
--- NOTE | 2021-03-08 11:14 | MHIPNPDOC ---
[facility] Progress Note Progress Note DATE OF SERVICE: 03/08/21 The patient was seen after an episode where he became very angry agitated and [id number] throwing chairs and breakfast trays and required physical and chemical restraint. He was earlier seen by this MD after he refused to take oral risperidone 2 mg after he promised that he will take oral medications. Patient was told that we will be forced to seek another treatment over objection petition and patient does not understand why he has to take medicine and is demanding to leave the unit immediately and became very agitated and out-of-c ontrol. He did show improvement with combination of Haldol and Ativan injection and has no physical complaints and in no acute distress and is pacing the room and offers no physical complaint again. He is showing absolutely no insight and is clearly posing significant danger to himself and others and we will seek court order for treatment over his objection. HISTORY:. VITAL SIGNS: See below. NEW TEST RESULTS:. CURRENT MEDICATIONS: See below. MENTAL STATUS EXAMINATION: Patient is a 30-year old male, who is in no acute distress. Speech: Is not productive after the agitated episode. Language skills are poor. Thought processes including: He was only preoccupied about leaving the hospital. Thought content: Grossly paranoid. Abstract reasoning, and computation: Poor. Description of associations: Not spontaneous. Description of abnormal or psychotic thoughts: Remains paranoid and superficially denies any problem. Judgment: Poor. Insight: . poor]. Orientation: Oriented. Recent and remote memory: No gross confusion. Attention span and concentration: Poor. Language:. Fund of knowledge:. Mood: Angry. Affect: Was very agitated. DIAGNOSES: 1.. Schizophrenia paranoid 2.. 3.. ASSESSMENT: No insight and was extremely agitated MANAGEMENT PLAN: Patient is refusing oral medications and we will seek treatment over objection order. TIME SPENT: 20 minutes. Vital Signs Vital Signs Date Time Temp Pulse Resp B/P (MAP) Pulse Ox O2 Delivery O2 Flow Rate FiO2 03/08/21 06:19 97.9 68 16 129/70 (89) 100 Room Air Current Medications Current Medications Medications (Trade) Dose Ordered Sig/Rishi Route PRN Reason Start Time Stop Time Status Last Admin Dose Admin Acetaminophen (Tylenol Tab) 650 mg Q6HP PRN PO HEADACHE or DISCOMFORT 12/20/20 04:05 01/18/21 11:07 DC Al Hydrox/Mg Hydrox/Simethicone (Mylanta) 30 ml Q4HP PRN PO HEARTBURN/INDIGESTION 12/20/20 04:05 Benztropine Mesylate (Cogentin) 1 mg BID PO 01/26/21 09:00 Diphenhydramine HCl (Benadryl) 50 mg STAT STAT IM 03/08/21 07:55 03/08/21 07:57 DC 03/08/21 08:17 Haloperidol (Haldol) 5 mg Q6HP PRN PO AGITATION 02/16/21 10:20 Haloperidol (Haldol) 10 mg STAT STAT IM 03/08/21 07:55 03/08/21 07:57 DC 03/08/21 08:17 Home Med (Med Rec Complete!) ASDIRECTED XX 12/20/20 03:20 12/20/20 03:22 DC Lorazepam (Ativan) 1 mg BID PO 12/28/20 09:00 01/21/21 12:25 DC Lorazepam (Ativan) 1 mg Q6HP PRN PO ANXIETY 12/20/20 13:00 12/27/20 12:59 DC Lorazepam (Ativan) 1 mg Q6HP PRN PO ANXIETY 12/28/20 07:30 01/21/21 12:25 DC Lorazepam (Ativan) 1 mg Q6HP PRN PO ANXIETY 02/16/21 10:20 Lorazepam (Ativan) 2 mg STAT STAT IM 03/08/21 07:55 03/08/21 07:57 DC 03/08/21 08:17 Magnesium Hydroxide (Milk Of Magnesia) 30 ml DAILYPRN PRN PO CONSTIPATION 12/20/20 04:05 Miscellaneous (Unresolved Clarification Entry) SEE LABEL COMMENTS DAILY XX 01/09/21 09:00 01/09/21 15:58 DC Miscellaneous (Unresolved Clarification Entry) SEE LABEL COMMENTS DAILY XX 01/17/21 09:00 01/21/21 12:27 DC Miscellaneous (Unresolved Clarification Entry) SEE LABEL COMMENTS DAILY XX 01/03/21 09:00 01/03/21 15:35 DC Miscellaneous (Unresolved Clarification Entry) SEE LABEL COMMENTS DAILY XX 01/26/21 09:00 01/26/21 10:50 DC Miscellaneous (Unresolved Clarification Entry) SEE LABEL COMMENTS DAILY XX 02/22/21 09:00 02/23/21 11:16 DC Miscellaneous (Unresolved Clarification Entry) SEE LABEL COMMENTS DAILY XX 02/23/21 09:00 02/23/21 12:07 DC Miscellaneous (Unresolved Clarification Entry) SEE LABEL COMMENTS DAILY XX 02/27/21 09:00 02/28/21 09:49 DC Miscellaneous (Unresolved Clarification Entry) SEE LABEL COMMENTS DAILY XX 02/28/21 09:00 03/02/21 07:50 DC Miscellaneous (Unresolved Clarification Entry) SEE LABEL COMMENTS UNRESOLVED XX 03/07/21 00:01 03/07/21 11:29 DC Non-Formulary Medication ( See Comment Field Below ) SEE COMMENTS SECTION 1T@10 XX 02/14/21 10:00 02/12/21 11:55 DC Non-Formulary Medication ( See Comment Field Below ) SEE COMMENTS SECTION 1T@10 XX 03/02/21 10:00 03/03/21 09:59 UNV Non-Formulary Medication ( See Comment Field Below ) SEE LABEL COMMENTS DAILY XX 02/12/21 09:00 02/28/21 11:05 DC Non-Formulary Medication ( See Comment Field Below ) SEE LABEL COMMENTS DAILY XX 02/28/21 09:00 Olanzapine (ZyPREXA ZYDIS) 5 mg Q4HP PRN PO ANXIETY/AGITATION 12/20/20 04:05 Olanzapine (ZyPREXA ZYDIS) 5 mg QHS PO 12/26/20 21:00 12/28/20 07:33 DC Quetiapine Fumarate (SEROquel) 25 mg QHS PO 12/23/20 21:00 12/26/20 10:56 DC Quetiapine Fumarate (SEROquel) 50 mg DAILY PO 12/21/20 09:00 12/23/20 13:19 DC Quetiapine Fumarate (SEROquel) 100 mg QHS PO 12/20/20 21:00 12/23/20 13:19 DC Risperidone (RisperDAL Consta) 25 mg Q14D@09 IM 02/09/21 09:00 UNV Risperidone (RisperDAL Consta) 25 mg Q14D@09 IM 01/26/21 09:00 02/09/21 08:27 DC 01/26/21 19:04 Risperidone (RisperDAL Consta) 25 mg Q14D@09 IM 01/27/21 09:00 01/26/21 18:39 DC Risperidone (RisperDAL Consta) 37.5 mg Q14D@09 IM 02/09/21 09:00 02/23/21 08:59 DC 02/09/21 11:54 Risperidone (RisperDAL Consta) 37.5 mg Q14D@09 IM 02/23/21 09:00 Hold 02/23/21 12:36 Risperidone (RisperDAL) 2 mg BID PO 12/28/20 09:00 01/26/21 10:46 DC Risperidone (RisperDAL) 2 mg BID PO 03/07/21 11:35 Trazodone HCl (Desyrel) 50 mg QHSP PRN PO INSOMNIA 12/20/20 04:05 Allergies Coded Allergies: amoxicillin (Verified Allergy, Intermediate, HIVES, 11/11/20) BLANQUITA DOWD M.D. Mar 08, 2021 11:14
--- NOTE | 2021-03-08 17:43 | TOB ---
[facility] PROGRESS NOTE DATE: 03/08/2021 TREATMENT OVER OBJECTION LEGAL STATUS: Court retention, involuntary. SECTION I CLINICAL ASSESSMENT CLINICAL SUMMARY/HISTORY OF PRESENT ILLNESS: The patient is a 29-year-old single male with a past history of polysubstance abuse and history of psychosis with one previous admission at [facility] in October 2020. Patient at the time was admitted with marked paranoid ideas and bizarre behavior and treated with Zyprexa and discharged in improved condition. Patient, however, apparently did not continue any outpatient treatment. He was brought to the emergency room again on 12/19/2020 after his mother called police to report that he was in marked emotional distress. He was brought to the emergency room by his caseworker protective services in grossly disorganized, paranoid, and bizarre mental status and admitted on status. On the unit he was seen by this Shannon, and the patient was extremely disorganized. He was verbally not productive, not able to respond, was mumbling incoherently, and unable to give any information. Patient appeared to be actively hallucinating at the time, was extremely paranoid, and the mother reported that patient was complaining that he was hearing voices and people were tracing him, and he was also acting very bizarre prior to admission. On the unit, patient was refusing to take any prescribed medicine, remained extremely withdrawn, seclusive, and not verbally responding and practically mute. He also started to refuse to eat or drink many times. At one point stated that he was hearing voices, and the voices were telling him that if he eats, then his mother will get sick, and the patient himself will get sick and . Since he was not eating or drinking, patient's mother, who lives in [place], was contacted, and mother came to the [place] area and had a meeting with the Jenni, the treating psychiatrist, to give more information. The mother reported that patient has a very long history of acting and being very paranoid. At times he was hallucinating, and he was in treatment in [place] in the past several times but already refused to followup with any outpatient treatment. The mother also confirmed that for the past 3 months patient had been sounding more and more paranoid and recently told the mother that he was hearing voices of different people in the community, particularly of a female named Sheridan, telling him that he if eats or drinks he will get sick, and his family will get sick and he will . Patient was not eating regularly, and he lost weight. He was practically mute and not responding and extremely withdrawn and paranoid. Patient was petitioned for treatment over objection in November of this year, and a hearing was held on the phone, and the petition was granted, and the patient was given medication against his wish; however, the court order was only for 2 months, and the petition has now. CONTINUATION Since the court granted the petition for treatment over objection, patient has received altogether three doses of Risperdal Consta injection. His last injection was on 02/23/2021. He received risperidone 37.5 mg. Since then he has not had any injections, and the court order ran out. Since the risperidone injection was given, he did show moderate improvement, where he is speaking more, not as mute, and he is eating better; however, he is showing absolutely no insight and refusing to take any oral medicine, and his paranoia remains on the same. On March 08 patient was approached about taking risperidone by mouth, and patient refused. When he was told that we will be seeking court order for treatment, patient became extremely agitated, out of control. He threw a chair. He threw the tray. He was screaming and threatening and out of control and required extra medication to control his agitation. The patient remains extremely paranoid, showing no insight and showing no improvement and clearly needs further treatment for stabilizing his condition. Remains schizophrenia, paranoid type. DIAGNOSIS: Remains schizophrenia, paranoid type. SECTION II - PROPOSED TREATMENT: We are proposing that he continue risperidone tablets orally, 3 mg twice a day. If he refuses risperidone tablets, we will need Risperdal Consta injection intramuscularly, 50 mg every 2 weeks for at least another month. 2. Reasonable alternatives: If he does not respond to the Risperdal Consta injection, we could try Prolixin tablets 15-30 mg per day orally. If he refuses, we are asking to be able to give Prolixin Decanoate injection 25 mg to 50 mg by injection every 2 weeks. We will also recommend he gets Cogentin 1-2 mg twice a day orally, and if he refuses it by intramuscular (IM) injection. 3. Has the patient been tried on any medicine before? Unclear, and we do not have any record if he did take or not. 4. Has the patient been on any other medicine? Again, we know he was on Zyprexa, but we did not know if it was taken. 5. Anticipated benefits of the treatment: We would expect that he would have a marked reduction in hallucinations and paranoid ideas, and he will be able to function and take care of himself. 6. Reasonably foreseeable effects are: There are several, including extrapyramidal side effects, including dystonia and tremor. He could be oversedated also, and there is long-term side effect of metabolic syndrome and long-term side effect of possible tardive dyskinesia. 7. Prognosis without treatment: I do not think he will be able to care of himself, eat or drink regularly, and physical healthy will be in danger. SECTION III - PATIENT'S CAPACITY: 1. The doctor explained to the patient? Yes. We did explain in detail again today. a) Condition is explained Yes X No b) Proposed treatment explained Yes X No c) Anticipated benefits of treatment Yes X No d) Risks of side effects Yes X No e) Availability of other treatment Yes X No f) Risk if no treatment Yes X No 2. The nature of patient's objection to proposed treatment: The patient stated that he does not have any reason to take the medicine and refusing to accept the recommendation. 3. His capacity to make decisions on this treatment: This patient is clearly lacking any insight, and he is refusing to believe he is sick, and he is refusing to take the medicine. SECTION IV - LIKELIHOOD OF DANGEROUS BEHAVIOR: 1. The patient is believed to be dangerous to himself? Yes, he has not been taking care of himself while eating without treatment. 2. Is he a likely danger to others? I have to say, again, this time yes, because he became extremely agitated and threatening and out of control today on March 08. SECTION V - ANY OTHER INFORMATION, ANY OTHER TREATMENT OPTIONS: No, the patient's treatment was explained to the patient's mother, who is very supportive of this.
[2021-03-09] MEDS: BENZTROPINE 1 MG TAB PO SCH ×2 (09:00→21:00)
[2021-03-09] MEDS: risperiDONE 2 MG TAB PO SCH ×2 (09:00→21:00)
[2021-03-09] MEDS: **PENDING PPD ENTRY XX SCH (09:00)
--- NOTE | 2021-03-09 10:57 | MHIPNPDOC ---
[facility] Progress Note Progress Note DATE OF SERVICE: 03/09/21 The patient is in better control since yesterday's agitated episode. He is very seclusive withdrawn pacing in his room and not very responsive and continues to refuse any medications. He is showing no insight has no safe discharge plan and remains quite paranoid and clearly unable to care for himself and another petition for treatment over objection is initiated. He is in no acute physical distress and offers no new complaints. HISTORY:. VITAL SIGNS: See below. NEW TEST RESULTS:. CURRENT MEDICATIONS: See below. MENTAL STATUS EXAMINATION: Patient is a 30-year old male, who is in no acute distress. Speech: Is not responsive today. Language skills are poor. Thought processes including: Not verbally productive. Thought content: Appears grossly paranoid. Abstract reasoning, and computation:. Description of associations: Remains withdrawn and preoccupied and nonverbal. Description of abnormal or psychotic thoughts: Grossly paranoid. Judgment: Poor. Insight: Poor. Orientation: Appears oriented. Recent and remote memory: No gross impairment. Attention span and concentration:. Language:. Fund of knowledge:. Mood: Appears angry and suspicious. Affect: Blunted and preoccupied. DIAGNOSES: 1.. Schizophrenia paranoid 2.. 3.. ASSESSMENT: Refusing oral medications MANAGEMENT PLAN: TOO oral in process. TIME SPENT: 10 Minutes. Vital Signs Vital Signs Date Time Temp Pulse Resp B/P (MAP) Pulse Ox O2 Delivery O2 Flow Rate FiO2 03/08/21 06:19 97.9 68 16 129/70 (89) 100 Room Air Current Medications Current Medications Medications (Trade) Dose Ordered Sig/Rishi Route PRN Reason Start Time Stop Time Status Last Admin Dose Admin Acetaminophen (Tylenol Tab) 650 mg Q6HP PRN PO HEADACHE or DISCOMFORT 12/20/20 04:05 01/18/21 11:07 DC Al Hydrox/Mg Hydrox/Simethicone (Mylanta) 30 ml Q4HP PRN PO HEARTBURN/INDIGESTION 12/20/20 04:05 Benztropine Mesylate (Cogentin) 1 mg BID PO 01/26/21 09:00 Diphenhydramine HCl (Benadryl) 50 mg STAT STAT IM 03/08/21 07:55 03/08/21 07:57 DC 03/08/21 08:17 Haloperidol (Haldol) 5 mg Q6HP PRN PO AGITATION 02/16/21 10:20 Haloperidol (Haldol) 10 mg STAT STAT IM 03/08/21 07:55 03/08/21 07:57 DC 03/08/21 08:17 Home Med (Med Rec Complete!) ASDIRECTED XX 12/20/20 03:20 12/20/20 03:22 DC Lorazepam (Ativan) 1 mg BID PO 12/28/20 09:00 01/21/21 12:25 DC Lorazepam (Ativan) 1 mg Q6HP PRN PO ANXIETY 12/20/20 13:00 12/27/20 12:59 DC Lorazepam (Ativan) 1 mg Q6HP PRN PO ANXIETY 12/28/20 07:30 01/21/21 12:25 DC Lorazepam (Ativan) 1 mg Q6HP PRN PO ANXIETY 02/16/21 10:20 Lorazepam (Ativan) 2 mg STAT STAT IM 03/08/21 07:55 03/08/21 07:57 DC 03/08/21 08:17 Magnesium Hydroxide (Milk Of Magnesia) 30 ml DAILYPRN PRN PO CONSTIPATION 12/20/20 04:05 Miscellaneous (Unresolved Clarification Entry) SEE LABEL COMMENTS DAILY XX 01/09/21 09:00 01/09/21 15:58 DC Miscellaneous (Unresolved Clarification Entry) SEE LABEL COMMENTS DAILY XX 01/17/21 09:00 01/21/21 12:27 DC Miscellaneous (Unresolved Clarification Entry) SEE LABEL COMMENTS DAILY XX 01/03/21 09:00 01/03/21 15:35 DC Miscellaneous (Unresolved Clarification Entry) SEE LABEL COMMENTS DAILY XX 01/26/21 09:00 01/26/21 10:50 DC Miscellaneous (Unresolved Clarification Entry) SEE LABEL COMMENTS DAILY XX 02/22/21 09:00 02/23/21 11:16 DC Miscellaneous (Unresolved Clarification Entry) SEE LABEL COMMENTS DAILY XX 02/23/21 09:00 02/23/21 12:07 DC Miscellaneous (Unresolved Clarification Entry) SEE LABEL COMMENTS DAILY XX 02/27/21 09:00 02/28/21 09:49 DC Miscellaneous (Unresolved Clarification Entry) SEE LABEL COMMENTS DAILY XX 02/28/21 09:00 03/02/21 07:50 DC Miscellaneous (Unresolved Clarification Entry) SEE LABEL COMMENTS UNRESOLVED XX 03/07/21 00:01 03/07/21 11:29 DC Non-Formulary Medication ( See Comment Field Below ) SEE COMMENTS SECTION 1T@10 XX 02/14/21 10:00 02/12/21 11:55 DC Non-Formulary Medication ( See Comment Field Below ) SEE COMMENTS SECTION 1T@10 XX 03/02/21 10:00 03/03/21 09:59 UNV Non-Formulary Medication ( See Comment Field Below ) SEE LABEL COMMENTS DAILY XX 02/12/21 09:00 02/28/21 11:05 DC Non-Formulary Medication ( See Comment Field Below ) SEE LABEL COMMENTS DAILY XX 02/28/21 09:00 Olanzapine (ZyPREXA ZYDIS) 5 mg Q4HP PRN PO ANXIETY/AGITATION 12/20/20 04:05 Olanzapine (ZyPREXA ZYDIS) 5 mg QHS PO 12/26/20 21:00 12/28/20 07:33 DC Quetiapine Fumarate (SEROquel) 25 mg QHS PO 12/23/20 21:00 12/26/20 10:56 DC Quetiapine Fumarate (SEROquel) 50 mg DAILY PO 12/21/20 09:00 12/23/20 13:19 DC Quetiapine Fumarate (SEROquel) 100 mg QHS PO 12/20/20 21:00 12/23/20 13:19 DC Risperidone (RisperDAL Consta) 25 mg Q14D@09 IM 02/09/21 09:00 UNV Risperidone (RisperDAL Consta) 25 mg Q14D@09 IM 01/26/21 09:00 02/09/21 08:27 DC 01/26/21 19:04 Risperidone (RisperDAL Consta) 25 mg Q14D@09 IM 01/27/21 09:00 01/26/21 18:39 DC Risperidone (RisperDAL Consta) 37.5 mg Q14D@09 IM 02/09/21 09:00 02/23/21 08:59 DC 02/09/21 11:54 Risperidone (RisperDAL Consta) 37.5 mg Q14D@09 IM 02/23/21 09:00 Hold 02/23/21 12:36 Risperidone (RisperDAL) 2 mg BID PO 12/28/20 09:00 01/26/21 10:46 DC Risperidone (RisperDAL) 2 mg BID PO 03/07/21 11:35 Trazodone HCl (Desyrel) 50 mg QHSP PRN PO INSOMNIA 12/20/20 04:05 Allergies Coded Allergies: amoxicillin (Verified Allergy, Intermediate, HIVES, 11/11/20) BLANQUITA DOWD M.D. Mar 09, 2021 10:57
[2021-03-09] MEDS: haloperidoL 5 MG TAB PO PRN (15:02)
[2021-03-10 07:22] VITALS: BP 97/51
[2021-03-10] MEDS: risperiDONE 2 MG TAB PO SCH ×3 (09:00→21:54)
[2021-03-10] MEDS: BENZTROPINE 1 MG TAB PO SCH ×3 (09:00→21:54)
[2021-03-10] MEDS: **PENDING PPD ENTRY XX SCH (09:00)
[2021-03-10 17:16] VITALS: BP 131/58
[2021-03-11 06:40] VITALS: BP 94/52
[2021-03-11] MEDS: haloperidoL 5 MG TAB PO PRN (08:28)
[2021-03-11] MEDS: risperiDONE 2 MG TAB PO SCH ×2 (08:40→20:45)
[2021-03-11] MEDS: BENZTROPINE 1 MG TAB PO SCH ×2 (08:41→20:45)
[2021-03-11] MEDS: **PENDING PPD ENTRY XX SCH (08:41)
[2021-03-11 18:19] VITALS: BP 121/69
[2021-03-12] MEDS: **PENDING PPD ENTRY XX SCH (09:00)
[2021-03-12] MEDS: BENZTROPINE 1 MG TAB PO SCH ×2 (09:18→20:24)
[2021-03-12] MEDS: risperiDONE 2 MG TAB PO SCH ×2 (09:18→20:24)
[2021-03-12 17:45] VITALS: BP 131/72
--- NOTE | 2021-03-12 18:17 | MHIPNPDOC ---
[facility] Progress Note Progress Note DATE OF SERVICE: 03/12/21 HISTORY: Patient is a 30-year-old -[place] male with an extensive history of polysubstance abuse and last inpatient admission October 2020. Had not been receiving outpatient treatment prior to admission and was brought into the emergency department by ambulance due to grossly disorganized behavior initially on admission per chart review. He was responding to internal stimuli and actively hallucinating. Per social work patient had appropriate hygiene and self-care until recently when he started consistently taking his oral Risperdal 2 mg twice daily. Interval:Tani is much more organized as compared to chart review, he was pleasant, calm cooperative and dressed appropriately with good hygiene. He was able to laugh and make appropriate jokes. He was also agreeable to meeting with estate planner to discuss safe discharge planning. During this process we discussed several VILLARREAL options for stability after discharge. He agreed to think about his options and further discuss tomorrow. He looks forward to discharge. VITAL SIGNS: See below. NEW TEST RESULTS: None CURRENT MEDICATIONS: See below. MENTAL STATUS EXAMINATION: Patient is a 30-year old male, who appears stated age, good hygiene, good eye contact. Speech: Is normal in rate, volume, amount, spontaneous. Language skills are good Thought processes including: Linear, logical Thought content: Denies suicidal or homicidal ideation, or plan, or intent. abstract reasoning, and computation: Intact description of associations: Intact Description of abnormal or psychotic thoughts: no hallucinations, no paranoia, no delusions expressed in interview Judgment: Improving Insight: Improving Orientation: a/o x3 Recent and remote memory: Intact Attention span and concentration: Good Language: Intact Fund of knowledge: Below average based on interview Mood: "good" affect: Euthymic, mildly blunted, stable, congruent to mood DIAGNOSES: 1. Schizophrenia, paranoid 2. 3. ASSESSMENT: Patient continues to take his oral medication and is due for VILLARREAL, since compliant with regimen psychotic symptoms are significantly reduced, requires additional time on the unit for safe discharge planning otherwise would likely be readmitted if discharged early. MANAGEMENT PLAN: Tomorrow consider continuing current regimen or exploring other options, states does not want to continue oral risperidone. Continue with safe discharge planning, patient was discussed in treatment meeting. TIME SPENT: 30 minutes, 50% of time was spent in coordination of care. Vital Signs Vital Signs Date Time Temp Pulse Resp B/P (MAP) Pulse Ox O2 Delivery O2 Flow Rate FiO2 03/12/21 17:45 98.3 76 17 131/72 (91) 100 Room Air Current Medications Current Medications Medications (Trade) Dose Ordered Sig/Rishi Route PRN Reason Start Time Stop Time Status Last Admin Dose Admin Acetaminophen (Tylenol Tab) 650 mg Q6HP PRN PO HEADACHE or DISCOMFORT 12/20/20 04:05 01/18/21 11:07 DC Al Hydrox/Mg Hydrox/Simethicone (Mylanta) 30 ml Q4HP PRN PO HEARTBURN/INDIGESTION 12/20/20 04:05 Benztropine Mesylate (Cogentin) 1 mg BID PO 01/26/21 09:00 03/12/21 09:18 Diphenhydramine HCl (Benadryl) 50 mg STAT STAT IM 03/08/21 07:55 03/08/21 07:57 DC 03/08/21 08:17 Haloperidol (Haldol) 5 mg Q6HP PRN PO AGITATION 02/16/21 10:20 03/11/21 08:28 Haloperidol (Haldol) 10 mg STAT STAT IM 03/08/21 07:55 03/08/21 07:57 DC 03/08/21 08:17 Home Med (Med Rec Complete!) ASDIRECTED XX 12/20/20 03:20 12/20/20 03:22 DC Lorazepam (Ativan) 1 mg BID PO 12/28/20 09:00 01/21/21 12:25 DC Lorazepam (Ativan) 1 mg Q6HP PRN PO ANXIETY 12/20/20 13:00 12/27/20 12:59 DC Lorazepam (Ativan) 1 mg Q6HP PRN PO ANXIETY 12/28/20 07:30 01/21/21 12:25 DC Lorazepam (Ativan) 1 mg Q6HP PRN PO ANXIETY 02/16/21 10:20 03/09/21 15:02 Lorazepam (Ativan) 2 mg STAT STAT IM 03/08/21 07:55 03/08/21 07:57 DC 03/08/21 08:17 Magnesium Hydroxide (Milk Of Magnesia) 30 ml DAILYPRN PRN PO CONSTIPATION 12/20/20 04:05 Miscellaneous (Unresolved Clarification Entry) SEE LABEL COMMENTS DAILY XX 01/09/21 09:00 01/09/21 15:58 DC Miscellaneous (Unresolved Clarification Entry) SEE LABEL COMMENTS DAILY XX 01/17/21 09:00 01/21/21 12:27 DC Miscellaneous (Unresolved Clarification Entry) SEE LABEL COMMENTS DAILY XX 01/03/21 09:00 01/03/21 15:35 DC Miscellaneous (Unresolved Clarification Entry) SEE LABEL COMMENTS DAILY XX 01/26/21 09:00 01/26/21 10:50 DC Miscellaneous (Unresolved Clarification Entry) SEE LABEL COMMENTS DAILY XX 02/22/21 09:00 02/23/21 11:16 DC Miscellaneous (Unresolved Clarification Entry) SEE LABEL COMMENTS DAILY XX 02/23/21 09:00 02/23/21 12:07 DC Miscellaneous (Unresolved Clarification Entry) SEE LABEL COMMENTS DAILY XX 02/27/21 09:00 02/28/21 09:49 DC Miscellaneous (Unresolved Clarification Entry) SEE LABEL COMMENTS DAILY XX 02/28/21 09:00 03/02/21 07:50 DC Miscellaneous (Unresolved Clarification Entry) SEE LABEL COMMENTS UNRESOLVED XX 03/07/21 00:01 03/07/21 11:29 DC Miscellaneous (Unresolved Clarification Entry) SEE LABEL COMMENTS UNRESOLVED XX 03/13/21 00:01 03/12/21 17:33 DC Non-Formulary Medication ( See Comment Field Below ) SEE COMMENTS SECTION 1T@10 XX 02/14/21 10:00 02/12/21 11:55 DC Non-Formulary Medication ( See Comment Field Below ) SEE COMMENTS SECTION 1T@10 XX 03/02/21 10:00 03/03/21 09:59 UNV Non-Formulary Medication ( See Comment Field Below ) SEE LABEL COMMENTS DAILY XX 02/12/21 09:00 02/28/21 11:05 DC Non-Formulary Medication ( See Comment Field Below ) SEE LABEL COMMENTS DAILY XX 02/28/21 09:00 Olanzapine (ZyPREXA ZYDIS) 5 mg Q4HP PRN PO ANXIETY/AGITATION 12/20/20 04:05 Olanzapine (ZyPREXA ZYDIS) 5 mg QHS PO 12/26/20 21:00 12/28/20 07:33 DC Quetiapine Fumarate (SEROquel) 25 mg QHS PO 12/23/20 21:00 12/26/20 10:56 DC Quetiapine Fumarate (SEROquel) 50 mg DAILY PO 12/21/20 09:00 12/23/20 13:19 DC Quetiapine Fumarate (SEROquel) 100 mg QHS PO 12/20/20 21:00 12/23/20 13:19 DC Risperidone (RisperDAL Consta) 25 mg Q14D@09 IM 02/09/21 09:00 UNV Risperidone (RisperDAL Consta) 25 mg Q14D@09 IM 01/26/21 09:00 02/09/21 08:27 DC 01/26/21 19:04 Risperidone (RisperDAL Consta) 25 mg Q14D@09 IM 01/27/21 09:00 01/26/21 18:39 DC Risperidone (RisperDAL Consta) 37.5 mg Q14D@09 IM 02/09/21 09:00 02/23/21 08:59 DC 02/09/21 11:54 Risperidone (RisperDAL Consta) 37.5 mg Q14D@09 IM 02/23/21 09:00 Hold 02/23/21 12:36 Risperidone (RisperDAL) 2 mg BID PO 12/28/20 09:00 01/26/21 10:46 DC Risperidone (RisperDAL) 2 mg BID PO 03/07/21 11:35 03/12/21 09:18 Trazodone HCl (Desyrel) 50 mg QHSP PRN PO INSOMNIA 12/20/20 04:05 Allergies Coded Allergies: amoxicillin (Verified Allergy, Intermediate, HIVES, 11/11/20) CHARLETTE US MD Mar 12, 2021 18:17
[2021-03-13] MEDS ORDERED: UNRESOLVED CLARIFICATION ENTRY XX SCH (00:01)
[2021-03-13 06:48] VITALS: BP 127/59
[2021-03-13] MEDS: risperiDONE 2 MG TAB PO SCH ×2 (08:50→20:52)
[2021-03-13] MEDS: BENZTROPINE 1 MG TAB PO SCH ×2 (08:50→20:52)
[2021-03-13] MEDS: **PENDING PPD ENTRY XX SCH (09:00)
--- NOTE | 2021-03-13 14:18 | MHIPNPDOC ---
[facility] Progress Note Progress Note DATE OF SERVICE: 03/13/21 HISTORY: Patient is a 30-year-old -[place] male with an extensive history of polysubstance abuse and last inpatient admission October 2020. Had not been receiving outpatient treatment prior to admission and was brought into the emergency department by ambulance due to grossly disorganized behavior initially on admission per chart review. He was responding to internal stimuli and actively hallucinating. Per social work patient had appropriate hygiene and self-care until recently when he started consistently taking his oral Risperdal 2 mg twice daily. Interval: Patient remians calm and cooperative on the unit, but mostly isolative to room, no longer displaying paranoia or hallucinations. Agrees to re-start risperdal consta 37.5 mg shot, aware of side effects. Was also seen with treatment team business planner, discussed possible discharge Friday. He denies any psychosis, gautam, impulsivity, suicidal thoughts or homicidal thoughts, intent or plan. VITAL SIGNS: See below. NEW TEST RESULTS: None CURRENT MEDICATIONS: See below. MENTAL STATUS EXAMINATION: Patient is a 30-year old male, who appears stated age, good hygiene, maintains good eye contact. Speech: Is normal in rate, volume, amount, spontaneous. Language skills are normal Thought processes including: Linear, logical Thought content: Denies suicidal or homicidal ideation, or plan, or intent. abstract reasoning, and computation: Intact description of associations: Intact Description of abnormal or psychotic thoughts: no hallucinations, no paranoia, no delusions expressed in interview Judgment: Improving Insight: Improving Orientation: a/o x3 Recent and remote memory: Intact Attention span and concentration: Good Language: Intact Fund of knowledge: Below average based on interview Mood: "fine" affect: Euthymic, stable, congruent to mood DIAGNOSES: 1. Schizophrenia, paranoid 2. 3. ASSESSMENT: Consents to re-starting risperdal 37.5 mg consta, aware of side effects, tolerating medications without side effects. MANAGEMENT PLAN: Today will receive VILLARREAL Q2 wk risperdal 37.5 mg consta IM. Plan for possible discharge Friday if safe discharge plan including housing can be arranged. Lost apartment during hospital stay. Patient was discussed in treatment meeting for collaboration of care. TIME SPENT: 35 minutes, including coordination of care. Vital Signs Vital Signs Date Time Temp Pulse Resp B/P (MAP) Pulse Ox O2 Delivery O2 Flow Rate FiO2 03/13/21 06:48 97.5 67 16 127/59 (81) 98 Room Air Current Medications Current Medications Medications (Trade) Dose Ordered Sig/Rishi Route PRN Reason Start Time Stop Time Status Last Admin Dose Admin Acetaminophen (Tylenol Tab) 650 mg Q6HP PRN PO HEADACHE or DISCOMFORT 12/20/20 04:05 01/18/21 11:07 DC Al Hydrox/Mg Hydrox/Simethicone (Mylanta) 30 ml Q4HP PRN PO HEARTBURN/INDIGESTION 12/20/20 04:05 Benztropine Mesylate (Cogentin) 1 mg BID PO 01/26/21 09:00 03/13/21 08:50 Diphenhydramine HCl (Benadryl) 50 mg STAT STAT IM 03/08/21 07:55 03/08/21 07:57 DC 03/08/21 08:17 Haloperidol (Haldol) 5 mg Q6HP PRN PO AGITATION 02/16/21 10:20 03/11/21 08:28 Haloperidol (Haldol) 10 mg STAT STAT IM 03/08/21 07:55 03/08/21 07:57 DC 03/08/21 08:17 Home Med (Med Rec Complete!) ASDIRECTED XX 12/20/20 03:20 12/20/20 03:22 DC Lorazepam (Ativan) 1 mg BID PO 12/28/20 09:00 01/21/21 12:25 DC Lorazepam (Ativan) 1 mg Q6HP PRN PO ANXIETY 12/20/20 13:00 12/27/20 12:59 DC Lorazepam (Ativan) 1 mg Q6HP PRN PO ANXIETY 12/28/20 07:30 01/21/21 12:25 DC Lorazepam (Ativan) 1 mg Q6HP PRN PO ANXIETY 02/16/21 10:20 03/09/21 15:02 Lorazepam (Ativan) 2 mg STAT STAT IM 03/08/21 07:55 03/08/21 07:57 DC 03/08/21 08:17 Magnesium Hydroxide (Milk Of Magnesia) 30 ml DAILYPRN PRN PO CONSTIPATION 12/20/20 04:05 Miscellaneous (Unresolved Clarification Entry) SEE LABEL COMMENTS DAILY XX 01/09/21 09:00 01/09/21 15:58 DC Miscellaneous (Unresolved Clarification Entry) SEE LABEL COMMENTS DAILY XX 01/17/21 09:00 01/21/21 12:27 DC Miscellaneous (Unresolved Clarification Entry) SEE LABEL COMMENTS DAILY XX 01/03/21 09:00 01/03/21 15:35 DC Miscellaneous (Unresolved Clarification Entry) SEE LABEL COMMENTS DAILY XX 01/26/21 09:00 01/26/21 10:50 DC Miscellaneous (Unresolved Clarification Entry) SEE LABEL COMMENTS DAILY XX 02/22/21 09:00 02/23/21 11:16 DC Miscellaneous (Unresolved Clarification Entry) SEE LABEL COMMENTS DAILY XX 02/23/21 09:00 02/23/21 12:07 DC Miscellaneous (Unresolved Clarification Entry) SEE LABEL COMMENTS DAILY XX 02/27/21 09:00 02/28/21 09:49 DC Miscellaneous (Unresolved Clarification Entry) SEE LABEL COMMENTS DAILY XX 02/28/21 09:00 03/02/21 07:50 DC Miscellaneous (Unresolved Clarification Entry) SEE LABEL COMMENTS UNRESOLVED XX 03/07/21 00:01 03/07/21 11:29 DC Miscellaneous (Unresolved Clarification Entry) SEE LABEL COMMENTS UNRESOLVED XX 03/13/21 00:01 03/12/21 17:33 DC Non-Formulary Medication ( See Comment Field Below ) SEE COMMENTS SECTION 1T@10 XX 02/14/21 10:00 02/12/21 11:55 DC Non-Formulary Medication ( See Comment Field Below ) SEE COMMENTS SECTION 1T@10 XX 03/02/21 10:00 03/03/21 09:59 UNV Non-Formulary Medication ( See Comment Field Below ) SEE LABEL COMMENTS DAILY XX 02/12/21 09:00 02/28/21 11:05 DC Non-Formulary Medication ( See Comment Field Below ) SEE LABEL COMMENTS DAILY XX 02/28/21 09:00 Olanzapine (ZyPREXA ZYDIS) 5 mg Q4HP PRN PO ANXIETY/AGITATION 12/20/20 04:05 Olanzapine (ZyPREXA ZYDIS) 5 mg QHS PO 12/26/20 21:00 12/28/20 07:33 DC Quetiapine Fumarate (SEROquel) 25 mg QHS PO 12/23/20 21:00 12/26/20 10:56 DC Quetiapine Fumarate (SEROquel) 50 mg DAILY PO 12/21/20 09:00 12/23/20 13:19 DC Quetiapine Fumarate (SEROquel) 100 mg QHS PO 12/20/20 21:00 12/23/20 13:19 DC Risperidone (RisperDAL Consta) 25 mg Q14D@09 IM 02/09/21 09:00 UNV Risperidone (RisperDAL Consta) 25 mg Q14D@09 IM 01/26/21 09:00 02/09/21 08:27 DC 01/26/21 19:04 Risperidone (RisperDAL Consta) 25 mg Q14D@09 IM 01/27/21 09:00 01/26/21 18:39 DC Risperidone (RisperDAL Consta) 37.5 mg Q14D@09 IM 02/09/21 09:00 02/23/21 08:59 DC 02/09/21 11:54 Risperidone (RisperDAL Consta) 37.5 mg Q14D@09 IM 02/23/21 09:00 Hold 02/23/21 12:36 Risperidone (RisperDAL) 2 mg BID PO 12/28/20 09:00 01/26/21 10:46 DC Risperidone (RisperDAL) 2 mg BID PO 03/07/21 11:35 03/13/21 08:50 Trazodone HCl (Desyrel) 50 mg QHSP PRN PO INSOMNIA 12/20/20 04:05 Allergies Coded Allergies: amoxicillin (Verified Allergy, Intermediate, HIVES, 11/11/20) CHARLETTE US MD Mar 13, 2021 14:18
[2021-03-13] MEDS ORDERED: risperiDONE LONG-ACTING 37.5 MG/2 ML INJ (J2794 PER 0.5MG) IM SCH (15:00)
[2021-03-13 16:26] VITALS: BP 132/72
[2021-03-14 06:56] VITALS: BP 100/52
[2021-03-14] MEDS: **PENDING PPD ENTRY XX SCH (09:00)
[2021-03-14] MEDS: risperiDONE 2 MG TAB PO SCH ×2 (09:13→19:20)
[2021-03-14] MEDS: BENZTROPINE 1 MG TAB PO SCH ×2 (09:13→19:20)
[2021-03-14 16:22] VITALS: BP 121/82
[2021-03-15 07:09] VITALS: BP 131/71
[2021-03-15] MEDS: risperiDONE 2 MG TAB PO SCH ×2 (08:00→20:29)
[2021-03-15] MEDS: **PENDING PPD ENTRY XX SCH (08:00)
[2021-03-15] MEDS: BENZTROPINE 1 MG TAB PO SCH ×2 (08:00→20:29)
[2021-03-15 18:25] VITALS: BP 127/65
--- NOTE | 2021-03-15 18:40 | MHIPNPDOC ---
[facility] Progress Note Progress Note DATE OF SERVICE: 03/14/21 HISTORY: Patient is a 30-year-old -Irish male with an extensive history of polysubstance abuse and last inpatient admission October 2020. Had not been receiving outpatient treatment prior to admission and was brought into the emergency department by ambulance due to grossly disorganized behavior initially on admission per chart review. He was responding to internal stimuli and actively hallucinating. Per social work patient had appropriate hygiene and self-care until recently when he started consistently taking his oral Risperdal 2 mg twice daily. Interval: Patient received Risperdal constant yesterday in deltoid. Continues to be calm, relaxed but spends most time in his room. Reports tolerating medications well without side effects. Agreeable to plan for possible discharge on Friday despite wanting to leave today already, explained need to establish safe discharge plan with housing. VITAL SIGNS: See below. NEW TEST RESULTS: None CURRENT MEDICATIONS: See below. MENTAL STATUS EXAMINATION: Patient is a 30-year old male, who appears stated age, good hygiene, maintains good eye contact. Speech: Is normal in rate, volume, amount, spontaneous. Language skills are normal Thought processes including: Linear, logical Thought content: Denies suicidal or homicidal ideation, or plan, or intent. abstract reasoning, and computation: Intact description of associations: Intact Description of abnormal or psychotic thoughts: no, disoriented behavior or paranoia, no delusions expressed in interview Judgment: Improving Insight: Improving Orientation: a/o x3 Recent and remote memory: Intact Attention span and concentration: improved Language: Intact Fund of knowledge: Below average based on interview Mood: "good" affect: no change, Euthymic, stable, congruent to mood DIAGNOSES: 1. Schizophrenia, paranoid 2. 3. ASSESSMENT: Continues to be stable without psychotic symptoms, no disorganized or bizarre behavior, although spent time in his room awaiting discharge. MANAGEMENT PLAN: Continue medications, coordination of care with treatment team pending safe discharge plan. TIME SPENT: 30 minutes, including coordination of care. Vital Signs Vital Signs Date Time Temp Pulse Resp B/P (MAP) Pulse Ox O2 Delivery O2 Flow Rate FiO2 03/14/21 09:00 Room Air 03/14/21 06:56 97.7 62 16 100/52 (68) 98 Current Medications Current Medications Medications (Trade) Dose Ordered Sig/Rishi Route PRN Reason Start Time Stop Time Status Last Admin Dose Admin Acetaminophen (Tylenol Tab) 650 mg Q6HP PRN PO HEADACHE or DISCOMFORT 12/20/20 04:05 01/18/21 11:07 DC Al Hydrox/Mg Hydrox/Simethicone (Mylanta) 30 ml Q4HP PRN PO HEARTBURN/INDIGESTION 12/20/20 04:05 Benztropine Mesylate (Cogentin) 1 mg BID PO 01/26/21 09:00 03/14/21 09:13 Diphenhydramine HCl (Benadryl) 50 mg STAT STAT IM 03/08/21 07:55 03/08/21 07:57 DC 03/08/21 08:17 Haloperidol (Haldol) 5 mg Q6HP PRN PO AGITATION 02/16/21 10:20 03/11/21 08:28 Haloperidol (Haldol) 10 mg STAT STAT IM 03/08/21 07:55 03/08/21 07:57 DC 03/08/21 08:17 Home Med (Med Rec Complete!) ASDIRECTED XX 12/20/20 03:20 12/20/20 03:22 DC Lorazepam (Ativan) 1 mg BID PO 12/28/20 09:00 01/21/21 12:25 DC Lorazepam (Ativan) 1 mg Q6HP PRN PO ANXIETY 12/20/20 13:00 12/27/20 12:59 DC Lorazepam (Ativan) 1 mg Q6HP PRN PO ANXIETY 12/28/20 07:30 01/21/21 12:25 DC Lorazepam (Ativan) 1 mg Q6HP PRN PO ANXIETY 02/16/21 10:20 03/09/21 15:02 Lorazepam (Ativan) 2 mg STAT STAT IM 03/08/21 07:55 03/08/21 07:57 DC 03/08/21 08:17 Magnesium Hydroxide (Milk Of Magnesia) 30 ml DAILYPRN PRN PO CONSTIPATION 12/20/20 04:05 Miscellaneous (Unresolved Clarification Entry) SEE LABEL COMMENTS DAILY XX 01/09/21 09:00 01/09/21 15:58 DC Miscellaneous (Unresolved Clarification Entry) SEE LABEL COMMENTS DAILY XX 01/17/21 09:00 01/21/21 12:27 DC Miscellaneous (Unresolved Clarification Entry) SEE LABEL COMMENTS DAILY XX 01/03/21 09:00 01/03/21 15:35 DC Miscellaneous (Unresolved Clarification Entry) SEE LABEL COMMENTS DAILY XX 01/26/21 09:00 01/26/21 10:50 DC Miscellaneous (Unresolved Clarification Entry) SEE LABEL COMMENTS DAILY XX 02/22/21 09:00 02/23/21 11:16 DC Miscellaneous (Unresolved Clarification Entry) SEE LABEL COMMENTS DAILY XX 02/23/21 09:00 02/23/21 12:07 DC Miscellaneous (Unresolved Clarification Entry) SEE LABEL COMMENTS DAILY XX 02/27/21 09:00 02/28/21 09:49 DC Miscellaneous (Unresolved Clarification Entry) SEE LABEL COMMENTS DAILY XX 02/28/21 09:00 03/02/21 07:50 DC Miscellaneous (Unresolved Clarification Entry) SEE LABEL COMMENTS UNRESOLVED XX 03/07/21 00:01 03/07/21 11:29 DC Miscellaneous (Unresolved Clarification Entry) SEE LABEL COMMENTS UNRESOLVED XX 03/13/21 00:01 03/12/21 17:33 DC Non-Formulary Medication ( See Comment Field Below ) SEE COMMENTS SECTION 1T@10 XX 02/14/21 10:00 02/12/21 11:55 DC Non-Formulary Medication ( See Comment Field Below ) SEE COMMENTS SECTION 1T@10 XX 03/02/21 10:00 03/03/21 09:59 UNV Non-Formulary Medication ( See Comment Field Below ) SEE LABEL COMMENTS DAILY XX 02/12/21 09:00 02/28/21 11:05 DC Non-Formulary Medication ( See Comment Field Below ) SEE LABEL COMMENTS DAILY XX 02/28/21 09:00 Olanzapine (ZyPREXA ZYDIS) 5 mg Q4HP PRN PO ANXIETY/AGITATION 12/20/20 04:05 Olanzapine (ZyPREXA ZYDIS) 5 mg QHS PO 12/26/20 21:00 12/28/20 07:33 DC Quetiapine Fumarate (SEROquel) 25 mg QHS PO 12/23/20 21:00 12/26/20 10:56 DC Quetiapine Fumarate (SEROquel) 50 mg DAILY PO 12/21/20 09:00 12/23/20 13:19 DC Quetiapine Fumarate (SEROquel) 100 mg QHS PO 12/20/20 21:00 12/23/20 13:19 DC Risperidone (RisperDAL Consta) 25 mg Q14D@09 IM 02/09/21 09:00 UNV Risperidone (RisperDAL Consta) 25 mg Q14D@09 IM 01/26/21 09:00 02/09/21 08:27 DC 01/26/21 19:04 Risperidone (RisperDAL Consta) 25 mg Q14D@09 IM 01/27/21 09:00 01/26/21 18:39 DC Risperidone (RisperDAL Consta) 37.5 mg Q14D@09 IM 02/09/21 09:00 02/23/21 08:59 DC 02/09/21 11:54 Risperidone (RisperDAL Consta) 37.5 mg Q14D@09 IM 02/23/21 09:00 03/13/21 14:10 DC 02/23/21 12:36 Risperidone (RisperDAL Consta) 37.5 mg Q14D@09 IM 03/13/21 15:00 03/13/21 16:39 Risperidone (RisperDAL) 2 mg BID PO 12/28/20 09:00 01/26/21 10:46 DC Risperidone (RisperDAL) 2 mg BID PO 03/07/21 11:35 03/14/21 09:13 Trazodone HCl (Desyrel) 50 mg QHSP PRN PO INSOMNIA 12/20/20 04:05 Allergies Coded Allergies: amoxicillin (Verified Allergy, Intermediate, HIVES, 11/11/20) CHARLETTE US MD Mar 14, 2021 11:38
--- NOTE | 2021-03-15 18:48 | MHIPNPDOC ---
[facility] Progress Note Progress Note DATE OF SERVICE: 03/15/21 HISTORY: Patient is a 30-year-old -Surinamese male with an extensive history of polysubstance abuse and last inpatient admission October 2020. Had not been receiving outpatient treatment prior to admission and was brought into the emergency department by ambulance due to grossly disorganized behavior initially on admission per chart review. He was responding to internal stimuli and actively hallucinating. Per social work patient had appropriate hygiene and self-care until recently when he started consistently taking his oral Risperdal 2 mg twice daily. Interval: Was seen in his room charts reviewed. No overnight events. patient aware possible discharge tomorrow, as his psychotic symptoms are significantly improved. Contracts for safety. VITAL SIGNS: See below. NEW TEST RESULTS: AIMS score = o CURRENT MEDICATIONS: See below. MENTAL STATUS EXAMINATION: Patient is a 30-year old male, who appears stated age, good hygiene, maintains good eye contact. Speech: Is normal in rate, volume, amount, spontaneous. Language skills are normal Thought processes including: Linear, logical Thought content: Denies suicidal or homicidal ideation, or plan, or intent. abstract reasoning, and computation: Intact description of associations: Intact Description of abnormal or psychotic thoughts: no, disoriented behavior or paranoia, no delusions expressed in interview Judgment: Improving Insight: Improving Orientation: a/o x3 Recent and remote memory: Intact Attention span and concentration: good Language: Intact Fund of knowledge: Below average based on interview Mood: "pretty good actually" affect: Euthymic, smiles, congruent to mood, appropriate. DIAGNOSES: 1. Schizophrenia, paranoid 2. 3. ASSESSMENT: Continues to be stable, with improved mood, non-aggressive, denies suicidal homicidal ideation, no psychotic symptoms endorsed including hallucinations or delusions. MANAGEMENT PLAN: Continue medications, plan for discharge tomorrow to [facility], has AOT, patient agrees with plan. Will be leaving early in the morning orders placed. TIME SPENT: 20 minutes, including coordination of care. Vital Signs Vital Signs Date Time Temp Pulse Resp B/P (MAP) Pulse Ox O2 Delivery O2 Flow Rate FiO2 03/15/21 18:25 98.1 73 16 127/65 (85) 03/15/21 07:09 100 Room Air Current Medications Current Medications Medications (Trade) Dose Ordered Sig/Rishi Route PRN Reason Start Time Stop Time Status Last Admin Dose Admin Acetaminophen (Tylenol Tab) 650 mg Q6HP PRN PO HEADACHE or DISCOMFORT 12/20/20 04:05 01/18/21 11:07 DC Al Hydrox/Mg Hydrox/Simethicone (Mylanta) 30 ml Q4HP PRN PO HEARTBURN/INDIGESTION 12/20/20 04:05 Benztropine Mesylate (Cogentin) 1 mg BID PO 01/26/21 09:00 03/15/21 08:00 Diphenhydramine HCl (Benadryl) 50 mg STAT STAT IM 03/08/21 07:55 03/08/21 07:57 DC 03/08/21 08:17 Haloperidol (Haldol) 5 mg Q6HP PRN PO AGITATION 02/16/21 10:20 03/11/21 08:28 Haloperidol (Haldol) 10 mg STAT STAT IM 03/08/21 07:55 03/08/21 07:57 DC 03/08/21 08:17 Home Med (Med Rec Complete!) ASDIRECTED XX 12/20/20 03:20 12/20/20 03:22 DC Lorazepam (Ativan) 1 mg BID PO 12/28/20 09:00 01/21/21 12:25 DC Lorazepam (Ativan) 1 mg Q6HP PRN PO ANXIETY 12/20/20 13:00 12/27/20 12:59 DC Lorazepam (Ativan) 1 mg Q6HP PRN PO ANXIETY 12/28/20 07:30 01/21/21 12:25 DC Lorazepam (Ativan) 1 mg Q6HP PRN PO ANXIETY 02/16/21 10:20 03/09/21 15:02 Lorazepam (Ativan) 2 mg STAT STAT IM 03/08/21 07:55 03/08/21 07:57 DC 03/08/21 08:17 Magnesium Hydroxide (Milk Of Magnesia) 30 ml DAILYPRN PRN PO CONSTIPATION 12/20/20 04:05 Miscellaneous (Unresolved Clarification Entry) SEE LABEL COMMENTS DAILY XX 01/09/21 09:00 01/09/21 15:58 DC Miscellaneous (Unresolved Clarification Entry) SEE LABEL COMMENTS DAILY XX 01/17/21 09:00 01/21/21 12:27 DC Miscellaneous (Unresolved Clarification Entry) SEE LABEL COMMENTS DAILY XX 01/03/21 09:00 01/03/21 15:35 DC Miscellaneous (Unresolved Clarification Entry) SEE LABEL COMMENTS DAILY XX 01/26/21 09:00 01/26/21 10:50 DC Miscellaneous (Unresolved Clarification Entry) SEE LABEL COMMENTS DAILY XX 02/22/21 09:00 02/23/21 11:16 DC Miscellaneous (Unresolved Clarification Entry) SEE LABEL COMMENTS DAILY XX 02/23/21 09:00 02/23/21 12:07 DC Miscellaneous (Unresolved Clarification Entry) SEE LABEL COMMENTS DAILY XX 02/27/21 09:00 02/28/21 09:49 DC Miscellaneous (Unresolved Clarification Entry) SEE LABEL COMMENTS DAILY XX 02/28/21 09:00 03/02/21 07:50 DC Miscellaneous (Unresolved Clarification Entry) SEE LABEL COMMENTS UNRESOLVED XX 03/07/21 00:01 03/07/21 11:29 DC Miscellaneous (Unresolved Clarification Entry) SEE LABEL COMMENTS UNRESOLVED XX 03/13/21 00:01 03/12/21 17:33 DC Non-Formulary Medication ( See Comment Field Below ) SEE COMMENTS SECTION 1T@10 XX 02/14/21 10:00 02/12/21 11:55 DC Non-Formulary Medication ( See Comment Field Below ) SEE COMMENTS SECTION 1T@10 XX 03/02/21 10:00 03/03/21 09:59 UNV Non-Formulary Medication ( See Comment Field Below ) SEE LABEL COMMENTS DAILY XX 02/12/21 09:00 02/28/21 11:05 DC Non-Formulary Medication ( See Comment Field Below ) SEE LABEL COMMENTS DAILY XX 02/28/21 09:00 Olanzapine (ZyPREXA ZYDIS) 5 mg Q4HP PRN PO ANXIETY/AGITATION 12/20/20 04:05 Olanzapine (ZyPREXA ZYDIS) 5 mg QHS PO 12/26/20 21:00 12/28/20 07:33 DC Quetiapine Fumarate (SEROquel) 25 mg QHS PO 12/23/20 21:00 12/26/20 10:56 DC Quetiapine Fumarate (SEROquel) 50 mg DAILY PO 12/21/20 09:00 12/23/20 13:19 DC Quetiapine Fumarate (SEROquel) 100 mg QHS PO 12/20/20 21:00 12/23/20 13:19 DC Risperidone (RisperDAL Consta) 25 mg Q14D@09 IM 02/09/21 09:00 UNV Risperidone (RisperDAL Consta) 25 mg Q14D@09 IM 01/26/21 09:00 02/09/21 08:27 DC 01/26/21 19:04 Risperidone (RisperDAL Consta) 25 mg Q14D@09 IM 01/27/21 09:00 01/26/21 18:39 DC Risperidone (RisperDAL Consta) 37.5 mg Q14D@09 IM 02/09/21 09:00 02/23/21 08:59 DC 02/09/21 11:54 Risperidone (RisperDAL Consta) 37.5 mg Q14D@09 IM 02/23/21 09:00 03/13/21 14:10 DC 02/23/21 12:36 Risperidone (RisperDAL Consta) 37.5 mg Q14D@09 IM 03/13/21 15:00 03/13/21 16:39 Risperidone (RisperDAL) 2 mg BID PO 12/28/20 09:00 01/26/21 10:46 DC Risperidone (RisperDAL) 2 mg BID PO 03/07/21 11:35 03/15/21 08:00 Trazodone HCl (Desyrel) 50 mg QHSP PRN PO INSOMNIA 12/20/20 04:05 Allergies Coded Allergies: amoxicillin (Verified Allergy, Intermediate, HIVES, 11/11/20) CHARLETTE US MD Mar 15, 2021 18:48
[2021-03-15] MEDS ORDERED: RISP37INJ IM (18:54)
[2021-03-15] MEDS ORDERED: BENZ-52 PO (18:54)
[2021-03-15] MEDS ORDERED: RISP-9 PO (18:54)
[2021-03-16 06:51] VITALS: BP 134/77
[2021-03-16] MEDS: risperiDONE 2 MG TAB PO SCH (08:01)
[2021-03-16] MEDS: **PENDING PPD ENTRY XX SCH (08:01)
[2021-03-16] MEDS: BENZTROPINE 1 MG TAB PO SCH (08:01)
[2021-03-16 08:22] LABS: CHOLESTEROL RISK RATIO 2.337 (<5)
--- NOTE | 2021-03-17 19:32 | MHDSPDOC ---
[facility] Discharge Summary Discharge Summary DATE OF ADMISSION: December 20, 2020 at 00:07 DATE OF DISCHARGE: Mar 16, 2021 at 09:44 DISCHARGE DIAGNOSES: 1. Schizophrenia, paranoid subtype 2. Opioid use disorder, heroin per chart review REASON FOR ADMISSION: Per [facility] mental health evaluation: "Pt was transferred to ED from [facility] on a 9.57 due to possible psychosis? It was reported pt was taken to [facility] yesterday by his case packer due to his AH and bizarre behavior. He was apparently wondering in the streets looking for clothing and a shower? Pt appeared paranoid and thought people were following him. He also was refusing to eat or drinking due telling him he can't. Pt has a long hx of psychosis, polysubstance abuse, and non-compliance with medication. Pt was last admitted to [facility] October 2020. He appears to be decompensating at this time and it is heavily suspected it is due to non-compliance with medication. pt states," I was having a rough time, but I'm feeling better." Pt reports he presented to [facility] due to his case packer and his Mother being concerned about his recent behavior. He admits having a difficult time articulating his thoughts and states, "I think she is worried about me because I've been talking to her alot." Pt is not communicating well, he appears paranoid & fearful during interview and it's suspected he is responding to internal stimuli. He denies any recent drug use and his toxicology was positive for THC. According to [facility] documentation family was concerned about him due to acting bizarre by wandering in the streets, command AH telling him not to eat or drink, and also paranoid "people are stealing his belongings." He does report he hasn't been able to sleep due to the severity of the voices, but then refuses to elaborate further. It is highly suspected pt is decompensating due to his non-compliance with medication and his on-going Marijuana abuse. Mother had contacted yesterday with concerns regarding his safety. Attempted to contact her tonight, but her phone was off. She stated yesterday she felt pt was acutely psychotic & manic. He was purposely not eating due to command AH and was concerned regarding his safety that believes he may be suffering from command AH to kill himself? Pt would not disclose that to her yesterday. He appeared to be paranoid- felt people were following him and stealing his belongings. Dr. Mead met pt at bedside and feels pt is not being forthcoming and requires admission." Vital signs: See below CONSULTANTS INVOLVED: See hospitalist H&P TREATMENT AND PROGRESS ON THE UNIT : Patient was admitted to the [facility] on a 39 Legal status and was afforded the following treatment modalities: 1. Individual therapy 2. Group therapy 3. Medication management 4. Milieu therapy 5. Safe environment 6. Education regarding his symptoms of psychosis and auditory hallucinations 7. Education and counseling regarding history of substance abuse, motivational interviewing extensive coordination of care for outpatient treatment and safety planning 8. Establishment of temporary housing and safe environment and establishment of case packer 9. Continue monitoring for antipsychotic side effects and safety HOSPITAL COURSE: Patient was admitted to the [facility] and 9 legal status, was cleared medically in the emergency department basic labs were ordered and reviewed, EKG was ordered 02/12, normal sinus rhythm and QTC of 405 milliseconds. Last admission was October 2020 for psychosis and SI, was found to not be receiving active outpatient care prior to admission, previously uncreative substance abuse. Initially had fragmented thinking, was actively hallucinating. Patient was refusing medications Seroquel and Zyprexa which was offered and remained bizarre and disorganized. Legal status post converted to 2P. Supportive therapy was delayed to ensure that he takes medications, as he remained grossly psychotic and paranoid is also not eating routinely or attending groups, remaining mostly isolated to his room. Per chart review family meeting was attained with mother to obtain collateral insight into his condition, reportedly he had previously lived in [place] and had been decompensating for months, not taking medications, hearing voices telling him no t to eat or drink. Treatment over objection was obtained for medications as patient was internally preoccupied and poorly cooperative with interview and not taking medications. Routine lab monitoring was carried out including metabolic panel, CBC, which were unremarkable, apart from elevated LFTs which trended down and mildly elevated March 04 AST 48, ALT 91, no signs of dehydration noted. Fasting glucose was within normal limits on multiple lab series. Lipid panel prior to discharge once within normal limits. 12 is given Haldol 10 mg and lorazepam 2 mg for anxiety and agitation. 03/10 was taking Risperdal 2 mg p.o. daily, 03/11 onwards was taking Risperdal 2 mg orally twice daily and was started on Risperdal Consta 37.5 mg every 2 weeks. Patient education was provided prior to discharge on risk for relapse of psychotic symptoms, due to history of noncompliance was continued on Risperdal Consta 37.5 mg every 2 weeks and given refills prior to discharge, was also continued on oral risperidone 2 mg. In the week prior to discharge, paranoid, bizarre, denied auditory or visual hallucinations, was noted by nursing to be significantly improved, associations were intact, had been refusing Cogentin, however aims score was 0 on testing 03/15. Mood was noted to be euthymic appropriate, no signs of aggression or hostility, denies any suicidal ideations, intent or plan. Care was coordinated with social work, with plan to take him directly to [facility] where he will meet his case packer and secure housing, AOT was in place. He was compliant with medications. He was eating and drinking, no acute physical complaints. He was agreeable to plan, contracted for safety. DISCHARGE ASSESSMENT: Interview patient is alert and oriented, dressed appropriately with good hygiene and grooming, well kempt. Smiles and laughs with appropriate jokes on conversation, is pleasant and engaged in the interview with good eye contact. Denies depression and anxiety. Denies suicidal and homicidal ideation, planning or intent. Denies any is not observed with gautam, psychotic symptoms of delusions, bizarre thinking, obsessions, paranoia, ruminations, illogical thoughts, flight of ideas, or having poor insight or judgment. Patient has normal mentation. He declines further hospitalization despite being offered and meets criteria for discharge today. He understands plan to go to [facility] and was future oriented to establish housing and remain compliant with injections, with the understanding it secures the stability of his mental state reducing any risk of psychotic symptoms. Patient was encouraged to return to the hospital if symptoms worsen or change and encouraged to call the unit if he needs to speak to a provider for questions regarding medications or care, with assistance from case packer if needed. MENTAL STATUS EXAMINATION ON DISCHARGE: Patient is a 30-year old male, who appears stated age, good hygiene, maintains good eye contact. Speech: Is normal in rate, volume, amount, spontaneous. Language skills are normal Thought processes including: Linear, logical Thought content: Denies suicidal or homicidal ideation, or plan, or intent. abstract reasoning, and computation: Intact description of associations: Good Description of abnormal or psychotic thoughts: no, disoriented behavior or paranoia, no delusions expressed in interview Judgment: Improving Insight: Improving Orientation: a/o x3 Recent and remote memory: Intact Attention span and concentration: good Language: Intact Fund of knowledge: Below average based on interview Mood: "pretty good" affect: Euthymic, smiles, laughs and able to make jokes, congruent to mood, appropriate, future oriented MEDICATIONS ON DISCHARGE: See medication reconciliation PLAN/FOLLOWUP ARRANGEMENTS: Will go straight to [facility]. Has appointment with clinic [facility] will remain on March 19 2021 at 2 PM and follow-up appointments March 20, . Patient is next due for Risperdal Consta 37.5 mg IM injection ([facility]) 03/27/21, last dose received 03/13/2021. Requires routine monitoring with fasting labs, an nual EKG, AIMS monitoring for EPS, monitoring psychotic symptoms which may affect his appetite and fluid consumption. Monitoring for any signs of drug abuse including opiates. CSSRS: Wish to be : no Specific active suicidal thoughts: no Lifetime attempts: 0 per interview and chart review Interrupted attempts: 0 Aborted attempts: 0 Preparatory acts or behavior: 0 Taking into consideration safety state, status, modifiable and non-modifiable risk factors patient is at the low risk on discharge according to [place] suicide evaluation, taking also into consideration he has been set up significant supports: with an AOT to ensure compliance, case packer on board, Safe housing newly established, safety planning. The amount of time spent in the coordination of care for this patient was approximately 30 minutes. ETOH/Disorder Med Rx ETOH/DRUG DISORDER RX: Offrd @ d/c & pt refused Vital Signs/I&Os Vital Signs Date Time Temp Pulse Resp B/P (MAP) Pulse Ox O2 Delivery O2 Flow Rate FiO2 03/16/21 06:51 98.2 81 20 134/77 (96) 100 Room Air Medications Scheduled Benztropine Mesylate (Benztropine Mesylate) 1 Mg Tablet, 1 MG PO BID for eps, # 14 Risperidone (Risperidone) 2 Mg Tablet, 2 MG PO BID for psychosis, #14 Risperidone (Risperdal Consta) 37.5 Mg/2 Ml Syringe, 37.5 MG IM Q14D@09 for psychosis, #1 Allergies Coded Allergies: amoxicillin (Verified Allergy, Intermediate, HIVES, 11/11/20) CHARLETTE US MD Mar 17, 2021 19:32
== END 2021-03-16 09:44 | disposition home or self-care (01) | DRG 750 ==
LOC: M ED 00:06 → M ED INP 00:07 → M PSY 08:32
PROVIDERS: ADMIT Psychiatry & Neurology Psychiatry; ATTEND Student in an Organized Health Care Education/Training Program
DX: F20.0 Paranoid schizophrenia (principal); F11.10 Opioid abuse, uncomplicated; Z88.1 Allergy status to other antibiotic agents; Z20.822 Contact with and (suspected) exposure to COVID-19; J45.909 Unspecified asthma, uncomplicated; F17.210 Nicotine dependence, cigarettes, uncomplicated; Z91.19 Patient's noncompliance with other medical treatment and regimen; E46 Unspecified protein-calorie malnutrition; R74.01 Elevation of levels of liver transaminase levels; Z91.14 Patient's other noncompliance with medication regimen; R63.3 Feeding difficulties

== ENCOUNTER → 2021-03-22 | Outpatient (REF) ==
[~2021-03-22] MED LIST changes: +BENZ-52 PO; +RISP-9 PO; +RISP37INJ IM
[2021-03-23 20:10] LABS: INFLUENZA A AMPLIFICATION NEGATIVE (NEGATIVE); INFLUENZA B AMPLIFICATION NEGATIVE (NEGATIVE)
== END ==
LOC: M LAB 11:55